=== PATIENT | female | born 1940 | race Caucasian/White ===

== ENCOUNTER → 2020-10-14 12:37 | Outpatient (BNVA) | payer MEDICARE, MEDICAID, SELFPAY | PROVIDERS: Visit Provider Internal Medicine Cardiovascular Disease | DX: Z45.018 Encounter for adjustment and management of other part of cardiac pacemaker (principal); R00.2 Palpitations; I49.3 Ventricular premature depolarization; I44.7 Left bundle-branch block, unspecified; I95.1 Orthostatic hypotension | CPT/HCPCS: 99212 ==

== ENCOUNTER → 2020-11-12 13:38 | Outpatient (REF) | payer MEDICARE, MEDICAID, SELFPAY ==
--- NOTE | 2020-11-12 13:41 | CA_ITS ---
Transthoracic Echocardiogram Patient (Last, First, Middle): Kirsty Pradhan, Gender: Female Date of : 1940 Age: 80 Procedure Date: 11/12/2020 Procedure Type: Transthoracic Echocardiogram Location: OP Height: 154.94 cm Weight: 81.65 kg BSA: 1.81 m2 Heart Rate: bpm BP: 130 / 90 mmHg Sensor Specialist: ENRIQUE Referring MD: Juan F Loya MD [employer] Coach: Juan F Loya MD Symptoms: I49.3 - Ventricular premature depolarization Study Quality: Good ECG Rhythm: Sinus Conclusions: - 1. Low normal LV systolic function with impaired relaxation filling pattern 2. Mildly dilated left atrium 3. Normal cardiac valvular Doppler 4. Mildly elevated right ventricular systolic pressure 5. No pericardial effusion Findings Left Ventricle Normal left ventricular cavity size. There is normal left ventricular wall thickness. The left ventricular systolic function is low normal. The visually estimated ejection fraction is between 50-55%. There is paradoxical septal motion consistent with a left bundle branch block. Spectral Doppler is indicative of an impaired relaxation filling pattern. E/E prime ratio is between 8 and 15 consistent with indeterminate filling pressures. Right Ventricle Normal right ventricular cavity size and systolic function. There is a pacemaker wire seen in the right ventricle. Atria The left atrium is mildly dilated. The right atrium is normal in size. Aortic Valve There is mild calcification of the aortic valve. There is mild thickening of the aortic valve. There is no aortic valve stenosis. There is no aortic valve regurgitation. Mitral Valve Normal mitral valve structure and function. There is mild mitral annular calcification. There is trace mitral valve regurgitation. There is no mitral valve stenosis. Pulmonic Valve The pulmonic valve is likely normal. Tricuspid Valve Normal tricuspid valve structure. There is mild tricuspid valve regurgitation. Normal right atrial pressure. Mild pulmonary hypertension is present. Great Vessels All visible segments of the aorta are normal in size. The pulmonary artery was not well visualized. Venous The inferior vena cava is normal in size and collapses greater than 50% with inspiration. Pericardium/Pleural There is no evidence of pericardial effusion. Prior Study Comparison Changes noted compared to prior study dated: 05/15/2019. RV systolic pressure is mildly elevated Measurements 2D Linear Measurements IVSd: 1.08 0.6-0.9/0.6-1.0 cm LVIDd: 4.05 3.9-5.3/4.2-5.9 cm LVIDd Index: 2.24 2.4-3.2/2.2-3.1 cm/m2 LVIDs: 2.66 2.0-3.6 cm LVPWd: 1.10 0.7-1.1 cm Ao Root: 3.20 2.1-3.5 cm LA Diam: 3.50 2.7-3.8/3.0-4.0 cm LAIDs Index: 1.93 1.5-2.3 cm/m2 LV Mass: 182.39 67-162/88-224 g LV Mass Index: 100.77 43-95/49-115 g/m2 LVOT Diam: 2.00 3.0+(-)1.3 cm 2D Systolic Function EF 4C: 55.70 >55% EF 2C: 53.40 >55% EF BiP: 54.60 >55% Mitral Valve MV Pk E: 0.62 MV PK A: 0.89 MV Decel Time: 306.00 E/A: 0.70 E'Lateral: 7.40 E'Medial: 3.15 E/E' Med: 19.80 E/E' Lat: 8.40 PHT: 90.00 MVA PHT: 2.44 Decel Lag[place]: 2.04 Aortic Valve AoV Pk Alonso: 1.52 AoV Mn Alonso: 0.97 AoV VTI: 0.32 AoV Pk Grad: 9.00 Aov Mn Grad: 4.00 JHON Cont.VTI: 2.09 LVOT LVOT Pk Alonso: 1.03 LVOT Mn Alonso: 0.69 LVOT VTI: 0.22 LVOT Pk Grad: 4.00 LVOT Mn Grad: 2.00 LVOT Diam: 2.00 LVOT Area: 3.14 Diastolic Function MV Pk E: 0.62 MV Pk A: 0.89 E/A: 0.70 E'Medial: 3.15 E/E' Med: 19.80 E' Laterial: 7.40 E/E' Lat: 8.40 Tricuspid Valve TR Pk Alonso: 3.19 TR Pk Grad: 41.00 RA Press: 3.00 RVSP: 44.00 Great Vessels Aorta Ao Root-2D: 3.20 2.0-3.7 cm Ao Asc: 3.20 2.1-3.4 cm Ao Arch: 2.80 Updated in Other Vendor System with Status of Final Juan F Loya MD electronically signed on 11/13/2020 1:03:31 PM with status of Final
== END ==
LOC: HO.CARD 13:38
PROVIDERS: PCP Internal Medicine; Visit Provider Internal Medicine Cardiovascular Disease
DX: I10 Essential (primary) hypertension (principal); I44.7 Left bundle-branch block, unspecified; I49.3 Ventricular premature depolarization
CPT/HCPCS: 93306

== ENCOUNTER 2021-01-26 12:53 | Outpatient (REF) | payer MEDICARE, MEDICAID, SELFPAY ==
--- NOTE | ~2021-01-26 | MM_ITS ---
EXAMINATION: MM SCREENING DIGITAL BREAST TOMOSYNTHESIS, BILATERAL CLINICAL INFORMATION: Screening. Asymptomatic. The lifetime risk of breast cancer based on the Tyrer-Cuzick Model is 1%. COMPARISON: Mammography: 08/17/2019, 06/02/2018, 03/07/2017 TECHNIQUE: Digital breast tomosynthesis is performed in both the craniocaudal and mediolateral oblique views along with computer-aided detection (CAD). Synthesized 2D images are generated from the tomosynthesis. Additional left CC view is provided. FINDINGS: There are scattered areas of fibroglandular density (ACR BI-RADS breast composition Category b). There are no significant masses, abnormal calcifications, or other abnormalities. Parenchymal pattern is similar to prior studies. No developing density. Pacemaker generator overlies and partly obscures posterior upper left axilla on MLO view. MM/MM tomosynthesis screening BI IMPRESSION: No mammographic evidence of malignancy. ASSESSMENT: BI-RADS 1: Negative RECOMMENDATION: Routine annual mammography screening. This patient's information was entered into a reminder system with a target due date for their next mammogram.
== END 2021-01-26 12:54 | disposition home or self-care (01) ==
LOC: HO.MAMMO 12:53
PROVIDERS: Visit Provider Internal Medicine
DX: Z12.31 Encounter for screening mammogram for malignant neoplasm of breast (principal)
CPT/HCPCS: 77063; 77067

== ENCOUNTER → 2021-04-07 12:57 | Outpatient (BNVA) | payer MEDICARE, MEDICAID, SELFPAY | PROVIDERS: PCP Internal Medicine; Referring Provider Internal Medicine; Visit Provider Internal Medicine Cardiovascular Disease | DX: Z45.018 Encounter for adjustment and management of other part of cardiac pacemaker (principal); I95.1 Orthostatic hypotension; I49.3 Ventricular premature depolarization | CPT/HCPCS: 99212 ==

== ENCOUNTER 2021-04-21 06:30 | Outpatient (REF) | payer MEDICARE, MEDICAID, SELFPAY ==
[2021-04-21 07:26] LABS: MANUAL DIFF FLAG NO
[2021-04-21 07:39] LABS: Basophils Percent Auto 0.3 % (0-2); Eosinophils Absolute Auto 0.1 X10*3/uL (0.0-0.4); Eosinophils Percent Auto 1.1 % (0-4); Hematocrit 41.4 % (37-47); Hemoglobin 13.5 g/dl (12.0-16.0); Imm Gran Abs Auto 0.04 X10*3/uL (0.00-0.03); Imm Gran Pct Auto 0.6 % (0.0-0.4); Lymphocytes Absolute Auto 2.1 X10*3/uL (1.2-4.9); Lymphocytes Percent Auto 31.8 % (20-40); Mean Corpuscular HGB Conc 32.6 g/dl (31.0-35.0); Mean Corpuscular Hemoglobin 30.5 pg (27.0-33.0); Mean Corpuscular Volume 93.7 fL (80-98); Mean Platelet Volume 10.4 fL (9.4-12.3); Monocytes Absolute Auto 0.5 X10*3/uL (0.1-1.2); Monocytes Percent Auto 7.2 % (2-11); Neutrophils Absolute Auto 3.8 X10*3/uL (2.0-8.3); Platelet Count 234 X10*3/uL (160-400); Red Blood Count 4.42 X10*6/uL (4.20-5.50); Red Cell Distribution Width 14.3 % (11.0-16.0); White Blood Count 6.5 X10*3/uL (4.8-10.8)
[2021-04-21 07:56] LABS: B Type Natriuretic Peptide 118 pg/mL (<100)
[2021-04-21 07:59] LABS: Alanine Aminotransferase 18 U/L (0-31); Albumin Level 4.1 g/dL (3.5-5.0); Alkaline Phosphatase 160 U/L (39-117); Anion Gap 11 (12-20); Aspartate Amino Transferase 30 U/L (5-31); Bilirubin Total 0.9 mg/dL (0.0-1.0); Blood Urea Nitrogen 19 mg/dL (9-16); Calcium 9.4 mg/dL (8.4-10.2); Carbon Dioxide 29 mmol/L (22-29); Chloride 108 mmol/L (96-108); Cholesterol 145 mg/dL; Estimated Glomerular Filt Rate > 60; Glucose Random 98 mg/dL (60-115); HDL Cholesterol 56 mg/dL; LDL Cholesterol Calculated 76 mg/dl; Potassium 4.6 mmol/L (3.3-5.1); Sodium 143 mmol/L (135-145); Total Protein 7.2 g/dL (6.5-8.0); Triglycerides 69 mg/dL
[2021-04-21 08:13] LABS: Free T4 (Free Thyroxine) 1.07 ng/dL (0.71-1.85); Thyroid Stimulating Hormone 3.38 uIU/mL (0.32-4.0)
[2021-04-21 08:33] LABS: Folate > 20.0 ng/mL (> or = 4.0); Vitamin B12 423 pg/mL (200-900)
[2021-04-21 08:53] LABS: Glucose Urine UA NEG (NEG); Leukocyte Esterase Urine TRACE (NEG); Nitrite Urine NEG (NEG); PH 5.5 (5.0-8.0); UACC Culture Trigger YES; Urine Blood NEG (NEG); Urine Ketones NEG (NEG); Urine Protein NEG (NEG-TRACE)
[2021-04-21 08:59] LABS: Appearance Urine CLEAR; Color Urine YELLOW
[2021-04-21 09:19] LABS: RBC Urine 0 /HPF (0); Squamous Epithelial Cell Urine TRACE /LPF; WBC Urine 0-2 /HPF (0-4)
== END 2021-04-21 06:31 | disposition home or self-care (01) ==
LOC: HO.LAB 06:30
PROVIDERS: Absent Provider Internal Medicine; PCP Internal Medicine; Visit Provider Internal Medicine
DX: I25.10 Atherosclerotic heart disease of native coronary artery without angina pectoris (principal); K21.9 Gastro-esophageal reflux disease without esophagitis; E78.00 Pure hypercholesterolemia, unspecified; R30.0 Dysuria
CPT/HCPCS: 36415; 80053; 80061; 81001; 81003; 82306; 82607; 82746; 83880; 84439; 84443; 85025; 87086

== ENCOUNTER 2021-06-03 12:13 | Outpatient (REF) | payer MEDICARE, MEDICAID, SELFPAY ==
[2021-06-03 13:34] LABS: Gamma Glutamyl Transpeptidase 25 U/L (7-33)
[2021-06-08 08:22] LABS: 5' Nucleotidase 3 U/L (0-10)
== END 2021-06-03 12:14 | disposition home or self-care (01) ==
LOC: HO.LAB 12:13
PROVIDERS: PCP Internal Medicine; Visit Provider Internal Medicine
DX: R74.8 Abnormal levels of other serum enzymes (principal)
CPT/HCPCS: 36415; 82977; 83915

== ENCOUNTER 2021-06-24 13:48 | Outpatient (REF) | payer MEDICARE, MEDICAID, SELFPAY ==
[2021-06-24 14:55] LABS: Influenza A PCR NEGATIVE (Negative); Influenza B PCR NEGATIVE (Negative); Resp Syncy Virus RNA Qual PCR NEGATIVE (Negative); SARS COV2 PCR INHOUSE POSITIVE (Negative)
== END 2021-06-24 13:49 | disposition home or self-care (01) ==
LOC: HO.LNP 13:48
PROVIDERS: Visit Provider Internal Medicine
DX: R43.9 Unspecified disturbances of smell and taste (principal); Z20.822 Contact with and (suspected) exposure to COVID-19
CPT/HCPCS: 0241U

== ENCOUNTER 2021-07-24 10:29 | Day surgery (SDC) | payer MEDICARE, MEDICAID, SELFPAY ==
[2021-07-17 11:05] VITALS: BMI 34.2
--- NOTE | 2021-07-23 10:43 | P.CONAN_ITS ---
Documented by User: Kiley Braswell NP 07/23/21 10:46 HPI - Anesthesia Eval Consult details Narrative: 81yo F for Dual Chamber Pacemaker Generator Change PMFSH Active Problems Active Problems: All Active Problems (Updated 07/02/21 @ 12:59 by Valorie Spivey PA-C) COVID-19 virus infection (Acute ~05/2021) Upper respiratory tract infection (Acute) Coronary artery disease (Acute) Cardiac pacemaker in situ (Acute ~2012) Left bundle branch block (Acute) History of sick sinus syndrome (Acute ~2012) Orthostatic hypotension dysautonomic syndrome (Acute) PVCs (premature ventricular contractions) (Acute) HTN (hypertension) (Acute) Hypercholesterolemia (Acute) GERD (gastroesophageal reflux disease) (Acute) Osteoporosis (Acute) Obesity (BMI 30-39.9) (Acute) Alkaline phosphatase elevation (Acute) Urge incontinence (Acute) Skin lesion (Acute) Past Medical History Medical History Anxiety Cardiac pacemaker in situ (~2012) Coronary artery disease Diverticular disease GERD (gastroesophageal reflux disease) History of cardiomyopathy History of sick sinus syndrome (~2012) HTN (hypertension) Hypercholesterolemia Lactose intolerance Left bundle branch block Obesity (BMI 30-39.9) Orthostatic hypotension dysautonomic syndrome Osteoporosis PVCs (premature ventricular contractions) Renal calculi TIA (transient ischemic attack) Urge incontinence Family History Family History Father No problems noted. Mother No problems noted. Brother Myocardial infarction Surgical History Surgical History History of cataract surgery History of esophagogastroduodenoscopy (EGD) History of permanent cardiac pacemaker placement History of removal of skin mole History of vaginal hysterectomy Hx of appendectomy Hx of basal cell carcinoma excision Hx of colonoscopy Hx of lumpectomy S/P right knee arthroscopy Social History Social History Housing: Apartment Alcohol intake: never Patient Tobacco Use Status: Former Tobacco user Quit Date: >40yrs ago Tobacco use type: Cigarette e-Cigarette/Vaping Use: Never Used Second Hand Smoke Exposure: No Use of substances other than those prescribed or required for medical reasons: No Are you DNR?: No Advance Directives: No Advance Directives Information Provided: Yes service: No Current occupational status: retired Meds Allergies Allergy/AdvReac Type Severity Reaction Status Date / Time oxycodone [From PERCODAN] Allergy Unknown UNKNOWN Verified 07/24/21 11:04 cheese AdvReac Diarrhea Verified 07/24/21 11:05 iv contrast Allergy Unknown hives Uncoded 06/24/21 11:31 From PERCOCET AdvReac Intermediate HEADACHE/RINGING Uncoded 06/24/21 11:31 IN EARS Home Medications Medication Instructions Recorded Confirmed Last Taken Type aspirin 81 mg tablet,delayed 81 mg PO DAILY 10/14/20 06/24/21 Unknown History release (Adult Aspirin Regimen) ascorbic acid (vitamin C) 1,000 mg 1,000 mg PO DAILY 07/24/21 07/24/21 Unknown History tablet (Vitamin C) calcium 500 mg tablet 500 mg PO DAILY 07/24/21 07/24/21 Unknown History multivitamin 1 tab PO DAILY 07/24/21 07/24/21 Unknown History Exam Exam Date and Time: July 23, 2021 1043 Height,Weight and Vital Signs: Height 5 ft 1 in Weight 82.1 kg Pertinent Lab Results Pertinent Lab Results: Laboratory Tests 04/21/21 04/21/21 07:00 07:00 WBC 6.5 Hgb 13.5 Hct 41.4 Plt Count 234 Sodium 143 Potassium 4.6 Chloride 108 Carbon Dioxide 29 BUN 19 H Creatinine 0.86 Narrative Narrative: Pacer Interr 03/2021 Dual-chamber [place] pacemaker in place.? Programmed in DDDR at 60 beats per minute.? Atrial pacing 85% of the time.? Recorded high atrial rates are consistent with artifact.? There were PVCs noted during monitoring.? Atrial and ventricular pacing thresholds are adequate and in our capture mode.? Atrial ventricular sensing is adequate.? Pacing lead impedance is stable.? Battery life is low, less than 3 months to [facility] E[facility] 10/2020 Conclusions: - 1. Low normal LV systolic function with impaired relaxation? ? filling pattern? 2. Mildly dilated left atrium? 3. Normal cardiac valvular Doppler ? 4. Mildly elevated right ventricular systolic pressure ? 5. No pericardial effusion ? ? ? Assessment and Plan Assessment Anesthesia Assessment: Chart Reviewed Documented by User: Rubi Wen MD 07/24/21 11:57 [facility] Past Medical History Medical History Anxiety Cardiac pacemaker in situ (~2012) Coronary artery disease Diverticular disease GERD (gastroesophageal reflux disease) History of cardiomyopathy History of sick sinus syndrome (~2012) HTN (hypertension) Hypercholesterolemia Lactose intolerance Left bundle branch block Obesity (BMI 30-39.9) Orthostatic hypotension dysautonomic syndrome Osteoporosis PVCs (premature ventricular contractions) Renal calculi TIA (transient ischemic attack) Urge incontinence Family History Family History Father No problems noted. Mother No problems noted. Brother Myocardial infarction Family history of problems with anesthesia: No Surgical History Surgical History History of cataract surgery History of esophagogastroduodenoscopy (EGD) History of permanent cardiac pacemaker placement History of removal of skin mole History of vaginal hysterectomy Hx of appendectomy Hx of basal cell carcinoma excision Hx of colonoscopy Hx of lumpectomy S/P right knee arthroscopy History of Problems with Anesthesia: No Social History Social History Housing: Apartment Alcohol intake: never Patient Tobacco Use Status: Former Tobacco user Quit Date: >40yrs ago Tobacco use type: Cigarette e-Cigarette/Vaping Use: Never Used Second Hand Smoke Exposure: No Use of substances other than those prescribed or required for medical reasons: No Are you DNR?: No Advance Directives: No Advance Directives Information Provided: Yes service: No Current occupational status: retired Meds Allergies Allergy/AdvReac Type Severity Reaction Status Date / Time oxycodone [From PERCODAN] Allergy Unknown UNKNOWN Verified 07/24/21 11:04 cheese AdvReac Diarrhea Verified 07/24/21 11:05 iv contrast Allergy Unknown hives Uncoded 06/24/21 11:31 From PERCOCET AdvReac Intermediate HEADACHE/RINGING Uncoded 06/24/21 11:31 IN EARS Home Medications Medication Instructions Recorded Confirmed Last Taken Type aspirin 81 mg tablet,delayed 81 mg PO DAILY 10/14/20 06/24/21 Unknown History release (Adult Aspirin Regimen) ascorbic acid (vitamin C) 1,000 mg 1,000 mg PO DAILY 07/24/21 07/24/21 Unknown History tablet (Vitamin C) calcium 500 mg tablet 500 mg PO DAILY 07/24/21 07/24/21 Unknown History multivitamin 1 tab PO DAILY 07/24/21 07/24/21 Unknown History Exam Airway Mallampati Class: II TM Dist: >3cm Neck ROM: Full Heart: rrr Lungs: cta Assessment and Plan Assessment Anesthesia Assessment: Anesthesia Plan Discussed and Chart Reviewed Final Anesthetic Review Family History of Problems with Anesthesia: No History of Problems with Anesthesia: No NPO: Yes ASA Class: III Final Preanesthetic Review: No Changes in Pt Med Stat, Meds/Allgs Chart Reviewed and Consent Obtained/Reviewed Patient Risk: Intermediate Procedure Risk: Intermediate Anesthetic Plan Anesthetic Plan: MAC: Disposition: Standard PACU
[2021-07-24] VITALS (7 sets, daily range): BP systolic 112–192; BP diastolic 73–87; PULSE 55–61; RESP 16; TEMP 36.3–36.7; O2SAT 96–98; BMI 34.0
[2021-07-24] MEDS: Lactated Ringers 1,000 ML 20 ML IVCONT (11:52)
--- NOTE | 2021-07-24 12:00 | MHC.SHP ---
Pre-Procedural Eval Section A Date of Service: 07/24/21 The patient is an INPATIENT: No Section B Chief Complaint: end of life battery Allergies: Allergies Allergy/AdvReac Type Severity Reaction Status Date / Time oxycodone [From PERCODAN] Allergy Unknown UNKNOWN Verified 07/24/21 11:04 cheese AdvReac Diarrhea Verified 07/24/21 11:05 iv contrast Allergy Unknown hives Uncoded 06/24/21 11:31 From PERCOCET AdvReac Intermediate HEADACHE/RINGING Uncoded 06/24/21 11:31 IN EARS Plan I have reviewed the history and physical and performed a pertinent physical examination on my patient. No changes have occurred unless specified.
--- NOTE | 2021-07-24 12:58 | W.PM.OPN ---
Operative Note Operative Note Date of Service: 07/24/21 Narrative: Preoperative diagnosis: Pacemaker end of life Postoperative diagnosis: Same Operation: Dual-chamber pacemaker generator change Surgeon: Lora Plunkett MD Anesthesia: Local with sedation Specimens: None EBL: Minimal Operative findings: The generator were removed was a [employer] with serial number [id number]. Pacemaker lead parameters were in the atrial lead threshold 1.25 volts at 0.5 milliseconds, impedance 390 Ohms, P-wave 4.8 mV. In the ventricular lead 1.25 volts at 0.5 milliseconds, impedance 380 Ohms, R-wave 6.1 mV. Patient tolerated the procedure well. Operation in detail: The patient was brought the operating room, placed supine on the operative table, anesthesia monitoring devices were placed, and the patient was gently sedated. The left infraclavicular area was then prepped and draped in a standard sterile fashion and a time-out was performed confirming the correct patient, site, and procedure. After injection of local anesthetic, a 3 cm incision was made directly over the old pacemaker generator which was palpable. This was carried down with combination of sharp dissection and minimal electrocautery to open up the capsule at the generator was within. The generator was were then removed from its pocket and the leads were taken out of the receptacles and placed directly into the new generator. These leads were then tested and were working appropriately. The pocket was then copiously irrigated with antibiotic solution and the excess wire and generator were then placed back into the pocket. The wound was then closed with a deep running 3-0 Vicryl suture followed by running 3-0 Vicryl suture and Dermabond glue on the skin. Patient tolerated the procedure well. Patient was then awoken from anesthesia and brought to the recovery room in stable condition.
== END 2021-07-24 14:53 | disposition home or self-care (01) ==
PROVIDERS: PCP Internal Medicine; Visit Provider Surgery
PROC: (CPT 33228; principal; 2021-07-24 12:00)
DX: Z45.010 Encounter for checking and testing of cardiac pacemaker pulse generator [battery] (principal); I49.5 Sick sinus syndrome; I49.3 Ventricular premature depolarization; I95.1 Orthostatic hypotension; I10 Essential (primary) hypertension; Z86.73 Personal history of transient ischemic attack (TIA), and cerebral infarction without residual deficits; Z79.82 Long term (current) use of aspirin; Z79.899 Other long term (current) drug therapy; Z91.041 Radiographic dye allergy status; Z88.8 Allergy status to other drugs, medicaments and biological substances
CPT/HCPCS: 33228; C1785; J0690; J2250; J3010; J3370

== ENCOUNTER → 2021-07-30 12:43 | Outpatient (BNVA) | payer MEDICARE, MEDICAID, SELFPAY | PROVIDERS: PCP Internal Medicine; Referring Provider Internal Medicine; Visit Provider Internal Medicine Cardiovascular Disease | DX: Z45.018 Encounter for adjustment and management of other part of cardiac pacemaker (principal); I95.1 Orthostatic hypotension; I49.9 Cardiac arrhythmia, unspecified | CPT/HCPCS: 99212 ==

== ENCOUNTER → 2021-07-31 10:27 | Outpatient (BNVA) | payer MEDICARE, MEDICAID, SELFPAY | PROVIDERS: PCP Internal Medicine; Visit Provider Surgery | DX: T81.89XD Other complications of procedures, not elsewhere classified, subsequent encounter (principal); Z95.0 Presence of cardiac pacemaker | CPT/HCPCS: 99212 ==

== ENCOUNTER → 2021-08-31 12:57 | Outpatient (BNVA) | payer MEDICARE, MEDICAID, SELFPAY | PROVIDERS: PCP Internal Medicine; Referring Provider Internal Medicine; Visit Provider Internal Medicine Cardiovascular Disease ==

== ENCOUNTER 2021-11-10 11:43 | Outpatient (REF) | payer MEDICARE, MEDICAID, SELFPAY ==
[2021-11-10 11:56] LABS: Appearance Urine CLEAR; Color Urine YELLOW; Glucose Urine UA NEG (NEG); Leukocyte Esterase Urine TRACE (NEG); Nitrite Urine NEG (NEG); PH 5.5 (5.0-8.0); Specific Gravity - Urine 1.025 (1.005-1.025); UACC Culture Trigger YES; Urine Blood NEG (NEG); Urine Ketones NEG (NEG); Urine Protein NEG (NEG-TRACE)
[2021-11-10 12:16] LABS: Bacteria Urine TRACE /LPF; Mucus Urine TRACE /LPF; RBC Urine 0-2 /HPF (0); Squamous Epithelial Cell Urine TRACE /LPF
== END 2021-11-10 11:44 | disposition home or self-care (01) ==
LOC: HO.LNP 11:43
PROVIDERS: Visit Provider Internal Medicine
DX: R10.32 Left lower quadrant pain (principal)
CPT/HCPCS: 81001; 87086

== ENCOUNTER 2021-11-29 10:48 | Emergency (ER) | payer MEDICARE, MEDICAID, SELFPAY ==
--- NOTE | ~2021-11-29 | CT_ITS ---
EXAMINATION: CT HEAD WITHOUT CONTRAST CLINICAL INFORMATION: Dizziness and headache. COMPARISON: Most recent CT head dated 01/31/2020. TECHNIQUE: Contiguous axial imaging was performed from the skull base to vertex without intravenous administration of contrast. This CT examination was performed using dose optimization techniques as appropriate, variously including the following: *Automated exposure control *Adjustment of mA and/or kV according to patient size (this includes techniques or standardized protocols for targeted exams where dose is matched to indication/reason for exam; i.e. extremities or head) *Use of iterative reconstruction technique DLP: 614 mGy-cm FINDINGS: There is no evidence of acute intracranial hemorrhage or territorial infarction. No abnormal mass effect or midline shift is seen. Casey to white matter differentiation is well preserved. No extra-axial fluid collections are identified. The ventricles are normal in size. There is no abnormal attenuation within the brain parenchyma. The osseous structures and soft tissues are normal. The mastoid air cells and visualized portions of the paranasal sinuses are well aerated. CT/CT head/brain wo con IMPRESSION: No acute intracranial pathology.
[2021-11-29 10:54] VITALS: BP 178/65; PULSE 63; RESP 16; TEMP 36.8; O2SAT 96; BMI 35.0
--- NOTE | 2021-11-29 10:59 | PC.NURSE ---
Pt received: Pt AOX4 and offers complaints to TORRES, nose and throat. Pt states everything feels clogged. No swelling noted to back of throat. Heart sounds normal and lungs clear. Pt abd soft and non-tender.
--- NOTE | 2021-11-29 11:17 | ED_ITS ---
HPI - General Adult General Chief complaint: General Medical Stated complaint: dizzy sore throat blocked ears Time Seen by Provider: 11/29/21 11:00 Source: patient Mode of arrival: ambulatory Limitations: no limitations History of Present Illness HPI narrative: 81-year-old female with a history of coronary artery disease, pacemaker, hypertension, high cholesterol, GERD here with reports of 1.5 months of head pressure, ear fullness bilaterally, sinus congestion and pressure, sore throat. Patient tells me she had a urinary tract infection on October 31 and did a 5 day course of Bactrim. She tells me her symptoms above improved while taking the Bactrim but once she stopped the Bactrim the symptoms returned. She is not using any nasal sprays or allergy medication. She denies any cough, shortness of breath, chest pain, neck pain. Patient does report some dizziness with head movement from side to side. No vomiting, diarrhea, abdominal pain. Related Data Home Medications Medication Instructions Recorded Confirmed aspirin 81 mg tablet,delayed 81 mg PO DAILY 10/14/20 10/06/21 release (Adult Aspirin Regimen) ascorbic acid (vitamin C) 1,000 mg 1,000 mg PO DAILY 07/24/21 10/06/21 tablet (Vitamin C) calcium 500 mg tablet 500 mg PO DAILY 07/24/21 10/06/21 multivitamin 1 tab PO DAILY 07/24/21 10/06/21 Previous Rx's Medication Instructions Recorded metoprolol succinate 100 mg 100 mg PO DAILY #90 tab 01/08/21 tablet,extended release 24 hr omeprazole 20 mg capsule,delayed 20 mg PO DAILY #90 cap 02/09/21 release isosorbide mononitrate 30 mg 30 mg PO QAM #90 tab 07/13/21 tablet,extended release 24 hr atorvastatin 20 mg tablet 20 mg PO DAILY #90 tab 08/06/21 nitroglycerin 0.4 mg sublingual 0.4 mg SUBLINGUAL Q5M PRN #25 tab 08/06/21 tablet (Nitrostat) oxybutynin chloride 10 mg 10 mg PO DAILY 90 Days #90 tab 10/06/21 tablet,extended release 24 hr cyclosporine 0.05 % eye drops in a 1 drp OPHTHALMIC (EYE) BID #180 ea 10/21/21 dropperette (Restasis) sulfamethoxazole 800 1 tab PO BID 5 Days #10 tab 11/10/21 mg-trimethoprim 160 mg tablet (Bactrim DS) hydralazine 50 mg tablet 50 mg PO BID #180 tab 11/26/21 amoxicillin 875 mg-potassium 1 tab PO BID #14 tab 11/29/21 clavulanate 125 mg tablet cetirizine 10 mg tablet 10 mg PO DAILY #30 tab 11/29/21 triamcinolone acetonide 55 mcg 2 spray INTRANASAL DAILY #16.9 ml 11/29/21 nasal spray aerosol (Nasacort Allergy) Allergies Allergy/AdvReac Type Severity Reaction Status Date / Time oxycodone [From PERCODAN] Allergy Unknown UNKNOWN Verified 10/06/21 12:23 cheese AdvReac Diarrhea Verified 10/06/21 12:23 iv contrast Allergy Unknown hives Uncoded 06/24/21 11:31 From PERCOCET AdvReac Intermediate HEADACHE/RINGING Uncoded 06/24/21 11:31 IN EARS Review of Systems Review of Systems: Yes all other systems are reviewed and are negative Constitutional: Constitutional: Reports no additional constitutional co mplaints, Denies body ache(s), Denies chills, Denies fever(s), Reports headache(s) and Denies weakness Eyes: Eyes: Reports no additional eye complaints and Denies change in vision ENT: Reports system reviewed and no additional complaints, except as documented, Reports dizziness, Reports headache(s), Reports nasal congestion, Denies nasal discharge, Denies neck pain, Reports sinus pain, Reports sinus pressure and Reports sore throat Cardiovascular: Cardiovascular: Reports no additional cardiovascular complaints, Denies chest pain, Denies leg edema and Denies dyspnea Respiratory: Respiratory: Reports no additional respiratory complaints, Denies cough and Denies dyspnea Gastrointestinal: Gastrointestinal: Reports no additional gastrointestinal com plaints, Denies abdominal pain, Denies diarrhea, Denies nausea and Denies vomiting Genitourinary: Genitourinary: Reports no additional female genitourinary complaints and Denies urinary incontinence Musculoskeletal: Musculoskeletal: Reports no additional musculoskeletal complaints, Denies back pain, Denies arthralgias, Denies joint swelling, Denies neck pain, Denies numbness and Denies tingling Integumentary/Breasts: Skin/Breast: Reports system reviewed and no additional complaints, except as docu and Denies rash Neurologic: Reports system reviewed and no additional complaints, except as documented, Reports dizziness, Reports headache(s), Denies numbness, Denies tingling and Denies weakness FOR[facility]LY [facility] Past Medical History Attestation statement: The following information was validated with the patient. Source: old records reviewed and nursing notes reviewed Medical History Anxiety Cardiac pacemaker in situ (~2012) Coronary artery disease Diverticular disease GERD (gastroesophageal reflux disease) History of cardiomyopathy History of COVID-19 (~05/2021) History of sick sinus syndrome (~2012) HTN (hypertension) Hypercholesterolemia Lactose intolerance Left bundle branch block Obesity (BMI 30-39.9) Orthostatic hypotension dysautonomic syndrome Osteoporosis PVCs (premature ventricular contractions) Renal calculi TIA (transient ischemic attack) Urge incontinence Surgical History History of cataract surgery History of esophagogastroduodenoscopy (EGD) History of permanent cardiac pacemaker placement History of removal of skin mole History of vaginal hysterectomy Hx of appendectomy Hx of basal cell carcinoma excision Hx of colonoscopy Hx of lumpectomy S/P right knee arthroscopy Family History Family History Father No problems noted. Mother No problems noted. Brother Myocardial infarction Social History Social History Housing: Apartment Alcohol intake: never Patient Tobacco Use Status: Former Tobacco user Quit Date: >40yrs ago Tobacco use type: Cigarette e-Cigarette/Vaping Use: Never Used Second Hand Smoke Exposure: No Advance Directives: No Advance Directives Information Provided: No service: No Current occupational status: retired Physical Exam ED Vital Signs: Vital Signs - 24 hr 11/29/21 10:54 Temperature 98.3 F Pulse Rate 63 Respiratory Rate 16 Blood Pressure 178/65 H Pulse Oximetry 96 BMI result Body Mass Index 35.0 Const General: cooperative, healthy appearing, comfortable and no acute distress Orientation/consciousness: patient oriented x3 Limitations: no limitations HENMT Head: Yes normal to inspection Ears: hearing grossly normal bilaterally and TM abnormal (bilateral) bulging and wth effusion; Negative for not erythematous General nose exam: Normal external nose present and Abnormal mucous membranes and turbinates present erythematous Face and sinus: Yes normal facial exam and Yes sinus tenderness (frontal/maxillary ttp) Mouth: Normal oral and palatal mucosa present Teeth and gingiva: dentition normal Throat: Yes posterior oropharynx normal, Yes tonsils normal and Yes uvula midline Eyes General: appearance normal, both eyes and all related structures Pupils: Equal, round and reactive pupils present Neck Neck: Yes normal visual inspection, Yes full ROM, Yes no lymphadenopathy and Yes no meningeal signs Chest Chest palpation & inspection: normal inspection of the chest Resp Effort & Inspection: normal respiratory effort Auscultation: clear to auscultation bilaterally Cardio Rate: regular rate Rhythm: regular rhythm Peripheral pulses: Peripheral pulses 2+ throughout GI Inspection: Yes normal to inspection Palpation (GI): Soft to palpation and nontender General: Yes no CVA tenderness Back/Spine/Pelvis Back: no CVA tenderness Thoracic/Lumbar Spine: thoracic and lumbar spine normal to inspection Skin General skin exam: no rashes or lesions noted Neuro General: patient oriented x3, moves all extremities and no meningeal signs Cranial nerves: Yes CN's II-XII intact bilaterally, Yes Equal, round and reactive pupils present, Yes Bilaterally intact EOM present, Yes Nystagmus not present, Yes Normal facial strength present and Yes Midline tongue present Cognition (Neuro): normal cognition Gait exam (Neuro): Normal gait present Motor exam (neuro): 5/5 motor strength present throughout Sensory Exam: Normal double simultaneous stimulation for sensation Coordination: [id number] test normal, [id number] test normal and tandem gait normal Extrem General: Yes normal to inspection, Yes no pedal edema and Yes no calf tenderness Course Course Course Narrative: 81 yo female here with complaints of 1.5 months of head pressure, ear fullness bilaterally, sinus pressure and pain, scratchy throat, dizziness with head movement. Normal neuro exam. No focal neurological exam. Normal cerebellar function. Vitals are stable Patient has bilateral TM is fusion with bulging, sinus tenderness to palpate. Likely sinusitis versus allergic rhinitis Will check CT head due to age 1230-CT head shows no acute intracranial hemorrhage. Exam is consistent with sinusitis. Will treat with course of antibiotics, daily allergy medication and nasal spray. Reviewed worrisome signs and symptoms of when to return to the emergency department. Comfortable discharge home. Medical Decision Making MDM Narrative Medical decision making narrative: Sinusitis, allergic rhinitis, Medical Records Medical records reviewed: Yes I reviewed the patient's medical records. Lab Data Lab results reviewed: Yes I reviewed the patient's lab results. Imaging Data CT scan - head: Attestation: I personally reviewed and interpreted this imaging study as follows: Radiologist's impression: FINDINGS: There is no evidence of acute intracranial hemorrhage or territorial infarction. No abnormal mass effect or midline shift is seen. Casey to white matter differentiation is well preserved. No extra-axial fluid collections are identified. The ventricles are normal in size. There is no abnormal attenuation within the brain parenchyma. The osseous structures and soft tissues are normal. The mastoid air cells and visualized portions of the paranasal sinuses are well aerated. ? CT/CT head/brain wo con IMPRESSION: No acute intracranial pathology. Discharge Plan Discharge Clinical Impression: Sinusitis Patient Disposition: Home, Self-Care Instructions: Sinusitis (ED) Additional Instructions: Follow-up with your PCP in 7 days for re-evaluation Return for severe headache, loss of balance, vomiting, vision changes Consider humidifier for the bedroom, warm moist air is best Prescriptions: New amoxicillin-pot clavulanate 875-125 mg tablet 1 tab PO BID Qty: 14 0RF triamcinolone acetonide [Nasacort Allergy] 55 mcg aerosol,spray 2 spray intranasal DAILY Qty: 16.9 0RF Rx Instructions: administer into each nostril cetirizine 10 mg tablet 10 mg PO DAILY Qty: 30 0RF No Action metoprolol succinate 100 mg tablet extended release 24 hr 100 mg PO DAILY Qty: 90 3RF omeprazole 20 mg capsule,delayed release(DR/EC) 20 mg PO DAILY Qty: 90 3RF isosorbide mononitrate 30 mg tablet extended release 24 hr 30 mg PO QAM Qty: 90 2RF nitroglycerin [Nitrostat] 0.4 mg tablet, sublingual 0.4 mg sublingual Q5M PRN (Reason: chest pain) Qty: 25 0RF Rx Instructions: do not exceed 3 doses per episode atorvastatin 20 mg tablet 20 mg PO DAILY Qty: 90 2RF Restasis 0.05 % dropperette 1 drp ophthalmic (eye) BID Qty: 180 0RF sulfamethoxazole-trimethoprim [Bactrim DS] 800-160 mg tablet 1 tab PO BID 5 Days Qty: 10 0RF hydralazine 50 mg tablet 50 mg PO BID Qty: 180 0RF multivitamin Tablet 1 tab PO DAILY 0RF ascorbic acid (vitamin C) [Vitamin C] 1,000 mg Tablet 1,000 mg PO DAILY 0RF calcium 500 mg Tablet 500 mg PO DAILY 0RF oxybutynin chloride 10 mg tablet extended release 24hr 10 mg PO DAILY 90 Days Qty: 90 2RF aspirin [Adult Aspirin Regimen] 81 mg tablet,delayed release (DR/EC) 81 mg PO DAILY 0RF Referrals: Po,Claudette Childers MD [Primary Care Provider] - 1 week (for re-evaluation ) Interventions: ED Discharge Assessment Last Done: 11/29/21 12:41 Discharge Date/Time: 11/29/21 12:41
== END 2021-11-29 12:41 | disposition home or self-care (01) ==
PROVIDERS: Emergency Provider Emergency Medicine; PCP Internal Medicine
DX: J32.9 Chronic sinusitis, unspecified (principal); R42 Dizziness and giddiness; I10 Essential (primary) hypertension; Z79.899 Other long term (current) drug therapy; Z87.891 Personal history of nicotine dependence
CPT/HCPCS: 70450; 99283

== ENCOUNTER 2022-02-01 11:51 | Outpatient (REF) | payer MEDICARE, MEDICAID, SELFPAY ==
--- NOTE | ~2022-02-01 | MM_ITS ---
EXAMINATION: MM SCREENING DIGITAL BREAST TOMOSYNTHESIS, BILATERAL CLINICAL INFORMATION: Screening. Asymptomatic. The lifetime risk of breast cancer based on the Tyrer-Cuzick Model is 1%. COMPARISON: Mammography: 01/26/2021, 08/17/2019, 06/02/2018 TECHNIQUE: Digital breast tomosynthesis is performed in both the craniocaudal and mediolateral oblique views along with computer-aided detection (CAD). Synthesized 2D images are generated from the tomosynthesis. Additional right CC and left CC x2 views are provided. FINDINGS: There are scattered areas of fibroglandular density (ACR BI-RADS breast composition Category b). There are no significant masses, abnormal calcifications, or other abnormalities. Parenchymal pattern is similar to prior studies and there is no developing density or interval architectural abnormality. There is a pacemaker generator overlying and partly obscuring posterior upper left axilla on MLO view. MM/MM tomosynthesis screening BI IMPRESSION: No mammographic evidence of malignancy. ASSESSMENT: BI-RADS 2: Benign RECOMMENDATION: Routine annual mammography screening. This patient's information was entered into a reminder system with a target due date for their next mammogram.
== END 2022-02-01 11:52 | disposition home or self-care (01) ==
LOC: HO.MAMMO 11:51
PROVIDERS: Visit Provider Internal Medicine
DX: Z12.31 Encounter for screening mammogram for malignant neoplasm of breast (principal)
CPT/HCPCS: 77063; 77067

== ENCOUNTER → 2022-02-11 12:59 | Outpatient (BNVA) | payer MEDICARE, MEDICAID, SELFPAY | PROVIDERS: PCP Internal Medicine; Referring Provider Internal Medicine; Visit Provider Internal Medicine Cardiovascular Disease | DX: Z45.018 Encounter for adjustment and management of other part of cardiac pacemaker (principal); I44.7 Left bundle-branch block, unspecified; I95.1 Orthostatic hypotension; I49.3 Ventricular premature depolarization | CPT/HCPCS: 93005; 93280; 99212 ==

== ENCOUNTER 2022-02-17 11:22 | Outpatient (REF) | payer MEDICARE, MEDICAID, SELFPAY ==
--- NOTE | ~2022-02-17 | CT_ITS ---
EXAMINATION: CT ABDOMEN AND PELVIS WITHOUT CONTRAST CLINICAL INFORMATION: Left lower quadrant pain. COMPARISON: None TECHNIQUE: Multidetector volumetric imaging was performed from the superior aspect of the liver through the pubic symphysis. Sagittal and coronal reformatted images were obtained on the technologist's workstation. This CT examination was performed using dose optimization techniques as appropriate, variously including the following: *Automated exposure control *Adjustment of mA and/or kV according to patient size (this includes techniques or standardized protocols for targeted exams where dose is matched to indication/reason for exam; i.e. extremities or head) *Use of iterative reconstruction technique DLP: 611 mGy-cm FINDINGS: LUNG BASES: The lung bases are clear. There is platelike atelectasis in the left lower lobe. LIVER, GALLBLADDER, AND BILIARY TREE: The liver is normal in size, shape, and attenuation. No focal hepatic lesion or biliary ductal dilatation is present. The gallbladder is unremarkable with no evidence of radiopaque gallstones, gallbladder wall thickening, or obvious pericholecystic inflammatory changes. PANCREAS: Unremarkable. SPLEEN: Unremarkable. ADRENAL GLANDS: Unremarkable. KIDNEYS AND URETERS: The kidneys are normal in size, shape, and attenuation. There is a 2 mm calcification/calculi midpole left kidney without caliectasis. There is a moderate sized cyst midpole right kidney measuring 7 x 4.8 cm. There is bilateral perinephric stranding. BLADDER: Unremarkable. GASTROINTESTINAL TRACT: There is oral contrast opacifying the entire colon and the small bowel loops without distention. There is nonspecific mild mural thickening involving the descending colon likely secondary to incomplete distention. The appendix is normal caliber. The stomach is nondistended. ABDOMINAL WALL: No significant hernia is appreciated. LYMPH NODES: Normal. VASCULAR: There is atherosclerotic calcification abdominal aorta without aneurysmal dilatation. PELVIC VISCERA: Unremarkable. OSSEOUS STRUCTURES: There is levoscoliosis of the lumbar spine. No lytic or sclerotic process seen. Moderate left facet joint arthropathy seen at L4-L5. Mild degenerative vacuum disc phenomena is seen from T11-T12 through L2-L3 disc level. Corduroy-shaped abnormality seen involving the T11 vertebra likely hemangioma. CT/CT abdomen pelvis wo con IMPRESSION: No acute intra-abdominal process seen. Nonspecific mild mural thickening descending colon likely due to incomplete distention. Moderate sized cyst right kidney and nonobstructive radiopaque calculi upper/mid pole left kidney. Fleischner guidelines were followed.
[2022-02-17] MEDS: Barium Sulfate Oral (Vanilla) 450 ML ORAL.SUSP 900 ML PO (13:57)
== END 2022-02-17 11:23 | disposition home or self-care (01) ==
LOC: HO.CT 11:22
PROVIDERS: Visit Provider Internal Medicine
DX: R10.32 Left lower quadrant pain (principal)
CPT/HCPCS: 74176

== ENCOUNTER 2022-04-01 13:10 | Emergency (ER) | payer MEDICARE, MEDICAID, SELFPAY ==
--- NOTE | ~2022-04-01 | CT_ITS ---
EXAMINATION: CT ABDOMEN AND PELVIS WITHOUT CONTRAST CLINICAL INFORMATION: Left lower quadrant tenderness COMPARISON: 02/17/2022 TECHNIQUE: Multidetector volumetric imaging was performed from the superior aspect of the liver through the pubic symphysis. Sagittal and coronal reformatted images were obtained on the technologist's workstation. This CT examination was performed using dose optimization techniques as appropriate, variously including the following: *Automated exposure control *Adjustment of mA and/or kV according to patient size (this includes techniques or standardized protocols for targeted exams where dose is matched to indication/reason for exam; i.e. extremities or head) *Use of iterative reconstruction technique DLP: 819 mGy-cm FINDINGS: LUNG BASES: The visualized lung bases are unremarkable. LIVER, GALLBLADDER, AND BILIARY TREE: The liver is normal in size, shape, and attenuation. No focal hepatic lesion or biliary ductal dilatation is present. The gallbladder is unremarkable with no evidence of radiopaque gallstones, gallbladder wall thickening, or obvious pericholecystic inflammatory changes. PANCREAS: Unremarkable. SPLEEN: Unremarkable. ADRENAL GLANDS: Unremarkable. KIDNEYS AND URETERS: There is a right renal cyst measuring approximately 5.8 cm, similar to prior; no follow-up recommended. No hydronephrosis or obstructing calculus bilaterally. Redemonstrated 2 mm calculus in the mid left kidney. Nonspecific bilateral perinephric stranding again noted. BLADDER: Unremarkable. GASTROINTESTINAL TRACT: There is mild colonic diverticulosis without diverticulitis. No evidence of bowel obstruction. There is subtle, relatively focal fat stranding anterior to the distal descending colon which appears new compared to prior; given the clinical history, this is suggestive of epiploic appendagitis. The appendix is unremarkable. No free fluid or free air is seen. ABDOMINAL WALL: No significant hernia is appreciated. LYMPH NODES: Normal. VASCULAR: There is atherosclerotic calcification along the aorta. PELVIC VISCERA: Status post hysterectomy. OSSEOUS STRUCTURES: Degenerative changes are noted in the spine. Heterogeneously mixed sclerotic/lytic appearance of T11 is unchanged. CT/CT abdomen pelvis wo con IMPRESSION: Mild, relatively focal fat stranding adjacent to the distal descending colon, most suggestive of epiploic appendagitis.
[2022-04-01 13:35] VITALS: BP 183/85; PULSE 60; RESP 18; TEMP 36.6; O2SAT 96; BMI 34.0
[2022-04-01 13:55] LABS: MANUAL DIFF FLAG NO
[2022-04-01 13:58] LABS: Basophils Percent Auto 0.2 % (0-2); Eosinophils Absolute Auto 0.1 X10*3/uL (0.0-0.4); Eosinophils Percent Auto 0.6 % (0-4); Hematocrit 39.6 % (37.0-47.0); Hemoglobin 13.1 g/dl (12.0-16.0); Imm Gran Abs Auto 0.04 X10*3/uL (0.00-0.03); Imm Gran Pct Auto 0.3 % (0.0-0.4); Lymphocytes Absolute Auto 2.7 X10*3/uL (1.2-4.9); Lymphocytes Percent Auto 21.8 % (20-40); Mean Corpuscular HGB Conc 33.1 g/dl (31.0-35.0); Mean Corpuscular Volume 93.6 fL (80.0-98.0); Mean Platelet Volume 9.7 fL (9.4-12.3); Monocytes Absolute Auto 1.1 X10*3/uL (0.1-1.2); Monocytes Percent Auto 8.5 % (2-11); Neutrophils Absolute Auto 8.4 x10*3/uL (2.0-8.3); Neutrophils Percent Auto 68.6 % (45-73); Platelet Count 254 X10*3/uL (160-400); Red Blood Count 4.23 X10*6/uL (4.20-5.50); Red Cell Distribution Width 13.8 % (11.0-16.0); White Blood Count 12.3 X10*3/uL (4.8-10.8)
[2022-04-01 14:12] LABS: Anion Gap 13 (12-20); Appearance Urine HAZY; Blood Urea Nitrogen 23 mg/dL (9-16); Calcium 8.9 mg/dL (8.4-10.2); Carbon Dioxide 27 mmol/L (22-29); Chloride 104 mmol/L (96-108); Color Urine YELLOW; Creatinine Clr Calc Pharmacy 45.4; Estimated Glomerular Filt Rate 57; Glucose Random 87 mg/dL (60-115); Glucose Urine UA NEG (NEG); Leukocyte Esterase Urine 1+ (NEG); Nitrite Urine NEG (NEG); PH 5.5 (5.0-8.0); Potassium 4.7 mmol/L (3.3-5.1); Sodium 139 mmol/L (135-145); Specific Gravity - Urine 1.015 (1.005-1.025); UACC Culture Trigger YES; Urine Blood NEG (NEG); Urine Ketones 5 MG/DL (NEG); Urine Protein NEG (NEG-TRACE)
[2022-04-01 14:31] LABS: Bacteria Urine 1+ /LPF; RBC Urine 0-2 /HPF (0); Squamous Epithelial Cell Urine 1+ /LPF
--- NOTE | 2022-04-01 15:19 | ED.ABDPAIN ---
HPI - Abdominal Pain General Chief Complaint: Abdominal Pain Stated Complaint: L side abd pain Time Seen by Provider: 04/01/22 15:13 Source: patient Mode of arrival: ambulatory Limitations: no limitations History of Present Illness HPI narrative: 81 years old female came in for evaluation of abdominal pain. Left lower quadrant abdominal pain started about 3 days ago, pain started as mild 2/10 and progressively getting worse now it is 7/10 localized to the left lower quadrant/suprapubic area, pain described as dull aching and constant, associated with nausea known vomiting or abnormal bowel movements, patient had normal bowel movement yesterday no diarrhea or blood in the stool. Pain is not aggravated or relieved by anything. Never had this pain in the past. Patient reported a normal appetite and p.o. intake with no history of weight loss. Surgical history is significant for partial hysterectomy with appendectomy. Patient was diagnosed recently with a UTI finished the whole course of antibiotic prescribed by her PCP. Related Data Home Medications Medication Instructions Recorded Confirmed aspirin 81 mg tablet,delayed 81 mg PO DAILY 10/14/20 02/11/22 release (Adult Aspirin Regimen) ascorbic acid (vitamin C) 1,000 mg 1,000 mg PO DAILY 07/24/21 02/11/22 tablet (Vitamin C) calcium 500 mg tablet 500 mg PO DAILY 07/24/21 02/11/22 multivitamin 1 tab PO DAILY 07/24/21 02/11/22 Previous Rx's Medication Instructions Recorded atorvastatin 20 mg tablet 20 mg PO DAILY #90 tabs 08/06/21 nitroglycerin 0.4 mg sublingual 0.4 mg sublingual Q5M PRN chest 08/06/21 tablet (Nitrostat) pain #25 tabs oxybutynin chloride 10 mg 10 mg PO DAILY 90 days #90 tabs 10/06/21 tablet,extended release 24 hr triamcinolone acetonide 55 mcg 2 spray intranasal DAILY #16.9 mL 11/29/21 nasal spray aerosol (Nasacort Allergy) simethicone 80 mg chewable tablet 80 mg PO TID-QID PRN abdominal 12/03/21 (Gas Relief (simethicone)) distention #20 tabs metoprolol succinate 100 mg 100 mg PO DAILY #90 tabs 01/04/22 tablet,extended release 24 hr omeprazole 20 mg capsule,delayed 20 mg PO DAILY #90 caps 01/04/22 release cyclosporine 0.05 % eye drops in a 1 drp ophthalmic (eye) BID #180 ea 01/18/22 dropperette (Restasis) isosorbide mononitrate 30 mg 30 mg PO QAM #90 tabs 01/18/22 tablet,extended release 24 hr clotrimazole 1 % topical cream 1 appl topical BID 4 weeks #45 02/03/22 grams Mobility scooter #1 ea 03/02/22 hydralazine 100 mg tablet 100 mg PO BID #180 tabs 03/31/22 nitrofurantoin 100 mg PO BID #14 caps 04/01/22 monohydrate/macrocrystals 100 mg capsule (Macrobid) Allergies Allergy/AdvReac Type Severity Reaction Status Date / Time oxycodone [From PERCODAN] Allergy Unknown UNKNOWN Verified 02/03/22 13:07 cheese AdvReac Diarrhea Verified 02/03/22 13:07 iv contrast Allergy Unknown hives Uncoded 02/03/22 13:07 From PERCOCET AdvReac Intermediate HEADACHE/RINGING Uncoded 02/03/22 13:07 IN EARS Review of Systems Review of Systems All other systems are reviewed and are negative Constitutional: Reports as per HPI and Reports no additional constitutional complaints Eyes: Reports as per HPI and Reports no additional eye complaints Reports system reviewed and no additional complaints, except as documented Cardiovascular: Reports as per HPI and Reports no additional cardiovascular complaints Respiratory: Reports as per HPI and Reports no additional respiratory complaints Gastrointestinal: Reports as per HPI and Reports no additional gastrointestinal complaints Genitourinary: Reports no additional female genitourinary complaints Musculoskeletal: Reports no additional musculoskeletal complaints Skin/Breast: Reports system reviewed and no additional complaints, except as docu Psychiatric: Reports no additional psychiatric complaints Endocrine: Reports no additional endocrine complaints Hematologic/Lymphatic: Reports no additional hematologic/lymphatic complaints Allergic/Immunologic: Reports no additional allergic/immunologic complaints Reports system reviewed and no additional complaints, except as documented and Reports Abnormal speech present [facility] Past Medical History Medical History Anxiety Cardiac pacemaker in situ (~2012) Coronary artery disease Diverticular disease GERD (gastroesophageal reflux disease) History of cardiomyopathy History of COVID-19 (~05/2021) History of sick sinus syndrome (~2012) HTN (hypertension) Hypercholesterolemia Lactose intolerance Left bundle branch block Obesity (BMI 30-39.9) Orthostatic hypotension dysautonomic syndrome Osteoporosis PVCs (premature ventricular contractions) Renal calculi TIA (transient ischemic attack) Urge incontinence Surgical History History of cataract surgery History of esophagogastroduodenoscopy (EGD) History of permanent cardiac pacemaker placement History of removal of skin mole History of vaginal hysterectomy Hx of appendectomy Hx of basal cell carcinoma excision Hx of colonoscopy Hx of lumpectomy S/P right knee arthroscopy Family History Family History Father No problems noted. Mother No problems noted. Brother Myocardial infarction Social History Social History Housing: Apartment Alcohol intake: never Patient Tobacco Use Status: Former Tobacco user Quit Date: >40yrs ago Tobacco use type: Cigarette e-Cigarette/Vaping Use: Never Used Second Hand Smoke Exposure: No Use of substances other than those prescribed or required for medical reasons: No Advance Directives: No Advance Directives Information Provided: No service: No Current occupational status: retired Cognitive needs: No Hearing needs: No Vision needs: Yes Physical Exam ED Vital Signs: Vital Signs - 24 hr 04/01/22 13:35 04/01/22 15:38 Temperature 98 F 98.3 F Pulse Rate 60 60 Respiratory Rate 18 18 Blood Pressure 183/85 H 153/53 H Pulse Oximetry 96 96 Oxygen Delivery Method Room Air Room Air BMI result Body Mass Index 34.0 Vital signs have been reviewed as appeared to be correct. Blood pressure elevated. Heart rate normal. Respiration rate normal. Temperature normal. Oxygen saturation normal. Appearance: Alert. Oriented X3. No acute distress. Head: Normal external exam. Normocephalic. Atraumatic. No Stubbs signs noted. No raccoon eyes noted Eyes: PERRLA. EOMI. Conjunctiva and sclera normal. Eyelids normal. ENT: TM's Normal. Pharynx normal. Uvula midline. Moist mucous membranes. No trismus noted. No drooling noted. No muffled voice noted. Neck: Normal inspection. Neck supple. FROM. No adenopathy. Thyroid Normal. No meningeal signs. No neck mass noted. CVS: Normal heart rate and rhythm. Heart sound normal. No murmurs noted. Pulses normal throughout. Respiratory: No respiratory distress. Painless inspiration. Breath sounds normal. No wheezes/rales/rhonchi noted. Chest nontender. No accessory muscle usage noted or decreased air movement noted. Abdomen: Soft, left lower quadrant tenderness, no rebound tenderness, no guarding. Bowel sounds normal in all 4 quadrants. No distention noted. No organomegaly noted. No visible injury noted. Back: No CVA tenderness. Full range of motion noted. Skin: Skin warm and dry. Normal skin color. Normal skin turgor. No rashes/lesions/lacerations noted. Extremities: No lower extremity edema. Extremities exhibit normal range of motion. Extremities nontender. Neuro: Oriented X 3. Cranial nerve exam: II-XII are grossly intact No motor deficit. No sensory deficit. Reflexes normal. Course Course Course Narrative: Assessment and plan. 81-year-old female came in with pain abdominal exam is just significant for focal left lower quadrant tenderness with no rebound or guarding, mild leukocytosis and CT is consistent with epiploic appendagitis. Patient recently treated for UTI UA is revealing infection will start the patient on a low bed and as recommended to the patient to use NSAIDs for the abdominal pain. MDM - Abdominal Pain Medical Records Attestation: I reviewed the patient's medical records. Lab Data Attestation: I reviewed the patient's lab results. Result diagrams: 04/01/22 13:47 04/01/22 13:47 Labs: Lab Results 04/01/22 04/01/22 04/01/22 Range/Units 13:47 13:47 13:47 WBC 12.3 H (4.8-10.8) X10*3/uL RBC 4.23 (4.20-5.50) X10*6/uL Hgb 13.1 (12.0-16.0) g/dl Hct 39.6 (37.0-47.0) % MCV 93.6 (80.0-98.0) fL MCH 31.0 (27.0-33.0) pg MCHC 33.1 (31.0-35.0) g/dl RDW 13.8 (11.0-16.0) % Plt Count 254 (160-400) X10*3/uL MPV 9.7 (9.4-12.3) fL Immature Gran % (Auto) 0.3 (0.0-0.4) % Neut % (Auto) 68.6 (45-73) % Lymph % (Auto) 21.8 (20-40) % [place] % (Auto) 8.5 (2-11) % Eos % (Auto) 0.6 (0-4) % Baso % (Auto) 0.2 (0-2) % Lymph # (Auto) 2.7 (1.2-4.9) X10*3/uL [place] # (Auto) 1.1 (0.1-1.2) X10*3/uL Eos # (Auto) 0.1 (0.0-0.4) X10*3/uL Baso # (Auto) 0.0 (0.0-0.2) X10*3/uL Abs Immat Gran (auto) 0.04 H (0.00-0.03) X10*3/uL Absolute Neuts (auto) 8.4 H (2.0-8.3) x10*3/uL Absolute Nucleated RBC 0.000 (0.0-0.012) X10*3/uL Nucleated RBC % (auto) 0.0 (0.0-0.2) /100WBC Sodium 139 (135-145) mmol/L Potassium 4.7 (3.3-5.1) mmol/L Chloride 104 (96-108) mmol/L Carbon Dioxide 27 (22-29) mmol/L Anion Gap 13 (12-20) BUN 23 H (9-16) mg/dL Creatinine 0.94 (0.5-1.4) mg/dL Estim Creat Clear Calc 45.4 Estimated GFR 57 Random Glucose 87 (60-115) mg/dL Calcium 8.9 (8.4-10.2) mg/dL Total Bilirubin 1.2 H (0.0-1.0) mg/dL Direct Bilirubin 0.5 (0.0-0.5) mg/dL AST 29 (5-31) U/L ALT 19 (0-31) U/L Alkaline Phosphatase 168 H (39-117) U/L Total Protein 7.3 (6.5-8.0) g/dL Albumin 4.2 (3.5-5.0) g/dL Lipase 31 (8-78) U/L Urine Color YELLOW Urine Appearance HAZY Urine pH 5.5 (5.0-8.0) Ur Specific [place] 1.015 (1.005-1.025) Urine Protein NEG (NEG-TRACE) MG/DL Urine Glucose (UA) NEG (NEG) MG/DL Urine Ketones 5 (NEG) MG/DL Urine Blood NEG (NEG) Urine Nitrite NEG (NEG) Ur Leukocyte Esterase 1+ H (NEG) Urine RBC 0-2 (0) /HPF Urine WBC 10-14 H (0-4) /HPF Ur Squamous Epith Cells 1+ /LPF Urine Bacteria 1+ /LPF Imaging Data CT abdomen pelvis: Attestation: I personally reviewed and interpreted this imaging study as follows: Radiologist's impression: Mild, relatively focal fat stranding adjacent to the distal descending colon, most suggestive of epiploic appendagitis. Discharge Plan Discharge Clinical Impression: Acute UTI, Epiploic appendagitis Patient Disposition: Home, Self-Care Instructions: Urinary Tract Infection in Women (ED) Additional Instructions: Return if worsening of the symptoms. Prescriptions: New nitrofurantoin monohyd/m-cryst [Macrobid] 100 mg capsule 100 mg PO BID Qty: 14 0RF Rx Instructions: must administer with a meal/food No Action nitroglycerin [Nitrostat] 0.4 mg tablet, sublingual 0.4 mg sublingual Q5M PRN (Reason: chest pain) Qty: 25 0RF Rx Instructions: do not exceed 3 doses per episode atorvastatin 20 mg tablet 20 mg PO DAILY Qty: 90 2RF omeprazole 20 mg capsule,delayed release(DR/EC) 20 mg PO DAILY Qty: 90 3RF metoprolol succinate 100 mg tablet extended release 24 hr 100 mg PO DAILY Qty: 90 3RF isosorbide mononitrate 30 mg tablet extended release 24 hr 30 mg PO QAM Qty: 90 2RF Restasis 0.05 % dropperette 1 drp ophthalmic (eye) BID Qty: 180 0RF (DME) Mobility scooter See Rx Instructions .Route .MEDSUPPLY Qty: 1 0RF Rx Instructions: As directed hydralazine 100 mg tablet 100 mg PO BID Qty: 180 3RF multivitamin Tablet 1 tab PO DAILY ascorbic acid (vitamin C) [Vitamin C] 1,000 mg Tablet 1,000 mg PO DAILY calcium 500 mg Tablet 500 mg PO DAILY triamcinolone acetonide [Nasacort Allergy] 55 mcg aerosol,spray 2 spray intranasal DAILY Qty: 16.9 0RF Rx Instructions: administer into each nostril oxybutynin chloride 10 mg tablet extended release 24hr 10 mg PO DAILY 90 Days Qty: 90 2RF clotrimazole 1 % cream 1 appl topical BID 28 Days Qty: 45 0RF simethicone [Gas Relief (simethicone)] 80 mg tablet,chewable 80 mg PO TID-QID PRN (Reason: abdominal distention) Qty: 20 0RF aspirin [Adult Aspirin Regimen] 81 mg tablet,delayed release (DR/EC) 81 mg PO DAILY Referrals: Po,Claudette Childers MD [Primary Care Provider] -
[2022-04-01 15:31] LABS: Alanine Aminotransferase 19 U/L (0-31); Albumin Level 4.2 g/dL (3.5-5.0); Alkaline Phosphatase 168 U/L (39-117); Aspartate Amino Transferase 29 U/L (5-31); Bilirubin Direct 0.5 mg/dL (0.0-0.5); Bilirubin Total 1.2 mg/dL (0.0-1.0); Lipase 31 U/L (8-78); Total Protein 7.3 g/dL (6.5-8.0)
[2022-04-01 15:38] VITALS: BP 153/53; PULSE 60; RESP 18; TEMP 36.8; O2SAT 96
[2022-04-01] MEDS: Nitrofurantoin Monohyd/M-Cryst 100 MG CAPSULE PO (17:39)
[2022-04-01] MEDS: Ibuprofen 400 MG TABLET PO (17:39)
== END 2022-04-01 17:40 | disposition home or self-care (01) ==
PROVIDERS: Emergency Provider Emergency Medicine; PCP Internal Medicine
DX: N39.0 Urinary tract infection, site not specified (principal); K63.89 Other specified diseases of intestine; R10.32 Left lower quadrant pain; Z79.82 Long term (current) use of aspirin; Z79.899 Other long term (current) drug therapy; Z87.891 Personal history of nicotine dependence
CPT/HCPCS: 36415; 74176; 80048; 80076; 81001; 81003; 83690; 85025; 87086; 99284

== ENCOUNTER 2022-04-15 07:36 | Outpatient (REF) | payer MEDICARE, MEDICAID, SELFPAY ==
[2022-04-15 07:51] LABS: MANUAL DIFF FLAG NO
[2022-04-15 07:58] LABS: Basophils Percent Auto 0.3 % (0-2); Eosinophils Absolute Auto 0.3 X10*3/uL (0.0-0.4); Hematocrit 38.7 % (37.0-47.0); Hemoglobin 12.6 g/dl (12.0-16.0); Imm Gran Abs Auto 0.04 X10*3/uL (0.00-0.03); Imm Gran Pct Auto 0.6 % (0.0-0.4); Lymphocytes Percent Auto 28.1 % (20-40); Mean Corpuscular HGB Conc 32.6 g/dl (31.0-35.0); Mean Corpuscular Hemoglobin 30.8 pg (27.0-33.0); Mean Corpuscular Volume 94.6 fL (80.0-98.0); Mean Platelet Volume 9.7 fL (9.4-12.3); Monocytes Absolute Auto 0.5 X10*3/uL (0.1-1.2); Monocytes Percent Auto 6.8 % (2-11); Neutrophils Absolute Auto 4.2 x10*3/uL (2.0-8.3); Neutrophils Percent Auto 60.2 % (45-73); Platelet Count 260 X10*3/uL (160-400); Red Blood Count 4.09 X10*6/uL (4.20-5.50); Red Cell Distribution Width 13.4 % (11.0-16.0)
[2022-04-15 08:16] LABS: Alanine Aminotransferase 13 U/L (0-31); Albumin Level 3.8 g/dL (3.5-5.0); Alkaline Phosphatase 156 U/L (39-117); Anion Gap 10 (12-20); Aspartate Amino Transferase 26 U/L (5-31); B Type Natriuretic Peptide 335 pg/mL (<100); Bilirubin Total 0.6 mg/dL (0.0-1.0); Blood Urea Nitrogen 16 mg/dL (9-16); Calcium 8.9 mg/dL (8.4-10.2); Carbon Dioxide 29 mmol/L (22-29); Chloride 109 mmol/L (96-108); Cholesterol 131 mg/dL; Estimated Glomerular Filt Rate > 60; Glucose Random 105 mg/dL (60-115); HDL Cholesterol 53 mg/dL; LDL Cholesterol Calculated 67 mg/dl; Potassium 4.9 mmol/L (3.3-5.1); Sodium 143 mmol/L (135-145); Triglycerides 59 mg/dL
[2022-04-15 08:37] LABS: Free T4 (Free Thyroxine) 1.56 ng/dL (0.71-1.85); Thyroid Stimulating Hormone 2.01 uIU/mL (0.32-4.0); Vitamin D 25-OH Total 51.4 ng/mL (>30)
[2022-04-15 08:51] LABS: Vitamin B12 487 pg/mL (200-900)
[2022-04-15 10:55] LABS: Appearance Urine CLEAR; Color Urine YELLOW; Glucose Urine UA NEG (NEG); Leukocyte Esterase Urine TRACE (NEG); Nitrite Urine NEG (NEG); Specific Gravity - Urine 1.015 (1.005-1.025); Urine Blood NEG (NEG); Urine Ketones NEG (NEG); Urine Protein NEG (NEG-TRACE)
[2022-04-15 11:25] LABS: Hyaline Casts Urine 0-2 /LPF; Mucus Urine TRACE /LPF; RBC Urine 0 /HPF (0); Squamous Epithelial Cell Urine 1+ /LPF
== END 2022-04-15 07:37 | disposition home or self-care (01) ==
LOC: HO.LAB 07:36
PROVIDERS: PCP Internal Medicine; Visit Provider Internal Medicine
DX: E78.00 Pure hypercholesterolemia, unspecified (principal)
CPT/HCPCS: 36415; 80053; 80061; 81001; 82306; 82607; 82746; 83880; 84439; 84443; 85025

== ENCOUNTER → 2022-05-17 12:49 | Outpatient (BNVA) | payer MEDICARE, MEDICAID, SELFPAY | PROVIDERS: PCP Internal Medicine; Visit Provider Internal Medicine | DX: R10.32 Left lower quadrant pain (principal); R19.4 Change in bowel habit | CPT/HCPCS: 99202 ==

== ENCOUNTER 2022-07-08 12:30 | Day surgery (SDC) | payer MEDICARE, MEDICAID, SELFPAY ==
[2022-07-02 13:11] VITALS: BMI 34.4
--- NOTE | 2022-07-07 08:49 | HO.ANESPROP2 ---
Documented by User: Kiley Braswell NP 07/07/22 08:56 HPI - Anesthesia Eval Consult details Narrative: 82yo F for Colonoscopy Optimized per cardiology Pacer in situ PMFSH Active Problems Active Problems: All Active Problems (Updated 04/06/22 @ 11:15 by Claudette Logan MD) Epiploic appendagitis (Acute) UTI (urinary tract infection) (Acute) Back pain (Acute) Left renal stone (Acute) Tinea corporis (Acute) Sinusitis (Acute) Abdominal bloating (Acute) Left lower quadrant abdominal pain (Acute) Skin lesion (Acute) Alkaline phosphatase elevation (Acute) Upper respiratory tract infection (Acute) COVID-19 virus infection (Acute ~05/2021) Coronary artery disease (Acute) Cardiac pacemaker in situ (Acute ~2012) Left bundle branch block (Acute) History of sick sinus syndrome (Acute ~2012) Orthostatic hypotension dysautonomic syndrome (Acute) PVCs (premature ventricular contractions) (Acute) HTN (hypertension) (Acute) Hypercholesterolemia (Acute) GERD (gastroesophageal reflux disease) (Acute) Osteoporosis (Acute) Obesity (BMI 30-39.9) (Acute) Urge incontinence (Acute) Past Medical History Medical History Anxiety Cardiac pacemaker in situ (~2012) Coronary artery disease Diverticular disease GERD (gastroesophageal reflux disease) History of cardiomyopathy History of COVID-19 (~05/2021) History of sick sinus syndrome (~2012) HTN (hypertension) Hypercholesterolemia Lactose intolerance Left bundle branch block Obesity (BMI 30-39.9) Orthostatic hypotension dysautonomic syndrome Osteoporosis PVCs (premature ventricular contractions) Renal calculi TIA (transient ischemic attack) Urge incontinence Family History Family History Father No problems noted. Mother No problems noted. Brother Myocardial infarction Family history of problems with anesthesia: No Surgical History Surgical History History of cataract surgery History of esophagogastroduodenoscopy (EGD) History of permanent cardiac pacemaker placement History of removal of skin mole History of vaginal hysterectomy Hx of appendectomy Hx of basal cell carcinoma excision Hx of colonoscopy Hx of lumpectomy S/P right knee arthroscopy History of Problems with Anesthesia: No Social History Social History Housing: Apartment Alcohol intake: never Patient Tobacco Use Status: Former Tobacco user Quit Date: >40yrs ago Tobacco use type: Cigarette e-Cigarette/Vaping Use: Never Used Second Hand Smoke Exposure: No Are you DNR?: No Advance Directives: No Advance Directives Information Provided: Yes Nutrition Risks: No Nutritional Risk Patient : No service: No Current occupational status: retired Cognitive needs: No Hearing needs: No Vision needs: Yes Meds Allergies Allergy/AdvReac Type Severity Reaction Status Date / Time Iodinated Contrast Media Allergy Intermediate Hives Verified 07/02/22 13:04 [IV Contrast Dye] oxycodone [From PERCODAN] Allergy Intermediate headache/ringing Verified 07/02/22 13:04 in ears cheese AdvReac Intermediate Diarrhea Verified 07/02/22 13:04 Home Medications Medication Instructions Recorded Confirmed Last Taken Type aspirin 81 mg tablet,delayed 81 mg PO DAILY 10/14/20 07/02/22 Unknown History release (Adult Aspirin Regimen) ascorbic acid (vitamin C) 1,000 mg 1,000 mg PO DAILY 07/24/21 07/02/22 Unknown History tablet (Vitamin C) calcium 500 mg tablet 500 mg PO DAILY 07/24/21 07/02/22 Unknown History multivitamin 1 tab PO DAILY 07/24/21 07/02/22 Unknown History oxybutynin chloride 5 mg 10 mg PO DAILY 05/17/22 07/02/22 Unknown History tablet,extended release 24 hr Exam Exam Date and Time: July 07, 2022 0849 Height,Weight and Vital Signs: Height 5 ft 1 in Weight 82.554 kg Pertinent Lab Results Pertinent Lab Results: Laboratory Tests 04/15/22 04/15/22 07:50 07:50 WBC 7.0 Hgb 12.6 Hct 38.7 Plt Count 260 Sodium 143 Potassium 4.9 Chloride 109 H Carbon Dioxide 29 BUN 16 Creatinine 0.82 Narrative Narrative: Cardiac Device Check 01/2022 Details: Dual-chamber [place] pacemaker in place.? Programmed in DDDR at 60 beats per minute.? Atrial pacing 86% of time.? Minimal ventricular pacing noted.? No significant burden of atrial fibrillation noted.? Atrial sensing is adequate.? Ventricular sensing is lower and reprogrammed to provide adequate safety.? Atrial ventricular pacing thresholds are adequate and in auto capture mode.? Pacing lead impedance is stable.? Battery life is excellent [id number] Cardiac Device Check, pacemaker dual lead Procedure code (CPT) selection complete EKG 01/2022 Atrially paced, ventricularly sensed rhythm with left bundle-branch block with PAC with aberrancy ECHO 2020 Conclusions: - 1. Low normal LV systolic function with impaired relaxation? ? filling pattern? 2. Mildly dilated left atrium? 3. Normal cardiac valvular Doppler ? 4. Mildly elevated right ventricular systolic pressure ? 5. No pericardial effusion ? ? Assessment and Plan Assessment Anesthesia Assessment: Chart Reviewed Final Anesthetic Review Family History of Problems with Anesthesia: No History of Problems with Anesthesia: No Documented by User: Nabila Gillespie MD 07/08/22 12:56 [facility] Past Medical History Medical History Anxiety Cardiac pacemaker in situ (~2012) Coronary artery disease Diverticular disease GERD (gastroesophageal reflux disease) History of cardiomyopathy History of COVID-19 (~05/2021) History of sick sinus syndrome (~2012) HTN (hypertension) Hypercholesterolemia Lactose intolerance Left bundle branch block Obesity (BMI 30-39.9) Orthostatic hypotension dysautonomic syndrome Osteoporosis PVCs (premature ventricular contractions) Renal calculi TIA (transient ischemic attack) Urge incontinence Functional capacity: independent ambulation Patient : No Family History Family History Father No problems noted. Mother No problems noted. Brother Myocardial infarction Surgical History Surgical History History of cataract surgery History of esophagogastroduodenoscopy (EGD) History of permanent cardiac pacemaker placement History of removal of skin mole History of vaginal hysterectomy Hx of appendectomy Hx of basal cell carcinoma excision Hx of colonoscopy Hx of lumpectomy S/P right knee arthroscopy Social History Social History Housing: Apartment Alcohol intake: never Patient Tobacco Use Status: Former Tobacco user Quit Date: >40yrs ago Tobacco use type: Cigarette e-Cigarette/Vaping Use: Never Used Second Hand Smoke Exposure: No Are you DNR?: No Advance Directives: No Advance Directives Information Provided: Yes Nutrition Risks: No Nutritional Risk Patient : No service: No Current occupational status: retired Cognitive needs: No Hearing needs: No Vision needs: Yes Meds Allergies Allergy/AdvReac Type Severity Reaction Status Date / Time Iodinated Contrast Media Allergy Intermediate Hives Verified 07/02/22 13:04 [IV Contrast Dye] oxycodone [From PERCODAN] Allergy Intermediate headache/ringing Verified 07/02/22 13:04 in ears cheese AdvReac Intermediate Diarrhea Verified 07/02/22 13:04 Home Medications Medication Instructions Recorded Confirmed Last Taken Type aspirin 81 mg tablet,delayed 81 mg PO DAILY 10/14/20 07/02/22 Unknown History release (Adult Aspirin Regimen) ascorbic acid (vitamin C) 1,000 mg 1,000 mg PO DAILY 07/24/21 07/02/22 Unknown History tablet (Vitamin C) calcium 500 mg tablet 500 mg PO DAILY 07/24/21 07/02/22 Unknown History multivitamin 1 tab PO DAILY 07/24/21 07/02/22 Unknown History oxybutynin chloride 5 mg 10 mg PO DAILY 05/17/22 07/02/22 Unknown History tablet,extended release 24 hr Exam Airway Mallampati Class: II TM Dist: >3cm Neck ROM: Full Heart: vRRR Lungs: CTA Assessment and Plan Final Anesthetic Review NPO: Yes ASA Class: III Final Preanesthetic Review: No Changes in Pt Med Stat, Meds/Allgs Chart Reviewed, Consent Obtained/Reviewed and Anes Risks/Benef Reviewed Patient Risk: Intermediate Procedure Risk: Low Anesthetic Plan Anesthetic Plan: MAC: Disposition: Standard PACU
[2022-07-08 12:38] VITALS: BP 159/65; PULSE 63; RESP 18; TEMP 36.6; O2SAT 97
[2022-07-08] MEDS: Lactated Ringers 1,000 ML 50 ML IVCONT (12:56)
--- NOTE | 2022-07-08 13:37 | MHC.SHP ---
Pre-Procedural Eval Section A Date of Service: 07/08/22 Section B Chief Complaint: Abnormal findings on CT , change in bowel habits Details of Present Illness: 82-year-old obese female with a history of left renal calculi, hypertension, hypercholesterolemia, GERD, sick sinus syndrome s/p pacemaker (Dr Loya) coronary artery disease who is here today for diagnostic colonoscopy for abdominal pain change in bowel habits and abnormal CT. Present Medications: see Short Stay Collaborative assessment Medical History: Significant History ( Anxiety Cardiac pacemaker in situ (~2012) Coronary artery disease Diverticular disease GERD (gastroesophageal reflux disease) History of cardiomyopathy History of COVID-19 (~05/2021) History of sick sinus syndrome (~2012) HTN (hypertension) Hypercholesterolemia Lactose intolerance LBB block) Allergies: Allergies Allergy/AdvReac Type Severity Reaction Status Date / Time Iodinated Contrast Media Allergy Intermediate Hives Verified 07/02/22 13:04 [IV Contrast Dye] oxycodone [From PERCODAN] Allergy Intermediate headache/ringing Verified 07/02/22 13:04 in ears cheese AdvReac Intermediate Diarrhea Verified 07/02/22 13:04 Review of Systems Review of Systems Comment: 10 point ROS negative except as noted above Exam Exam Comment: Gen appear: No acute distress, well nourished HEENT: no icterus Chest: No overt resp distress CVS: S1/S2, regular Abd: soft, nontender, nondistended Psych: Stable affect, answering questions appropriately Neuro: A/Ox3 noted to move all extremities spontaneously Ext: no peripheral edema Plan Diagnosis/Plan: Unchanged I have reviewed the history and physical and performed a pertinent physical examination on my patient. No changes have occurred unless specified.
--- NOTE | 2022-07-08 14:05 | P.OP_ITS ---
Operative Note Operative Note Date of Service: 07/08/22 Narrative: Procedure: Colonoscopy Indication: Changes in bowel habits, abnormal CT scan Endoscopist: Gabriella Calderon MD Anesthesia Provider: Dr Nabila Lopez Anesthesia type: MAC Instrument: Olympus [id number] Consent: Indication, risks vs benefits, and alternatives were discussed with the patient who gave written informed consent to proceed. Monitoring: EKG, pulse, pulse oximetry and blood pressure were monitored throughout the procedure. Please see anesthesia flowsheet. Procedure: The patient was brought to the procedure room and placed in the left lateral decubitus position. IV medications were administered by the anesthesia provider in attendance. A digital rectal exam was performed which was abnormal due to finding of hemorrhoids. The colonoscope was then inserted through the anus and advanced through the colon to the cecum at 95 cm. Mucosa was carefully examined under high definition white light as the instrument was slowly withdrawn in a retrograde panoramic fashion. Retroflexion was performed in rectum. The procedure was somewhat difficult due to fixed sigmoid colon. Water immersion was utilized to prevent looping in sigmoid colon. There were no immediate obvious complications. The quality of the prep was BBPS: 3+3+3 = excellent Withdrawal time 12 minutes. Limitations: No limitations. Findings: Mucosa: Normal to cecum and terminal ileum. Random biopsies were taken to r/o microscopic colitis. Protruding lesions: * 1 sessile polyp of size 2 mm in sigmoid colon. Cold forceps polypectomy was performed. The polyp was completely removed and retrieved. * Large internal and external hemorrhoids with stigmata of recent bleeding. Excavated lesions: * Moderate diverticulosis of sigmoid colon. Impression: 1. Normal colon mucosa 2. Total of 1 polyp removed from sigmoid colon. 3. Divericulosis 3. External and internal hemorrhoids with stigmata of recent bleeding Recommendations: - Follow path results. - Given age, no further asymptomatic screening colonoscopy recommended. - If histology + for microscopic colitis, can consider antidiarrheal +/- budesonide - Increase fiber intake - Sitz bath
[2022-07-08 14:11] VITALS: BP 131/61; PULSE 60; RESP 16; TEMP 36.2; O2SAT 94
[2022-07-08 14:30] VITALS: BP 136/69; PULSE 60; RESP 16; TEMP 36.2; O2SAT 95
--- NOTE | 2022-07-08 14:51 | HO.POSTANES ---
Post Anesthesia Evaluation Post Anesthesia Evaluation Vital Signs: Vital Signs Temp Pulse Resp BP Pulse Ox O2 Del Method 07/08/22 14:30 97.2 F 60 16 136/69 95 Room Air 07/08/22 14:11 97.2 F 60 16 131/61 94 Room Air 07/08/22 12:38 98 F 63 18 159/65 H 97 Room Air Anesthesia: Monitored Mental Status: Awake Pain Control: Satisfactory Nausea/Vomiting: None Hydration: Adequate Anesthesia-Related Issues: No Anes. Related Issues
== END 2022-07-08 14:55 | disposition home or self-care (01) ==
PROVIDERS: PCP Internal Medicine; Visit Provider Internal Medicine
PROC: 0DJD8ZZ Inspection of Lower Intestinal Tract, Via Natural or Artificial Opening Endoscopic (ICD-10-PCS; CPT 45378; principal; 2022-07-08 13:30)
DX: R19.4 Change in bowel habit (principal); R93.5 Abnormal findings on diagnostic imaging of other abdominal regions, including retroperitoneum; K63.5 Polyp of colon; K57.30 Diverticulosis of large intestine without perforation or abscess without bleeding; K64.8 Other hemorrhoids; K64.4 Residual hemorrhoidal skin tags; K21.9 Gastro-esophageal reflux disease without esophagitis; I10 Essential (primary) hypertension; I25.10 Atherosclerotic heart disease of native coronary artery without angina pectoris; I49.5 Sick sinus syndrome; Z95.0 Presence of cardiac pacemaker; E78.00 Pure hypercholesterolemia, unspecified; F41.1 Generalized anxiety disorder; Z79.82 Long term (current) use of aspirin; Z79.899 Other long term (current) drug therapy; Z88.8 Allergy status to other drugs, medicaments and biological substances; Z91.041 Radiographic dye allergy status; Z87.442 Personal history of urinary calculi; Z86.16 Personal history of COVID-19; Z87.891 Personal history of nicotine dependence
CPT/HCPCS: 45380; 88305

== ENCOUNTER → 2022-07-20 12:36 | Outpatient (BNVA) | payer MEDICARE, MEDICAID, SELFPAY | PROVIDERS: PCP Internal Medicine; Visit Provider Internal Medicine | DX: R10.32 Left lower quadrant pain (principal); K57.90 Diverticulosis of intestine, part unspecified, without perforation or abscess without bleeding | CPT/HCPCS: 99212 ==

== ENCOUNTER 2022-08-04 14:00 | Outpatient (REF) | payer MEDICARE, MEDICAID, SELFPAY ==
--- NOTE | ~2022-08-04 | XR_ITS ---
EXAMINATION: XR WRIST, LEFT CLINICAL INFORMATION: Pain. COMPARISON: None TECHNIQUE: Four views of the left wrist. FINDINGS: No acute fracture or malalignment. Decreased bone mineralization. Moderate joint space narrowing and subcortical sclerosis of the first CMC joint and triscaphe space. Diffuse soft tissue swelling. XR/XR wrist LT min 3V IMPRESSION: No acute fracture or malalignment. 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 Decreased bone mineralization.
== END 2022-08-04 14:01 | disposition home or self-care (01) ==
LOC: HO.XRAY 14:00
PROVIDERS: PCP Internal Medicine; Visit Provider Internal Medicine
DX: M25.532 Pain in left wrist (principal)
CPT/HCPCS: 73110

== ENCOUNTER → 2022-08-16 12:29 | Outpatient (BNVA) | payer MEDICARE, MEDICAID, SELFPAY | PROVIDERS: PCP Internal Medicine; Referring Provider Internal Medicine; Visit Provider Internal Medicine Cardiovascular Disease | DX: Z45.018 Encounter for adjustment and management of other part of cardiac pacemaker (principal); I49.3 Ventricular premature depolarization; I95.1 Orthostatic hypotension; R06.02 Shortness of breath | CPT/HCPCS: 93280; 99212 ==

== ENCOUNTER → 2022-08-30 13:53 | Outpatient (REF) | payer MEDICARE, MEDICAID, SELFPAY ==
--- NOTE | 2022-08-30 13:59 | CA_ITS ---
Transthoracic Echocardiogram Patient (Last, First, Middle): Kirsty Pradhan I Gender: Female Date of : 1940 Age: 82 Procedure Date: 08/30/2022 Procedure Type: Transthoracic Echocardiogram Location: OP Height: 154.94 cm Weight: 81.65 kg BSA: 1.81 m2 Heart Rate: 65 bpm BP: 122 / 60 mmHg Delivery Driver: Referring MD: Juan F Loya MD Tattoo Artist: Juan F Loya MD Symptoms: R06.02 - Shortness of breath Study Quality: Fair ECG Rhythm: Sinus Conclusions: - 1. Low normal LV systolic function with mild LVH with impaired relaxation filling pattern 2. Moderately dilated left atrium 3. Trivial aortic regurgitation 4. Normal RV systolic pressure 5. No gross pericardial effusion Findings Left Ventricle Normal left ventricular cavity size. There is mildly increased left ventricular wall thickness. The left ventricular systolic function is low normal. The visually estimated ejection fraction is between 50-55%. Spectral Doppler is indicative of an impaired relaxation filling pattern. E/E prime ratio is between 8 and 15 consistent with indeterminate filling pressures. Right Ventricle Normal right ventricular cavity size. There is a pacemaker wire seen in the right ventricle. Atria The left atrium is moderately dilated. Interatrial shunt cannot be excluded. The right atrium is mildly dilated. A pacemaker wire is identified in the right atrium. Aortic Valve The aortic valve structure and function is likely normal. There is no aortic valve stenosis. There is trace (trivial) aortic valve regurgitation. Mitral Valve Normal mitral valve structure and function. There is trace mitral valve regurgitation. There is no mitral valve stenosis. Pulmonic Valve The pulmonic valve was not well visualized. Tricuspid Valve Likely normal tricuspid valve structure and function. There is trace tricuspid valve regurgitation. The right ventricular systolic pressure is normal. The right ventricular systolic pressure is 24 mmHg. Normal right atrial pressure. There is no evidence of pulmonary hypertension. Great Vessels All visible segments of the aorta are normal in size. The pulmonary artery was not well visualized. Venous The inferior vena cava is normal in size and collapses greater than 50% with inspiration. Pericardium/Pleural There is no evidence of pericardial effusion. Prior Study Comparison No significant change compared to prior study dated: 11/12/2020. Measurements 2D Linear Measurements IVSd: 1.21 0.6-0.9/0.6-1.0 cm LVIDd: 4.41 3.9-5.3/4.2-5.9 cm LVIDd Index: 2.44 2.4-3.2/2.2-3.1 cm/m2 LVIDs: 3.11 2.0-3.6 cm LVPWd: 1.25 0.7-1.1 cm LA Diam: 4.10 2.7-3.8/3.0-4.0 cm LAIDs Index: 2.27 1.5-2.3 cm/m2 LV Mass: 248.02 67-162/88-224 g LV Mass Index: 137.03 43-95/49-115 g/m2 LVOT Diam: 2.00 3.0+(-)1.3 cm 2D Systolic Function EF 4C: 47.20 >55% EF 2C: 51.40 >55% EF BiP: 50.00 >55% Mitral Valve MV Pk E: 0.75 MV PK A: 0.71 MV Decel Time: 179.00 E/A: 1.10 E'Lateral: 8.27 E'Medial: 4.57 E/E' Med: 16.40 E/E' Lat: 9.10 PHT: 52.00 MVA PHT: 4.23 Decel [place]: 4.20 Aortic Valve AoV Pk Alonso: 1.54 AoV Mn Alonso: 0.91 AoV VTI: 0.40 AoV Pk Grad: 9.00 Aov Mn Grad: 4.00 JHON Cont.VTI: 1.93 LVOT LVOT Pk Alonso: 0.94 LVOT Mn Alonso: 0.61 LVOT VTI: 0.24 LVOT Pk Grad: 4.00 LVOT Mn Grad: 2.00 LVOT Diam: 2.00 LVOT Area: 3.14 Diastolic Function MV Pk E: 0.75 MV Pk A: 0.71 E/A: 1.10 E'Medial: 4.57 E/E' Med: 16.40 E' Laterial: 8.27 E/E' Lat: 9.10 Right Ventricle TAPSE (mm): 19.50 TVS' Alonso: 9.46 Tricuspid Valve TR Pk Alonso: 2.30 TR Pk Grad: 21.00 RA Press: 3.00 RVSP: 24.00 Great Vessels Aorta Sinus of Valsalva: 3.30 2.0-3.5 cm Ao Asc: 3.40 2.1-3.4 cm Pulmonary Valve PV Pk Alonso: 1.12 Peak PV Grad: 5.00 Updated in Other Vendor System with Status of Final Juan F Loya MD electronically signed on 09/02/2022 5:22:11 PM with status of Final
== END ==
LOC: HO.CARD 13:53
PROVIDERS: PCP Internal Medicine; Visit Provider Internal Medicine Cardiovascular Disease
DX: R06.02 Shortness of breath (principal)
CPT/HCPCS: 93306

== ENCOUNTER → 2022-08-30 13:55 | Outpatient (REF) | payer MEDICARE, MEDICAID, SELFPAY | LOC: HO.CARD 13:55 | PROVIDERS: Visit Provider Internal Medicine Cardiovascular Disease | DX: Z13.89 Encounter for screening for other disorder (principal) ==

== ENCOUNTER → 2022-09-02 10:13 | Outpatient (REF) | payer MEDICARE, MEDICAID, SELFPAY | LOC: HO.CARD 10:13 | PROVIDERS: PCP Internal Medicine; Visit Provider Internal Medicine Cardiovascular Disease | DX: R06.02 Shortness of breath (principal) | CPT/HCPCS: 78452; 93017; A9500; J0280; J2785 ==

== ENCOUNTER → 2022-09-02 10:48 | Outpatient (REF) | payer MEDICARE, MEDICAID, SELFPAY ==
--- NOTE | 2022-09-02 | CA_ITS ---
Acquisition Time: 2022-09-02 10:39:13 Total Exercise Time: 00:02:00 Test Indications: Dyspnea Medications: ASA ATORVASTATIN ISOSORBIDE METOPROLOL OMEPRAZOLE Protocol: LEXISCAN Max HR: 110 BPM 79% of Pred: 138 BPM Max BP: 170/080 mmHG Max Work Load: 1.0 METS Pharmacological stress test with Lexiscan injection, while sitting and kicking her legs, without anginal symptoms, with freq PVCs, rruns of ventricular bigeminy, V paced beats at times with what looks like runs of PMT, with normotensive response to injection, with nondiagnostic EKG for ischemia. In recovery she was treated with Aminophylline 75mg IVP to reverse Lexiscan. Nuclear images pending. Test reviewed with Dr Loya Referred By: Juan F Loya Overread By: EDGAR BROWN
--- NOTE | ~2022-09-02 | NM_ITS ---
Myocardial perfusion study Indication: Shortness of breath to evaluate for myocardial ischemia Technique: The patient was brought in for a Lexiscan perfusion study on 09/03/2022. Patient performed low-level exercise and was injected 0.4 mg of Lexiscan intravenously. Within a minute of injection, 22 mCi of sestamibi was given intravenously. Images were obtained using the SPECT gamma camera interlaced with the gating device. Images were obtained in supine position. Resting perfusion study was performed on 09/06/2022. Patient was administered 25 mCi of sestamibi intravenously at rest. Images were then obtained in supine position. Images obtained with and without CT attenuation. Total DLP 99 mGy-cm Images were processed with the software and compared side to side in short axis, horizontal long axis and vertical long axis views. Findings: Both stress and rest perfusion study was suboptimal due to intense subdiaphragmatic uptake interfering with inferior wall uptake, most prominent on rest study The stress perfusion study showed non attenuated images show minimally reduced uptake in the lateral wall of the LV myocardium. Remainder of the LV myocardium on perfused. Attenuation corrected images show normal uptake of radiotracer in all segments myocardium.. The gated study shows low normal LV systolic function with calculated LVEF of 50%. LV cavity is normal in size. The gated study shows normal systolic wall thickening and contraction of segments. Resting study shows diffusely reduced uptake in all segments myocardium due to subdiaphragmatic uptake interfering with inferior wall uptake. Gating at rest reveals normal systolic wall motion with ejection fraction at 42%. The findings are consistent with likely normal myocardial perfusion. NM/NM jose perf SPECT rest & str Impression: 1. Myocardial perfusion imaging study shows likely normal myocardial perfusion 2. Gated LVEF is 50% 3. Transient ischemic dilatation not present EKG is nondiagnostic for ischemia
== END ==
LOC: HO.CARD 10:48
PROVIDERS: Visit Provider Internal Medicine Cardiovascular Disease
DX: Z13.89 Encounter for screening for other disorder (principal)
CPT/HCPCS: 93017

== ENCOUNTER 2022-09-21 11:19 | Outpatient (REF) | payer MEDICARE, MEDICAID, SELFPAY ==
[2022-09-21 12:10] LABS: B Type Natriuretic Peptide 157 pg/mL (<100)
== END 2022-09-21 11:20 | disposition home or self-care (01) ==
LOC: HO.LAB 11:19
PROVIDERS: PCP Internal Medicine; Visit Provider Internal Medicine Cardiovascular Disease
DX: R06.02 Shortness of breath (principal)
CPT/HCPCS: 36415; 83880

== ENCOUNTER → 2023-02-15 13:10 | Outpatient (BNVA) | payer MEDICARE, MEDICAID, SELFPAY | PROVIDERS: PCP Internal Medicine; Referring Provider Internal Medicine; Visit Provider Internal Medicine Cardiovascular Disease | DX: I25.10 Atherosclerotic heart disease of native coronary artery without angina pectoris (principal); I44.7 Left bundle-branch block, unspecified; I95.1 Orthostatic hypotension; Z45.018 Encounter for adjustment and management of other part of cardiac pacemaker | CPT/HCPCS: 93280; 99212 ==

== ENCOUNTER 2023-03-07 13:30 | Outpatient (REF) | payer MEDICARE, MEDICAID, SELFPAY ==
--- NOTE | ~2023-03-07 | MM_ITS ---
EXAMINATION: MM SCREENING DIGITAL BREAST TOMOSYNTHESIS, BILATERAL CLINICAL INFORMATION: Screening. Asymptomatic. The lifetime risk of breast cancer based on the Tyrer-Cuzick Model is under 3%. COMPARISON: Mammography: 02/01/2022, 01/26/2021, 08/17/2019 TECHNIQUE: Digital breast tomosynthesis is performed in both the craniocaudal and mediolateral oblique views along with computer-aided detection (CAD). Synthesized 2D images are generated from the tomosynthesis. Additional left MLO view is provided. FINDINGS: There are scattered areas of fibroglandular density (ACR BI-RADS breast composition Category b). There are no significant masses, abnormal calcifications, or other abnormalities. Parenchymal pattern is similar to prior studies. Scattered bilateral minor asymmetries are stable. There is no developing density or architectural abnormality. There is a pacemaker generator overlying the posterior upper left axilla on MLO view. The axilla and skin contours are unremarkable. No significant changes. MM/MM tomosynthesis screening BI IMPRESSION: No mammographic evidence of malignancy. ASSESSMENT: BI-RADS 2: Benign RECOMMENDATION: Routine annual mammography screening. This patient's information was entered into a reminder system with a target due date for their next mammogram.
== END 2023-03-07 13:31 | disposition home or self-care (01) ==
LOC: HO.MAMMO 13:30
PROVIDERS: PCP Internal Medicine; Visit Provider Internal Medicine
DX: Z12.31 Encounter for screening mammogram for malignant neoplasm of breast (principal)
CPT/HCPCS: 77063; 77067

== ENCOUNTER → 2023-06-12 23:59 | Outpatient (BNV) | payer MEDICARE, MEDICAID, SELFPAY ==
--- NOTE | 2023-06-20 10:50 | MHC.OFFVIS ---
Intake Intake Visit Reasons: Remote device check- [facility] Allergies Iodinated Contrast Media [IV Contrast Dye] Allergy (Intermediate, Verified 11/18/22 14:18) Hives oxycodone [From PERCODAN] Allergy (Intermediate, Verified 11/18/22 14:18) headache/ringing in ears cheese Adverse Reaction (Intermediate, Verified 11/18/22 14:18) Diarrhea PFSH Medical History Anxiety Cardiac pacemaker in situ (~2012) Coronary artery disease Diverticular disease Epiploic appendagitis GERD (gastroesophageal reflux disease) History of cardiomyopathy History of COVID-19 (~05/2021) History of sick sinus syndrome (~2012) HTN (hypertension) Hypercholesterolemia Lactose intolerance Left bundle branch block Obesity (BMI 30-39.9) Orthostatic hypotension dysautonomic syndrome Osteoporosis PVCs (premature ventricular contractions) Renal calculi TIA (transient ischemic attack) Urge incontinence Surgical History History of cataract surgery History of esophagogastroduodenoscopy (EGD) History of permanent cardiac pacemaker placement History of removal of skin mole History of vaginal hysterectomy Hx of appendectomy Hx of basal cell carcinoma excision Hx of colonoscopy Hx of lumpectomy S/P right knee arthroscopy Family History Father No problems noted. Mother No problems noted. Brother Myocardial infarction Social History Housing: Apartment Alcohol intake: never Patient Tobacco Use Status: Former Tobacco user Quit Date: >40yrs ago Tobacco use type: Cigarette e-Cigarette/Vaping Use: Never Used Second Hand Smoke Exposure: No service: No Current occupational status: retired Cognitive needs: No Hearing needs: No Vision needs: Yes Office Procedures Cardiac Device Check Cardiac Device Check Details: Remote pacemaker report generated 06/12/2023. Pacemaker function is adequate [id number] Cardiac Device Interrogation, pacemaker Procedure code (CPT) selection complete Coding Level of Care Code Procedure Only CPT Codes Cardiac Device Check - Cardiac Device 12: 58630-[id number] Cardiac Device Interrogation, pacemaker ([id number])
== END ==
PROVIDERS: PCP Internal Medicine; Visit Provider Internal Medicine Cardiovascular Disease
DX: I44.7 Left bundle-branch block, unspecified (principal); Z95.0 Presence of cardiac pacemaker
CPT/HCPCS: 93294

== ENCOUNTER 2023-08-23 13:38 | Outpatient (AMB) | payer MEDICARE, MEDICAID, SELFPAY ==
--- NOTE | 2023-08-23 13:39 | MHC.OFFVIS ---
Intake Vital Signs 08/23/23 13:41 Height 5 ft 1 in Weight 160 lb 14.999 oz BMI 30.4 BP 120/80 Blood Pressure Location Lt brachial Position Sitting Pulse 60 Intake Visit Reasons: 6 month f/u w/pacer check Intake Note: 6 month follow-up with ekg and [facility] check feelng good Healthcare Business Analyst Required: No Allergies Iodinated Contrast Media [IV Contrast Dye] Allergy (Intermediate, Verified 11/18/22 14:18) Hives oxycodone [From PERCODAN] Allergy (Intermediate, Verified 11/18/22 14:18) headache/ringing in ears cheese Adverse Reaction (Intermediate, Verified 11/18/22 14:18) Diarrhea Medication List - Last Reconciled 08/23/23 by Juan F Loya MD ascorbic acid (vitamin C) (Vitamin C) 1,000 mg PO DAILY aspirin (Adult Aspirin Regimen) 81 mg PO DAILY atorvastatin 20 mg PO DAILY bumetanide 0.5 mg PO DAILY calcium 500 mg PO DAILY clotrimazole 1% 1 appl topical BID 4 weeks cyclosporine 0.05% (Restasis) 1 drp ophthalmic (eye) BID hydralazine 50 mg PO BID isosorbide mononitrate ER 30 mg PO QAM metoprolol succinate ER 100 mg PO DAILY [Mobility scooter As directed] multivitamin 1 tab PO DAILY nitroglycerin (Nitrostat) 0.4 mg sublingual Q5M PRN omeprazole 20 mg PO DAILY oxybutynin chloride ER 10 mg PO DAILY HPI HPI Comments History of Present Illness Details Kirsty comes for follow-up. No worsening symptoms. Denies any worsening shortness of breath. No exertional chest pain. About a month and half ago under lot of stress she did have retrosternal chest pressure for which she had to take 2 sublingual nitroglycerin. No recurrent symptoms since then. No palpitations, prolonged irregular heartbeat, lightheadedness, syncope. No heart failure symptoms. Takes all her medications regularly. [facility] Medical History Epiploic appendagitis History of COVID-19 (~05/2021) History of sick sinus syndrome (~2012) Osteoporosis PVCs (premature ventricular contractions) Diverticular disease Renal calculi Lactose intolerance Anxiety Urge incontinence GERD (gastroesophageal reflux disease) Hypercholesterolemia Obesity (BMI 30-39.9) TIA (transient ischemic attack) Coronary artery disease Orthostatic hypotension dysautonomic syndrome HTN (hypertension) Left bundle branch block History of cardiomyopathy Cardiac pacemaker in situ (~2012) Surgical History Hx of basal cell carcinoma excision Hx of colonoscopy History of vaginal hysterectomy History of removal of skin mole Hx of appendectomy S/P right knee arthroscopy History of cataract surgery History of esophagogastroduodenoscopy (EGD) History of permanent cardiac pacemaker placement Hx of lumpectomy Family History Father No problems noted. Mother No problems noted. Brother Myocardial infarction Social History Housing: Apartment Alcohol intake: never Patient Tobacco Use Status: Former Tobacco user Quit Date: >40yrs ago Tobacco use type: Cigarette e-Cigarette/Vaping Use: Never Used Second Hand Smoke Exposure: No service: No Current occupational status: retired Cognitive needs: No Hearing needs: No Vision needs: Yes Review of Systems Const Denies chills, Denies fatigue, Denies fever(s), Denies frequent falls, Denies weakness, Denies weight gain and Denies weight loss ENT Denies dizziness Card Denies chest pain, Denies leg edema, Denies lightheadedness, Denies palpitations, Denies dyspnea, Denies dyspnea on exertion, Denies orthopnea and Denies other (loss of consciousness) Resp Denies cough, Denies dyspnea and Denies dyspnea on exertion GI Denies hematochezia and Denies change in stool character Musc Denies abnormal gait, Denies muscle weakness, Denies numbness, Denies radiating pain into limb and Denies tingling Neuro Denies abnormal gait, Denies dizziness, Denies frequent falls, Denies numbness, Denies tingling and Denies weakness Endo Denies fatigue and Denies palpitations Physical Exam Vital Signs: Last Vital Signs Pulse 60 08/23/23 13:41 BP 120/80 08/23/23 13:41 BMI result Body Mass Index 30.4 Const General: cooperative, comfortable, no acute distress, alert, awake and well groomed Nutritional Appearance: obese Orientation/consciousness: patient oriented x3 Limitations: no limitations Neck Neck: Yes trachea midline, Yes supple and Yes no JVD Chest Chest palpation & inspection: other (Pacemaker pocket appears benign) Resp Effort & Inspection: normal respiratory effort Auscultation: clear to auscultation bilaterally Cardio Jugular venous distension: no JVD Palpation: normal PMI Rate: regular rate Rhythm: regular rhythm Heart sounds: S1 normal heart sound present and S2 normal heart sound present GI Auscultation: normal bowel sounds Skin General skin exam: no rashes or lesions noted Neuro General: patient oriented x3 and no focal motor deficits Extrem General: Yes no clubbing, cyanosis or edema Office Procedures Cardiac Device Check Cardiac Device Check Details: Dual-chamber [facility] pacemaker in place. Programmed in DDDR at 60 beats per minute. Atrial pacing 90% of time. Few high atrial rate episode consistent with SVT noted. Atrial ventricular pacing thresholds are adequate. Atrial ventricular sensing is adequate. Pacing lead impedance is stable. Battery life is at about 9 years [id number] Cardiac Device Check, pacemaker dual lead Procedure code (CPT) selection complete EKG Details: EKG shows atrially paced, ventricularly sensed rhythm with left bundle-branch block [id number], Complete Assessment & Plan Assessment & Plan (1) Cardiac pacemaker in situ: Onset Date: ~2012 Comment: ([facility] DCPP - placed 2012 for SSS - generator change 2020) Code(s): Z95.0 - Presence of cardiac pacemaker Plan: Cardiac pacemaker in-situ for sick sinus syndrome. Pacemaker is working well. Reprogrammed for adequate function. Will follow remotely in 3 months and follow up in the clinic in 6 months time. (2) Left bundle branch block: Comment: (Noted on EKGs back to 2006 - 04/2016 Echo: EF=45-50%, 03/2019 Nuclear stress test: Negative, 04/2019 Echo: EF=50-55%, 06/2019: event monitor symptomatic pacemaker mediated tachycardia, 10/2020 Echo: EF=50-55%) Code(s): I44.7 - Left bundle-branch block, unspecified Plan: Left bundle-branch block which has remained stable. No signs or symptoms of heart failure. Last echocardiogram which showed LVEF which was on low end of normal. Continue neurohormonal modulation. Follow-up echocardiogram in 1 year's time. (3) Orthostatic hypotension dysautonomic syndrome: Code(s): I95.1 - Orthostatic hypotension Plan: Patient with dystonic syndrome with significant high blood pressure with labile blood pressure changes and with prior history of orthostatic hypertension. Doing well at this point time with no recurrent symptoms. Blood pressure is well optimized. Continue current therapy. Importance of adequate oral hydration was discussed. Orthostatic precautions were discussed. (4) Coronary artery disease: Code(s): I25.10 - Atherosclerotic heart disease of [place] coronary artery without angina pectoris Qualifiers: Coronary Disease-Associated Artery/Lesion type: [place] artery [place] vs. transplanted heart: [place] heart Associated angina: without angina Qualified Code(s): I25.10 - Atherosclerotic heart disease of [place] coronary artery without angina pectoris Plan: CAD, nonobstructive. Continue low-dose aspirin therapy. Continue statin therapy with target goal LDL less than 70 mg/dL. She does have intermittent symptoms of stress-induced chest discomfort which is suggestive coronary vaso spasm responding to sublingual nitroglycerin. Continue the same. Will follow up in the clinic in 6 months time, sooner p.r.n.. Thank you for allowing me to partake in her care Coding Level of Care Code Est Pt Level 4 (18550) Diagnoses Cardiac pacemaker in situ Z95.0 Left bundle branch block I44.7 Orthostatic hypotension dysautonomic syndrome I95.1 Coronary artery disease involving [place] coronary artery of [place] heart without angina pectoris I25.10 Coronary Disease-Associated Artery/Lesion type: [place] artery [place] vs. transplanted heart: [place] heart Associated angina: without angina CPT Codes Cardiac Device Check - Cardiac Device 2: [id number] Cardiac Device Check, pacemaker dual lead ([id number]) EKG - CPT: 84398-[id number], Complete ([id number])
[2023-08-23 13:41] VITALS: BP 120/80; PULSE 60; BMI 30.4
== END 2023-08-23 14:01 | disposition home or self-care (01) ==
PROVIDERS: Visit Provider Internal Medicine Cardiovascular Disease
DX: I44.7 Left bundle-branch block, unspecified (principal); I95.1 Orthostatic hypotension; I25.10 Atherosclerotic heart disease of native coronary artery without angina pectoris; Z95.0 Presence of cardiac pacemaker
CPT/HCPCS: 93280; 99214

== ENCOUNTER → 2023-08-23 13:38 | Outpatient (BNVA) | payer MEDICARE, MEDICAID, SELFPAY | PROVIDERS: Visit Provider Internal Medicine Cardiovascular Disease | DX: I44.7 Left bundle-branch block, unspecified (principal); I95.1 Orthostatic hypotension; I25.10 Atherosclerotic heart disease of native coronary artery without angina pectoris; I10 Essential (primary) hypertension; Z45.010 Encounter for checking and testing of cardiac pacemaker pulse generator [battery] | CPT/HCPCS: 93005; 93280; 99212 ==

== ENCOUNTER → 2023-09-12 23:59 | Outpatient (BNV) | payer MEDICARE, MEDICAID, SELFPAY ==
--- NOTE | 2023-09-13 16:05 | MHC.OFFVIS ---
Intake Intake Visit Reasons: Remote Device Check- [facility] Allergies Iodinated Contrast Media [IV Contrast Dye] Allergy (Intermediate, Verified 11/18/22 14:18) Hives oxycodone [From PERCODAN] Allergy (Intermediate, Verified 11/18/22 14:18) headache/ringing in ears cheese Adverse Reaction (Intermediate, Verified 11/18/22 14:18) Diarrhea PFSH Medical History Epiploic appendagitis History of COVID-19 (~05/2021) History of sick sinus syndrome (~2012) Osteoporosis PVCs (premature ventricular contractions) Diverticular disease Renal calculi Lactose intolerance Anxiety Urge incontinence GERD (gastroesophageal reflux disease) Hypercholesterolemia Obesity (BMI 30-39.9) TIA (transient ischemic attack) Coronary artery disease Orthostatic hypotension dysautonomic syndrome HTN (hypertension) Left bundle branch block History of cardiomyopathy Cardiac pacemaker in situ (~2012) Surgical History Hx of basal cell carcinoma excision Hx of colonoscopy History of vaginal hysterectomy History of removal of skin mole Hx of appendectomy S/P right knee arthroscopy History of cataract surgery History of esophagogastroduodenoscopy (EGD) History of permanent cardiac pacemaker placement Hx of lumpectomy Family History Father No problems noted. Mother No problems noted. Brother Myocardial infarction Social History Housing: Apartment Alcohol intake: never Patient Tobacco Use Status: Former Tobacco user Quit Date: >40yrs ago Tobacco use type: Cigarette e-Cigarette/Vaping Use: Never Used Second Hand Smoke Exposure: No service: No Current occupational status: retired Cognitive needs: No Hearing needs: No Vision needs: Yes Office Procedures Cardiac Device Check Cardiac Device Check Details: Remote pacemaker report generated 09/12/2023. Pacemaker function is adequate [id number] Cardiac Device Interrogation, pacemaker Procedure code (CPT) selection complete Assessment & Plan Assessment & Plan (1) Cardiac pacemaker in situ: Onset Date: ~2012 Comment: ([facility] DCPP - placed 2012 for SSS - generator change 2020) Code(s): Z95.0 - Presence of cardiac pacemaker Plan: See above Coding Level of Care Code Procedure Only Diagnoses Cardiac pacemaker in situ Z95.0 CPT Codes Cardiac Device Check - Cardiac Device 12: [id number] Cardiac Device Interrogation, pacemaker ([id number])
== END ==
PROVIDERS: PCP Internal Medicine; Visit Provider Internal Medicine Cardiovascular Disease
DX: I42.9 Cardiomyopathy, unspecified (principal); Z95.0 Presence of cardiac pacemaker
CPT/HCPCS: 93294

== ENCOUNTER 2023-10-31 13:01 | Outpatient (REF) | payer MEDICARE, MEDICAID, SELFPAY ==
[2023-10-31 13:23] LABS: MANUAL DIFF FLAG NO
[2023-10-31 13:36] LABS: Basophils Percent Auto 0.3 % (0-2); Eosinophils Absolute Auto 0.1 X10*3/uL (0.0-0.4); Eosinophils Percent Auto 1.7 % (0-4); Hematocrit 37.5 % (37.0-47.0); Hemoglobin 12.4 g/dl (12.0-16.0); Imm Gran Abs Auto 0.03 X10*3/uL (0.00-0.03); Imm Gran Pct Auto 0.4 % (0.0-0.4); Lymphocytes Absolute Auto 2.1 X10*3/uL (1.2-4.9); Lymphocytes Percent Auto 27.6 % (20-40); Mean Corpuscular HGB Conc 33.1 g/dl (31.0-35.0); Mean Corpuscular Hemoglobin 31.5 pg (27.0-33.0); Mean Corpuscular Volume 95.2 fL (80.0-98.0); Mean Platelet Volume 10.3 fL (9.4-12.3); Monocytes Absolute Auto 0.6 X10*3/uL (0.1-1.2); Monocytes Percent Auto 7.4 % (2-11); Neutrophils Absolute Auto 4.7 x10*3/uL (2.0-8.3); Neutrophils Percent Auto 62.6 % (45-73); Platelet Count 214 X10*3/uL (160-400); Red Blood Count 3.94 X10*6/uL (4.20-5.50); White Blood Count 7.5 X10*3/uL (4.8-10.8)
[2023-10-31 14:22] LABS: Alanine Aminotransferase 15 U/L (0-31); Albumin Level 3.9 g/dL (3.5-5.0); Alkaline Phosphatase 183 U/L (39-117); Anion Gap 10 (12-20); Aspartate Amino Transferase 32 U/L (5-31); Bilirubin Total 0.7 mg/dL (0.0-1.0); Blood Urea Nitrogen 16 mg/dL (9-16); Carbon Dioxide 28 mmol/L (22-29); Chloride 108 mmol/L (96-108); Cholesterol 125 mg/dL (<200); Estimated Glomerular Filt Rate 58; Glucose Random 90 mg/dL (60-115); HDL Cholesterol 55 mg/dL (>40); LDL Cholesterol Calculated 43 mg/dL (<100); Sodium 142 mmol/L (135-145); Total Protein 7.1 g/dL (6.5-8.0); Triglycerides 136 mg/dL (<150)
[2023-10-31 14:41] LABS: Free T4 (Free Thyroxine) 0.98 ng/dL (0.71-1.85); Vitamin D 25-OH Total 41.3 ng/mL (>30)
[2023-10-31 14:49] LABS: Folate 15.3 ng/mL (> or = 4.0); Vitamin B12 594 pg/mL (200-900)
== END 2023-10-31 13:02 | disposition home or self-care (01) ==
LOC: HO.LAB 13:01
PROVIDERS: PCP Internal Medicine; Visit Provider Internal Medicine
DX: I25.10 Atherosclerotic heart disease of native coronary artery without angina pectoris (principal); E78.00 Pure hypercholesterolemia, unspecified
CPT/HCPCS: 36415; 80053; 80061; 82306; 82607; 82746; 84439; 84443; 85025

== ENCOUNTER 2023-12-09 09:11 | Outpatient (AMB) | payer MEDICARE, MEDICAID, SELFPAY ==
[2023-12-09 09:32] VITALS: BP 132/70; PULSE 57; O2SAT 97; BMI 34.8
--- NOTE | 2023-12-09 09:32 | A.OFFPC_ITS ---
Vital Signs 12/09/23 09:32 Height 5 ft 1 in Weight 184 lb BMI 34.8 BP 132/70 Blood Pressure Location Lt brachial Position Sitting Pulse 57 Pulse Source Pulse Oximeter Pulse Oximetry (%) 97 Oxygen Delivery Method Room Air Intake Visit Reasons: medication follow up Allergies Iodinated Contrast Media [IV Contrast Dye] Allergy (Intermediate, Verified 11/18/22 14:18) Hives oxycodone [From PERCODAN] Allergy (Intermediate, Verified 11/18/22 14:18) headache/ringing in ears cheese Adverse Reaction (Intermediate, Verified 11/18/22 14:18) Diarrhea Tobacco use date assessed: 12/09/23 Fall risk assessment: No Falls in past year Last assessed Fall Risk: 12/09/23 Dental Screening Dental Screen Date: 12/09/23 Did you have a dental visit in the last 12 months?: Yes Did you have a dental problem in the last 6 months where you did not have access to dental care?: No Was dental information given to patient?: Patient has dentist HPI medication follow up HPI Details 83-year-old obese female with a history of sick sinus syndrome coronary artery disease hypertension hypercholesterolemia GERD coming in for follow-up. Last seen in October 2022. Patient's mammogram is up-to-date bone density is late and colonoscopy is up-to-date. Patient follows up with Cardiology seen in July had some chest pains patient continues to be followed up for the pacemaker for the sick sinus syndrome on low-dose aspirin continue with cholesterol medication concern about stress induced chest discomfort suggestive of coronary vasospasms. twinges on the chest took nitro was just watching tv, , and then took another nitro and the pain went away, states has been doing a lot more. Otherwise no nausea no vomiting no chest pains no bowel bladder symptoms. [facility] Medical History Epiploic appendagitis History of COVID-19 (~05/2021) History of sick sinus syndrome (~2012) Osteoporosis PVCs (premature ventricular contractions) Diverticular disease Renal calculi Lactose intolerance Anxiety Urge incontinence GERD (gastroesophageal reflux disease) Hypercholesterolemia Obesity (BMI 30-39.9) TIA (transient ischemic attack) Coronary artery disease Orthostatic hypotension dysautonomic syndrome HTN (hypertension) Left bundle branch block History of cardiomyopathy Cardiac pacemaker in situ (~2012) Surgical History Hx of basal cell carcinoma excision Hx of colonoscopy History of vaginal hysterectomy History of removal of skin mole Hx of appendectomy S/P right knee arthroscopy History of cataract surgery History of esophagogastroduodenoscopy (EGD) History of permanent cardiac pacemaker placement Hx of lumpectomy Family History (Updated 12/09/23 @ 09:33 by Martha Bateman CMA) Father No problems noted. Mother No problems noted. Brother Myocardial infarction Social History Housing: Apartment Alcohol intake: never Patient Tobacco Use Status: Former Tobacco user Quit Date: >40yrs ago Tobacco use type: Cigarette e-Cigarette/Vaping Use: Never Used Second Hand Smoke Exposure: No service: No Current occupational status: retired Cognitive needs: No Hearing needs: No Vision needs: Yes Questionnaire PHQ-9 Over the last 2 weeks, how often have you been bothered by any of the following problems? 1. Little interest or pleasure in doing things: not at all 2. Feeling down, depressed, or hopeless: not at all 3. Trouble falling or staying asleep, or sleeping too much: not at all 4. Feeling tired or having little energy: not at all 5. Poor appetite or overeating: not at all 6. Feeling bad about yourself - or that you are a failure or have let yourself or your family down: not at all 7. Trouble concentrating on things, such as reading the newspaper or watching television: not at all 8. Moving or speaking so slowly that other people could have noticed. Or the opposite - being so fidgety or restless that you have been moving around a lot more than usual: not at all 9. Thoughts that you would be better off or of hurting yourself in some way: not at all Total score: 0 Depression Screening Interpretation: Negative Depression Screening Done: Yes Source: Developed by Drs. Otoniel Lei, Loli La, Robert Baum and colleagues, with an educational ananda from [employer]. Thrive Questionnaire Date Thrive assessed: 12/09/23 I am a: Patient What is your living situation today?: I have a steady place to live Within the past 12 months, did the food you bought not last and you didn't have the money to get more?: Never true Within the past 12 months, did you worry whether your food would run out before you got money to buy more?: Never true Do you have trouble paying for medicines?: No Do you have trouble getting transportation to medical appointments?: No Do you have trouble paying your heating and electricity bill?: No Do you have trouble taking care of your child, family member or friend?: No Do you have trouble with day-to-day activities such as bathing, preparing meals, shopping, managing finances, etc.?: No Are you currently unemployed and looking for a job?: No Are you interested in more education?: No Currently or been in a relationship where the following occur: no concerns reported THRIVE Score: 0 AUDIT C Alcohol Use Questionnaire (AUDIT-C) 1. How often do you have a drink containing alcohol?: Never Total Score: 0 Score Reviewed/Action Taken: No KEYA-7 AMB Questionnaire KEYA-7 Date KEYA - 7 assessed: 12/09/23 Feeling nervous, anxious, or on edge: 0 = Not at all Not being able to stop or control worryin = Not at all Worrying too much about different things: 0 = Not at all Trouble relaxin = Not at all Being so restless that it is hard to sit still: 0 = Not at all Becoming easily annoyed or irritable: 0 = Not at all Feeling afraid as if something awful might happen: 0 = Not at all Total KEYA-7 score (0-4 normal; 5-9 mild; 10-14 moderate; 15-21 severe): 0 Source: Developed by Drs. Otoniel Lei, Loli La, Robert Baum and colleagues, with an educational ananda from [employer]. Physical exam (Primary Care) Vital Signs: Last Vital Signs Pulse 57 12/09/23 09:32 BP 132/70 12/09/23 09:32 Pulse Ox 97 12/09/23 09:32 Oxygen Delivery Method Room Air 12/09/23 09:32 BMI result Body Mass Index 34.8 Tobacco/Smoking Status: Tobacco use Status Tobacco use date assessed 12/09/23 12/09/23 09:40 Patient Tobacco Use Status Former Tobacco user 12/09/23 09:40 Tobacco use type Cigarette 12/09/23 09:40 e-Cigarette/Vaping Use Never Used 12/09/23 09:40 PHQ-9: PHQ-9 Score PHQ-9: Total score 0 12/09/23 09:40 Depression Screening Interpretation: Negative Thrive Assessment: Date of Thrive Assessment Date Thrive assessed 12/09/23 12/09/23 09:40 Currently or been in a relationship where the following occur: no concerns reported Const General: alert; No acute distress Eyes Conjunctivae: conjunctivae normal Resp Auscultation: clear to auscultation bilaterally Cardio Rate: regular rate Rhythm: regular rhythm GI Inspection: Yes normal to inspection Extrem General: Yes normal to inspection and No edema Assessment and Plan Assessment & Plan (1) Coronary artery disease: Code(s): I25.10 - Atherosclerotic heart disease of [place] coronary artery without angina pectoris Qualifiers: Coronary Disease-Associated Artery/Lesion type: [place] artery [place] vs. transplanted heart: [place] heart Associated angina: without angina Qualified Code(s): I25.10 - Atherosclerotic heart disease of [place] coronary artery without angina pectoris Plan: Control the cholesterol, weight, blood pressure, diabetes presently on aspirin 81 mg once a day patient does have a follow-up with cardiology next month. (2) Cardiac pacemaker in situ: Onset Date: ~2012 Comment: ([employer] DCPP - placed 2013 for SSS - generator change 2020) Code(s): Z95.0 - Presence of cardiac pacemaker Plan: Patient follows up with Cardiology regularly with pacemaker check (3) HTN (hypertension): Code(s): I10 - Essential (primary) hypertension Qualifiers: Hypertension type: essential hypertension Qualified Code(s): I10 - Essential (primary) hypertension Plan: Continue with blood pressure medication. Decrease salt intake and exercise presently on hydralazine 50 mg twice a day metoprolol 100 mg once a day (4) Hypercholesterolemia: Code(s): E78.00 - Pure hypercholesterolemia, unspecified Plan: Avoid fried foods, chicken skin, eggs, butter margarine, pastries and meat. Be it pork or beef they have a lot of cholesterol LDL goal of less than 70 on atorvastatin (5) GERD (gastroesophageal reflux disease): Code(s): K21.9 - Gastro-esophageal reflux disease without esophagitis Qualifiers: Esophagitis presence: without esophagitis Qualified Code(s): K21.9 - Gastro-esophageal reflux disease without esophagitis Plan: Avoid the foods that causes that usually spicy foods, tomato products, juices, coffee, soda and foods that your sensitive to. After eating do not lie down, allow 3-4 hours before in lie down. And keep the head of bed above 30 degrees to avoid the acid from going up. (6) Osteoporosis: Comment: (Bone Dexa T-Score -2.8 Lumbar - 06/12/2020) Code(s): M81.0 - Age-related osteoporosis without current pathological fracture Plan: Discussed the need for bone density. (7) Obesity (BMI 30-39.9): Code(s): E66.9 - Obesity, unspecified Plan: Diet and exercise Orders: Orders XR DEXA axial skeleton Today M81.0 - Age-related osteoporosis without current pathological fracture Coding Level of Care Code Est Pt Level 4 (15484) Diagnoses Coronary artery disease involving [place] coronary artery of [place] heart without angina pectoris I25.10 Coronary Disease-Associated Artery/Lesion type: [place] artery [place] vs. transplanted heart: [place] heart Associated angina: without angina Cardiac pacemaker in situ Z95.0 Essential hypertension I10 Hypertension type: essential hypertension Hypercholesterolemia E78.00 Gastroesophageal reflux disease without esophagitis K21.9 Esophagitis presence: without esophagitis Osteoporosis M81.0 Obesity (BMI 30-39.9) E66.9
== END 2023-12-09 10:15 | disposition home or self-care (01) ==
PROVIDERS: PCP Internal Medicine; Visit Provider Internal Medicine
DX: I10 Essential (primary) hypertension (principal); E66.9 Obesity, unspecified; I25.10 Atherosclerotic heart disease of native coronary artery without angina pectoris; Z68.34 Body mass index [BMI] 34.0-34.9, adult; Z95.0 Presence of cardiac pacemaker; E78.00 Pure hypercholesterolemia, unspecified; K21.9 Gastro-esophageal reflux disease without esophagitis; M81.0 Age-related osteoporosis without current pathological fracture
CPT/HCPCS: 99214

== ENCOUNTER → 2023-12-13 23:59 | Outpatient (BNV) | payer MEDICARE, MEDICAID, SELFPAY ==
--- NOTE | 2023-12-14 14:45 | MHC.OFFVIS ---
Intake Intake Visit Reasons: Remote Device Check- [facility] Allergies Iodinated Contrast Media [IV Contrast Dye] Allergy (Intermediate, Verified 11/18/22 14:18) Hives oxycodone [From PERCODAN] Allergy (Intermediate, Verified 11/18/22 14:18) headache/ringing in ears cheese Adverse Reaction (Intermediate, Verified 11/18/22 14:18) Diarrhea PFSH Medical History Epiploic appendagitis History of COVID-19 (~05/2021) History of sick sinus syndrome (~2012) Osteoporosis PVCs (premature ventricular contractions) Diverticular disease Renal calculi Lactose intolerance Anxiety Urge incontinence GERD (gastroesophageal reflux disease) Hypercholesterolemia Obesity (BMI 30-39.9) TIA (transient ischemic attack) Coronary artery disease Orthostatic hypotension dysautonomic syndrome HTN (hypertension) Left bundle branch block History of cardiomyopathy Cardiac pacemaker in situ (~2012) Surgical History Hx of basal cell carcinoma excision Hx of colonoscopy History of vaginal hysterectomy History of removal of skin mole Hx of appendectomy S/P right knee arthroscopy History of cataract surgery History of esophagogastroduodenoscopy (EGD) History of permanent cardiac pacemaker placement Hx of lumpectomy Family History (Updated 12/09/23 @ 09:33 by Martha Bateman CMA) Father No problems noted. Mother No problems noted. Brother Myocardial infarction Social History Housing: Apartment Alcohol intake: never Patient Tobacco Use Status: Former Tobacco user Quit Date: >40yrs ago Tobacco use type: Cigarette e-Cigarette/Vaping Use: Never Used Second Hand Smoke Exposure: No service: No Current occupational status: retired Cognitive needs: No Hearing needs: No Vision needs: Yes Office Procedures Cardiac Device Check Cardiac Device Check Details: Remote pacemaker report generated 12/13/2023. Pacemaker function is adequate [id number] Cardiac Device Interrogation, pacemaker Procedure code (CPT) selection complete Assessment & Plan Assessment & Plan (1) Cardiac pacemaker in situ: Onset Date: ~2012 Comment: ([employer] DCPP - placed 2012 for SSS - generator change 2020) Code(s): Z95.0 - Presence of cardiac pacemaker Plan: See above Coding Level of Care Code Procedure Only Diagnoses Cardiac pacemaker in situ Z95.0 CPT Codes Cardiac Device Check - Cardiac Device 12: [id number] Cardiac Device Interrogation, pacemaker ([id number])
== END ==
PROVIDERS: PCP Internal Medicine; Visit Provider Internal Medicine Cardiovascular Disease
DX: Z45.018 Encounter for adjustment and management of other part of cardiac pacemaker (principal)
CPT/HCPCS: 93294

== ENCOUNTER 2024-01-11 12:35 | Outpatient (REF) | payer MEDICARE, MEDICAID, SELFPAY ==
--- NOTE | ~2024-01-11 | MM_ITS ---
EXAMINATION: BONE DENSITOMETRY CLINICAL INDICATION: Long-term, current, use of bisphosphonates. COMPARISON: Previous BD dated 06/12/2020 and baseline BD dated 07/01/2008. TECHNIQUE: Using a Crew DXA System (software version: 13.1) manufactured by [employer], dual-energy x-ray absorptiometry was performed of the lumbar spine and left hip. The images are of good technical quality. Summary results are attached. FINDINGS: LEFT FEMUR, NECK: Current: BMD 0.722 g/cm2, Z-score -0.3, T-score -2.3, osteopenia. Prior: BMD 0.712 g/cm2. Baseline: BMD 0.810 g/cm2. LEFT FEMUR, TOTAL: Current: BMD 0.679 g/cm2, Z-score -0.8, T-score -2.6, osteoporosis, 6.3% decrease from previous, 22.9% decrease from baseline (<5% change is not significant). Prior: BMD 0.725 g/cm2. Baseline: BMD 0.881 g/cm2. AP SPINE L2-L3 (excluding L1 and L4): The data of L1-L4 has been changed to exclude the L1 and L4 vertebral bodies, because degenerative change at these levels may cause overestimation of lumbar spine density. Current: BMD 0.783 g/cm2, Z-score -2.1, T-score -3.5, osteoporosis, 5.4% decrease from previous, 12.8% decrease from baseline (<5% change is not significant). Prior: BMD 0.828 g/cm2. Baseline: BMD 0.898 g/cm2. IDENTIFIED RISK FACTORS: Early menopause, secondary osteoporosis, hysterectomy. HISTORY OF FRACTURE: None listed. MEDICATIONS: Calcium supplements or multivitamin, vitamin D. MM/XR DEXA axial skeleton IMPRESSION: 1. DIAGNOSIS: Osteoporosis based on the lowest T-score value of -3.5 in the lumbar spine applying World Health Organization criteria. 2. 10-YEAR FRACTURE RISK PREDICTION, FRAX: According to the guidelines, FRAX calculation should only be performed on patients in the osteopenia bone density category. Therefore, FRAX was not performed on this patient. 3. Treatment Recommendations: NOF guidelines recommend consideration for treatment in postmenopausal women and men age 50 and older presenting with the following: -A hip or vertebral (clinical or morphometric) fracture. -T-score less than or equal to -2.5 at the femoral neck or spine after appropriate evaluation to exclude secondary causes. -Low bone mass at the hip or spine and a 10-year fracture probability by FRAX of greater than or equal to 3% for hip fracture or greater than or equal to 20% for major osteoporotic fracture based on the [place] adapted WHO algorithm. 4. Other Recommendations: All treatment decisions require clinical judgment and consideration of individual patient factors, including patient preferences, comorbidities, previous drug use, risk factors not captured in the FRAX model (e.g. frailty, falls, vitamin D deficiency, increased bone turnover, interval significant decline in bone density) and possible under or overestimation of fracture risk by FRAX. Additional medical evaluation for secondary cause of low bone mineral density may be appropriate. FUTURE SCAN RECOMMENDATION: People with diagnosed cases of osteoporosis or at high risk for fracture should have regular bone mineral density tests. For patients eligible for Medicare, routine testing is allowed once every 2 years. The testing frequency can be increased to one year for patients who have rapidly progressing disease, those who are receiving or discontinuing medical therapy to restore bone mass, or have additional risk factors.
== END 2024-01-11 12:36 | disposition home or self-care (01) ==
LOC: HO.MAMMO 12:35
PROVIDERS: PCP Internal Medicine; Visit Provider Internal Medicine
DX: Z13.820 Encounter for screening for osteoporosis (principal); Z78.0 Asymptomatic menopausal state; M81.0 Age-related osteoporosis without current pathological fracture
CPT/HCPCS: 77080

== ENCOUNTER 2024-02-14 13:52 | Outpatient (AMB) | payer MEDICARE, MEDICAID, SELFPAY ==
--- NOTE | 2024-02-14 13:54 | A.OFFVIS_ITS ---
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 Allergies Iodinated Contrast Media [IV Contrast Dye] Allergy (Intermediate, Verified 11/18/22 14:18) Hives oxycodone [From PERCODAN] Allergy (Intermediate, Verified 11/18/22 14:18) headache/ringing in ears cheese Adverse Reaction (Intermediate, Verified 11/18/22 14:18) Diarrhea Medication List - Last Reconciled 02/14/24 by Juan F Loya MD ascorbic acid (vitamin C) (Vitamin C) 1,000 mg PO DAILY aspirin (Adult Aspirin Regimen) 81 mg PO DAILY atorvastatin 20 mg PO DAILY bumetanide 0.5 mg PO DAILY calcium 500 mg PO DAILY clotrimazole 1% 1 appl topical BID 4 weeks cyclosporine 0.05% (Restasis) 1 drp ophthalmic (eye) BID hydralazine 50 mg PO BID isosorbide mononitrate ER 30 mg PO QAM metoprolol succinate ER 100 mg PO DAILY [Mobility scooter As directed] multivitamin 1 tab PO DAILY nitroglycerin (Nitrostat) 0.4 mg sublingual Q5M PRN omeprazole 20 mg PO DAILY oxybutynin chloride ER 10 mg PO DAILY HPI Comments Details: Kirsty comes for follow-up. Overall she has been doing well. She says she continues to have exertional shortness of breath which is not change. Unfortunately she has intermittent episode of chest tightness which happens mostly at rest associated shortness of breath. She then takes sublingual nitroglycerin with relief. She denies any orthopnea, PND, leg edema. She is tolerated bumetanide well. Denies any prolonged palpitation irregular heartbeat. No syncopal episodes. Takes all her medications regularly. [facility] Medical History Epiploic appendagitis History of COVID-19 (~05/2021) History of sick sinus syndrome (~2012) Osteoporosis PVCs (premature ventricular contractions) Diverticular disease Renal calculi Lactose intolerance Anxiety Urge incontinence GERD (gastroesophageal reflux disease) Hypercholesterolemia Obesity (BMI 30-39.9) TIA (transient ischemic attack) Coronary artery disease Orthostatic hypotension dysautonomic syndrome HTN (hypertension) Left bundle branch block History of cardiomyopathy Cardiac pacemaker in situ (~2012) Surgical History Hx of basal cell carcinoma excision Hx of colonoscopy History of vaginal hysterectomy History of removal of skin mole Hx of appendectomy S/P right knee arthroscopy History of cataract surgery History of esophagogastroduodenoscopy (EGD) History of permanent cardiac pacemaker placement Hx of lumpectomy Family History Father No problems noted. Mother No problems noted. Brother Myocardial infarction Social History Housing: Apartment Alcohol intake: never Patient Tobacco Use Status: Former Tobacco user Quit Date: >40yrs ago Tobacco use type: Cigarette e-Cigarette/Vaping Use: Never Used Second Hand Smoke Exposure: No service: No Current occupational status: retired Cognitive needs: No Hearing needs: No Vision needs: Yes Review of Systems Const Denies chills, Denies fatigue, Denies fever(s), Denies frequent falls, Denies weakness, Denies weight gain and Denies weight loss ENT Denies dizziness Card Denies chest pain, Denies leg edema, Denies lightheadedness, Denies palpitations, Denies dyspnea, Denies dyspnea on exertion, Denies orthopnea and Denies other (loss of consciousness) Resp Denies cough, Denies dyspnea and Denies dyspnea on exertion GI Denies hematochezia and Denies change in stool character Musc Denies abnormal gait, Denies muscle weakness, Denies numbness, Denies radiating pain into limb and Denies tingling Neuro Denies abnormal gait, Denies dizziness, Denies frequent falls, Denies numbness, Denies tingling and Denies weakness Endo Denies fatigue and Denies palpitations Physical Exam Vital Signs: Last Vital Signs Pulse 64 02/14/24 13:55 BP 124/80 02/14/24 13:55 BMI result Body Mass Index 34.6 Const General: cooperative, comfortable, no acute distress, alert, awake and well groomed Nutritional Appearance: obese Orientation/consciousness: patient oriented x3 Limitations: no limitations Neck Neck: Yes trachea midline, Yes supple and Yes no JVD Chest Chest palpation & inspection: other (Pacemaker pocket appears benign) Resp Effort & Inspection: normal respiratory effort Auscultation: clear to auscultation bilaterally Cardio Jugular venous distension: no JVD Palpation: normal PMI Rate: regular rate Rhythm: regular rhythm Heart sounds: S1 normal heart sound present and S2 normal heart sound present GI Auscultation: normal bowel sounds Skin General skin exam: no rashes or lesions noted Neuro General: patient oriented x3 and no focal motor deficits Extrem General: Yes no clubbing, cyanosis or edema Office Procedures Cardiac Device Check Cardiac Device Check Details: Dual-chamber [facility] pacemaker in place. Programmed in DDDR at 60 beats per minute. Atrial pacing 88% of the time. Multiple episodes of PMT noted. Post ventricular atrial blanking period was increased. Atrial ventricular sensing was adequate. Atrial ventricular capture thresholds are adequate. Lead impedances are within normal limits. Battery life is at about 7 years. [id number] Cardiac Device Check, pacemaker dual lead Procedure code (CPT) selection complete Assessment & Plan Assessment & Plan (1) Coronary artery disease: Code(s): I25.10 - Atherosclerotic heart disease of three affiliated coronary artery without angina pectoris Category: Medical Qualifiers: Coronary Disease-Associated Artery/Lesion type: three affiliated artery [place] vs. transplanted heart: three affiliated heart Associated angina: without angina Qualified Code(s): I25.10 - Atherosclerotic heart disease of three affiliated coronary artery without angina pectoris Plan: CAD, nonobstructive by prior testing. Has intermittent episodes of chest tightness which happen at rest relieved by sublingual nitroglycerin. Could represent coronary vaso spasm. Can continue takes sublingual nitroglycerin. If her symptom pattern changes and happens with exertion may require further workup. (2) Cardiac pacemaker in situ: Onset Date: ~2012 Comment: ([employer] DCPP - placed 2012 for SSS - generator change 2020) Code(s): Z95.0 - Presence of cardiac pacemaker Category: Medical Plan: Cardiac pacemaker in-situ for sick sinus syndrome. Pacemaker is working well. Will follow remotely as well as follow up in the clinic in 6 months time. (3) Orthostatic hypotension dysautonomic syndrome: Code(s): I95.1 - Orthostatic hypotension Category: Medical Plan: Prior history of this autonomic syndrome with well controlled blood pressure at this point in time. No change in therapy. Continue current blood pressure regimen. Advised to monitor blood pressure intermittently at home. Target goal blood pressure less than 130/84. (4) (HFpEF) heart failure with preserved ejection fraction: Code(s): I50.30 - Unspecified diastolic (congestive) heart failure Category: Medical Plan: Patient prior history of shortness of breath with leg edema and elevated BNP consistent with heart failure syndrome. Clinically doing very well with low- dose bumetanide therapy. Continue the same. Advised daily weight monitoring avoidance of salt loading. Importance of diuretic therapy was discussed. Continue monitor renal function every 6 months. Will follow up in the clinic in 6 months time after an echocardiogram. Thank you for allowing me to partake in the care Orders: Orders CA echo transthoracic complete 6 Months I50.30 - Unspecified diastolic (congestive) heart failure Medications: Refilled nitroglycerin (Nitrostat) do not exceed 3 doses per episode 0.4 mg sublingual Q5M PRN 25 tabs 1RF chest pain bumetanide 0.5 mg PO DAILY 90 tabs 1RF Coding Level of Care Code Est Pt Level 4 (68487) Diagnoses Coronary artery disease involving three affiliated coronary artery of three affiliated heart without angina pectoris I25.10 Coronary Disease-Associated Artery/Lesion type: three affiliated artery [place] vs. transplanted heart: three affiliated heart Associated angina: without angina Cardiac pacemaker in situ Z95.0 Orthostatic hypotension dysautonomic syndrome I95.1 (HFpEF) heart failure with preserved ejection fraction I50.30 CPT Codes Cardiac Device Check - Cardiac Device 2: [id number] Cardiac Device Check, pacemaker dual lead ([id number])
[2024-02-14 13:55] VITALS: BP 124/80; PULSE 64; BMI 34.6
== END 2024-02-14 14:09 | disposition home or self-care (01) ==
PROVIDERS: PCP Internal Medicine; Visit Provider Internal Medicine Cardiovascular Disease
DX: I25.10 Atherosclerotic heart disease of native coronary artery without angina pectoris (principal); Z95.0 Presence of cardiac pacemaker; I95.1 Orthostatic hypotension; I50.30 Unspecified diastolic (congestive) heart failure
CPT/HCPCS: 93280; 99214

== ENCOUNTER → 2024-02-14 13:52 | Outpatient (BNVA) | payer MEDICARE, MEDICAID, SELFPAY | PROVIDERS: PCP Internal Medicine; Visit Provider Internal Medicine Cardiovascular Disease | DX: Z45.018 Encounter for adjustment and management of other part of cardiac pacemaker (principal); I25.10 Atherosclerotic heart disease of native coronary artery without angina pectoris; I95.1 Orthostatic hypotension; I50.30 Unspecified diastolic (congestive) heart failure | CPT/HCPCS: 93280; 99212 ==

== ENCOUNTER → 2024-03-14 23:59 | Outpatient (BNV) | payer MEDICARE, MEDICAID, SELFPAY ==
--- NOTE | 2024-03-19 13:16 | MHC.OFFVIS ---
Intake Visit Reasons: Remote Device Check- [facility] Allergies Iodinated Contrast Media [IV Contrast Dye] Allergy (Intermediate, Verified 11/18/22 14:18) Hives oxycodone [From PERCODAN] Allergy (Intermediate, Verified 11/18/22 14:18) headache/ringing in ears cheese Adverse Reaction (Intermediate, Verified 11/18/22 14:18) Diarrhea PFSH Medical History Epiploic appendagitis History of COVID-19 (~05/2021) History of sick sinus syndrome (~2012) Osteoporosis PVCs (premature ventricular contractions) Diverticular disease Renal calculi Lactose intolerance Anxiety Urge incontinence GERD (gastroesophageal reflux disease) Hypercholesterolemia Obesity (BMI 30-39.9) TIA (transient ischemic attack) Coronary artery disease Orthostatic hypotension dysautonomic syndrome HTN (hypertension) Left bundle branch block History of cardiomyopathy Cardiac pacemaker in situ (~2012) Surgical History Hx of basal cell carcinoma excision Hx of colonoscopy History of vaginal hysterectomy History of removal of skin mole Hx of appendectomy S/P right knee arthroscopy History of cataract surgery History of esophagogastroduodenoscopy (EGD) History of permanent cardiac pacemaker placement Hx of lumpectomy Family History Father No problems noted. Mother No problems noted. Brother Myocardial infarction Social History Housing: Apartment Alcohol intake: never Patient Tobacco Use Status: Former Tobacco user Tobacco use type: Cigarette e-Cigarette/Vaping Use: Never Used Second Hand Smoke Exposure: No service: No Current occupational status: retired Cognitive needs: No Hearing needs: No Vision needs: Yes Office Procedures Cardiac Device Check Cardiac Device Check Details: Remote pacemaker report generated 03/14/2024. Pacemaker function is adequate [id number] Cardiac Device Interrogation, pacemaker Procedure code (CPT) selection complete Assessment & Plan Assessment & Plan (1) Cardiac pacemaker in situ: Onset Date: ~2012 Comment: ([employer] DCPP - placed 2012 for SSS - generator change 2020) Code(s): Z95.0 - Presence of cardiac pacemaker Category: Medical Plan: See above Coding Level of Care Code Procedure Only Diagnoses Cardiac pacemaker in situ Z95.0 CPT Codes Cardiac Device Check - Cardiac Device 12: [id number] Cardiac Device Interrogation, pacemaker ([id number])
== END ==
PROVIDERS: PCP Internal Medicine; Visit Provider Internal Medicine Cardiovascular Disease
DX: I49.5 Sick sinus syndrome (principal); Z95.0 Presence of cardiac pacemaker
CPT/HCPCS: 93294

== ENCOUNTER 2024-04-19 13:41 | Outpatient (REF) | payer MEDICARE, MEDICAID, SELFPAY ==
--- NOTE | ~2024-04-19 | MM_ITS ---
EXAMINATION: MM SCREENING DIGITAL BREAST TOMOSYNTHESIS, BILATERAL CLINICAL INFORMATION: Screening. Asymptomatic. COMPARISON: Mammography: This study is compared with prior exams dating back to 2019. TECHNIQUE: Digital breast tomosynthesis is performed in both the craniocaudal and mediolateral oblique views along with computer-aided detection (CAD). Synthesized 2D images are generated from the tomosynthesis. FINDINGS: There are scattered areas of fibroglandular density (ACR BI-RADS breast composition Category b). There is a pacemaker in the superior aspect of the left breast. There are no significant masses, abnormal calcifications, or other abnormalities. MM/MM tomosynthesis screening BI IMPRESSION: No mammographic evidence of malignancy. ASSESSMENT: BI-RADS BI-RADS 1 - Negative RECOMMENDATION: Routine annual mammography screening. 1 year F/U This examination should not preclude the clinical evaluation of a suspicious palpable abnormality. This patient's information was entered into a reminder system with a target due date for their next mammogram.
== END 2024-04-19 13:42 | disposition home or self-care (01) ==
LOC: HO.MAMMO 13:41
PROVIDERS: PCP Internal Medicine; Visit Provider Internal Medicine
DX: Z12.31 Encounter for screening mammogram for malignant neoplasm of breast (principal)
CPT/HCPCS: 77063; 77067

== ENCOUNTER → 2024-04-19 14:00 | Outpatient (BNV) | payer MEDICARE, MEDICAID, SELFPAY | PROVIDERS: PCP Internal Medicine; Visit Provider Radiology Diagnostic Radiology | DX: Z12.31 Encounter for screening mammogram for malignant neoplasm of breast (principal) | CPT/HCPCS: 77063; 77067 ==

== ENCOUNTER 2024-05-14 10:07 | Outpatient (REF) | payer MEDICARE, MEDICAID, SELFPAY ==
[2024-05-14 10:57] LABS: Appearance Urine Clear; Color Urine Yellow; Glucose Urine UA Negative (Negative); Leukocyte Esterase Urine Small (1+) (Negative); Nitrite Urine Negative (Negative); PH 5.5 (5.0-9.0); UMIC TRIGGER UACC YES; Urine Blood Negative (Negative); Urine Ketones Negative (Negative); Urine Protein Negative (Neg-Trace)
[2024-05-14 11:04] LABS: Bacteria Urine None Seen (None Seen); Hyaline Casts Urine 0-2 /LPF (0-2); RBC Urine 0-2 /HPF (0-2); Squamous Epithelial Cell Urine 0-2 /HPF (0-2); UACC Culture Trigger YES
== END 2024-05-14 10:08 | disposition home or self-care (01) ==
LOC: HO.LAB 10:07
PROVIDERS: PCP Internal Medicine; Visit Provider Internal Medicine
DX: R39.9 Unspecified symptoms and signs involving the genitourinary system (principal)
CPT/HCPCS: 81001; 87086

== ENCOUNTER 2024-05-29 09:57 | Emergency (ER) | payer MEDICARE, MEDICAID, SELFPAY ==
--- NOTE | ~2024-05-29 | XR_ITS ---
EXAMINATION: XR CHEST CLINICAL INFORMATION: Dyspnea COMPARISON: None available. TECHNIQUE: Frontal view of the chest was obtained. FINDINGS: Heart size borderline with normal caliber pulmonary vessels. No congestive change. Lungs grossly clear. Left-sided pacer noted with distal tip directed towards reaching the right ventricular apex. XR/XR chest 1V IMPRESSION: No active disease. Electronically signed by: Sathya Heart MD 05/29/2024 10:47 AM EDT
--- NOTE | 2024-05-29 10:00 | ECG_ITS ---
Test Reason : Chest tightness Blood Pressure : / mmHG Vent. Rate : 060 BPM Atrial Rate : 060 BPM P-R Int : 244 ms QRS Dur : 140 ms QT Int : 456 ms P-R-T Axes : 231 -17 105 degrees QTc Int : 456 ms Atrial-paced rhythm with prolonged AV conduction Left bundle branch block Abnormal ECG When compared with ECG of 31-JAN-2020 16:15, Electronic atrial pacemaker has replaced Sinus rhythm T wave inversion no longer evident in Lateral leads Referred By: Meagan Yang Electronically Signed By:WEN PLASENCIA
[2024-05-29 10:09] VITALS: BP 184/74; PULSE 60; RESP 14; TEMP 36.9; O2SAT 96; BMI 35.6
--- NOTE | 2024-05-29 10:19 | ED_ITS ---
HPI - Chest Pain General Chief Complaint: Chest Pain Stated Complaint: SOB 95%, HIGH BP 220/100,ASA & NITRO GIVEN PER EMS Source: patient, EMS and old records reviewed Mode of arrival: EMS Limitations: no limitations History of Present Illness ED Provider: MANDY HPI narrative: 84 yo female with PMH of CHFpreserved EF, UTI, SSS s/p PPM, CAD, HTN, HLD, GERD, osteoporosis who notes this weekend she started to have headaches feel sick and not well just overall malaise and has a productive cough. She is around [employer]. She went to a [employer] yesterday started to feel ill again noted dyspnea and then her chest felt tight it went away and she seemed okay. Today no sig exertion activity again felt dyspneic and EMS arrived tried to calm her down and the patient was given nitro spray BP went from 220 to 114. Patient states she thinks the nitro didn't do much but that they calmed her down. No fevers, no travel no procedures. She has no pain now. MD complaint: chest heaviness Pertinent past history: coronary artery disease Onset (ago): day(s) (3) Timing of current episode: episodic Prior episodes: Yes Onset: during rest Pain location: left chest Pain radiation: none Severity: mild Quality: tightness Relieving factors: nothing Exacerbating factors: nothing Context: recent illness Associated symptoms: dyspnea Treatment prior to arrival: nitroglycerin Related Data Home Medications ?Medication ?Instructions ?Recorded ?Confirmed aspirin 81 mg tablet,delayed 81 mg PO DAILY 10/14/20 02/14/24 release (Adult Aspirin Regimen) ascorbic acid (vitamin C) 1,000 mg 1,000 mg PO DAILY 07/24/21 02/14/24 tablet (Vitamin C) calcium 500 mg tablet 500 mg PO DAILY 07/24/21 02/14/24 multivitamin 1 tab PO DAILY 07/24/21 02/14/24 Previous Rx's ?Medication ?Instructions ?Recorded clotrimazole 1 % topical cream 1 appl topical BID 4 weeks #45 02/03/22 grams Mobility scooter #1 ea 03/02/22 cyclosporine 0.05 % eye drops in a 1 drp ophthalmic (eye) BID #180 ea 07/20/23 dropperette (Restasis) atorvastatin 20 mg tablet 20 mg PO DAILY #90 tabs 10/24/23 isosorbide mononitrate 30 mg 30 mg PO QAM #90 tabs 11/04/23 tablet,extended release 24 hr metoprolol succinate 100 mg 100 mg PO DAILY #90 tabs 01/18/24 tablet,extended release 24 hr omeprazole 20 mg capsule,delayed 20 mg PO DAILY #90 caps 02/09/24 release bumetanide 0.5 mg tablet 0.5 mg PO DAILY #90 tabs 02/14/24 nitroglycerin 0.4 mg sublingual 0.4 mg sublingual Q5M PRN chest 02/14/24 tablet (Nitrostat) pain #25 tabs oxybutynin chloride 10 mg 10 mg PO DAILY #90 tabs 03/28/24 tablet,extended release 24 hr hydralazine 100 mg tablet 50 mg (1/2 x 100 mg) PO BID #180 03/30/24 tabs nitrofurantoin 100 mg PO Q12H 7 days #14 caps 05/14/24 monohydrate/macrocrystals 100 mg capsule (Macrobid) hydralazine 50 mg tablet 50 mg PO TID #90 tabs 05/29/24 Allergies Allergy/AdvReac Type Severity Reaction Status Date / Time Iodinated Contrast Media Allergy Intermediate Hives Verified 05/29/24 10:12 [IV Contrast Dye] oxycodone [From PERCODAN] Allergy Intermediate headache/ringing Verified 05/29/24 10:12 in ears cheese AdvReac Intermediate Diarrhea Verified 05/29/24 10:12 Review of Systems 2 Review of Systems: Constitutional : No Fever, No Chills ENT/Mouth : No sore throat, No Rhinorrhea, No Swallowing Difficulty Eyes: No Eye Pain, No Swelling, No Redness Cardiovascular : pos Chest Pain, positive SOB, No Orthopnea, no Edema Respiratory : No Cough, No Sputum, No Wheezing, positive dyspnea Gastrointestinal : No Nausea, No Vomiting, No Diarrhea, No abdominal Pain, No Hematochezia, No Melena Genitourinary : No Dysuria, No Urinary Frequency, No Hematuria Musculoskeletal : No joint pain, No Myalgias Skin : No Skin Lesions, No rash Neuro : No Weakness, No Numbness, No Dizziness, No Headache Psych : No Anxiety/Panic, No Depression All other systems reviewed and are negative PMFSH Past Medical History Attestation statement: The following information was validated with the patient. Source: old records reviewed Medical History Epiploic appendagitis History of COVID-19 (~05/2021) History of sick sinus syndrome (~2012) Osteoporosis PVCs (premature ventricular contractions) Diverticular disease Renal calculi Lactose intolerance Anxiety Urge incontinence GERD (gastroesophageal reflux disease) Hypercholesterolemia Obesity (BMI 30-39.9) TIA (transient ischemic attack) Coronary artery disease Orthostatic hypotension dysautonomic syndrome HTN (hypertension) Left bundle branch block History of cardiomyopathy Cardiac pacemaker in situ (~2012) Surgical History Hx of basal cell carcinoma excision Hx of colonoscopy History of vaginal hysterectomy History of removal of skin mole Hx of appendectomy S/P right knee arthroscopy History of cataract surgery History of esophagogastroduodenoscopy (EGD) History of permanent cardiac pacemaker placement Hx of lumpectomy Family History Family History Father No problems noted. Mother No problems noted. Brother Myocardial infarction Social History Social History Housing: Apartment Alcohol intake: current Alcohol intake frequency: holidays/special occasions only Alcohol type: wine Patient Tobacco Use Status: Former Tobacco user Tobacco use type: Cigarette e-Cigarette/Vaping Use: Never Used Second Hand Smoke Exposure: No Advance Directives: No Advance Directives Information Provided: Yes service: No Current occupational status: retired Cognitive needs: No Hearing needs: No Vision needs: Yes Physical Exam 2 Vital Signs: Vital Signs: Last Vital Signs Temp 97.7 F 05/29/24 13:25 Pulse 60 05/29/24 13:25 Resp 14 05/29/24 13:25 BP 163/61 H 05/29/24 14:45 Pulse Ox 97 05/29/24 13:25 O2 Del Method Room Air 05/29/24 13:25 BMI result Body Mass Index 35.6 Appearance: Alert. Oriented X3. No acute distress. anxious Eyes: Pupils equal, round and reactive to light. ENT: Pharynx normal. Neck: Normal inspection. Neck supple. CVS: Normal heart rate and rhythm. Pulses normal. Respiratory: No respiratory distress. Breath sounds normal. Abdomen: Soft and non-tender. Skin: Skin warm and dry. Normal skin color. Normal skin turgor. Extremities: No lower extremity edema. No calf ttp Neuro: Oriented X 3. No motor deficit. No sensory deficit. Medications Administered Discontinued Medications Generic Name Dose Route Start Last Admin Trade Name Bernyq PRN Reason Stop Dose Admin Hydralazine HCl 50 mg 05/29/24 13:31 05/29/24 14:13 Hydralazine Hcl 50 Mg Tablet PO 05/29/24 13:32 50 mg ONCE ONE Administration Protocol Medical Decision Making Medical Decision Making [facility] Narrative: 84 yo female with PMH of CHFpreserved EF, UTI, SSS s/p PPM, CAD, HTN, HLD, GERD, osteoporosis here with c/o URI like symptoms and chest tightness since Tuesday. Not related to exertion at this time will obtain CXR, trop x 2, ddimer, COVID swab. Her BP is up will monitor closely she has no symptoms now does not report good effect with nitro. She has no signs of end organ ischemia and no headaches. Possible CHF, URI, viral syndrome, HTN, VTE, atypical chest pain Differential Diagnosis Differential Diagnoses: The differential diagnosis associated with the presentation includes CHF, URI, viral syndrome, VTE, ACS, HTN Admission/Observation Consideration of admission/observation: Escalation of care including admission/observation considered negative work up will dose with hydralazine PO and start her on hydralazine 50mg TID instead of BID Lab Data [facility] Lab Attestation statement: I reviewed the patient's lab results. age adjusted ddimer negative 420 05/29/24 10:27 05/29/24 10:27 Labs: Lab Results 05/29/24 05/29/24 Range/Units 10:27 12:43 WBC 7.0 (4.8-10.8) X10*3/uL RBC 3.88 L (4.20-5.50) X10*6/uL Hgb 12.5 (12.0-16.0) g/dl Hct 36.7 L (37.0-47.0) % MCV 94.6 (80.0-98.0) fL MCH 32.2 (27.0-33.0) pg MCHC 34.1 (31.0-35.0) g/dl RDW 13.1 (11.0-16.0) % Plt Count 206 (160-400) X10*3/uL MPV 9.5 (9.4-12.3) fL Immature Gran % (Auto) 0.4 (0.0-0.4) % Neut % (Auto) 70.4 (45-73) % Lymph % (Auto) 20.6 (20-40) % Peach % (Auto) 6.0 (2-11) % Eos % (Auto) 2.3 (0-4) % Baso % (Auto) 0.3 (0-2) % Lymph # (Auto) 1.4 (1.2-4.9) X10*3/uL Peach # (Auto) 0.4 (0.1-1.2) X10*3/uL Eos # (Auto) 0.2 (0.0-0.4) X10*3/uL Baso # (Auto) 0.0 (0.0-0.2) X10*3/uL Abs Immat Gran (auto) 0.03 (0.00-0.03) X10*3/uL Absolute Neuts (auto) 4.9 (2.0-8.3) x10*3/uL Absolute Nucleated RBC 0.000 (0.0-0.012) X10*3/uL Nucleated RBC % (auto) 0.0 (0.0-0.2) /100WBC PT 12.1 (11.1-13.3) SEC INR 1.0 (0.9-1.1) D-Dimer High Sensitivty 275 NG/ML Sodium 141 (135-145) mmol/L Potassium 3.7 (3.3-5.1) mmol/L Chloride 108 (96-108) mmol/L Carbon Dioxide 25 (22-29) mmol/L Anion Gap 12 (12-20) BUN 20 H (9-16) mg/dL Creatinine 0.84 (0.5-1.4) mg/dL Estim Creat Clear Calc 49.4 Estimated GFR > 60 Random Glucose 105 (60-115) mg/dL Calcium 8.7 (8.4-10.2) mg/dL Magnesium 1.6 (1.6-2.6) mg/dL Total Bilirubin 0.5 (0.0-1.0) mg/dL Direct Bilirubin 0.2 (0.0-0.5) mg/dL AST 26 (5-31) U/L ALT 15 (0-31) U/L Alkaline Phosphatase 155 H (39-117) U/L Troponin I High Sens 10.2 10.7 (<3.5-17.0) ng/L B-Natriuretic Peptide 185 H (<100) pg/mL Total Protein 6.7 (6.5-8.0) g/dL Albumin 3.8 (3.5-5.0) g/dL Lipase 26 (8-78) U/L Influenza Type A (PCR) NEGATIVE (Negative) Influenza Type B (PCR) NEGATIVE (Negative) RSV RNA Qual (PCR) NEGATIVE (Negative) SARS-CoV-2 RNA (RT-PCR) NEGATIVE (Negative) Independent Interpretation I performed an independent interpretation of an: EKG and Plain X-Ray (normal ) Interpretation: Rate: 60 Rhythm: a paced [place]: left Normal P waves. 1st degree AVB LBBB ST T wave : inverted t waves I and aVL, no TOMY qTC: 456 prior studies: no sig change from priors The study has been interpreted contemporaneously by me. . Radiology Impression Discussion of test interpretation with radiology: I have reviewed the radiologist's reading. Independent Historian Clinical information obtained from an independent historian. History obtained from or confirmed by: EMS External Record Review External record reviewed: Inpatient record Discharge Plan Discharge Clinical Impression: Atypical chest pain, Hypertension, uncontrolled Patient Disposition: Home, Self-Care Instructions: Chest Pain (ED), Chronic Hypertension (ED) Additional Instructions: chest xray normal negative for flu and COVID heart tests normal x 2 negative for blood clot labs reassuring call and follow up with your doctor at this time will increase your blood pressure to 50mg of hydralazine three times a day instead of twice a day return for any worsening symptoms or concerns. Prescriptions: New hydralazine 50 mg tablet 50 mg PO TID Qty: 90 0RF No Action (DME) Mobility scooter See Rx Instructions .Route .MEDSUPPLY Qty: 1 0RF Rx Instructions: As directed Restasis 0.05 % dropperette 1 drp ophthalmic (eye) BID Qty: 180 0RF atorvastatin 20 mg tablet 20 mg PO DAILY Qty: 90 2RF isosorbide mononitrate 30 mg tablet extended release 24 hr 30 mg PO QAM Qty: 90 2RF metoprolol succinate 100 mg tablet extended release 24 hr 100 mg PO DAILY Qty: 90 3RF omeprazole 20 mg capsule,delayed release(DR/EC) 20 mg PO DAILY Qty: 90 3RF oxybutynin chloride 10 mg tablet extended release 24hr 10 mg PO DAILY Qty: 90 0RF hydralazine 100 mg tablet 50 mg PO BID Qty: 180 3RF nitrofurantoin monohyd/m-cryst [Macrobid] 100 mg capsule 100 mg PO Q12H 7 Days Qty: 14 0RF Rx Instructions: must administer with a meal/food multivitamin Tablet 1 tab PO DAILY ascorbic acid (vitamin C) [Vitamin C] 1,000 mg Tablet 1,000 mg PO DAILY calcium 500 mg Tablet 500 mg PO DAILY clotrimazole 1 % cream 1 appl topical BID 28 Days Qty: 45 0RF aspirin [Adult Aspirin Regimen] 81 mg tablet,delayed release (DR/EC) 81 mg PO DAILY nitroglycerin [Nitrostat] 0.4 mg tablet, sublingual 0.4 mg sublingual Q5M PRN (Reason: chest pain) Qty: 25 1RF Rx Instructions: do not exceed 3 doses per episode bumetanide 0.5 mg tablet 0.5 mg PO DAILY Qty: 90 1RF Print Language: Wolof
[2024-05-29 10:35] LABS: MANUAL DIFF FLAG NO
[2024-05-29 10:36] LABS: Basophils Percent Auto 0.3 % (0-2); Eosinophils Absolute Auto 0.2 X10*3/uL (0.0-0.4); Eosinophils Percent Auto 2.3 % (0-4); Hematocrit 36.7 % (37.0-47.0); Hemoglobin 12.5 g/dl (12.0-16.0); Imm Gran Abs Auto 0.03 X10*3/uL (0.00-0.03); Imm Gran Pct Auto 0.4 % (0.0-0.4); Lymphocytes Absolute Auto 1.4 X10*3/uL (1.2-4.9); Lymphocytes Percent Auto 20.6 % (20-40); Mean Corpuscular HGB Conc 34.1 g/dl (31.0-35.0); Mean Corpuscular Hemoglobin 32.2 pg (27.0-33.0); Mean Corpuscular Volume 94.6 fL (80.0-98.0); Mean Platelet Volume 9.5 fL (9.4-12.3); Monocytes Absolute Auto 0.4 X10*3/uL (0.1-1.2); Neutrophils Absolute Auto 4.9 x10*3/uL (2.0-8.3); Neutrophils Percent Auto 70.4 % (45-73); Platelet Count 206 X10*3/uL (160-400); Red Blood Count 3.88 X10*6/uL (4.20-5.50); Red Cell Distribution Width 13.1 % (11.0-16.0)
[2024-05-29 10:41] LABS: Prothrombin Time 12.1 SEC (11.1-13.3)
[2024-05-29 10:43] LABS: D Dimer High Sensitivity 275 NG/ML
[2024-05-29 10:56] LABS: Alanine Aminotransferase 15 U/L (0-31); Albumin Level 3.8 g/dL (3.5-5.0); Alkaline Phosphatase 155 U/L (39-117); Anion Gap 12 (12-20); Aspartate Amino Transferase 26 U/L (5-31); Bilirubin Direct 0.2 mg/dL (0.0-0.5); Bilirubin Total 0.5 mg/dL (0.0-1.0); Blood Urea Nitrogen 20 mg/dL (9-16); Calcium 8.7 mg/dL (8.4-10.2); Carbon Dioxide 25 mmol/L (22-29); Chloride 108 mmol/L (96-108); Creatinine Clr Calc Pharmacy 49.4; Estimated Glomerular Filt Rate > 60; Glucose Random 105 mg/dL (60-115); Lipase 26 U/L (8-78); Magnesium 1.6 mg/dL (1.6-2.6); Potassium 3.7 mmol/L (3.3-5.1); Sodium 141 mmol/L (135-145); Total Protein 6.7 g/dL (6.5-8.0)
[2024-05-29 11:00] LABS: B Type Natriuretic Peptide 185 pg/mL (<100)
[2024-05-29 11:03] LABS: Troponin-I High Sensitivity 10.2 ng/L (<3.5-17.0)
[2024-05-29 11:18] LABS: Influenza A PCR NEGATIVE (Negative); Influenza B PCR NEGATIVE (Negative); Resp Syncy Virus RNA Qual PCR NEGATIVE (Negative); SARS COV2 PCR INHOUSE NEGATIVE (Negative)
[2024-05-29 13:09] LABS: Troponin-I High Sensitivity 10.7 ng/L (<3.5-17.0)
[2024-05-29 13:25] VITALS: BP 186/119; PULSE 60; RESP 14; TEMP 36.5; O2SAT 97
[2024-05-29 14:13] VITALS: BP 187/75
[2024-05-29] MEDS: hydrALAZINE HCl 50 MG TABLET PO (14:13)
[2024-05-29 14:45] VITALS: BP 163/61
[2024-05-29 15:17] VITALS: BP 175/60; PULSE 60; RESP 20; TEMP 36.6; O2SAT 97
[2024-05-29 15:39] VITALS: BP 175/60; PULSE 60; RESP 20; TEMP 36.6; O2SAT 97
[2024-05-29 15:51] LABS: Appearance Urine Clear; Color Urine Yellow; Glucose Urine UA Negative (Negative); Leukocyte Esterase Urine Large (3+) (Negative); Nitrite Urine Negative (Negative); PH 5.5 (5.0-9.0); Specific Gravity - Urine 1.015 (1.005-1.025); UMIC TRIGGER UACC YES; Urine Blood Negative (Negative); Urine Ketones Trace mg/dL (Negative); Urine Protein Negative (Neg-Trace)
[2024-05-29 15:57] LABS: Bacteria Urine None Seen (None Seen); Hyaline Casts Urine 0-2 /LPF (0-2); RBC Urine 0-2 /HPF (0-2); Squamous Epithelial Cell Urine 0-2 /HPF (0-2); UACC Culture Trigger YES; WBC Urine >50 /HPF (0-5)
== END 2024-05-29 15:39 | disposition home or self-care (01) ==
PROVIDERS: Emergency Provider Emergency Medicine; PCP Internal Medicine
DX: R07.89 Other chest pain (principal); R06.02 Shortness of breath; I25.10 Atherosclerotic heart disease of native coronary artery without angina pectoris; I10 Essential (primary) hypertension; Z03.818 Encounter for observation for suspected exposure to other biological agents ruled out; Z79.899 Other long term (current) drug therapy; Z87.891 Personal history of nicotine dependence
CPT/HCPCS: 0241U; 36415; 71045; 80048; 80076; 81001; 83690; 83735; 83880; 84484; 85025; 85379; 85610; 87086; 93005; 99283; 99285

== ENCOUNTER 2024-06-01 13:48 | Outpatient (AMB) | payer MEDICARE, MEDICAID, SELFPAY ==
[2024-06-01 13:58] VITALS: BP 140/74; PULSE 61; O2SAT 97; BMI 34.4
--- NOTE | 2024-06-01 13:58 | MHC.PC.OV ---
Vital Signs 06/01/24 13:58 Height 5 ft 1 in Weight 182 lb BMI 34.4 BP 140/74 H Blood Pressure Location Lt brachial Position Sitting Pulse 61 Pulse Source Pulse Oximeter Pulse Oximetry (%) 97 Oxygen Delivery Method Room Air Intake Visit Reasons: [facility] [place] 05/29 SOB 95%, HIGH BP 220/100,ASA Intake Note: Patient is here for hospital discharge follow up. Patient was discharged from [facility] [place] on 05/29/2024 Lab Scientist Required: No Allergies Iodinated Contrast Media [IV Contrast Dye] Allergy (Intermediate, Verified 06/01/24 14:04) Hives oxycodone [From PERCODAN] Allergy (Intermediate, Verified 06/01/24 14:04) headache/ringing in ears cheese Adverse Reaction (Intermediate, Verified 06/01/24 14:04) Diarrhea Medication List - Last Reconciled 06/01/24 by Geetha Aranda PA-C ascorbic acid (vitamin C) (Vitamin C) 1,000 mg PO DAILY aspirin (Adult Aspirin Regimen) 81 mg PO DAILY atorvastatin 20 mg PO DAILY bumetanide 0.5 mg PO DAILY calcium 500 mg PO DAILY cefuroxime axetil 250 mg PO BID 7 days clotrimazole 1% 1 appl topical BID 4 weeks cyclosporine 0.05% (Restasis) 1 drp ophthalmic (eye) BID hydralazine 50 mg PO TID hydralazine 50 mg (1/2 x 100 mg) PO BID isosorbide mononitrate ER 30 mg PO QAM metoprolol succinate ER 100 mg PO DAILY [Mobility scooter As directed] multivitamin 1 tab PO DAILY nitrofurantoin monohyd/m-cryst 100 mg (Macrobid) 100 mg PO Q12H 7 days nitroglycerin (Nitrostat) 0.4 mg sublingual Q5M PRN omeprazole 20 mg PO DAILY oxybutynin chloride ER 10 mg PO DAILY Tobacco use date assessed: 12/09/23 Fall risk assessment: No Falls in past year Last assessed Fall Risk: 06/01/24 Dental Screening Dental Screen Date: 12/09/23 HPI [facility] [place] 05/29 SOB 95%, HIGH BP 220/100,ASA HPI Details 84-year-old obese female with a history of sick sinus syndrome coronary artery disease hypertension hypercholesterolemia GERD coming in for hospital follow-up.?In review of the notes, patient was seen in [facility] [place] ED 05/29/2024 her general malaise and chest tightness.?Chest x-ray, viral testing, troponin, BNP, and D-dimer all normal. Hydralazine 50 mg was increased to 3 times a day and advised to follow up with primary care. She tells us she is feeling much better since her visit to the ER. She was found to have a UTI while in the ER and was given cefuroxime and feels her symptoms have resolved. She is doing well in the new dose of hydralazine and does not mentioned any side effects. She takes her blood pressure at home and most values are low 140s over 70s. She is no longer having any headaches or chest pain. [facility] Medical History Epiploic appendagitis History of COVID-19 (~05/2021) History of sick sinus syndrome (~2012) Osteoporosis PVCs (premature ventricular contractions) Diverticular disease Renal calculi Lactose intolerance Anxiety Urge incontinence GERD (gastroesophageal reflux disease) Hypercholesterolemia Obesity (BMI 30-39.9) TIA (transient ischemic attack) Coronary artery disease Orthostatic hypotension dysautonomic syndrome HTN (hypertension) Left bundle branch block History of cardiomyopathy Cardiac pacemaker in situ (~2012) Surgical History Hx of basal cell carcinoma excision Hx of colonoscopy History of vaginal hysterectomy History of removal of skin mole Hx of appendectomy S/P right knee arthroscopy History of cataract surgery History of esophagogastroduodenoscopy (EGD) History of permanent cardiac pacemaker placement Hx of lumpectomy Family History Father No problems noted. Mother No problems noted. Brother Myocardial infarction Social History Housing: Apartment Alcohol intake: current Alcohol intake frequency: holidays/special occasions only Alcohol type: wine Patient Tobacco Use Status: Former Tobacco user Tobacco use type: Cigarette e-Cigarette/Vaping Use: Never Used Second Hand Smoke Exposure: No service: No Current occupational status: retired Cognitive needs: No Hearing needs: No Vision needs: Yes Questionnaire Thrive Questionnaire Date Thrive assessed: 12/09/23 AUDIT C Alcohol Use Questionnaire (AUDIT-C) 1. How often do you have a drink containing alcohol?: Never 3. How often do you have six or more drinks on one occasion?: Never Total Score: 0 Score Reviewed/Action Taken: No KEYA-7 AMB Questionnaire KEYA-7 Date KEYA - 7 assessed: 12/09/23 Source: Developed by Drs. Otoniel Lei, Loli La, Robert Baum and colleagues, with an educational ananda from [employer]. Review of Systems Const Denies body aches, Denies chills, Denies fever(s) and Denies headache(s) Eyes Reports no additional complaints ENT Denies dizziness and Denies headache(s) Card Denies chest pain, Denies edema, Denies lightheadedness and Denies dyspnea Resp Denies dyspnea GI Denies abdominal pain and Denies nausea Reports no additional complaints Musc Reports no additional complaints and Denies abnormal gait Skin/Breast Reports system reviewed and no additional complaints, except as documented Neuro Denies abnormal gait, Denies dizziness and Denies headache(s) Psych Reports no additional complaints Physical exam (Primary Care) Vital Signs: Last Vital Signs Pulse 61 06/01/24 13:58 BP 140/74 H 06/01/24 13:58 Pulse Ox 97 06/01/24 13:58 Oxygen Delivery Method Room Air 06/01/24 13:58 BMI result Body Mass Index 34.4 Tobacco/Smoking Status: Tobacco use Status Tobacco use date assessed 12/09/23 06/01/24 14:00 Patient Tobacco Use Status Former Tobacco user 06/01/24 14:00 Tobacco use type Cigarette 06/01/24 14:00 e-Cigarette/Vaping Use Never Used 06/01/24 14:00 Thrive Assessment: Date of Thrive Assessment Date Thrive assessed 12/09/23 06/01/24 14:00 Const General: cooperative, healthy appearing, comfortable and no acute distress Orientation/consciousness: patient oriented x3 HENMT Head: Yes normocephalic Ears: hearing grossly normal bilaterally General nose exam: Normal external nose present Eyes General: appearance normal, both eyes and all related structures Conjunctivae: conjunctivae normal Neck Neck: Yes full ROM and Yes no lymphadenopathy Resp Effort & Inspection: normal respiratory effort Auscultation: clear to auscultation bilaterally, no crackles, no rales, no rhonchi and no wheezes Cardio Rate: regular rate Rhythm: regular rhythm Skin General skin exam: no rashes or lesions noted Neuro General: patient oriented x3 Gait exam (Neuro): Normal gait present Extrem General: Yes normal to inspection, Yes full ROM and No edema Psych Affect: normal affect Attitude: cooperative Insight: Good insight present (Psych) Judgement: Good judgement present (Psych) Assessment and Plan Assessment & Plan (1) HTN (hypertension): Code(s): I10 - Essential (primary) hypertension Qualifiers: Hypertension type: essential hypertension Qualified Code(s): I10 - Essential (primary) hypertension Plan: Patient states she is doing well on current blood pressure medication does not have any concerns for side effects at this time. Advised patient to continue on this new dose adjustment and take her blood pressure daily for the next week. Patient is going on vacation next Tuesday and we will try to book an appointment with nurse navigator for follow up on blood pressure prior to her leaving. Reviewed red flag symptoms and when to present for re-evaluation. Advised patient to reach out to her rn case manager hospice to inform them of the hydralazine dose change. Plan This note was constructed using voice recognition software. While every effort has been made to ensure accuracy and supervisor mending, still areas may have been included sometimes these areas may affect the content or meeting of the given symptoms. Total time spent caring for the patient today was 30 minutes. This includes time spent before the visit reviewing the chart, time spent during the visit, and time spent after the visit and documentation. Coding Level of Care Code Est Pt Level 3 (65050) Diagnoses Essential hypertension I10 Hypertension type: essential hypertension
== END 2024-06-01 14:44 | disposition home or self-care (01) ==
PROVIDERS: PCP Internal Medicine
DX: I10 Essential (primary) hypertension (principal)
CPT/HCPCS: 99213

== ENCOUNTER → 2024-06-14 23:59 | Outpatient (BNV) | payer MEDICARE, MEDICAID, SELFPAY ==
--- NOTE | 2024-06-21 15:58 | MHC.OFFVIS ---
Intake Visit Reasons: Remote device check- [facility] Allergies Iodinated Contrast Media [IV Contrast Dye] Allergy (Intermediate, Verified 06/01/24 14:04) Hives oxycodone [From PERCODAN] Allergy (Intermediate, Verified 06/01/24 14:04) headache/ringing in ears cheese Adverse Reaction (Intermediate, Verified 06/01/24 14:04) Diarrhea PFSH Medical History Epiploic appendagitis History of COVID-19 (~05/2021) History of sick sinus syndrome (~2012) Osteoporosis PVCs (premature ventricular contractions) Diverticular disease Renal calculi Lactose intolerance Anxiety Urge incontinence GERD (gastroesophageal reflux disease) Hypercholesterolemia Obesity (BMI 30-39.9) TIA (transient ischemic attack) Coronary artery disease Orthostatic hypotension dysautonomic syndrome HTN (hypertension) Left bundle branch block History of cardiomyopathy Cardiac pacemaker in situ (~2012) Surgical History Hx of basal cell carcinoma excision Hx of colonoscopy History of vaginal hysterectomy History of removal of skin mole Hx of appendectomy S/P right knee arthroscopy History of cataract surgery History of esophagogastroduodenoscopy (EGD) History of permanent cardiac pacemaker placement Hx of lumpectomy Family History Father No problems noted. Mother No problems noted. Brother Myocardial infarction Social History Housing: Apartment Alcohol intake: current Alcohol intake frequency: holidays/special occasions only Alcohol type: wine Patient Tobacco Use Status: Former Tobacco user Tobacco use type: Cigarette e-Cigarette/Vaping Use: Never Used Second Hand Smoke Exposure: No service: No Current occupational status: retired Cognitive needs: No Hearing needs: No Vision needs: Yes Office Procedures Cardiac Device Check Cardiac Device Check Details: Remote pacemaker report generated 06/14/2024. Pacemaker function is adequate [id number] Cardiac Device Interrogation, pacemaker Procedure code (CPT) selection complete Assessment & Plan Assessment & Plan (1) Cardiac pacemaker in situ: Onset Date: ~2012 Comment: ([facility] DCPP - placed 2012 for SSS - generator change 2020) Code(s): Z95.0 - Presence of cardiac pacemaker Category: Medical Plan: see above Coding Level of Care Code Procedure Only Diagnoses Cardiac pacemaker in situ Z95.0 CPT Codes Cardiac Device Check - Cardiac Device 12: [id number] Cardiac Device Interrogation, pacemaker ([id number])
== END ==
PROVIDERS: PCP Internal Medicine; Visit Provider Internal Medicine Cardiovascular Disease
DX: Z45.018 Encounter for adjustment and management of other part of cardiac pacemaker (principal)
CPT/HCPCS: 93294

== ENCOUNTER 2024-07-25 10:45 | Outpatient (AMB) | payer MEDICARE, MEDICAID, SELFPAY ==
--- NOTE | 2024-07-25 10:57 | MHC.OFFVIS ---
Vital Signs 07/25/24 10:58 Height 5 ft 1 in Weight 183 lb BMI 34.6 BP 136/84 Blood Pressure Location Lt brachial Position Sitting Pulse 62 Pulse Source Pulse Oximeter Pulse Oximetry (%) 96 Oxygen Delivery Method Room Air Intake Visit Reasons: Hypertension Intake Note: Patient here for a follow up HTN Relocation Manager Required: No Accompanied by: Self / Same As Patient Allergies Iodinated Contrast Media [IV Contrast Dye] Allergy (Intermediate, Verified 07/25/24 11:00) Hives oxycodone [From PERCODAN] Allergy (Intermediate, Verified 07/25/24 11:00) headache/ringing in ears cheese Adverse Reaction (Intermediate, Verified 07/25/24 11:00) Diarrhea HPI HPI Hypertension: Details: 84-year-old obese female with a history of GERD hypercholesterolemia hypertension sick sinus syndrome with a pacemaker coronary artery disease congestive heart failure coming in for follow-up. Last seen 06/01/2024. Patient is mammogram is up-to-date bone density is up-to-date colonoscopy is up-to-date. Review of the notes ER visit in May 29 having chest pain with an elevated blood pressure had a cough with shortness of breath diagnosis of atypical chest pain. Adjustment of blood pressure done. Patient has seen Cardiology in February 13 does pacemaker check. Patient has had prior testing which is nonobstructive could represent vasospasms coronary this may require further workup. On Bumex for the congestive heart failure. complains of a vaginal discharge and states thick. and dicusssed that this is not UTI. [facility] Medical History Epiploic appendagitis History of COVID-19 (~05/2021) History of sick sinus syndrome (~2012) Osteoporosis PVCs (premature ventricular contractions) Diverticular disease Renal calculi Lactose intolerance Anxiety Urge incontinence GERD (gastroesophageal reflux disease) Hypercholesterolemia Obesity (BMI 30-39.9) TIA (transient ischemic attack) Coronary artery disease Orthostatic hypotension dysautonomic syndrome HTN (hypertension) Left bundle branch block History of cardiomyopathy Cardiac pacemaker in situ (~2012) Surgical History Hx of basal cell carcinoma excision Hx of colonoscopy History of vaginal hysterectomy History of removal of skin mole Hx of appendectomy S/P right knee arthroscopy History of cataract surgery History of esophagogastroduodenoscopy (EGD) History of permanent cardiac pacemaker placement Hx of lumpectomy Family History Father No problems noted. Mother No problems noted. Brother Myocardial infarction Social History Housing: Apartment Alcohol intake: current Alcohol intake frequency: holidays/special occasions only Alcohol type: wine Patient Tobacco Use Status: Former Tobacco user Tobacco use type: Cigarette e-Cigarette/Vaping Use: Never Used Second Hand Smoke Exposure: No service: No Current occupational status: retired Cognitive needs: No Hearing needs: No Vision needs: Yes Physical Exam Vital Signs: Last Vital Signs Pulse 62 07/25/24 10:58 BP 136/84 07/25/24 10:58 Pulse Ox 96 07/25/24 10:58 Oxygen Delivery Method Room Air 07/25/24 10:58 BMI result Body Mass Index 34.6 Const General: alert; No acute distress Eyes Conjunctivae: conjunctivae normal Resp Auscultation: clear to auscultation bilaterally Cardio Rate: regular rate Rhythm: regular rhythm GI Inspection: Yes normal to inspection Extrem General: Yes normal to inspection and No edema Assessment & Plan Assessment & Plan (1) Obesity (BMI 30-39.9): Code(s): E66.9 - Obesity, unspecified Category: Medical Plan: Diet and exercise (2) HTN (hypertension): Code(s): I10 - Essential (primary) hypertension Category: Medical Qualifiers: Hypertension type: essential hypertension Qualified Code(s): I10 - Essential (primary) hypertension Plan: Continue with blood pressure medication. Decrease salt intake and exercise presently on hydralazine 100 mg twice a day metoprolol 100 mg once a day advised patient to continue with this medication (3) Hypercholesterolemia: Code(s): E78.00 - Pure hypercholesterolemia, unspecified Category: Medical Plan: Avoid fried foods, chicken skin, eggs, butter margarine, pastries and meat. Be it pork or beef they have a lot of cholesterol LDL goal below 70 on atorvastatin 20 mg once a day 11/15/2023 last blood work. (4) GERD (gastroesophageal reflux disease): Code(s): K21.9 - Gastro-esophageal reflux disease without esophagitis Category: Medical Qualifiers: Esophagitis presence: without esophagitis Qualified Code(s): K21.9 - Gastro-esophageal reflux disease without esophagitis Plan: Avoid the foods that causes that usually spicy foods, tomato products, juices, coffee, soda and foods that your sensitive to. After eating do not lie down, allow 3-4 hours before in lie down. And keep the head of bed above 30 degrees to avoid the acid from going up. (5) History of sick sinus syndrome: Onset Date: ~2012 Comment: (S/P [facility] DCPP - placed 2012, generator change 2020) Code(s): Z86.79 - Personal history of other diseases of the circulatory system Category: Medical Plan: Patient has the pacemaker and being followed up by Cardiology (6) Coronary artery disease: Code(s): I25.10 - Atherosclerotic heart disease of [place] coronary artery without angina pectoris Category: Medical Qualifiers: Coronary Disease-Associated Artery/Lesion type: [place] artery [place] vs. transplanted heart: [place] heart Associated angina: without angina Qualified Code(s): I25.10 - Atherosclerotic heart disease of [place] coronary artery without angina pectoris Plan: Control the cholesterol, weight, blood pressure, patient takes aspirin once a day isosorbide mononitrate 30 mg once a day (7) (HFpEF) heart failure with preserved ejection fraction: Code(s): I50.30 - Unspecified diastolic (congestive) heart failure Category: Medical Qualifiers: Heart failure chronicity: chronic Qualified Code(s): I50.32 - Chronic diastolic (congestive) heart failure Plan: Weigh daily on Bumex continuing to monitor renal function has the beta aiden. (8) Vaginal discharge: Code(s): N89.8 - Other specified noninflammatory disorders of vagina Category: Medical Plan: Discussed with the patient that vaginal discharge is not urinary tract infection. Will give treatment for yeast infection and if persist to call. Orders: Orders Complete Blood Count Auto Diff 3 Months I50.30 - Unspecified diastolic (congestive) heart failure Comprehensive Met. Panel 3 Months I50.30 - Unspecified diastolic (congestive) heart failure Vitamin B12 and Folate 3 Months I50.30 - Unspecified diastolic (congestive) heart failure Vitamin D 25-OH Total 3 Months I50.30 - Unspecified diastolic (congestive) heart failure Magnesium 3 Months I50.30 - Unspecified diastolic (congestive) heart failure UA CC w/rflx Micro + Cult Today N39.41 - Urge incontinence, R30.0 - Dysuria B Type Natriuretic Peptide 3 Months I50.30 - Unspecified diastolic (congestive) heart failure Free T4 (Free Thyroxine) 3 Months I50.30 - Unspecified diastolic (congestive) heart failure Thyroid Stimulating Hormone 3 Months I50.30 - Unspecified diastolic (congestive) heart failure Lipid Panel 3 Months E78.00 - Pure hypercholesterolemia, unspecified, I50.30 - Unspecified diastolic (congestive) heart failure Medications: New fluconazole 150 mg PO Q3D 2 tabs 0RF N89.8 - Other specified noninflammatory disorders of vagina Coding Level of Care Code Est Pt Level 4 (22646) Complex EM visit Add On G2211 Diagnoses Obesity (BMI 30-39.9) E66.9 Essential hypertension I10 Hypertension type: essential hypertension Hypercholesterolemia E78.00 Gastroesophageal reflux disease without esophagitis K21.9 Esophagitis presence: without esophagitis History of sick sinus syndrome Z86.79 Coronary artery disease involving [place] coronary artery of [place] heart without angina pectoris I25.10 Coronary Disease-Associated Artery/Lesion type: [place] artery [place] vs. transplanted heart: [place] heart Associated angina: without angina Chronic heart failure with preserved ejection fraction I50.32 Heart failure chronicity: chronic Vaginal discharge N89.8
[2024-07-25 10:58] VITALS: BP 136/84; PULSE 62; O2SAT 96; BMI 34.6
== END 2024-07-25 11:27 | disposition home or self-care (01) ==
LOC: HO.HMCH 10:46
PROVIDERS: PCP Internal Medicine; Visit Provider Internal Medicine
DX: I11.0 Hypertensive heart disease with heart failure (principal); I50.32 Chronic diastolic (congestive) heart failure; E66.9 Obesity, unspecified; Z68.34 Body mass index [BMI] 34.0-34.9, adult; E78.00 Pure hypercholesterolemia, unspecified; K21.9 Gastro-esophageal reflux disease without esophagitis; Z86.79 Personal history of other diseases of the circulatory system; I25.10 Atherosclerotic heart disease of native coronary artery without angina pectoris; N89.8 Other specified noninflammatory disorders of vagina

== ENCOUNTER → 2024-07-25 10:45 | Outpatient (BNVA) | payer MEDICARE, MEDICAID, SELFPAY | PROVIDERS: PCP Internal Medicine; Visit Provider Internal Medicine | DX: E66.9 Obesity, unspecified (principal); E78.00 Pure hypercholesterolemia, unspecified; K21.9 Gastro-esophageal reflux disease without esophagitis; I25.10 Atherosclerotic heart disease of native coronary artery without angina pectoris; I11.0 Hypertensive heart disease with heart failure; I50.32 Chronic diastolic (congestive) heart failure; N89.8 Other specified noninflammatory disorders of vagina | CPT/HCPCS: 99212 ==

== ENCOUNTER → 2024-08-06 13:41 | Outpatient (REF) | payer MEDICARE, MEDICAID, SELFPAY ==
--- NOTE | 2024-08-06 13:43 | CA_ITS ---
Transthoracic Echocardiogram Patient (Last, First, Middle): Kirsty Pradhan, Gender: Female Date of : 1940 Age: 84 Procedure Date: 08/06/2024 Procedure Type: Transthoracic Echocardiogram Location: OP Height: 154. cm Weight: 81.65 kg BSA: 1.80 m2 Heart Rate: 60 bpm BP: 130 / 70 mmHg Fuel Verification Technician: CASSIDY Referring MD: Juan F Loya MD Symptoms: I50.30 - Unspecified diastolic (congestive) heart failure Study Quality: Adequate ECG Rhythm: Sinus Conclusions: - The left ventricular systolic function is low normal. The calculated ejection fraction is 53% by biplane method. - No obvious valvular pathology seen on this study. Findings Left Ventricle Normal left ventricular cavity size. There is mildly increased left ventricular wall thickness. The left ventricular systolic function is low normal. The calculated ejection fraction is 53% by biplane method. Evidence suggests grade I (mild) diastolic dysfunction. There is moderate septal asymmetric hypertrophy. Right Ventricle Normal right ventricular cavity size and systolic function. There is a pacemaker wire seen in the right ventricle. Atria The left atrium is mildly dilated. The right atrium is normal in size. Aortic Valve There is a normal trileaflet aortic valve. There is mild calcification of the aortic valve. There is no aortic valve stenosis. There is no aortic valve regurgitation. Mitral Valve The mitral valve appears normal. There is trace mitral valve regurgitation. There is no mitral valve stenosis. Pulmonic Valve The pulmonic valve is likely normal. Tricuspid Valve There is mild tricuspid valve regurgitation. There is no evidence of pulmonary hypertension. Great Vessels The asc aorta is normal in size. Venous The inferior vena cava is normal in size and collapses greater than 50% with inspiration. Pericardium/Pleural There is a trivial pericardial effusion. Prior Study Comparison No significant change compared to prior study dated: 08/30/2022. Recommendations, Care & Conclusions No obvious valvular pathology seen on this study. Measurements 2D Linear Measurements IVSd: 1.32 0.6-0.9/0.6-1.0 cm LVIDd: 3.81 3.9-5.3/4.2-5.9 cm LVIDd Index: 2.12 2.4-3.2/2.2-3.1 cm/m2 LVIDs: 2.76 2.0-3.6 cm LVPWd: 1.06 0.7-1.1 cm LA Diam: 3.70 2.7-3.8/3.0-4.0 cm LAIDs Index: 2.06 1.5-2.3 cm/m2 LV Mass: 189.15 67-162/88-224 g LV Mass Index: 105.08 43-95/49-115 g/m2 LVOT Diam: 1.80 3.0+(-)1.3 cm 2D Systolic Function EF 4C: 53.80 >55% EF 2C: 56.80 >55% EF BiP: 53.30 >55% Mitral Valve MV Pk E: 0.72 MV PK A: 0.84 MV Decel Time: 261.00 E/A: 0.90 E'Lateral: 8.49 E'Medial: 4.68 E/E' Med: 15.40 E/E' Lat: 8.50 PHT: 76.00 MVA PHT: 2.89 Decel Duval: 2.76 Aortic Valve AoV Pk Alonso: 1.43 AoV Mn Alonso: 0.97 AoV VTI: 0.32 AoV Pk Grad: 8.00 Aov Mn Grad: 5.00 JHON Cont.VTI: 2.01 LVOT LVOT Pk Alonso: 1.09 LVOT Mn Alonso: 0.73 LVOT VTI: 0.25 LVOT Pk Grad: 5.00 LVOT Mn Grad: 2.00 LVOT Diam: 1.80 LVOT Area: 2.54 Diastolic Function MV Pk E: 0.72 MV Pk A: 0.84 E/A: 0.90 E'Medial: 4.68 E/E' Med: 15.40 E' Laterial: 8.49 E/E' Lat: 8.50 Right Ventricle TAPSE (mm): 22.20 TVS' Alonso: 8.70 Tricuspid Valve TR Pk Alonso: 2.56 TR Pk Grad: 26.00 RA Press: 3.00 RVSP: 29.00 Great Vessels Aorta Sinus of Valsalva: 3.30 2.0-3.5 cm Ao Asc: 3.20 2.1-3.4 cm Pulmonary Valve PV Pk Alonso: 1.05 Peak PV Grad: 4.00 Updated in Other Vendor System with Status of Final Shon Guthrie MD electronically signed on 08/07/2024 8:26:13 AM with status of Final
== END ==
LOC: HO.CARD 13:41
PROVIDERS: PCP Internal Medicine; Visit Provider Internal Medicine Cardiovascular Disease
DX: I50.30 Unspecified diastolic (congestive) heart failure (principal)
CPT/HCPCS: 93306

== ENCOUNTER → 2024-08-06 13:43 | Outpatient (BNV) | payer MEDICARE, MEDICAID, SELFPAY | PROVIDERS: PCP Internal Medicine; Visit Provider Internal Medicine | DX: I42.2 Other hypertrophic cardiomyopathy (principal); I50.30 Unspecified diastolic (congestive) heart failure; I36.1 Nonrheumatic tricuspid (valve) insufficiency | CPT/HCPCS: 93306 ==

== ENCOUNTER 2024-08-16 13:15 | Outpatient (AMB) | payer MEDICARE, MEDICAID, SELFPAY ==
--- NOTE | 2024-08-16 13:25 | A.OFFVIS_ITS ---
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 Hose Required: No Allergies Iodinated Contrast Media [IV Contrast Dye] Allergy (Intermediate, Verified 07/25/24 11:00) Hives oxycodone [From PERCODAN] Allergy (Intermediate, Verified 07/25/24 11:00) headache/ringing in ears cheese Adverse Reaction (Intermediate, Verified 07/25/24 11:00) Diarrhea Medication List - Last Reconciled 08/16/24 by Juan F Loya MD ascorbic acid (vitamin C) (Vitamin C) 1,000 mg PO DAILY aspirin (Adult Aspirin Regimen) 81 mg PO DAILY atorvastatin 20 mg PO DAILY bumetanide 0.5 mg PO DAILY calcium 500 mg PO DAILY clotrimazole 1% 1 appl topical BID 4 weeks cyclosporine 0.05% (Restasis) 1 drp ophthalmic (eye) BID fluconazole 150 mg PO Q3D 2 doses hydralazine 100 mg PO BID isosorbide mononitrate ER 30 mg PO QAM metoprolol succinate ER 100 mg PO DAILY [Mobility scooter As directed] multivitamin 1 tab PO DAILY nitrofurantoin monohyd/m-cryst 100 mg (Macrobid) 100 mg PO Q12H 7 days nitroglycerin (Nitrostat) 0.4 mg sublingual Q5M PRN omeprazole 20 mg PO DAILY oxybutynin chloride ER 10 mg PO DAILY HPI Comments Details: Kirsty comes for follow-up. She has been doing well. She is not having any significantly elevated blood pressure. Blood pressures been generally well controlled. She was taking all her medications. She continues to get anxious but is trying to control that. She also watches the salt in his diet. No progressive shortness of breath, orthopnea, PND, leg edema, abdominal distention, weight gain. No exertional chest pain. No lightheadedness, syncope. [facility] Medical History Epiploic appendagitis History of COVID-19 (~05/2021) History of sick sinus syndrome (~2012) Osteoporosis PVCs (premature ventricular contractions) Diverticular disease Renal calculi Lactose intolerance Anxiety Urge incontinence GERD (gastroesophageal reflux disease) Hypercholesterolemia Obesity (BMI 30-39.9) TIA (transient ischemic attack) Coronary artery disease Orthostatic hypotension dysautonomic syndrome HTN (hypertension) Left bundle branch block History of cardiomyopathy Cardiac pacemaker in situ (~2012) Surgical History Hx of basal cell carcinoma excision Hx of colonoscopy History of vaginal hysterectomy History of removal of skin mole Hx of appendectomy S/P right knee arthroscopy History of cataract surgery History of esophagogastroduodenoscopy (EGD) History of permanent cardiac pacemaker placement Hx of lumpectomy Family History Father No problems noted. Mother No problems noted. Brother Myocardial infarction Social History Housing: Apartment Alcohol intake: current Alcohol intake frequency: holidays/special occasions only Alcohol type: wine Patient Tobacco Use Status: Former Tobacco user Tobacco use type: Cigarette e-Cigarette/Vaping Use: Never Used Second Hand Smoke Exposure: No service: No Current occupational status: retired Cognitive needs: No Hearing needs: No Vision needs: Yes Review of Systems Const Denies chills, Denies fatigue, Denies fever(s), Denies frequent falls, Denies weakness, Denies weight gain and Denies weight loss ENT Denies dizziness Card Denies chest pain, Denies leg edema, Denies lightheadedness, Denies palpitations, Denies dyspnea, Denies dyspnea on exertion, Denies orthopnea and Denies other (loss of consciousness) Resp Denies cough, Denies dyspnea and Denies dyspnea on exertion GI Denies hematochezia and Denies change in stool character Musc Denies abnormal gait, Denies muscle weakness, Denies numbness, Denies radiating pain into limb and Denies tingling Neuro Denies abnormal gait, Denies dizziness, Denies frequent falls, Denies numbness, Denies tingling and Denies weakness Endo Denies fatigue and Denies palpitations Physical Exam Vital Signs: Last Vital Signs Pulse 60 08/16/24 13:26 BP 116/74 08/16/24 13:26 BMI result Body Mass Index 33.7 Const General: cooperative, comfortable, no acute distress, alert, awake and well groomed Nutritional Appearance: obese Orientation/consciousness: patient oriented x3 Limitations: no limitations Neck Neck: Yes trachea midline, Yes supple and Yes no JVD Chest Chest palpation & inspection: other (Pacemaker pocket appears benign) Resp Effort & Inspection: normal respiratory effort Auscultation: clear to auscultation bilaterally Cardio Jugular venous distension: no JVD Palpation: normal PMI Rate: regular rate Rhythm: regular rhythm Heart sounds: S1 normal heart sound present and S2 normal heart sound present GI Auscultation: normal bowel sounds Skin General skin exam: no rashes or lesions noted Neuro General: patient oriented x3 and no focal motor deficits Extrem General: Yes no clubbing, cyanosis or edema Office Procedures Cardiac Device Check Cardiac Device Check Details: Dual-chamber [facility] pacemaker in place. Programmed in DDDR at 60 beats per minute. Atrial pacing 88% of time. No arrhythmias noted. Atrial ventricular capture thresholds are adequate and in auto capture mode. Atrial ventricular sensing is adequate. Pacing lead impedance is stable. Battery life is at 6 and half years [id number] Cardiac Device Check, pacemaker dual lead Procedure code (CPT) selection complete Assessment & Plan Assessment & Plan (1) (HFpEF) heart failure with preserved ejection fraction: Code(s): I50.30 - Unspecified diastolic (congestive) heart failure Category: Medical Qualifiers: Heart failure chronicity: chronic Qualified Code(s): I50.32 - Chronic diastolic (congestive) heart failure Plan: Heart failure preserved ejection fraction, clinically euvolemic and well compensated current diuretic dose. Continue aggressive blood pressure control. Continue current diuretic dose. Daily weight monitoring avoidance of salt loading was discussed. Additional diuretics as need be. Advised to call me with worsening symptoms. (2) Cardiac pacemaker in situ: Onset Date: ~2012 Comment: ([facility] DCPP - placed 2012 for SSS - generator change 2020) Code(s): Z95.0 - Presence of cardiac pacemaker Category: Medical Plan: Cardiac pacemaker in-situ, working well. Reprogrammed for adequate function. Will follow-up remotely every 3 months. Follow up in the clinic in 6 months time. (3) HTN (hypertension): Code(s): I10 - Essential (primary) hypertension Category: Medical Qualifiers: Hypertension type: essential hypertension Qualified Code(s): I10 - Essential (primary) hypertension Plan: Difficult control blood pressure, exacerbated by stress. Advised to participate in stress mitigation strategies. Continue monitor the salt intake in his diet. Continue current therapy. Importance of good blood pressure control was discussed. Will follow up in the clinic in 6 months time, sooner p.r.n.. Thank you for allowing me to partake in her care Coding Level of Care Code Est Pt Level 4 (90311) Complex EM visit Add On G2211 Diagnoses Chronic heart failure with preserved ejection fraction I50.32 Heart failure chronicity: chronic Cardiac pacemaker in situ Z95.0 Essential hypertension I10 Hypertension type: essential hypertension CPT Codes Cardiac Device Check - Cardiac Device 2: [id number] Cardiac Device Check, pacemaker dual lead ([id number])
[2024-08-16 13:26] VITALS: BP 116/74; PULSE 60; BMI 33.7
== END 2024-08-16 13:43 | disposition home or self-care (01) ==
PROVIDERS: PCP Internal Medicine; Visit Provider Internal Medicine Cardiovascular Disease
DX: I50.32 Chronic diastolic (congestive) heart failure (principal); Z95.0 Presence of cardiac pacemaker; I10 Essential (primary) hypertension
CPT/HCPCS: 93280; 99214; G2211

== ENCOUNTER → 2024-08-16 13:15 | Outpatient (BNVA) | payer MEDICARE, MEDICAID, SELFPAY | PROVIDERS: PCP Internal Medicine; Visit Provider Internal Medicine Cardiovascular Disease | DX: I11.0 Hypertensive heart disease with heart failure (principal); I50.32 Chronic diastolic (congestive) heart failure; Z45.018 Encounter for adjustment and management of other part of cardiac pacemaker | CPT/HCPCS: 93280; 99212 ==

== ENCOUNTER → 2024-09-12 23:59 | Outpatient (BNV) | payer MEDICARE, MEDICAID, SELFPAY ==
--- NOTE | 2024-09-20 10:17 | A.OFFVIS_ITS ---
Intake Visit Reasons: Remote Device Check- [facility] Allergies Iodinated Contrast Media [IV Contrast Dye] Allergy (Intermediate, Verified 07/25/24 11:00) Hives oxycodone [From PERCODAN] Allergy (Intermediate, Verified 07/25/24 11:00) headache/ringing in ears cheese Adverse Reaction (Intermediate, Verified 07/25/24 11:00) Diarrhea PFSH Medical History Epiploic appendagitis History of COVID-19 (~05/2021) History of sick sinus syndrome (~2012) Osteoporosis PVCs (premature ventricular contractions) Diverticular disease Renal calculi Lactose intolerance Anxiety Urge incontinence GERD (gastroesophageal reflux disease) Hypercholesterolemia Obesity (BMI 30-39.9) TIA (transient ischemic attack) Coronary artery disease Orthostatic hypotension dysautonomic syndrome HTN (hypertension) Left bundle branch block History of cardiomyopathy Cardiac pacemaker in situ (~2012) Surgical History Hx of basal cell carcinoma excision Hx of colonoscopy History of vaginal hysterectomy History of removal of skin mole Hx of appendectomy S/P right knee arthroscopy History of cataract surgery History of esophagogastroduodenoscopy (EGD) History of permanent cardiac pacemaker placement Hx of lumpectomy Family History Father No problems noted. Mother No problems noted. Brother Myocardial infarction Social History Housing: Apartment Alcohol intake: current Alcohol intake frequency: holidays/special occasions only Alcohol type: wine Patient Tobacco Use Status: Former Tobacco user Tobacco use type: Cigarette e-Cigarette/Vaping Use: Never Used Second Hand Smoke Exposure: No service: No Current occupational status: retired Cognitive needs: No Hearing needs: No Vision needs: Yes Office Procedures Cardiac Device Check Cardiac Device Check Details: Remote pacemaker report generated September 12. Pacemaker function is adequate [id number] Cardiac Device Interrogation, pacemaker Procedure code (CPT) selection complete Assessment & Plan Assessment & Plan (1) Cardiac pacemaker in situ: Onset Date: ~2012 Comment: ([facility] DCPP - placed 2012 for SSS - generator change 2020) Code(s): Z95.0 - Presence of cardiac pacemaker Category: Medical Plan: See above Coding Level of Care Code Procedure Only Diagnoses Cardiac pacemaker in situ Z95.0 CPT Codes Cardiac Device Check - Cardiac Device 12: [id number] Cardiac Device Interr ogation, pacemaker ([id number])
== END ==
PROVIDERS: PCP Internal Medicine; Visit Provider Internal Medicine Cardiovascular Disease
DX: Z45.018 Encounter for adjustment and management of other part of cardiac pacemaker (principal)
CPT/HCPCS: 93294

== ENCOUNTER 2024-10-25 13:35 | Outpatient (REF) | payer MEDICARE, MEDICAID, SELFPAY ==
[2024-10-25 13:50] LABS: MANUAL DIFF FLAG NO
[2024-10-25 14:21] LABS: Appearance Urine Clear; Color Urine Yellow; Glucose Urine UA Negative (Negative); Leukocyte Esterase Urine Moderate (2+) (Negative); Nitrite Urine Negative (Negative); UMIC TRIGGER UACC YES; Urine Blood Negative (Negative); Urine Ketones Negative (Negative); Urine Protein Negative (Neg-Trace)
[2024-10-25 14:23] LABS: Basophils Percent Auto 0.4 % (0-2); Eosinophils Absolute Auto 0.1 X10*3/uL (0.0-0.4); Eosinophils Percent Auto 1.3 % (0-4); Hematocrit 39.4 % (37.0-47.0); Hemoglobin 13.3 g/dl (12.0-16.0); Imm Gran Abs Auto 0.04 X10*3/uL (0.00-0.03); Imm Gran Pct Auto 0.4 % (0.0-0.4); Lymphocytes Percent Auto 30.3 % (20-40); Mean Corpuscular HGB Conc 33.8 g/dl (31.0-35.0); Mean Corpuscular Hemoglobin 31.4 pg (27.0-33.0); Mean Corpuscular Volume 93.1 fL (80.0-98.0); Mean Platelet Volume 10.1 fL (9.4-12.3); Monocytes Absolute Auto 0.6 X10*3/uL (0.1-1.2); Monocytes Percent Auto 6.5 % (2-11); Neutrophils Percent Auto 61.1 % (45-73); Platelet Count 244 X10*3/uL (160-400); Red Blood Count 4.23 X10*6/uL (4.20-5.50); Red Cell Distribution Width 13.5 % (11.0-16.0); White Blood Count 9.8 X10*3/uL (4.8-10.8)
[2024-10-25 14:26] LABS: Bacteria Urine None Seen (None Seen); RBC Urine 0-2 /HPF (0-2); Squamous Epithelial Cell Urine 0-2 /HPF (0-2); UACC Culture Trigger YES; WBC Urine 21-50 /HPF (0-5)
[2024-10-25 15:01] LABS: B Type Natriuretic Peptide 165 pg/mL (<100)
[2024-10-25 15:34] LABS: Folate 17.1 ng/mL (> or = 4.0); Vitamin B12 692 pg/mL (200-900)
[2024-10-25 17:38] LABS: Alanine Aminotransferase 53 U/L (0-31); Albumin Level 4.1 g/dL (3.5-5.0); Alkaline Phosphatase 166 U/L (39-117); Anion Gap 12 (12-20); Aspartate Amino Transferase 45 U/L (5-31); Bilirubin Total 0.7 mg/dL (0.0-1.0); Blood Urea Nitrogen 23 mg/dL (9-16); Calcium 8.5 mg/dL (8.4-10.2); Carbon Dioxide 24 mmol/L (22-29); Chloride 107 mmol/L (96-108); Cholesterol 138 mg/dL (<200); Estimated Glomerular Filt Rate 42; Free T4 (Free Thyroxine) 1.11 ng/dL (0.71-1.85); Glucose Random 94 mg/dL (60-115); HDL Cholesterol 58 mg/dL (>40); LDL Cholesterol Calculated 46 mg/dL (<100); Magnesium 1.4 mg/dL (1.6-2.6); Potassium 3.9 mmol/L (3.3-5.1); Sodium 139 mmol/L (135-145); Total Protein 7.7 g/dL (6.5-8.0); Triglycerides 170 mg/dL (<150); Vitamin D 25-OH Total 45.6 ng/mL (>30)
== END 2024-10-25 13:36 | disposition home or self-care (01) ==
LOC: HO.LAB 13:35
PROVIDERS: PCP Internal Medicine; Visit Provider Internal Medicine
DX: I50.30 Unspecified diastolic (congestive) heart failure (principal); N39.41 Urge incontinence; E78.00 Pure hypercholesterolemia, unspecified
CPT/HCPCS: 36415; 80053; 80061; 81001; 82306; 82607; 82746; 83735; 83880; 84439; 84443; 85025; 87086

== ENCOUNTER 2024-12-07 12:44 | Outpatient (AMB) | payer MEDICARE, MEDICAID, SELFPAY ==
[2024-12-07 12:46] VITALS: BP 124/76; PULSE 60; O2SAT 96; BMI 35.0
--- NOTE | 2024-12-07 12:46 | A.OFFPC_ITS ---
Vital Signs 12/07/24 12:46 Height 5 ft 1 in Weight 185 lb 8 oz BMI 35.0 BP 124/76 Blood Pressure Location Lt brachial Position Sitting Pulse 60 Pulse Source Pulse Oximeter Pulse Oximetry (%) 96 Oxygen Delivery Method Room Air Intake Visit Reasons: Congestive heart failure CAD Lead Pony Rider Required: No Accompanied by: Self / Same As Patient Allergies Iodinated Contrast Media [IV Contrast Dye] Allergy (Intermediate, Verified 12/07/24 12:47) Hives oxycodone [From PERCODAN] Allergy (Intermediate, Verified 12/07/24 12:47) headache/ringing in ears cheese Adverse Reaction (Intermediate, Verified 12/07/24 12:47) Diarrhea Medication List - Last Reconciled 12/07/24 by Claudette Logan MD ascorbic acid (vitamin C) (Vitamin C) 1,000 mg PO DAILY aspirin (Adult Aspirin Regimen) 81 mg PO DAILY atorvastatin 20 mg PO DAILY bumetanide 0.5 mg PO DAILY calcium 500 mg PO DAILY clotrimazole 1% 1 appl topical BID 4 weeks cyclosporine 0.05% (Restasis) 1 drp ophthalmic (eye) BID hydralazine 100 mg PO BID isosorbide mononitrate ER 30 mg PO QAM magnesium aspart,citrate,oxide 400 mg PO DAILY metoprolol succinate ER 100 mg PO DAILY [Mobility scooter As directed] multivitamin 1 tab PO DAILY nitroglycerin (Nitrostat) 0.4 mg sublingual Q5M PRN omeprazole 20 mg PO DAILY oxybutynin chloride ER 10 mg PO DAILY Tobacco use date assessed: 12/07/24 Fall risk assessment: No Falls in past year Last assessed Fall Risk: 12/07/24 Dental Screening Dental Screen Date: 12/07/24 Did you have a dental visit in the last 12 months?: Yes Did you have a dental problem in the last 6 months where you did not have access to dental care?: No Was dental information given to patient?: Patient has dentist [facility] Medical History Epiploic appendagitis History of COVID-19 (~05/2021) History of sick sinus syndrome (~2012) Osteoporosis PVCs (premature ventricular contractions) Diverticular disease Renal calculi Lactose intolerance Anxiety Urge incontinence GERD (gastroesophageal reflux disease) Hypercholesterolemia Obesity (BMI 30-39.9) TIA (transient ischemic attack) Coronary artery disease Orthostatic hypotension dysautonomic syndrome HTN (hypertension) Left bundle branch block History of cardiomyopathy Cardiac pacemaker in situ (~2012) Surgical History Hx of basal cell carcinoma excision Hx of colonoscopy History of vaginal hysterectomy History of removal of skin mole Hx of appendectomy S/P right knee arthroscopy History of cataract surgery History of esophagogastroduodenoscopy (EGD) History of permanent cardiac pacemaker placement Hx of lumpectomy Family History Father No problems noted. Mother No problems noted. Brother Myocardial infarction Social History Housing: Apartment Alcohol intake: current Alcohol intake frequency: holidays/special occasions only Alcohol type: wine Patient Tobacco Use Status: Former Tobacco user Tobacco use type: Cigarette e-Cigarette/Vaping Use: Never Used Second Hand Smoke Exposure: No service: No Current occupational status: retired Cognitive needs: No Hearing needs: No Vision needs: Yes Questionnaire PHQ-9 Over the last 2 weeks, how often have you been bothered by any of the following problems? 1. Little interest or pleasure in doing things: not at all 2. Feeling down, depressed, or hopeless: not at all 3. Trouble falling or staying asleep, or sleeping too much: not at all 4. Feeling tired or having little energy: not at all 5. Poor appetite or overeating: not at all 6. Feeling bad about yourself - or that you are a failure or have let yourself or your family down: not at all 7. Trouble concentrating on things, such as reading the newspaper or watching television: not at all 8. Moving or speaking so slowly that other people could have noticed. Or the opposite - being so fidgety or restless that you have been moving around a lot more than usual: not at all 9. Thoughts that you would be better off or of hurting yourself in some way: not at all Total score: 0 Depression Screening Interpretation: Negative Depression Screening Done: Yes Source: Developed by Drs. Otoniel Lei, Robert Jean Baptiste and colleagues, with an educational ananda from [employer]. Thrive Questionnaire Date Thrive assessed: 12/07/24 I am a: Patient What is your living situation today?: I have a steady place to live Within the past 12 months, did the food you bought not last and you didn't have the money to get more?: Never true Within the past 12 months, did you worry whether your food would run out before you got money to buy more?: Never true Do you have trouble paying for medicines?: No Do you have trouble getting transportation to medical appointments?: No Do you have trouble paying your heating and electricity bill?: No Do you have trouble taking care of your child, family member or friend?: No Do you have trouble with day-to-day activities such as bathing, preparing meals, shopping, managing finances, etc.?: No Are you currently unemployed and looking for a job?: No Are you interested in more education?: No Please select the resources that you would like help with: None Currently or been in a relationship where the following occur: No concerns reported THRIVE Score: 0 AUDIT C Alcohol Use Questionnaire (AUDIT-C) 1. How often do you have a drink containing alcohol?: Never 3. How often do you have six or more drinks on one occasion?: Never Total Score: 0 Score Reviewed/Action Taken: No KEYA-7 AMB Questionnaire KEYA-7 Date KEYA - 7 assessed: 12/07/24 Feeling nervous, anxious, or on edge: 0 = Not at all Not being able to stop or control worryin = Not at all Worrying too much about different things: 0 = Not at all Trouble relaxin = Not at all Being so restless that it is hard to sit still: 0 = Not at all Becoming easily annoyed or irritable: 0 = Not at all Feeling afraid as if something awful might happen: 0 = Not at all Total KEYA-7 score (0-4 normal; 5-9 mild; 10-14 moderate; 15-21 severe): 0 Source: Developed by Drs. Otoniel Lei, Robert Jean Baptiste and colleagues, with an educational ananda from [employer]. Physical exam (Primary Care) Vital Signs: Last Vital Signs Pulse 60 12/07/24 12:46 BP 124/76 12/07/24 12:46 Pulse Ox 96 12/07/24 12:46 Oxygen Delivery Method Room Air 12/07/24 12:46 BMI result Body Mass Index 35.0 Tobacco/Smoking Status: Tobacco use Status Tobacco use date assessed 12/07/24 12/07/24 12:55 Patient Tobacco Use Status Former Tobacco user 12/07/24 12:55 Tobacco use type Cigarette 12/07/24 12:55 e-Cigarette/Vaping Use Never Used 12/07/24 12:55 PHQ-9: PHQ-9 Score PHQ-9: Total score 0 12/07/24 13:23 Depression Screening Interpretation: Negative Thrive Assessment: Date of Thrive Assessment Date Thrive assessed 12/07/24 12/07/24 12:55 Currently or been in a relationship where the following occur: No concerns reported Const General: alert; No acute distress Eyes Conjunctivae: conjunctivae normal Resp Auscultation: clear to auscultation bilaterally Cardio Rate: regular rate Rhythm: regular rhythm GI Inspection: Yes normal to inspection Extrem General: Yes normal to inspection and No edema Coding Level of Care Code Tele Est Pt Level 4 (21812) Complex EM visit Add On G2211 Diagnoses Obesity (BMI 30-39.9) E66.9 Gastroesophageal reflux disease without esophagitis K21.9 Esophagitis presence: without esophagitis Hypercholesterolemia E78.00 Essential hypertension I10 Hypertension type: essential hypertension History of sick sinus syndrome Z86.79 Coronary artery disease involving [place] coronary artery of [place] heart without angina pectoris I25.10 Associated angina: without angina Coronary Disease-Associated Artery/Lesion type: [place] artery [place] vs. transplanted heart: [place] heart LFT elevation R79.89 Dysuria R30.0 Assessment & Plan Assessment & Plan (1) Obesity (BMI 30-39.9): Code(s): E66.9 - Obesity, unspecified Category: Medical Plan: Diet And exercise (2) GERD (gastroesophageal reflux disease): Code(s): K21.9 - Gastro-esophageal reflux disease without esophagitis Category: Medical Qualifiers: Esophagitis presence: without esophagitis Qualified Code(s): K21.9 - Gastro-esophageal reflux disease without esophagitis Plan: Avoid the foods that causes that usually spicy foods, tomato products, juices, coffee, soda and foods that your sensitive to. After eating do not lie down, allow 3-4 hours before in lie down. And keep the head of bed above 30 degrees to avoid the acid from going up. (3) Hypercholesterolemia: Code(s): E78.00 - Pure hypercholesterolemia, unspecified Category: Medical Plan: Avoid fried foods, chicken skin, eggs, butter margarine, pastries and meat. Be it pork or beef they have a lot of cholesterol on atorvastatin 20 mg once a day (4) HTN (hypertension): Code(s): I10 - Essential (primary) hypertension Category: Medical Qualifiers: Hypertension type: essential hypertension Qualified Code(s): I10 - Essential (primary) hypertension Plan: Continue with blood pressure medication. Decrease salt intake and exercise patient is on hydralazine 100 mg twice a day metoprolol 100 mg once a day (5) History of sick sinus syndrome: Onset Date: ~2012 Comment: (S/P [facility] DCPP - placed 2012, generator change 2020) Code(s): Z86.79 - Personal history of other diseases of the circulatory system Category: Medical Plan: Continue to follow-up with cardiology (6) Coronary artery disease: Code(s): I25.10 - Atherosclerotic heart disease of [place] coronary artery without angina pectoris Category: Medical Qualifiers: Associated angina: without angina Coronary Disease-Associated Artery/Lesion type: [place] artery [place] vs. transplanted heart: [place] heart Qualified Code(s): I25.10 - Atherosclerotic heart disease of [place] coronary artery without angina pectoris Plan: Control the cholesterol, weight, blood pressure, continue with aspirin 81 mg once a day (7) LFT elevation: Code(s): R79.89 - Other specified abnormal findings of blood chemistry Category: Medical (8) Dysuria: Code(s): R30.0 - Dysuria Category: Medical Plan History of Present Illness The patient is an 84-year-old female presenting for follow-up of ongoing health concerns including medication management and review of recent laboratory findings. She has notable complaints of nocturial impact due to bumetanide use at night, which affects sleep due to frequent urination. The patient's cardiovascular history shows stable management with no significant ejection fraction or valvular concerns from recent echocardiography results. Her laboratory tests revealed magnesium deficiency and mildly elevated liver enzymes, prompting consideration of an abdominal ultrasound to rule out hepatic issues. Recent urinary and throat issues are present, with the latter improving over time. The possible allergic origin of her sore throat was considered, lacking any familial illness reports. Health Maintenance - Follow-up with cardiology for pacemaker and heart health management. - Blood pressure management with hydralazine and metoprolol. - Cholesterol management with atorvastatin. - Dietary discussions focused on reducing processed and salty foods. - Encouragement to maintain adequate hydration and regular voiding schedule. - Monitoring and evaluation of magnesium levels. - Abdominal ultrasound ordered to investigate liver function concerns. - Influenza and RSV precautions advised. Social History - Son resides with the patient and is not currently ill. - Reports maintaining hydration and attempting dietary management. - Emphasis on avoiding processed and salted foods. - Regular movement and activity are encouraged for general well-being. Review of Systems - Cardiovascular: Reports stable heart function and effective current management. - Genitourinary: Reports nocturia and occasional urinary urgency. - Gastrointestinal: Denies diarrhea and constipation but occasionally experiences raw throat. - Respiratory: Reports improvement in sore throat, consistent with allergies. Physical Exam - HEENT- Throat appears slightly reddish, suggestive of allergic irritation. - Abdomen- Reports increased sensitivity in a specific area during examination. Results - Labs: Normal blood count, electrolytes, creatinine at 1.21, GFR of 42, low ma gnesium, elevated liver enzymes, BNP of 165, LDL of 46, triglycerides at 170. - Echocardiogram: Ejection Fraction 53%, no valvular abnormalities. Plan The patient's management plan includes maintaining the current regimen of atorvastatin, hydralazine, and metoprolol, with bumetanide transitioned to morning intake. Monitoring will continue for magnesium levels and liver function, with tests scheduled accordingly. Ultrasound evaluations of the liver and bladder will be performed for further assessment. The patient is advised to adhere to dietary and lifestyle recommendations to promote cardiovascular health, with a focus on balanced nutrition and hydration. Allergy management was discussed, and precautionary measures against seasonal illnesses advised to ensure well-being through flu season. Follow-up scheduling and further diagnostic evaluations are planned to ensure stability in her chronic conditions. Patient was informed and verbally consented to the use of an ambient scribe for clinic note documentation during this visit. Discussion Notes During the consultation, I discussed ongoing management strategies for the patient's chronic conditions, highlighting the importance of adhering to her current medications. I explained the plan to reschedule bumetanide to morning usage, aiming to mitigate nocturnal bathroom visits and support better rest. I advised an abdominal ultrasound to explore her liver function concerns further and informed her of additional blood tests to monitor low magnesium levels. I discussed the differential diagnosis for her throat discomfort and advised symptom management for potential allergies. The importance of proper hydration and diet was reiterated as a lifestyle focus to aid her cardiovascular and general health. We agreed on measures to maintain her well-being against seasonal health threats and scheduled follow-ups for continued evaluation and management. Patient Instructions - Take bumetanide in the morning to minimize nocturnal urination. - Continue current medications: atorvastatin, hydralazine, and metoprolol. - Ensure proper hydration and a balanced diet low in processed and salty foods. - Schedule and complete blood tests to monitor magnesium levels. - Follow up on the scheduled abdominal ultrasound. - Manage throat concerns with allergy precautions and maintain hydration. - Attend follow-up appointments with cardiology for pacemaker monitoring. - Be vigilant about seasonal illness, maintaining infection prevention measures. - Monitor symptoms and seek care if new or worsening conditions occur. Orders: Orders Complete Blood Count Auto Diff Today I50.32 - Chronic diastolic (congestive) heart failure B Type Natriuretic Peptide Today I50.32 - Chronic diastolic (congestive) heart failure Hepatitis B,C Profile Today R79.89 - Other specified abnormal findings of blood chemistry Ferritin Today R79.89 - Other specified abnormal findings of blood chemistry Comprehensive Met. Panel Today I50.32 - Chronic diastolic (congestive) heart failure Magnesium Today I50.32 - Chronic diastolic (congestive) heart failure US abdomen complete Today R79.89 - Other specified abnormal findings of blood chemistry US bladder Today R30.0 - Dysuria UA CC w/rflx Micro + Cult Today R30.0 - Dysuria Medications: Discontinued fluconazole Discontinued Reason: Doctor's Order 150 mg PO Q3D 2 tabs 0RF N89.8 - Other specified noninflammatory disorders of vagina
== END 2024-12-07 13:41 | disposition home or self-care (01) ==
LOC: HO.HMCH 12:45
PROVIDERS: PCP Internal Medicine; Visit Provider Internal Medicine
DX: K21.9 Gastro-esophageal reflux disease without esophagitis (principal); E66.9 Obesity, unspecified; E78.00 Pure hypercholesterolemia, unspecified; Z68.35 Body mass index [BMI] 35.0-35.9, adult; I10 Essential (primary) hypertension; Z86.79 Personal history of other diseases of the circulatory system; I25.10 Atherosclerotic heart disease of native coronary artery without angina pectoris; R79.89 Other specified abnormal findings of blood chemistry; R30.0 Dysuria

== ENCOUNTER → 2024-12-07 12:44 | Outpatient (BNVA) | payer MEDICARE, MEDICAID, SELFPAY | PROVIDERS: PCP Internal Medicine; Visit Provider Internal Medicine | DX: E66.9 Obesity, unspecified (principal); K21.9 Gastro-esophageal reflux disease without esophagitis; E78.00 Pure hypercholesterolemia, unspecified; I10 Essential (primary) hypertension; I25.10 Atherosclerotic heart disease of native coronary artery without angina pectoris; R79.89 Other specified abnormal findings of blood chemistry; R30.0 Dysuria; Z86.79 Personal history of other diseases of the circulatory system | CPT/HCPCS: 99212 ==

== ENCOUNTER → 2024-12-12 23:59 | Outpatient (BNV) | payer MEDICARE, MEDICAID, SELFPAY ==
--- NOTE | 2024-12-22 13:36 | MHC.OFFVIS ---
Intake Visit Reasons: Remote Device Check- [facility] Allergies Iodinated Contrast Media [IV Contrast Dye] Allergy (Intermediate, Verified 12/07/24 12:47) Hives oxycodone [From PERCODAN] Allergy (Intermediate, Verified 12/07/24 12:47) headache/ringing in ears cheese Adverse Reaction (Intermediate, Verified 12/07/24 12:47) Diarrhea PFSH Medical History Epiploic appendagitis History of COVID-19 (~05/2021) History of sick sinus syndrome (~2012) Osteoporosis PVCs (premature ventricular contractions) Diverticular disease Renal calculi Lactose intolerance Anxiety Urge incontinence GERD (gastroesophageal reflux disease) Hypercholesterolemia Obesity (BMI 30-39.9) TIA (transient ischemic attack) Coronary artery disease Orthostatic hypotension dysautonomic syndrome HTN (hypertension) Left bundle branch block History of cardiomyopathy Cardiac pacemaker in situ (~2012) Surgical History Hx of basal cell carcinoma excision Hx of colonoscopy History of vaginal hysterectomy History of removal of skin mole Hx of appendectomy S/P right knee arthroscopy History of cataract surgery History of esophagogastroduodenoscopy (EGD) History of permanent cardiac pacemaker placement Hx of lumpectomy Family History Father No problems noted. Mother No problems noted. Brother Myocardial infarction Social History Housing: Apartment Alcohol intake: current Alcohol intake frequency: holidays/special occasions only Alcohol type: wine Patient Tobacco Use Status: Former Tobacco user Tobacco use type: Cigarette e-Cigarette/Vaping Use: Never Used Second Hand Smoke Exposure: No service: No Current occupational status: retired Cognitive needs: No Hearing needs: No Vision needs: Yes Office Procedures Cardiac Device Check Cardiac Device Check Details: Remote pacemaker report generated 12/11/2024. Pacemaker function is adequate [id number] Cardiac Device Interrogation, pacemaker Procedure code (CPT) selection complete Assessment & Plan Assessment & Plan (1) Cardiac pacemaker in situ: Onset Date: ~2012 Comment: ([facility] DCPP - placed 2013 for SSS - generator change 2020) Code(s): Z95.0 - Presence of cardiac pacemaker Category: Medical Plan: See above Coding Level of Care Code Procedure Only Diagnoses Cardiac pacemaker in situ Z95.0 CPT Codes Cardiac Device Check - Cardiac Device 12: [id number] Cardiac Device Interrogation, pacemaker ([id number])
== END ==
PROVIDERS: PCP Internal Medicine; Visit Provider Internal Medicine Cardiovascular Disease
DX: I49.5 Sick sinus syndrome (principal); Z95.0 Presence of cardiac pacemaker
CPT/HCPCS: 93294

== ENCOUNTER 2025-01-10 10:52 | Outpatient (REF) | payer MEDICARE, MEDICAID, SELFPAY ==
--- NOTE | ~2025-01-10 | US_ITS ---
CLINICAL HISTORY: R79.89 - Other specified abnormal findings of blood chemistry US abdomen complete Comparison: None Findings: The visualized pancreas is normal. The aorta and inferior vena cava are normal caliber. The appearance of the liver suggests fatty infiltration without focal lesion. There is no intrahepatic bile duct dilatation. The common duct is 6.0 mm in diameter. There are sludge balls versus subcentimeter polyps. The gallbladder is otherwise normal. There is no sonographic Preciado sign. The main portal vein is antegrade. The right kidney is 10.5 cm in length. The left kidney is 10.8 cm in length. The spleen is normal. No ascites. IMPRESSION: 1. Hepatic steatosis. This document has been electronically signed by: Cornelius Goldman MD on 01/11/2025 08:56:29
[2025-01-10 10:44] LABS: MANUAL DIFF FLAG NO
[2025-01-10 11:09] LABS: Basophils Percent Auto 0.3 % (0-2); Eosinophils Absolute Auto 0.1 X10*3/uL (0.0-0.4); Eosinophils Percent Auto 0.8 % (0-4); Hematocrit 39.2 % (37.0-47.0); Hemoglobin 12.9 g/dl (12.0-16.0); Imm Gran Abs Auto 0.02 X10*3/uL (0.00-0.03); Imm Gran Pct Auto 0.3 % (0.0-0.4); Lymphocytes Absolute Auto 2.3 X10*3/uL (1.2-4.9); Lymphocytes Percent Auto 31.8 % (20-40); Mean Corpuscular HGB Conc 32.9 g/dl (31.0-35.0); Mean Corpuscular Volume 94.2 fL (80.0-98.0); Mean Platelet Volume 9.8 fL (9.4-12.3); Monocytes Absolute Auto 0.6 X10*3/uL (0.1-1.2); Monocytes Percent Auto 8.5 % (2-11); Neutrophils Absolute Auto 4.1 x10*3/uL (2.0-8.3); Neutrophils Percent Auto 58.3 % (45-73); Platelet Count 226 X10*3/uL (160-400); Red Blood Count 4.16 X10*6/uL (4.20-5.50); White Blood Count 7.1 X10*3/uL (4.8-10.8)
[2025-01-10 11:29] LABS: B Type Natriuretic Peptide 230 pg/mL (<100)
[2025-01-10 11:54] LABS: HBc Num1 0.06 S/CO (0.00-0.79); HBsAGNum1 0.23 S/CO (0.00-0.99); Hepatitis B Core Antibody Nonreactive (Nonreactive); Hepatitis B Surface Antigen Negative (Negative); ~HepC Num1 0.19 S/CO (0.00-0.79); ~Hepatitis B Surface Antibody NONREACTIVE (Nonreactive); ~Hepatitis C Antibody Nonreactive (Nonreactive)
[2025-01-10 12:02] LABS: Alanine Aminotransferase 33 U/L (0-31); Albumin Level 4.1 g/dL (3.5-5.0); Alkaline Phosphatase 171 U/L (39-117); Anion Gap 13 (12-20); Aspartate Amino Transferase 48 U/L (5-31); Bilirubin Total 0.9 mg/dL (0.0-1.0); Blood Urea Nitrogen 18 mg/dL (9-16); Calcium 9.2 mg/dL (8.4-10.2); Carbon Dioxide 25 mmol/L (22-29); Chloride 108 mmol/L (96-108); Estimated Glomerular Filt Rate 55; Ferritin 321 ng/mL (10-250); Glucose Random 109 mg/dL (60-115); Magnesium 1.8 mg/dL (1.6-2.6); Potassium 3.9 mmol/L (3.3-5.1); Sodium 142 mmol/L (135-145); Total Protein 7.3 g/dL (6.5-8.0)
== END 2025-01-10 10:53 | disposition home or self-care (01) ==
LOC: HO.US 10:52
PROVIDERS: PCP Internal Medicine; Visit Provider Internal Medicine
DX: I50.32 Chronic diastolic (congestive) heart failure (principal); R79.89 Other specified abnormal findings of blood chemistry
CPT/HCPCS: 36415; 76700; 80053; 82728; 83735; 83880; 85025; 86704; 86706; 86803; 87340

== ENCOUNTER → 2025-01-10 10:55 | Outpatient (BNV) | payer MEDICARE, MEDICAID, SELFPAY | PROVIDERS: PCP Internal Medicine; Visit Provider Specialist | DX: R79.89 Other specified abnormal findings of blood chemistry (principal) | CPT/HCPCS: 76700 ==

== ENCOUNTER 2025-01-22 11:09 | Outpatient (AMB) | payer MEDICARE, MEDICAID, SELFPAY ==
--- NOTE | 2025-01-22 11:36 | A.OFFPC_ITS ---
Vital Signs 01/22/25 11:42 Height 5 ft 1 in Weight 186 lb 8.177 oz BMI 35.2 BP 128/70 Blood Pressure Location Lt brachial Position Sitting Pulse 60 Pulse Source Pulse Oximeter Pulse Oximetry (%) 95 Oxygen Delivery Method Room Air Intake Visit Reasons: Chronic back pain Intake Note: Patient is here to follow up on Chronic back pain. 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 per policy Accompanied by: Self / Same As Patient Allergies Iodinated Contrast Media [IV Contrast Dye] Allergy (Intermediate, Verified 01/22/25 11:37) Hives oxycodone [From PERCODAN] Allergy (Intermediate, Verified 01/22/25 11:37) headache/ringing in ears cheese Adverse Reaction (Intermediate, Verified 01/22/25 11:37) Diarrhea Tobacco use date assessed: 01/22/25 Fall risk assessment: No Falls in past year Last assessed Fall Risk: 01/22/25 Dental Screening Dental Screen Date: 01/22/25 Did you have a dental visit in the last 12 months?: No Did you have a dental problem in the last 6 months where you did not have access to dental care?: No Was dental information given to patient?: No [facility] Medical History (Updated 01/22/25 @ 11:56 by Claudette Logan MD) LFT elevation Epiploic appendagitis History of COVID-19 (~05/2021) History of sick sinus syndrome (~2012) Osteoporosis PVCs (premature ventricular contractions) Diverticular disease Renal calculi Lactose intolerance Anxiety Urge incontinence GERD (gastroesophageal reflux disease) Hypercholesterolemia Obesity (BMI 30-39.9) TIA (transient ischemic attack) Coronary artery disease Orthostatic hypotension dysautonomic syndrome HTN (hypertension) Left bundle branch block History of cardiomyopathy Cardiac pacemaker in situ (~2012) Surgical History Hx of basal cell carcinoma excision Hx of colonoscopy History of vaginal hysterectomy History of removal of skin mole Hx of appendectomy S/P right knee arthroscopy History of cataract surgery History of esophagogastroduodenoscopy (EGD) History of permanent cardiac pacemaker placement Hx of lumpectomy Family History Father No problems noted. Mother No problems noted. Brother Myocardial infarction Social History Housing: Apartment Alcohol intake: current Alcohol intake frequency: holidays/special occasions only Alcohol type: wine Patient Tobacco Use Status: Former Tobacco user Tobacco use type: Cigarette e-Cigarette/Vaping Use: Never Used Second Hand Smoke Exposure: No service: No Current occupational status: retired Cognitive needs: No Hearing needs: No Vision needs: Yes Questionnaire PHQ-9 Over the last 2 weeks, how often have you been bothered by any of the following problems? 1. Little interest or pleasure in doing things: not at all 2. Feeling down, depressed, or hopeless: not at all 3. Trouble falling or staying asleep, or sleeping too much: not at all 4. Feeling tired or having little energy: not at all 5. Poor appetite or overeating: not at all 6. Feeling bad about yourself - or that you are a failure or have let yourself or your family down: not at all 7. Trouble concentrating on things, such as reading the newspaper or watching television: not at all 8. Moving or speaking so slowly that other people could have noticed. Or the opposite - being so fidgety or restless that you have been moving around a lot more than usual: not at all 9. Thoughts that you would be better off or of hurting yourself in some w ay: not at all Total score: 0 Depression Screening Interpretation: Negative Depression Screening Done: Yes Source: Developed by Drs. Otoniel Lei, Loli La, Robert Baum and colleagues, with an educational ananda from [employer]. Thrive Questionnaire Date Thrive assessed: 01/22/25 I am a: Patient What is your living situation today?: I have a steady place to live Within the past 12 months, did the food you bought not last and you didn't have the money to get more?: Never true Within the past 12 months, did you worry whether your food would run out before you got money to buy more?: Never true Do you have trouble paying for medicines?: No Do you have trouble getting transportation to medical appointments?: No Do you have trouble paying your heating and electricity bill?: No Do you have trouble taking care of your child, family member or friend?: No Do you have trouble with day-to-day activities such as bathing, preparing meals, shopping, managing finances, etc.?: Yes Are you currently unemployed and looking for a job?: No Are you interested in more education?: No Please select the resources that you would like help with: None Currently or been in a relationship where the following occur: No concerns reported THRIVE Score: 0 AUDIT C Alcohol Use Questionnaire (AUDIT-C) 1. How often do you have a drink containing alcohol?: 2-4 times a month 2. How many drinks containing alcohol do you have on a typical day when you are drinking?: 1 or 2 3. How often do you have six or more drinks on one occasion?: Never Total Score: 2 KEYA-7 AMB Questionnaire KEYA-7 Date KEYA - 7 assessed: 01/22/25 Feeling nervous, anxious, or on edge: 0 = Not at all Not being able to stop or control worryin = Not at all Worrying too much about different things: 0 = Not at all Trouble relaxin = Several days Being so restless that it is hard to sit still: 0 = Not at all Becoming easily annoyed or irritable: 0 = Not at all Feeling afraid as if something awful might happen: 0 = Not at all Total KEYA-7 score (0-4 normal; 5-9 mild; 10-14 moderate; 15-21 severe): 1 Source: Developed by Drs. Otoniel Lei, Loli La, Robert Baum and colleagues, with an educational ananda from [employer]. Physical exam (Primary Care) Vital Signs: Last Vital Signs Pulse 60 01/22/25 11:42 BP 128/70 01/22/25 11:42 Pulse Ox 95 01/22/25 11:42 Oxygen Delivery Method Room Air 01/22/25 11:42 BMI result Body Mass Index 35.2 Tobacco/Smoking Status: Tobacco use Status Tobacco use date assessed 01/22/25 01/22/25 11:39 Patient Tobacco Use Status Former Tobacco user 01/22/25 11:39 Tobacco use type Cigarette 01/22/25 11:39 e-Cigarette/Vaping Use Never Used 01/22/25 11:39 PHQ-9: PHQ-9 Score PHQ-9: Total score 0 01/22/25 11:52 Depression Screening Interpretation: Negative Thrive Assessment: Date of Thrive Assessment Date Thrive assessed 01/22/25 01/22/25 11:45 Currently or been in a relationship where the following occur: No concerns reported Const General: alert; No acute distress Eyes Conjunctivae: conjunctivae normal Resp Auscultation: clear to auscultation bilaterally Cardio Rate: regular rate Rhythm: regular rhythm GI Inspection: Yes normal to inspection Extrem General: Yes normal to inspection and No edema Coding Level of Care Code Est Pt Level 4 (03345) Diagnoses Hepatic steatosis K76.0 History of sick sinus syndrome Z86.79 Osteoporosis M81.0 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 Assessment & Plan Assessment & Plan (1) Hepatic steatosis: Comment: December 2024 Code(s): K76.0 - Fatty (change of) liver, not elsewhere classified Category: Medical Plan: Low-fat Diet and exercise (2) History of sick sinus syndrome: Onset Date: ~2012 Comment: (S/P [employer] DCPP - placed 2012, generator change 2020) Code(s): Z86.79 - Personal history of other diseases of the circulatory system Category: Medical Plan: Patient continues to follow-up with cardiology and regularly has device check (3) Osteoporosis: Comment: (Bone Dexa T-Score -2.8 Lumbar - 06/12/2020) Code(s): M81.0 - Age-related osteoporosis without current pathological fracture Category: Medical Plan: Bone density up-to-date patient does have osteoporosis (4) Sacroiliac joint dysfunction of right side: Code(s): M53.3 - Sacrococcygeal disorders, not elsewhere classified Category: Medical Plan: Discussed about physical therapy, discussed about exercises. Patient has been taking Tylenol with no relief. With the patient having coronary artery disease will try to stay away from NSAIDs tramadol prescription sent in discussed about side effects. Advised to take with food and take at night. Heat or Salonpas can help Plan History of Present Illness The patient is an 84-year-old female presenting for a follow-up visit to manage ongoing chronic conditions, particularly focusing on musculoskeletal pain in the hip and back region, suspected to be associated with arthritis. Her musculoskeletal pain, concentrated in the sacroiliac joint and hip area, has been longstanding, with fluctuations in intensity. She reports that her previous experiences with Tylenol with Codeine provided relief, but physical therapy and other interventions like braces have not yielded significant improvement. Recent laboratory tests revealed mild hyperglycemia and elevated liver enzymes, likely related to diagnosed hepatic steatosis. The patient disclosed limited physical activity, attributing this to both arthritis pain and concerns over exacerbating her fatty liver condition. The review of her cardiac health is s table, with a recent device check confirming proper pacemaker function. Overall, she continues to manage hypertension, hypercholesterolemia, and GERD alongside her cardiac and renal conditions. Health Maintenance - Mammogram up to date (March 2024) - Bone density scan up to date (December 2023) - Colonoscopy completed (June 2022) - Advised dietary modifications for low-fat intake - Regular follow-up with cardiology for device check Social History - Has adult son, Rodríguez, who assists with transportation - Limited physical activity due to pain - Previously engaged in physical therapy without improvement Review of Systems - Musculoskeletal: Reports chronic hip and back pain localized to the sacroiliac joint - Gastrointestinal: Denies changes in gastrointestinal symptoms, aware of GERD diagnosis - Neurological: Denies new neurological complaints apart from known history of pacemaker Physical Exam Results - Hepatic ultrasound: Hepatic steatosis, elevated liver function tests - Blood work: Normal blood count, normal electrolytes, elevated blood glucose (uncertain if fasting) Plan I advised the patient to initiate treatment with Tramadol for her musculoskeletal pain with instructions to consume it at night alongside food. The aim is to assess her tolerance and pain management success before transitioning to narcotic analgesics if necessary. I will arrange for an X-ray of her spine to further evaluate her arthritis. Dietary advice was provided emphasizing weight management to address fatty liver concerns, urging modifications to lower her calorie intake and improve physical activity levels within her comfort. Follow-up discussions will address any changes or continued issues, with a focus on maintaining current health interventions and routine screenings. Patient was informed and verbally consented to the use of an ambient scribe for clinic note documentation during this visit. Discussion Notes I discussed the management of her chronic musculoskeletal pain, suggesting Tramadol as an initial approach to pain relief while minimizing narcotic usage. I informed her about potential risks and benefits associated with different pain management strategies, advocating gradual escalation of therapy. A detailed discussion on fatty liver management centered around diet and weight loss to prevent disease progression. I emphasized the importance of balancing exercise with joint comfort. I reiterated the need for regular follow-up, potential use of an online portal for communication, and advised scheduling spine imaging. Follow-ups already in place include an upcoming bladder ultrasound. Discussions reiterated the importance of staying active and precautions with narcotic prescriptions, reflecting regulatory impacts in this clinical decision-making. Patient Instructions - Start Tramadol once daily at night with food for pain management. - Apply heat and use Salonpas patches as needed for pain relief. - Follow low-fat, balanced diet to manage weight and liver health. - Attend upcoming bladder ultrasound and scheduled medical appointments. - Increase daily physical activity as much as comfortable to aid in weight management. - Use online patient portal for questions and follow-ups, especially regarding pain management. - Contact the office for any concerns or if pain management with Tramadol is inadequate. Orders: Orders XR lumbar spine 2-3V Today M53.3 - Sacrococcygeal disorders, not elsewhere classified XR sacroiliac joint min 3V Today M53.3 - Sacrococcygeal disorders, not elsewhere classified Medications: New tramadol 50 mg PO BEDTIME 7 tabs 0RF M53.3 - Sacrococcygeal disorders, not elsewhere classified
[2025-01-22 11:42] VITALS: BP 128/70; PULSE 60; O2SAT 95; BMI 35.2
== END 2025-01-22 12:11 | disposition home or self-care (01) ==
LOC: HO.HMCH 11:10
PROVIDERS: PCP Internal Medicine; Visit Provider Internal Medicine
DX: K76.0 Fatty (change of) liver, not elsewhere classified (principal); Z86.79 Personal history of other diseases of the circulatory system; M81.0 Age-related osteoporosis without current pathological fracture; M53.3 Sacrococcygeal disorders, not elsewhere classified

== ENCOUNTER → 2025-01-22 11:09 | Outpatient (BNVA) | payer MEDICARE, MEDICAID, SELFPAY | PROVIDERS: PCP Internal Medicine; Visit Provider Internal Medicine | DX: K76.0 Fatty (change of) liver, not elsewhere classified (principal); M81.0 Age-related osteoporosis without current pathological fracture; M53.3 Sacrococcygeal disorders, not elsewhere classified; Z86.79 Personal history of other diseases of the circulatory system | CPT/HCPCS: 99212 ==

== ENCOUNTER 2025-01-24 13:49 | Outpatient (REF) | payer MEDICARE, MEDICAID, SELFPAY ==
--- NOTE | ~2025-01-24 | XR_ITS ---
EXAMINATION: XR SACROILIAC JOINTS CLINICAL INFORMATION: M53.3 - Sacrococcygeal disorders, not elsewhere classified COMPARISON: None available. TECHNIQUE: 3 views of the sacroiliac joints FINDINGS: No acute cortical disruption. No gross sclerosis. No lytic or blastic lesions. Spondylosis in the included lumbar spine. Degenerative changes in the symphysis pubis. Osteopenia versus osteoporosis. Vascular calcifications, aorta. XR/XR sacroiliac joint min 3V IMPRESSION: No acute fracture. Electronically signed by: Irwin Day MD 01/25/2025 12:37 PM EDT
--- NOTE | ~2025-01-24 | US_ITS ---
EXAMINATION: US BLADDER HISTORY: R30.0 - Dysuria COMPARISON: Correlation is made with a CT of the pelvis without contrast dated 04/01/2022. FINDINGS: Sonographic examination of the urinary bladder was performed before and after voiding. Before voiding, the urinary bladder measured 9.0 x 6.2 x 6.2, for an estimated volume of182 mL. After voiding, the urinary bladder measured 4.4 x 3.5 x 8.1, for an estimated volume of 65 mL. No intrinsic bladder abnormality is identified. Bilateral ureteral jets are identified. US/US bladder IMPRESSION: The urinary bladder is unremarkable in appearance. Post void bladder residual of 65 mL. Electronically signed by: Otoniel Diallo MD 01/25/2025 07:07 AM EDT
--- NOTE | ~2025-01-24 | XR_ITS ---
EXAMINATION: XR LUMBOSACRAL SPINE CLINICAL INFORMATION: M53.3 - Sacrococcygeal disorders, not elsewhere classified COMPARISON: February 14, 2014. TECHNIQUE: Three views of the lumbosacral spine. FINDINGS: Levoconvex rotoscoliosis apex at L3-4. Multilevel marginal osteophyte formation and endplate sclerosis and decreased intervertebral disc height with incomplete ankylosis at L4-5. No acute cortical disruption. No gross malalignment. Osteopenia versus osteoporosis. Vascular calcifications. There is an electrode leads in the right heart chambers. Degenerative changes in the left coxofemoral joint. XR/XR lumbar spine 2-3V IMPRESSION: Multilevel thoracolumbar spondylosis and a levoconvex rotoscoliosis without acute fracture or gross listhesis. Electronically signed by: Irwin Day MD 01/25/2025 12:39 PM EDT
[2025-01-24 16:02] LABS: Appearance Urine Cloudy; Color Urine Yellow; Glucose Urine UA Negative (Negative); Leukocyte Esterase Urine Large (3+) (Negative); Nitrite Urine Negative (Negative); PH 5.5 (5.0-9.0); UMIC TRIGGER UACC YES; Urine Blood Negative (Negative); Urine Ketones Negative (Negative); Urine Protein Negative (Neg-Trace)
[2025-01-24 16:04] LABS: Bacteria Urine None Seen (None Seen); RBC Urine 0-2 /HPF (0-2); Squamous Epithelial Cell Urine 0-2 /HPF (0-2); UACC Culture Trigger YES; WBC Urine >50 /HPF (0-5)
== END 2025-01-24 13:50 | disposition home or self-care (01) ==
LOC: HO.US 13:49
PROVIDERS: PCP Internal Medicine; Visit Provider Internal Medicine
DX: M53.3 Sacrococcygeal disorders, not elsewhere classified (principal); R30.0 Dysuria
CPT/HCPCS: 72100; 72202; 76857; 81001; 81003; 87086

== ENCOUNTER → 2025-01-24 14:11 | Outpatient (BNV) | payer MEDICARE, MEDICAID, SELFPAY | PROVIDERS: PCP Internal Medicine; Visit Provider Radiology Diagnostic Radiology | DX: M53.3 Sacrococcygeal disorders, not elsewhere classified (principal); R30.0 Dysuria | CPT/HCPCS: 76857 ==

== ENCOUNTER 2025-01-31 12:48 | Outpatient (AMB) | payer MEDICARE, MEDICAID, SELFPAY ==
[2025-01-31 12:57] VITALS: BP 120/80; BMI 34.2
--- NOTE | 2025-01-31 12:57 | A.OFFVIS_ITS ---
Vital Signs 01/31/25 12:57 Height 5 ft 1 in Weight 180 lb 12.465 oz BMI 34.2 BP 120/80 Blood Pressure Location Lt brachial Position Sitting Intake Visit Reasons: 6m w pacer ck Intake Note: 6 month follow-up with [facility] heart doing well Surplus Property Disposal Agent Required: No Allergies Iodinated Contrast Media [IV Contrast Dye] Allergy (Intermediate, Verified 01/22/25 11:37) Hives oxycodone [From PERCODAN] Allergy (Intermediate, Verified 01/22/25 11:37) headache/ringing in ears cheese Adverse Reaction (Intermediate, Verified 01/22/25 11:37) Diarrhea Medication List - Last Reconciled 01/31/25 by Juan F Loya MD ascorbic acid (vitamin C) (Vitamin C) 1,000 mg PO DAILY aspirin (Adult Aspirin Regimen) 81 mg PO DAILY atorvastatin 20 mg PO DAILY bumetanide 0.5 mg PO DAILY calcium 500 mg PO DAILY clotrimazole 1% 1 appl topical BID 4 weeks cyclosporine 0.05% (Restasis) 1 drp ophthalmic (eye) BID hydralazine 100 mg PO BID isosorbide mononitrate ER 30 mg PO QAM magnesium aspart,citrate,oxide 400 mg PO DAILY metoprolol succinate ER 100 mg PO DAILY [Mobility scooter As directed] multivitamin 1 tab PO DAILY nitroglycerin (Nitrostat) 0.4 mg sublingual Q5M PRN omeprazole 20 mg PO DAILY tramadol 50 mg PO BEDTIME HPI Comments Details: Kirsty comes for follow-up. Has had no new cardiac symptoms. Currently limited because of her back pain. Other she denies any symptoms of shortness of breath, orthopnea, PND, leg edema, weight gain. No prolonged palpitation irregular heartbeat. No lightheadedness, syncope. Takes all her medications. No exertional chest pain. [facility] Medical History LFT elevation Epiploic appendagitis History of COVID-19 (~05/2021) History of sick sinus syndrome (~2012) Osteoporosis PVCs (premature ventricular contractions) Diverticular disease Renal calculi Lactose intolerance Anxiety Urge incontinence GERD (gastroesophageal reflux disease) Hypercholesterolemia Obesity (BMI 30-39.9) TIA (transient ischemic attack) Coronary artery disease Orthostatic hypotension dysautonomic syndrome HTN (hypertension) Left bundle branch block History of cardiomyopathy Cardiac pacemaker in situ (~2012) Surgical History Hx of basal cell carcinoma excision Hx of colonoscopy History of vaginal hysterectomy History of removal of skin mole Hx of appendectomy S/P right knee arthroscopy History of cataract surgery History of esophagogastroduodenoscopy (EGD) History of permanent cardiac pacemaker placement Hx of lumpectomy Family History Father No problems noted. Mother No problems noted. Brother Myocardial infarction Social History Housing: Apartment Alcohol intake: current Alcohol intake frequency: holidays/special occasions only Alcohol type: wine Patient Tobacco Use Status: Former Tobacco user Tobacco use type: Cigarette e-Cigarette/Vaping Use: Never Used Second Hand Smoke Exposure: No service: No Current occupational status: retired Cognitive needs: No Hearing needs: No Vision needs: Yes Review of Systems Const Denies chills, Denies fatigue, Denies fever(s), Denies frequent falls, Denies weakness, Denies weight gain and Denies weight loss ENT Denies dizziness Card Denies chest pain, Denies leg edema, Denies lightheadedness, Denies palpitations, Denies dyspnea, Denies dyspnea on exertion, Denies orthopnea and Denies other (loss of consciousness) Resp Denies cough, Denies dyspnea and Denies dyspnea on exertion GI Denies hematochezia and Denies change in stool character Musc Denies abnormal gait, Denies muscle weakness, Denies numbness, Denies radiating pain into limb and Denies tingling Neuro Denies abnormal gait, Denies dizziness, Denies frequent falls, Denies numbness, Denies tingling and Denies weakness Endo Denies fatigue and Denies palpitations Physical Exam Vital Signs: Last Vital Signs BP 120/80 01/31/25 12:57 BMI result Body Mass Index 34.2 Const General: cooperative, comfortable, no acute distress, alert, awake and well groomed Nutritional Appearance: obese Orientation/consciousness: patient oriented x3 Limitations: no limitations Neck Neck: Yes trachea midline, Yes supple and Yes no JVD Chest Chest palpation & inspection: other (Pacemaker pocket appears benign) Resp Effort & Inspection: normal respiratory effort Auscultation: clear to auscultation bilaterally Cardio Jugular venous distension: no JVD Palpation: normal PMI Rate: regular rate Rhythm: regular rhythm Heart sounds: S1 normal heart sound present and S2 normal heart sound present GI Auscultation: normal bowel sounds Skin General skin exam: no rashes or lesions noted Neuro General: patient oriented x3 and no focal motor deficits Extrem General: Yes no clubbing, cyanosis or edema Office Procedures Cardiac Device Check Cardiac Device Check Details: Dual-chamber [employer] pacemaker in place. Programmed in DDDR at 60 beats per minute. No arrhythmias noted. Atrial ventricular sensing is adequate. Atrial ventricular pacing thresholds adequate and in auto capture mode. Pacing lead impedance is stable. Battery life is at about 6 years [id number] Cardiac Device Check, pacemaker dual lead Procedure code (CPT) selection complete Assessment & Plan Assessment & Plan (1) (HFpEF) heart failure with preserved ejection fraction: Code(s): I50.30 - Unspecified diastolic (congestive) heart failure Category: Medical Qualifiers: Heart failure chronicity: chronic Qualified Code(s): I50.32 - Chronic diastolic (congestive) heart failure Plan: Heart failure preserved ejection fraction, clinically euvolemic and well compensated current dose of bumetanide. Has done well with it. Continue the same. Importance of daily weight monitoring avoidance salt loading was discussed. Additional diuretics as need be. Continue aggressive blood pressure control. Recommend to maintain activity level as tolerated. (2) Cardiac pacemaker in situ: Onset Date: ~2012 Comment: ([employer] DCPP - placed 2012 for SSS - generator change 2020) Code(s): Z95.0 - Presence of cardiac pacemaker Category: Medical Plan: Cardiac pacemaker in-situ for sick sinus syndrome. Pacemaker is working well. Reprogrammed for adequate function. Continue to monitor remotely every 3 months. Follow up in the clinic in 6 months. (3) Orthostatic hypotension dysautonomic syndrome: Code(s): I95.1 - Orthostatic hypotension Category: Medical Plan: Patient with hypertension with orthostatic dysautonomia syndrome. No symptoms lightheadedness or syncope. She understands the symptoms well. Continue current therapy. Advised to maintain adequate hydration. Orthostatic precautions were discussed. Blood pressure is currently well optimized. Continue current therapy. (4) PVCs (premature ventricular contractions): Code(s): I49.3 - Ventricular premature depolarization Category: Medical Plan: PVCs which are currently well suppressed without any symptoms metoprolol therapy. Continue the same. No interventions required. Avoidance of stimulants was discussed. Stress mitigation strategies were discussed. Will follow up in the clinic in 6 months time, sooner p.r.n.. Thank you for allowing me to partake in her care Coding Level of Care Code Est Pt Level 4 (36355) Complex EM visit Add On G2211 Diagnoses Chronic heart failure with preserved ejection fraction I50.32 Heart failure chronicity: chronic Cardiac pacemaker in situ Z95.0 Orthostatic hypotension dysautonomic syndrome I95.1 PVCs (premature ventricular contractions) I49.3 CPT Codes Cardiac Device Check - Cardiac Device 2: [id number] Cardiac Device Check, pacemaker dual lead ([id number])
== END 2025-01-31 13:27 | disposition home or self-care (01) ==
LOC: HO.HCS 12:49
PROVIDERS: PCP Internal Medicine; Visit Provider Internal Medicine Cardiovascular Disease
DX: I50.32 Chronic diastolic (congestive) heart failure (principal); Z95.0 Presence of cardiac pacemaker; I95.1 Orthostatic hypotension; I49.3 Ventricular premature depolarization
CPT/HCPCS: 93280; 99214; G2211

== ENCOUNTER → 2025-01-31 12:48 | Outpatient (BNVA) | payer MEDICARE, MEDICAID, SELFPAY | PROVIDERS: PCP Internal Medicine; Visit Provider Internal Medicine Cardiovascular Disease | DX: Z45.018 Encounter for adjustment and management of other part of cardiac pacemaker (principal); I50.32 Chronic diastolic (congestive) heart failure; I95.1 Orthostatic hypotension; I49.3 Ventricular premature depolarization | CPT/HCPCS: 93280; 99212 ==

== ENCOUNTER 2025-03-08 08:42 | Outpatient (REF) | payer MEDICARE, MEDICAID, SELFPAY ==
[2025-03-08 09:01] LABS: MANUAL DIFF FLAG NO
[2025-03-08 09:13] LABS: Basophils Percent Auto 0.4 % (0-2); Eosinophils Absolute Auto 0.1 X10*3/uL (0.0-0.4); Eosinophils Percent Auto 1.6 % (0-4); Hematocrit 36.9 % (37.0-47.0); Imm Gran Abs Auto 0.02 X10*3/uL (0.00-0.03); Imm Gran Pct Auto 0.4 % (0.0-0.4); Lymphocytes Absolute Auto 1.8 X10*3/uL (1.2-4.9); Lymphocytes Percent Auto 33.1 % (20-40); Mean Corpuscular HGB Conc 35.2 g/dl (31.0-35.0); Mean Corpuscular Hemoglobin 33.1 pg (27.0-33.0); Mean Corpuscular Volume 93.9 fL (80.0-98.0); Mean Platelet Volume 10.7 fL (9.4-12.3); Monocytes Absolute Auto 0.5 X10*3/uL (0.1-1.2); Monocytes Percent Auto 8.3 % (2-11); Neutrophils Absolute Auto 3.1 x10*3/uL (2.0-8.3); Neutrophils Percent Auto 56.2 % (45-73); Platelet Count 228 X10*3/uL (160-400); Red Blood Count 3.93 X10*6/uL (4.20-5.50); Red Cell Distribution Width 13.6 % (11.0-16.0); White Blood Count 5.6 X10*3/uL (4.8-10.8)
[2025-03-08 09:40] LABS: B Type Natriuretic Peptide 210 pg/mL (<100)
[2025-03-08 09:57] LABS: Alanine Aminotransferase 21 U/L (0-31); Albumin Level 4.2 g/dL (3.5-5.0); Alkaline Phosphatase 183 U/L (39-117); Anion Gap 9 (12-20); Aspartate Amino Transferase 39 U/L (5-31); Bilirubin Total 0.6 mg/dL (0.0-1.0); Blood Urea Nitrogen 23 mg/dL (9-16); Carbon Dioxide 28 mmol/L (22-29); Chloride 109 mmol/L (96-108); Cholesterol 128 mg/dL (<200); Estimated Glomerular Filt Rate 48; Glucose Random 91 mg/dL (60-115); HDL Cholesterol 57 mg/dL (>40); LDL Cholesterol Calculated 55 mg/dL (<100); Potassium 4.8 mmol/L (3.3-5.1); Sodium 141 mmol/L (135-145); Triglycerides 84 mg/dL (<150)
[2025-03-08 10:00] LABS: Free T4 (Free Thyroxine) 1.13 ng/dL (0.71-1.85); Thyroid Stimulating Hormone 2.12 uIU/mL (0.32-4.0)
[2025-03-08 10:18] LABS: Folate 13.1 ng/mL (> or = 4.0); Vitamin B12 742 pg/mL (200-900)
[2025-03-08 10:54] LABS: Appearance Urine Clear; Color Urine Yellow; Glucose Urine UA Negative (Negative); Leukocyte Esterase Urine Large (3+) (Negative); Nitrite Urine Negative (Negative); PH 5.5 (5.0-9.0); UMIC TRIGGER UACC YES; Urine Blood Negative (Negative); Urine Ketones Trace mg/dL (Negative); Urine Protein 30 (1+) mg/dL (Neg-Trace)
[2025-03-08 11:01] LABS: Bacteria Urine None Seen (None Seen); Hyaline Casts Urine 0-2 /LPF (0-2); RBC Urine 0-2 /HPF (0-2); UACC Culture Trigger YES; WBC Urine 21-50 /HPF (0-5)
== END 2025-03-08 08:43 | disposition home or self-care (01) ==
LOC: HO.LAB 08:42
PROVIDERS: PCP Internal Medicine; Visit Provider Internal Medicine
DX: R30.0 Dysuria (principal); N39.41 Urge incontinence; I25.10 Atherosclerotic heart disease of native coronary artery without angina pectoris; E78.00 Pure hypercholesterolemia, unspecified
CPT/HCPCS: 36415; 80053; 80061; 81001; 82306; 82607; 82746; 83880; 84439; 84443; 85025; 87086

== ENCOUNTER → 2025-03-13 23:59 | Outpatient (BNV) | payer MEDICARE, MEDICAID, SELFPAY ==
--- NOTE | 2025-03-14 12:16 | MHC.OFFVIS ---
Intake Visit Reasons: Remote device check- [facility] Allergies Iodinated Contrast Media (IV Contrast Dye) Allergy (Intermediate, Verified 01/22/25 11:37) Hives oxycodone (From PERCODAN) Allergy (Intermediate, Verified 01/22/25 11:37) headache/ringing in ears cheese Adverse Reaction (Intermediate, Verified 01/22/25 11:37) Diarrhea PFSH Medical History LFT elevation Epiploic appendagitis History of COVID-19 (~05/2021) History of sick sinus syndrome (~2012) Osteoporosis PVCs (premature ventricular contractions) Diverticular disease Renal calculi Lactose intolerance Anxiety Urge incontinence GERD (gastroesophageal reflux disease) Hypercholesterolemia Obesity (BMI 30-39.9) TIA (transient ischemic attack) Coronary artery disease Orthostatic hypotension dysautonomic syndrome HTN (hypertension) Left bundle branch block History of cardiomyopathy Cardiac pacemaker in situ (~2012) Surgical History Hx of basal cell carcinoma excision Hx of colonoscopy History of vaginal hysterectomy History of removal of skin mole Hx of appendectomy S/P right knee arthroscopy History of cataract surgery History of esophagogastroduodenoscopy (EGD) History of permanent cardiac pacemaker placement Hx of lumpectomy Family History Father No problems noted. Mother No problems noted. Brother Myocardial infarction Social History Housing: Apartment Alcohol intake: current Alcohol intake frequency: holidays/special occasions only Alcohol type: wine Patient Tobacco Use Status: Former Tobacco user Tobacco use type: Cigarette e-Cigarette/Vaping Use: Never Used Second Hand Smoke Exposure: No service: No Current occupational status: retired Cognitive needs: No Hearing needs: No Vision needs: Yes Office Procedures Cardiac Device Check Cardiac Device Check Details: Remote pacemaker report generated 03/13/2025. Pacemaker function is adequate [id number] Cardiac Device Interrogation, pacemaker Procedure code (CPT) selection complete Assessment & Plan Assessment & Plan (1) Cardiac pacemaker in situ: Onset Date: ~2012 Comment: ([facility] DCPP - placed 2012 for SSS - generator change 2020) Code(s): Z95.0 - Presence of cardiac pacemaker Category: Medical Plan: See above Coding Level of Care Code Procedure Only Diagnoses Cardiac pacemaker in situ Z95.0 CPT Codes Cardiac Device Check - Cardiac Device 12: [id number] Cardiac Device Interrogation, pacemaker ([id number])
== END ==
PROVIDERS: PCP Internal Medicine; Visit Provider Internal Medicine Cardiovascular Disease
DX: I49.5 Sick sinus syndrome (principal); Z95.0 Presence of cardiac pacemaker
CPT/HCPCS: 93294

== ENCOUNTER 2025-03-14 13:53 | Outpatient (AMB) | payer MEDICARE, MEDICAID, SELFPAY ==
[2025-03-14 14:06] VITALS: BP 110/68; PULSE 61; O2SAT 95; BMI 34.6
--- NOTE | 2025-03-14 14:07 | A.OFFPC_ITS ---
Vital Signs 03/14/25 14:06 Height 5 ft 1 in Weight 183 lb 2 oz BMI 34.6 BP 110/68 Blood Pressure Location Lt brachial Position Sitting Pulse 61 Pulse Source Pulse Oximeter Pulse Oximetry (%) 95 Oxygen Delivery Method Room Air Intake Visit Reasons: Hypertension Cardiac Cath Technologist Required: No Accompanied by: Self / Same As Patient Allergies Iodinated Contrast Media (IV Contrast Dye) Allergy (Intermediate, Verified 03/14/25 14:07) Hives oxycodone (From PERCODAN) Allergy (Intermediate, Verified 03/14/25 14:07) headache/ringing in ears cheese Adverse Reaction (Intermediate, Verified 03/14/25 14:07) Diarrhea Medication List - Last Reconciled 03/14/25 by Claudette Logan MD ascorbic acid (vitamin C) (Vitamin C) 1,000 mg PO DAILY aspirin (Adult Aspirin Regimen) 81 mg PO DAILY atorvastatin 20 mg PO DAILY bumetanide 0.5 mg PO DAILY calcium 500 mg PO DAILY clotrimazole 1% 1 appl topical BID 4 weeks cyclosporine 0.05% (Restasis) 1 drp ophthalmic (eye) BID hydralazine 100 mg PO BID isosorbide mononitrate ER 30 mg PO QAM magnesium aspart,citrate,oxide 400 mg PO DAILY metoprolol succinate ER 100 mg PO DAILY [Mobility scooter As directed] multivitamin 1 tab PO DAILY nitroglycerin (Nitrostat) 0.4 mg sublingual Q5M PRN omeprazole 20 mg PO DAILY tramadol 50 mg PO BEDTIME Tobacco use date assessed: 03/14/25 Fall risk assessment: No Falls in past year Last assessed Fall Risk: 03/14/25 Dental Screening Dental Screen Date: 03/14/25 Did you have a dental visit in the last 12 months?: Yes Did you have a dental problem in the last 6 months where you did not have access to dental care?: No Was dental information given to patient?: Patient has dentist [facility] Medical History LFT elevation Epiploic appendagitis History of COVID-19 (~05/2021) History of sick sinus syndrome (~2012) Osteoporosis PVCs (premature ventricular contractions) Diverticular disease Renal calculi Lactose intolerance Anxiety Urge incontinence GERD (gastroesophageal reflux disease) Hypercholesterolemia Obesity (BMI 30-39.9) TIA (transient ischemic attack) Coronary artery disease Orthostatic hypotension dysautonomic syndrome HTN (hypertension) Left bundle branch block History of cardiomyopathy Cardiac pacemaker in situ (~2012) Surgical History Hx of basal cell carcinoma excision Hx of colonoscopy History of vaginal hysterectomy History of removal of skin mole Hx of appendectomy S/P right knee arthroscopy History of cataract surgery History of esophagogastroduodenoscopy (EGD) History of permanent cardiac pacemaker placement Hx of lumpectomy Family History Father No problems noted. Mother No problems noted. Brother Myocardial infarction Social History Housing: Apartment Alcohol intake: current Alcohol intake frequency: holidays/special occasions only Alcohol type: wine Patient Tobacco Use Status: Former Tobacco user Tobacco use type: Cigarette e-Cigarette/Vaping Use: Never Used Second Hand Smoke Exposure: No service: No Current occupational status: retired Cognitive needs: No Hearing needs: No Vision needs: Yes Questionnaire PHQ-9 Over the last 2 weeks, how often have you been bothered by any of the following problems? 1. Little interest or pleasure in doing things: not at all 2. Feeling down, depressed, or hopeless: not at all 3. Trouble falling or staying asleep, or sleeping too much: not at all 4. Feeling tired or having little energy: not at all 5. Poor appetite or overeating: not at all 6. Feeling bad about yourself - or that you are a failure or have let yourself or your family down: not at all 7. Trouble concentrating on things, such as reading the newspaper or watching television: not at all 8. Moving or speaking so slowly that other people could have noticed. Or the opposite - being so fidgety or restless that you have been moving around a lot more than usual: not at all 9. Thoughts that you would be better off or of hurting yourself in some way: not at all Total score: 0 Depression Screening Interpretation: Negative Depression Screening Done: Yes Source: Developed by Drs. Otoniel Lei, Robert Jean Baptiste and colleagues, with an educational ananda from [employer]. Thrive Questionnaire Date Thrive assessed: 03/14/25 I am a: Patient What is your living situation today?: I have a steady place to live Within the past 12 months, did the food you bought not last and you didn't have the money to get more?: Never true Within the past 12 months, did you worry whether your food would run out before you got money to buy more?: Never true Do you have trouble paying for medicines?: No Do you have trouble getting transportation to medical appointments?: No Do you have trouble paying your heating and electricity bill?: No Do you have trouble taking care of your child, family member or friend?: No Do you have trouble with day-to-day activities such as bathing, preparing meals, shopping, managing finances, etc.?: Yes Are you currently unemployed and looking for a job?: No Are you interested in more education?: No Please select the resources that you would like help with: None Currently or been in a relationship where the following occur: No concerns reported THRIVE Score: 0 AUDIT C Alcohol Use Questionnaire (AUDIT-C) 1. How often do you have a drink containing alcohol?: 2-4 times a month 2. How many drinks containing alcohol do you have on a typical day when you are drinking?: 1 or 2 3. How often do you have six or more drinks on one occasion?: Never Total Score: 2 KEYA-7 AMB Questionnaire KEYA-7 Date KEYA - 7 assessed: 03/14/25 Feeling nervous, anxious, or on edge: 0 = Not at all Not being able to stop or control worryin = Not at all Worrying too much about different things: 0 = Not at all Trouble relaxin = Several days Being so restless that it is hard to sit still: 0 = Not at all Becoming easily annoyed or irritable: 0 = Not at all Feeling afraid as if something awful might happen: 0 = Not at all Total KEYA-7 score (0-4 normal; 5-9 mild; 10-14 moderate; 15-21 severe): 1 Source: Developed by Loli Vogel Kurt Kroenke and colleagues, with an educational ananda from [employer]. Physical exam (Primary Care) Vital Signs: Last Vital Signs Pulse 61 03/14/25 14:06 BP 110/68 03/14/25 14:06 Pulse Ox 95 03/14/25 14:06 Oxygen Delivery Method Room Air 03/14/25 14:06 BMI result Body Mass Index 34.6 Tobacco/Smoking Status: Tobacco use Status Tobacco use date assessed 03/14/25 03/14/25 14:10 Patient Tobacco Use Status Former Tobacco user 03/14/25 14:10 Tobacco use type Cigarette 03/14/25 14:10 e-Cigarette/Vaping Use Never Used 03/14/25 14:10 PHQ-9: PHQ-9 Score PHQ-9: Total score 0 03/14/25 14:36 Depression Screening Interpretation: Negative Thrive Assessment: Date of Thrive Assessment Date Thrive assessed 03/14/25 03/14/25 14:10 Currently or been in a relationship where the following occur: No concerns reported Const General: alert; No acute distress Eyes Conjunctivae: conjunctivae normal Resp Auscultation: clear to auscultation bilaterally Cardio Rate: regular rate Rhythm: regular rhythm GI Inspection: Yes normal to inspection Extrem General: Yes normal to inspection and No edema Coding Level of Care Code Est Pt Level 4 (85685) Complex EM visit Add On G2211 Diagnoses Chronic heart failure with preserved ejection fraction I50.32 Heart failure chronicity: chronic Essential hypertension I10 Hypertension type: essential hypertension Coronary artery disease involving [place] coronary artery of [place] heart without angina pectoris I25.10 Associated angina: without angina Coronary Disease-Associated Artery/Lesion type: [place] artery [place] vs. transplanted heart: [place] heart History of sick sinus syndrome Z86.79 Hypercholesterolemia E78.00 Gastroesophageal reflux disease without esophagitis K21.9 Esophagitis presence: without esophagitis Hepatic steatosis K76.0 Assessment & Plan Assessment & Plan (1) (HFpEF) heart failure with preserved ejection fraction: Code(s): I50.30 - Unspecified diastolic (congestive) heart failure Category: Medical Qualifiers: Heart failure chronicity: chronic Qualified Code(s): I50.32 - Chronic diastolic (congestive) heart failure Plan: Continue to follow up with Cardiology on diuretics Bumex weigh daily (2) HTN (hypertension): Code(s): I10 - Essential (primary) hypertension Category: Medical Qualifiers: Hypertension type: essential hypertension Qualified Code(s): I10 - Essential (primary) hypertension Plan: Continue with blood pressure medication. Decrease salt intake and exercise patient takes metoprolol 100 mg once a day isosorbide mononitrate hydralazine 100 mg twice a day (3) Coronary artery disease: Code(s): I25.10 - Atherosclerotic heart disease of [place] coronary artery without angina pectoris Category: Medical Qualifiers: Associated angina: without angina Coronary Disease-Associated Artery/Lesion type: [place] artery [place] vs. transplanted heart: [place] heart Qualified Code(s): I25.10 - Atherosclerotic heart disease of [place] coronary artery without angina pectoris Plan: Control the cholesterol, weight, blood pressure, on aspirin 81 mg once a day (4) History of sick sinus syndrome: Onset Date: ~2012 Comment: (S/P [facility] DCPP - placed 2012, generator change 2020) Code(s): Z86.79 - Personal history of other diseases of the circulatory system Category: Medical Plan: Patient has the pacemaker and being followed up by Cardiology (5) Hypercholesterolemia: Code(s): E78.00 - Pure hypercholesterolemia, unspecified Category: Medical Plan: Avoid fried foods, chicken skin, eggs, butter margarine, pastries and meat. Be it pork or beef they have a lot of cholesterol on atorvastatin 20 mg once a day LDL goal of less than 70 and triglyceride of less than 150 (6) GERD (gastroesophageal reflux disease): Code(s): K21.9 - Gastro-esophageal reflux disease without esophagitis Category: Medical Qualifiers: Esophagitis presence: without esophagitis Qualified Code(s): K21.9 - Gastro-esophageal reflux disease without esophagitis Plan: Avoid the foods that causes that usually spicy foods, tomato products, juices, coffee, soda and foods that your sensitive to. After eating do not lie down, allow 3-4 hours before in lie down. And keep the head of bed above 30 degrees to avoid the acid from going up. (7) Hepatic steatosis: Comment: December 2024 Code(s): K76.0 - Fatty (change of) liver, not elsewhere classified Category: Medical Plan: Low-fat diet and exercise Plan History of Present Illness The patient is an 84-year-old female presenting for a follow-up visit for multiple chronic conditions including congestive heart failure, coronary artery disease, and osteoporosis. The patient has a history of osteoporosis, with the last bone density test conducted in December 2023. She also has gastroesophageal reflux disease, hypertension, and hypercholesterolemia, which are being managed with lifestyle modifications and medications. The patient has a history of sick sinus syndrome and has a pacemaker in place. She also has coronary artery disease and congestive heart failure with preserved ejection fraction, for which she is on a regimen including Bumetanide and Metoprolol. The patient follows up regularly with cardiology for pacemaker checks and management of her cardiac conditions. She has dysautonomia syndrome and is currently taking Metoprolol for premature ventricular contractions. Recent diagnostic tests include a lumbar spine X-ray showing multilevel thoracolumbar spondylosis and an unremarkable bladder ultrasound, although some residual urine was noted. Blood work from March 08 showed normal blood count and electrolytes, stable renal function with mild insufficiency, and elevated liver enzymes indicating fatty liver. Preventative care measures include up-to-date mammogram and colon test, as well as vaccinations including tetanus and shingles shots. Health Maintenance - Mammogram and colon test are up to date. - Vaccinations: Tetanus and shingles shots are up to date. - Cholesterol management with atorvastatin, LDL goal of less than 70 mg/dL, triglyceride goal of less than 150 mg/dL. - Dietary recommendations include a low-fat diet and increased exercise for GERD and fatty liver management. Social History - Nutritional intake: Patient is trying to eat a lot of salads as part of a healthier diet. Review of Systems - Genitourinary: Denies pain, reports some residual urine retention. - Gastrointestinal: Denies symptoms of GERD currently. - Musculoskeletal: Denies any new or worsening back pain. - Dermatological: Reports benign skin lesion removal, denies any new skin concerns. Physical Exam Results - Labs: Normal blood count, normal electrolytes, stable renal function with mild insufficiency, elevated liver enzymes. - Imaging: Lumbar spine X-ray shows multilevel thoracolumbar spondylosis. - Imaging: Bladder ultrasound unremarkable, some residual urine noted. Plan The patient will continue to follow up with cardiology for management of her cardiac conditions, including regular pacemaker checks and monitoring of congestive heart failure. She is advised to continue her current medication regimen, including Bumetanide, Metoprolol, and atorvastatin, with a focus on maintaining her LDL cholesterol below 70 mg/dL and triglycerides below 150 mg/dL. Dietary modifications are recommended, including a low-fat diet and increased physical activity to manage GERD and fatty liver. The patient is encouraged to monitor her weight daily and report any significant changes, particularly in relation to her heart failure management. Preventative care measures are up to date, including mammogram, colon test, and vaccinations. The patient is advised to continue her current health maintenance practices and to report any new symptoms or concerns promptly. Patient was informed and verbally consented to the use of an ambient scribe for clinic note documentation during this visit. Discussion Notes During the visit, I discussed with the patient the importance of continuing her current medication regimen and the need for regular follow-ups with cardiology to monitor her cardiac conditions. We reviewed her recent lab results, noting the elevated liver enzymes and the importance of dietary modifications to manage her fatty liver. I emphasized the significance of maintaining her LDL cholesterol and triglyceride levels within the target range and encouraged her to adhere to her prescribed medications. We also discussed her preventative care measures, confirming that her mammogram, colon test, and vaccinations are up to date. The patient was advised to report any new symptoms or concerns and to continue her current health maintenance practices. Patient Instructions - Continue taking your medications as prescribed, including Bumetanide, Metoprolol, and atorvastatin. - Follow a low-fat diet and increase physical activity to help manage GERD and fatty liver. - Monitor your weight daily and report any significant changes to your healthcare provider. - Keep up with regular cardiology appointments for pacemaker checks and heart failure management. - Ensure all preventative care measures, including mammograms and vaccinations, remain up to date. - Report any new symptoms or concerns to your healthcare provider promptly. Orders: Orders Complete Blood Count Auto Diff 3 Months I50.32 - Chronic diastolic (congestive) heart failure Free T4 (Free Thyroxine) 3 Months I50.32 - Chronic diastolic (congestive) heart failure Thyroid Stimulating Hormone 3 Months I50.32 - Chronic diastolic (congestive) heart failure B Type Natriuretic Peptide 3 Months I50.32 - Chronic diastolic (congestive) heart failure
== END 2025-03-14 14:46 | disposition home or self-care (01) ==
LOC: HO.HMCH 13:53
PROVIDERS: PCP Internal Medicine; Visit Provider Internal Medicine
DX: I50.32 Chronic diastolic (congestive) heart failure (principal); I10 Essential (primary) hypertension; I25.10 Atherosclerotic heart disease of native coronary artery without angina pectoris; Z86.79 Personal history of other diseases of the circulatory system; E78.00 Pure hypercholesterolemia, unspecified; K21.9 Gastro-esophageal reflux disease without esophagitis; K76.0 Fatty (change of) liver, not elsewhere classified

== ENCOUNTER → 2025-03-14 13:53 | Outpatient (BNVA) | payer MEDICARE, MEDICAID, SELFPAY | PROVIDERS: PCP Internal Medicine; Visit Provider Internal Medicine | DX: I11.0 Hypertensive heart disease with heart failure (principal); I50.32 Chronic diastolic (congestive) heart failure; I25.10 Atherosclerotic heart disease of native coronary artery without angina pectoris; E78.00 Pure hypercholesterolemia, unspecified; K21.9 Gastro-esophageal reflux disease without esophagitis; K76.0 Fatty (change of) liver, not elsewhere classified; Z86.79 Personal history of other diseases of the circulatory system | CPT/HCPCS: 99212 ==

== ENCOUNTER 2025-03-25 12:54 | Outpatient (AMB) | payer MEDICARE, MEDICAID, SELFPAY ==
--- NOTE | 2025-03-25 13:07 | MHC.OFFVIS ---
Intake Visit Reasons: recurrent UTI Intake Note: New patient presents today for initial visit for recurrent UTI Urology Medication:None Blood Thinner:Aspirin Antibiotic Allergies:None PVR:0ml Allergies Iodinated Contrast Media (IV Contrast Dye) Allergy (Intermediate, Verified 03/25/25 13:09) Hives oxycodone (From PERCODAN) Allergy (Intermediate, Verified 03/25/25 13:09) headache/ringing in ears cheese Adverse Reaction (Intermediate, Verified 03/25/25 13:09) Diarrhea HPI Comments Details: 03/25/25 History of Present Illness - The patient is an 84-year-old female presenting with recurrent urinary tract infections. - She has experienced recurrent urinary tract infections over the years, characterized by burning and itching. - An ultrasound revealed incomplete bladder emptying, - the patient denies any urination difficulties. - She had a hysterectomy in her early 30s due to severe hemorrhaging, with four children prior to the surgery. Results - Bladder ultrasound: Incomplete bladder emptying Plan - Schedule a office cystoscopy [facility] Medical History LFT elevation Epiploic appendagitis History of COVID-19 (~05/2021) History of sick sinus syndrome (~2012) Osteoporosis PVCs (premature ventricular contractions) Diverticular disease Renal calculi Lactose intolerance Anxiety Urge incontinence GERD (gastroesophageal reflux disease) Hypercholesterolemia Obesity (BMI 30-39.9) TIA (transient ischemic attack) Coronary artery disease Orthostatic hypotension dysautonomic syndrome HTN (hypertension) Left bundle branch block History of cardiomyopathy Cardiac pacemaker in situ (~2012) Surgical History Hx of basal cell carcinoma excision Hx of colonoscopy History of vaginal hysterectomy History of removal of skin mole Hx of appendectomy S/P right knee arthroscopy History of cataract surgery History of esophagogastroduodenoscopy (EGD) History of permanent cardiac pacemaker placement Hx of lumpectomy Family History Father No problems noted. Mother No problems noted. Brother Myocardial infarction Social History Housing: Apartment Alcohol intake: current Alcohol intake frequency: holidays/special occasions only Alcohol type: wine Patient Tobacco Use Status: Former Tobacco user Tobacco use type: Cigarette e-Cigarette/Vaping Use: Never Used Second Hand Smoke Exposure: No service: No Current occupational status: retired Cognitive needs: No Hearing needs: No Vision needs: Yes Review of Systems Const All systems reviewed & are unremarkable except as noted in HPI and below Reports no additional complaints Eyes Reports no additional complaints ENT Reports no additional complaints Card Reports no additional complaints Resp Reports no additional complaints GI Reports no additional complaints Reports as per HPI Musc Reports no additional complaints Skin/Breast Reports system reviewed and no additional complaints, except as documented Neuro Reports no additional complaints Psych Reports no additional complaints Endo Reports no additional complaints Abram/Lymph Reports no additional complaints Aller/Immun Reports no additional complaints Physical Exam Const General: cooperative, healthy appearing and no acute distress Orientation/consciousness: patient oriented x3 HEENT Head: Yes normal to inspection, Yes normocephalic and Yes atraumatic Eyes Conjunctivae: conjunctivae normal Neck Neck: Yes normal visual inspection and Yes trachea midline Chest Chest palpation & inspection: normal inspection of the chest Resp Effort & Inspection: normal respiratory effort GI Inspection: Yes normal to inspection Neuro General: patient oriented x3 Psych Appearance: grossly normal Assessment & Plan Assessment & Plan (1) Recurrent UTI: Code(s): N39.0 - Urinary tract infection, site not specified Category: Medical (2) History of kidney stones: Code(s): Z87.442 - Personal history of urinary calculi Category: Medical (3) Left renal stone: Comment: 02/17/2022 Code(s): N20.0 - Calculus of kidney Category: Medical Plan office cystoscopy Patient Instructions: The patient had an opportunity to ask questions regarding treatment plan. The patient expressed understanding and agreement with the above treatment plan. The patient is aware they should contact our office by phone for worsening of their current condition or the appearance of new symptoms. Compliance is encouraged with any medications and followup testing that is ordered. It is a privilege to be allowed the opportunity to participate in the urologic care of your patient. If you have any questions or concerns regarding treatment for the above conditions please do not hesitate to contact me. The office telephone contact is [phone]. This note is constructed in part using voice recognition software. While every effort has been made to ensure accuracy school attendance secretary errors may have been included. Yours sincerely, Amaury Lowe MD Scribe Plan - Not visible on output: Patient was informed and verbally consented to the use of an ambient scribe for clinic note documentation during this visit. Coding Level of Care Code New Pt Level 4 (70427) Diagnoses Recurrent UTI N39.0 History of kidney stones Z87.442 Left renal stone N20.0
== END 2025-03-25 13:48 | disposition home or self-care (01) ==
LOC: HO.HUSH 12:55
PROVIDERS: PCP Internal Medicine; Visit Provider Urology
DX: N39.0 Urinary tract infection, site not specified (principal); Z87.442 Personal history of urinary calculi; N20.0 Calculus of kidney
CPT/HCPCS: 99204

== ENCOUNTER → 2025-03-25 12:54 | Outpatient (BNVA) | payer MEDICARE, MEDICAID, SELFPAY | PROVIDERS: PCP Internal Medicine; Visit Provider Urology | DX: N39.0 Urinary tract infection, site not specified (principal); Z87.442 Personal history of urinary calculi; N20.0 Calculus of kidney | CPT/HCPCS: 99202 ==

== ENCOUNTER 2025-05-31 09:52 | Emergency (ER) | payer MEDICARE, MEDICAID, SELFPAY ==
--- NOTE | ~2025-05-31 | XR_ITS ---
EXAMINATION: XR HUMERUS, RIGHT CLINICAL INFORMATION: pain COMPARISON: None available. TECHNIQUE: AP and lateral views of the right humerus. FINDINGS: No acute fractures are identified. The AC joint is intact. There are mild degenerative changes with small marginal osteophytes. There is suspected osteopenia. XR/XR humerus RT IMPRESSION: Osteopenia. Mild AC joint arthropathy. Otherwise unremarkable exam. Electronically signed by: Gael Sharma MD 05/31/2025 01:02 PM EDT
--- NOTE | ~2025-05-31 | XR_ITS ---
EXAMINATION: XR CHEST CLINICAL INFORMATION: chest pain COMPARISON: 05/29/2024. TECHNIQUE: 2 views of the chest were obtained. FINDINGS: Left-sided dual-lead pacer device in place with leads extending into the right atrium and right ventricle. There is mild cardiac enlargement. Mediastinal and hilar contours appear normal. Aortic mural calcifications. The lungs are hyperaerated, however clear bilaterally. There is no pneumothorax or pleural effusion. There is no focal osseous or soft tissue abnormality. XR/XR chest 2V IMPRESSION: 1. Dual-lead pacer device in place. Mild cardiomegaly. 2. Hyperaerated lungs with no active pulmonary disease. Electronically signed by: Mendel Khoury MD 05/31/2025 01:00 PM EDT
--- NOTE | ~2025-05-31 | US_ITS ---
EXAMINATION: US TRIPLEX LOWER EXTREMITY, RIGHT CLINICAL INFORMATION: Right leg pain. COMPARISON: None available. TECHNIQUE: Color-flow triplex imaging with spectral analysis and compression Doppler were performed on the right lower extremity. FINDINGS: Respiratory variation, normal compression and augmented flow are noted throughout the right lower extremity. The visualized common femoral vein, superficial femoral vein, profunda femoral vein, popliteal vein and midcalf peroneal and posterior tibial venous segments show no evidence of deep venous thrombosis. There is no Vitale's cyst. US/US venous duplex LE RT IMPRESSION: No evidence of deep venous thrombosis involving the right lower extremity. Electronically signed by: Mendel Khoury MD 05/31/2025 02:23 PM EDT
[2025-05-31 09:58] VITALS: BP 128/33; PULSE 60; RESP 18; TEMP 37; O2SAT 96; BMI 37.1
--- NOTE | 2025-05-31 11:58 | ED.EXTPRO ---
HPI - Extremity Problem General Chief complaint: Extremity Injury, Upper Stated complaint: right arm pain, leg pain/trouble walking Time Seen by Provider: 05/31/25 11:57 Source: patient Mode of arrival: ambulatory Limitations: no limitations History of Present Illness ED Provider: Dr. Fernández HPI Narrative: 85-year-old female history of pacemaker implantation, hypertension presented hospital today for evaluation of right arm pain. Patient has describes this pain as soon her upper extremity behind her tricep. Radiates down to her elbow. Patient did receive injection at her elbow for a tendonitis. However this did not alleviate her pain. His pain is worsening therefore she presents to the ER for further evaluation. Patient is also complaining of pain in her right calf. Patient stated that it is tender to ambulate on. It makes it difficult for her to stand. Because of these onset of her pain patient presents to the ER for further evaluation. Denies any chest pain or abdominal pain. Denies any shortness of breath. Related Data Home Medications ?Medication ?Instructions ?Recorded ?Confirmed aspirin 81 mg tablet,delayed 81 mg PO DAILY 10/14/20 03/14/25 release (Adult Aspirin Regimen) ascorbic acid (vitamin C) 1,000 mg 1,000 mg PO DAILY 07/24/21 03/14/25 tablet (Vitamin C) calcium 500 mg tablet 500 mg PO DAILY 07/24/21 03/14/25 multivitamin 1 tab PO DAILY 07/24/21 03/14/25 Previous Rx's ?Medication ?Instructions ?Recorded clotrimazole 1 % topical cream 1 appl topical BID 4 weeks #45 02/03/22 grams cyclosporine 0.05 % eye drops in a 1 drp ophthalmic (eye) BID #180 ea 07/20/23 dropperette (Restasis) nitroglycerin 0.4 mg sublingual 0.4 mg sublingual Q5M PRN chest 02/14/24 tablet (Nitrostat) pain #25 tabs isosorbide mononitrate 30 mg 30 mg PO QAM #90 tabs 05/30/24 tablet,extended release 24 hr hydralazine 100 mg tablet 100 mg PO BID #180 tabs 07/10/24 metoprolol succinate 100 mg 100 mg PO DAILY #90 tabs 10/19/24 tablet,extended release 24 hr magnesium aspart,citrate,oxide 400 mg PO DAILY #90 caps 10/25/24 bumetanide 0.5 mg tablet 0.5 mg PO DAILY #90 tabs 11/06/24 tramadol 50 mg tablet 50 mg PO BEDTIME #7 tabs 01/22/25 omeprazole 20 mg capsule,delayed 20 mg PO DAILY #90 caps 02/02/25 release atorvastatin 20 mg tablet 20 mg PO DAILY #90 tabs 05/06/25 Mobility Scooter #1 ea 05/23/25 acetaminophen 300 mg-codeine 30 mg 1 tab PO Q8H PRN pain 4 days #12 05/31/25 tablet tabs prednisone 20 mg tablet 20 mg PO DAILY 7 days #7 tabs 05/31/25 Allergies Allergy/AdvReac Type Severity Reaction Status Date / Time Iodinated Contrast Media (IV Allergy Intermediate Hives Verified 05/31/25 10:01 Contrast Dye) oxycodone (From PERCODAN) Allergy Intermediate headache/ringing Verified 05/31/25 10:01 in ears cheese AdvReac Intermediate Diarrhea Verified 05/31/25 10:01 Review of Systems Review of Systems: Pertinent review of systems as mentioned in HPI. All other system otherwise negative. [facility] Past Medical History [facility] Narrative: Medical history as mentioned in HPI Medical History LFT elevation Epiploic appendagitis History of COVID-19 (~05/2021) History of sick sinus syndrome (~2012) Osteoporosis PVCs (premature ventricular contractions) Diverticular disease Renal calculi Lactose intolerance Anxiety Urge incontinence GERD (gastroesophageal reflux disease) Hypercholesterolemia Obesity (BMI 30-39.9) TIA (transient ischemic attack) Coronary artery disease Orthostatic hypotension dysautonomic syndrome HTN (hypertension) Left bundle branch block History of cardiomyopathy Cardiac pacemaker in situ (~2012) Surgical History Hx of basal cell carcinoma excision Hx of colonoscopy History of vaginal hysterectomy History of removal of skin mole Hx of appendectomy S/P right knee arthroscopy History of cataract surgery History of esophagogastroduodenoscopy (EGD) History of permanent cardiac pacemaker placement Hx of lumpectomy Family History Family History Father No problems noted. Mother No problems noted. Brother Myocardial infarction Social History Social History Housing: Apartment Alcohol intake: current Alcohol intake frequency: holidays/special occasions only Alcohol type: wine Patient Tobacco Use Status: Former Tobacco user Tobacco use type: Cigarette Smoked in Last 30 Days: No e-Cigarette/Vaping Use: Never Used Second Hand Smoke Exposure: No Use of substances other than those prescribed or required for medical reasons: No Advance Directives: No Advance Directives Information Provided: Yes service: No Current occupational status: retired Cognitive needs: No Hearing needs: No Vision needs: Yes Physical Exam Exam: Exam: General: Pleasant, no distress, interacting appropriately Head: Normacephalic, atraumatic ENT: oral mucosa moist, neck supple, no tracheal deviation Cardiovascular: regular rate, regular rhythm, no murmurs, rubbing, gallops Respiratory: CTAB, no wheeze, rales, rhonchi Gastrointestinal: Soft, non distended, non tender, non guarding Extremities: CMS intact in right upper extremity and right lower extremity, full range of motion intact, patient has tenderness to the right tricep area on palpation, tenderness on the proximal calf on the right side. No obvious pitting edema appreciated on exam. These findings were reproducible on exam. Neurological: Awake and alert, no facial droop noted Skin: Warm and dry Psychiatric: Appropriate mood and thoughts Vital Signs: Vital Signs: Last Vital Signs Temp 98.1 F 05/31/25 16:33 Pulse 60 05/31/25 16:33 Resp 16 05/31/25 16:33 BP 149/59 H 05/31/25 16:33 Pulse Ox 96 05/31/25 16:33 O2 Del Method Room Air 05/31/25 16:33 BMI result Body Mass Index 37.1 Medications Administered Discontinued Medications Generic Name Dose Route Start Last Admin Trade Name Freq PRN Reason Stop Dose Admin Acetaminophen/Codeine Phosphate 1 tab 05/31/25 12:38 05/31/25 13:07 Acetaminophen/Codeine 300-30mg Tablet PO 05/31/25 12:39 1 tab ONCE ONE Administration Lidocaine 1 patch 05/31/25 12:38 05/31/25 13:07 Lidocaine 4 % Patch Adh..Patch TRANSDERMA 05/31/25 12:39 1 patch ONCE ONE Administration Protocol Prednisone 20 mg 05/31/25 12:38 05/31/25 13:07 Prednisone 20 Mg Tablet PO 05/31/25 12:39 20 mg ONCE ONE Administration Medical Decision Making Medical Decision Making [facility] Narrative: This is a 85-year-old female history of hypertension, pacemaker implantation presented hospital today for evaluation of right upper extremity and right lower extremity pain. I suspect patient's pain may be muscular in nature. It is reproducible on exam. Patient does have good pulse in upper and lower extremity on the right side. There was no signs of critical ischemia. I am not concern of arterial clots at this time. Patient has no tenderness over the right elbow or right knee joint. At this time we will obtain lab work to screen for ACS that may be presenting her symptoms including EKG troponins basic labs such as CBC and chemistry. We will obtain a chest x-ray as well. X-ray of her right humerus will be obtained to evaluate for any bony lesions. We will also obtain a DVT study of her right lower leg. She is not complaining of any chest pain or abdominal pain I have low suspicion for aortic dissection for the patient. No sign of DVT on her right lower extremities on exam, she still has pain on her right triceps tendon on the right arm. Suspect this is tendonitis of the triceps. We will plan to start patient on a course of prednisone. Plan to prescribe some codeine with Tylenol for further pain control. She does have leukocytosis on lab work likely secondary to steroid injection. Troponins negative, chest x-ray and humerus is negative for any signs of acute abnormalities. Discussed with the patient her results. I think her pain is from triceps tendonitis. She may require further prednisone treatment. We will plan to prescribe patient some pain medication for pain control. We will plan to discharge patient home. Patient is agreeable to this plan. All questions were addressed. I do not think patient has ACS. Differential Diagnosis Differential Diagnoses: The differential diagnosis associated with the presentation includes Tendonitis, musculoskeletal pain, myositis, aortic dissection, ACS Lab Data [facility] Lab Attestation statement: I reviewed the patient's lab results. 05/31/25 13:21 05/31/25 13:21 Labs: Lab Results 05/31/25 Range/Units 13:21 WBC 14.7 H (4.8-10.8) X10*3/uL RBC 4.23 (4.20-5.50) X10*6/uL Hgb 13.7 (12.0-16.0) g/dl Hct 39.4 (37.0-47.0) % MCV 93.1 (80.0-98.0) fL MCH 32.4 (27.0-33.0) pg MCHC 34.8 (31.0-35.0) g/dl RDW 14.2 (11.0-16.0) % Plt Count 245 (160-400) X10*3/uL MPV 9.7 (9.4-12.3) fL Immature Gran % (Auto) 1.6 H (0.0-0.4) % Neut % (Auto) 81.7 H (45-73) % Lymph % (Auto) 9.9 L (20-40) % [place] % (Auto) 6.7 (2-11) % Eos % (Auto) 0.0 (0-4) % Baso % (Auto) 0.1 (0-2) % Lymph # (Auto) 1.5 (1.2-4.9) X10*3/uL [place] # (Auto) 1.0 (0.1-1.2) X10*3/uL Eos # (Auto) 0.0 (0.0-0.4) X10*3/uL Baso # (Auto) 0.0 (0.0-0.2) X10*3/uL Abs Immat Gran (auto) 0.24 H (0.00-0.03) X10*3/uL Absolute Neuts (auto) 12.0 H (2.0-8.3) x10*3/uL Absolute Nucleated RBC 0.000 (0.0-0.012) X10*3/uL Nucleated RBC % (auto) 0.0 (0.0-0.2) /100WBC Sodium 139 (135-145) mmol/L Potassium 4.3 (3.3-5.1) mmol/L Chloride 106 (96-108) mmol/L Carbon Dioxide 26 (22-29) mmol/L Anion Gap 11 L (12-20) BUN 31 H (9-16) mg/dL Creatinine 1.05 (0.5-1.4) mg/dL Estim Creat Clear Calc 39.7 Estimated GFR 50 Random Glucose 101 (60-115) mg/dL Calcium 8.4 D (8.4-10.2) mg/dL Troponin I High Sens 14.3 (<3.5-17.0) ng/L Independent Interpretation I performed an independent interpretation of an: EKG and Plain X-Ray Discharge Plan Discharge Clinical Impression: Tendinitis of right triceps Patient Disposition: Home, Self-Care Prescriptions: New prednisone 20 mg tablet 20 mg PO DAILY 7 Days Qty: 7 0RF acetaminophen-codeine 300-30 mg tablet 1 tab PO Q8H PRN (Reason: pain) 4 Days Qty: 12 0RF No Action Restasis 0.05 % dropperette 1 drp ophthalmic (eye) BID Qty: 180 0RF isosorbide mononitrate 30 mg tablet extended release 24 hr 30 mg PO QAM Qty: 90 2RF hydralazine 100 mg tablet 100 mg PO BID Qty: 180 3RF metoprolol succinate 100 mg tablet extended release 24 hr 100 mg PO DAILY Qty: 90 3RF magnesium aspart,citrate,oxide 400 mg magnesium capsule 400 mg PO DAILY Qty: 90 0RF bumetanide 0.5 mg tablet 0.5 mg PO DAILY Qty: 90 3RF omeprazole 20 mg capsule,delayed release(DR/EC) 20 mg PO DAILY Qty: 90 3RF atorvastatin 20 mg tablet 20 mg PO DAILY Qty: 90 2RF (DME) Mobility Scooter See Rx Instructions .Route .MEDSUPPLY Qty: 1 0RF Rx Instructions: 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) ,work order # [id number] , [employer] Scooter ph# [phone] fax [phone] multivitamin Tablet 1 tab PO DAILY ascorbic acid (vitamin C) [Vitamin C] 1,000 mg Tablet 1,000 mg PO DAILY calcium 500 mg Tablet 500 mg PO DAILY clotrimazole 1 % cream 1 appl topical BID 28 Days Qty: 45 0RF aspirin [Adult Aspirin Regimen] 81 mg tablet,delayed release (DR/EC) 81 mg PO DAILY nitroglycerin [Nitrostat] 0.4 mg tablet, sublingual 0.4 mg sublingual Q5M PRN (Reason: chest pain) Qty: 25 1RF Rx Instructions: do not exceed 3 doses per episode tramadol 50 mg tablet 50 mg PO BEDTIME Qty: 7 0RF Print Language: Iraqi
--- NOTE | 2025-05-31 12:08 | PC.NURSE ---
Pt ambulated to bathroom with wheeled walker and assist x 1
[2025-05-31 12:17] VITALS: BP 138/56; PULSE 60; RESP 16; TEMP 36.3; O2SAT 96
--- NOTE | 2025-05-31 12:53 | ECG_ITS ---
Test Reason : ARM PAIN Blood Pressure : */* mmHG Vent. Rate : 62 BPM Atrial Rate : 62 BPM P-R Int : 198 ms QRS Dur : 132 ms QT Int : 448 ms P-R-T Axes : 100 -16 97 degrees QTcB Int : 454 ms Atrial-paced rhythm with Premature atrial complexes Left bundle branch block Abnormal ECG When compared with ECG of 29-May-2024 10:09, Premature atrial complexes are now Present Referred By: Viridiana Fernández Electronically Signed By: Hubert Zavala
[2025-05-31] MEDS: Acetaminophen/Codeine 300-30mg Tablet 1 TAB PO (13:07)
[2025-05-31] MEDS: Lidocaine 4 % Patch ADH..PATCH 1 PATCH TRANSDERMA (13:07)
[2025-05-31 13:24] LABS: MANUAL DIFF FLAG NO
[2025-05-31 13:34] LABS: Hematocrit 39.4 % (37.0-47.0); Hemoglobin 13.7 g/dl (12.0-16.0); Imm Gran Abs Auto 0.24 X10*3/uL (0.00-0.03); Imm Gran Pct Auto 1.6 % (0.0-0.4); Lymphocytes Absolute Auto 1.5 X10*3/uL (1.2-4.9); Mean Corpuscular HGB Conc 34.8 g/dl (31.0-35.0); Mean Corpuscular Hemoglobin 32.4 pg (27.0-33.0); Mean Corpuscular Volume 93.1 fL (80.0-98.0); NRBC Abs Auto 0.000 X10*3/uL (0.0-0.012); NRBC Pct Auto 0.0 /100WBC (0.0-0.2); Platelet Count 245 X10*3/uL (160-400); Red Blood Count 4.23 X10*6/uL (4.20-5.50); White Blood Count 14.7 X10*3/uL (4.8-10.8)
[2025-05-31 13:41] LABS: Anion Gap 11 (12-20); Blood Urea Nitrogen 31 mg/dL (9-16); Calcium 8.4 mg/dL (8.4-10.2); Carbon Dioxide 26 mmol/L (22-29); Chloride 106 mmol/L (96-108); Creatinine Clr Calc Pharmacy 39.7; Estimated Glomerular Filt Rate 50; Potassium 4.3 mmol/L (3.3-5.1); Sodium 139 mmol/L (135-145)
[2025-05-31 13:50] LABS: Troponin-I High Sensitivity 14.3 ng/L (<3.5-17.0)
[2025-05-31 14:27] VITALS: BP 136/60; PULSE 61; RESP 16; TEMP 36.3; O2SAT 96
[2025-05-31 16:33] VITALS: BP 149/59; PULSE 60; RESP 16; TEMP 36.7; O2SAT 96
[2025-05-31 17:14] VITALS: BP 153/64; PULSE 61; RESP 18; TEMP 36.9; O2SAT 95
== END 2025-05-31 17:15 | disposition home or self-care (01) ==
PROVIDERS: Emergency Provider Student in an Organized Health Care Education/Training Program; PCP Internal Medicine
DX: M77.8 Other enthesopathies, not elsewhere classified (principal); M79.661 Pain in right lower leg; I10 Essential (primary) hypertension; Z86.73 Personal history of transient ischemic attack (TIA), and cerebral infarction without residual deficits; Z79.899 Other long term (current) drug therapy; Z86.79 Personal history of other diseases of the circulatory system
CPT/HCPCS: 36415; 71046; 73060; 80048; 84484; 85025; 93005; 93971; 99284; 99285

== ENCOUNTER → 2025-05-31 12:38 | Outpatient (BNV) | payer MEDICARE, MEDICAID, SELFPAY | PROVIDERS: Emergency Provider Student in an Organized Health Care Education/Training Program; PCP Internal Medicine; Visit Provider Radiology Diagnostic Radiology | DX: M79.604 Pain in right leg (principal); R07.9 Chest pain, unspecified | CPT/HCPCS: 71046; 93971 ==

== ENCOUNTER → 2025-05-31 12:53 | Outpatient (BNV) | payer MEDICARE, MEDICAID, SELFPAY | PROVIDERS: Emergency Provider Student in an Organized Health Care Education/Training Program; PCP Internal Medicine; Visit Provider Internal Medicine Cardiovascular Disease | DX: I49.1 Atrial premature depolarization (principal); I44.7 Left bundle-branch block, unspecified; Z95.0 Presence of cardiac pacemaker | CPT/HCPCS: 93010 ==

== ENCOUNTER 2025-07-04 13:21 | Outpatient (AMB) | payer MEDICARE, MEDICAID, SELFPAY ==
[2025-07-04 13:23] VITALS: BP 146/80; PULSE 60; TEMP 36.2; O2SAT 97; BMI 35.4
--- NOTE | 2025-07-04 13:23 | A.OFFPC_ITS ---
Vital Signs 07/04/25 13:23 Height 5 ft 1 in Weight 187 lb 8 oz BMI 35.4 BP 146/80 H Blood Pressure Location Lt brachial Position Sitting Pulse 60 Pulse Source Pulse Oximeter Temp 97.1 F Temp Source Temporal Artery Scan Pulse Oximetry (%) 97 Oxygen Delivery Method Room Air Intake Visit Reasons: 3 month f/u Allergies Iodinated Contrast Media (IV Contrast Dye) Allergy (Intermediate, Verified 07/04/25 13:23) Hives oxycodone (From PERCODAN) Allergy (Intermediate, Verified 07/04/25 13:23) headache/ringing in ears cheese Adverse Reaction (Intermediate, Verified 07/04/25 13:23) Diarrhea Medication List - Last Reconciled 07/04/25 by Claudette Logan, acetaminophen-codeine 300-30 mg 1 tab PO Q8H PRN 4 days ascorbic acid (vitamin C) (Vitamin C) 1,000 mg PO DAILY aspirin (Adult Aspirin Regimen) 81 mg PO DAILY atorvastatin 20 mg PO DAILY bumetanide 0.5 mg PO DAILY calcium 500 mg PO DAILY clotrimazole 1% 1 appl topical BID 4 weeks cyclosporine 0.05% (Restasis) 1 drp ophthalmic (eye) BID hydralazine 100 mg PO BID isosorbide mononitrate ER 30 mg PO QAM magnesium aspart,citrate,oxide 400 mg PO DAILY meloxicam 7.5 mg PO DAILY metoprolol succinate ER 100 mg PO DAILY [[employer] 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[employer]) ,work order # [id number] , [employer] ph# [phone] fax [phone] ] multivitamin 1 tab PO DAILY nitroglycerin (Nitrostat) 0.4 mg sublingual Q5M PRN omeprazole 20 mg PO DAILY prednisone 20 mg PO DAILY 7 days tramadol 50 mg PO BEDTIME Tobacco use date assessed: 07/04/25 Fall risk assessment: No Falls in past year Last assessed Fall Risk: 07/04/25 Dental Screening Dental Screen Date: 07/04/25 Did you have a dental visit in the last 12 months?: Yes Did you have a dental problem in the last 6 months where you did not have access to dental care?: No Was dental information given to patient?: Patient has dentist HPI 3 month f/u HPI Details tired all the time, dysuria mild sob also. [facility] Medical History LFT elevation Epiploic appendagitis History of COVID-19 (~05/2021) History of sick sinus syndrome (~2012) Osteoporosis PVCs (premature ventricular contractions) Diverticular disease Renal calculi Lactose intolerance Anxiety Urge incontinence GERD (gastroesophageal reflux disease) Hypercholesterolemia Obesity (BMI 30-39.9) TIA (transient ischemic attack) Coronary artery disease Orthostatic hypotension dysautonomic syndrome HTN (hypertension) Left bundle branch block History of cardiomyopathy Cardiac pacemaker in situ (~2012) Surgical History Hx of basal cell carcinoma excision Hx of colonoscopy History of vaginal hysterectomy History of removal of skin mole Hx of appendectomy S/P right knee arthroscopy History of cataract surgery History of esophagogastroduodenoscopy (EGD) History of permanent cardiac pacemaker placement Hx of lumpectomy Family History Father No problems noted. Mother No problems noted. Brother Myocardial infarction Social History Housing: Apartment Alcohol intake: current Alcohol intake frequency: holidays/special occasions only Alcohol type: wine Patient Tobacco Use Status: Former Tobacco user Tobacco use type: Cigarette e-Cigarette/Vaping Use: Never Used Second Hand Smoke Exposure: No service: No Current occupational status: retired Cognitive needs: No Hearing needs: No Vision needs: Yes Questionnaire PHQ-9 Over the last 2 weeks, how often have you been bothered by any of the following problems? 1. Little interest or pleasure in doing things: not at all 2. Feeling down, depressed, or hopeless: not at all 3. Trouble falling or staying asleep, or sleeping too much: not at all 4. Feeling tired or having little energy: not at all 5. Poor appetite or overeating: not at all 6. Feeling bad about yourself - or that you are a failure or have let yourself or your family down: not at all 7. Trouble concentrating on things, such as reading the newspaper or watching television: not at all 8. Moving or speaking so slowly that other people could have noticed. Or the opposite - being so fidgety or restless that you have been moving around a lot more than usual: not at all 9. Thoughts that you would be better off or of hurting yourself in some way: not at all Total score: 0 Depression Screening Interpretation: Negative Depression Screening Done: Yes Source: Developed by Drs. Otoniel Lei, Loli La, Robert Baum and colleagues, with an educational ananda from [employer]. Thrive Questionnaire Date Thrive assessed: 01/22/25 I am a: Patient What is your living situation today?: I have a steady place to live Within the past 12 months, did the food you bought not last and you didn't have the money to get more?: Never true Within the past 12 months, did you worry whether your food would run out before you got money to buy more?: Never true Do you have trouble paying for medicines?: No Do you have trouble getting transportation to medical appointments?: No Do you have trouble paying your heating and electricity bill?: No Do you have trouble taking care of your child, family member or friend?: No Do you have trouble with day-to-day activities such as bathing, preparing meals, shopping, managing finances, etc.?: Yes Are you currently unemployed and looking for a job?: No Are you interested in more education?: No Please select the resources that you would like help with: None Currently or been in a relationship where the following occur: No concerns reported THRIVE Score: 0 AUDIT C Alcohol Use Questionnaire (AUDIT-C) 1. How often do you have a drink containing alcohol?: 2-4 times a month 2. How many drinks containing alcohol do you have on a typical day when you are drinking?: 1 or 2 3. How often do you have six or more drinks on one occasion?: Never Total Score: 2 KEYA-7 AMB Questionnaire KEYA-7 Date KEYA - 7 assessed: 03/14/25 Feeling nervous, anxious, or on edge: 0 = Not at all Not being able to stop or control worryin = Not at all Worrying too much about different things: 0 = Not at all Trouble relaxin = Several days Being so restless that it is hard to sit still: 0 = Not at all Becoming easily annoyed or irritable: 0 = Not at all Feeling afraid as if something awful might happen: 0 = Not at all Total KEYA-7 score (0-4 normal; 5-9 mild; 10-14 moderate; 15-21 severe): 1 Source: Developed by Drs. Otoniel Lei, Loli La, Robert Baum and colleagues, with an educational ananda from [employer]. Physical exam (Primary Care) Vital Signs: Last Vital Signs Temp 97.1 F 07/04/25 13:23 Pulse 60 07/04/25 13:23 BP 146/80 H 07/04/25 13:23 Pulse Ox 97 07/04/25 13:23 Oxygen Delivery Method Room Air 07/04/25 13:23 BMI result Body Mass Index 35.4 Tobacco/Smoking Status: Tobacco use Status Tobacco use date assessed 07/04/25 07/04/25 13:29 Patient Tobacco Use Status Former Tobacco user 07/04/25 13:29 Tobacco use type Cigarette 07/04/25 13:29 e-Cigarette/Vaping Use Never Used 07/04/25 13:29 PHQ-9: PHQ-9 Score PHQ-9: Total score 0 07/04/25 17:07 Depression Screening Interpretation: Negative Thrive Assessment: Date of Thrive Assessment Date Thrive assessed 01/22/25 07/04/25 13:29 Currently or been in a relationship where the following occur: No concerns reported Const General: alert; No acute distress Eyes Conjunctivae: conjunctivae normal Resp Auscultation: clear to auscultation bilaterally Cardio Rate: regular rate Rhythm: regular rhythm GI Inspection: Yes normal to inspection Extrem General: Yes normal to inspection and No edema Coding Level of Care Code Est Pt Level 4 (37561) Complex EM visit Add On G2211 Diagnoses Essential hypertension I10 Hypertension type: essential hypertension Hypercholesterolemia E78.00 History of sick sinus syndrome Z86.79 Gastroesophageal reflux disease without esophagitis K21.9 Esophagitis presence: without esophagitis Hepatic steatosis K76.0 Left renal stone N20.0 Chronic heart failure with preserved ejection fraction I50.32 Heart failure chronicity: chronic Coronary artery disease involving [place] coronary artery of [place] heart without angina pectoris I25.10 Associated angina: without angina Coronary Disease-Associated Artery/Lesion type: [place] artery [place] vs. transplanted heart: [place] heart Arm pain, right M79.601 Assessment & Plan Assessment & Plan (1) HTN (hypertension): Code(s): I10 - Essential (primary) hypertension Category: Medical Qualifiers: Hypertension type: essential hypertension Qualified Code(s): I10 - Essential (primary) hypertension Plan: Continue with blood pressure medication. Decrease salt intake and exercise on hydralazine 100 mg twice a day isosorbide mononitrate 30 mg once a day metoprolol 100 mg once a day (2) Hypercholesterolemia: Code(s): E78.00 - Pure hypercholesterolemia, unspecified Category: Medical Plan: Avoid fried foods, chicken skin, eggs, butter margarine, pastries and meat. 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 After eating do not lie down, allow 3-4 hours before in lie down. And keep the head of bed above 30 degrees to avoid the acid from going up. (5) Hepatic steatosis: Comment: December 2024 Code(s): K76.0 - Fatty (change of) liver, not elsewhere classified Category: Medical Plan: Low-fat diet and exercise (6) Left renal stone: Comment: 02/17/2022 Code(s): N20.0 - Calculus of kidney Category: Medical Plan: Ultrasound of the kidneys requested (7) (HFpEF) heart failure with preserved ejection fraction: Code(s): I50.30 - Unspecified diastolic (congestive) heart failure Category: Medical Qualifiers: Heart failure chronicity: chronic Qualified Code(s): I50.32 - Chronic diastolic (congestive) heart failure Plan: On bumetanide, will do blood work for BNP (8) Coronary artery disease: Code(s): I25.10 - Atherosclerotic heart disease of [place] coronary artery without angina pectoris Category: Medical Qualifiers: Associated angina: without angina Coronary Disease-Associated Artery/Lesion type: [place] artery [place] vs. transplanted heart: [place] heart Qualified Code(s): I25.10 - Atherosclerotic heart disease of [place] coronary artery without angina pectoris Plan: Control the cholesterol, weight, blood pressure, on aspirin 81 mg once a day (9) Arm pain, right: Code(s): M79.601 - Pain in right arm Category: Medical Plan: Patient continues to have pain on the right arm. Deny any fall or trauma did say a mild AC arthrosis. Anti-inflammatory requested temporarily to help with the pain Plan History of Present Illness The patient is an 85-year-old female presenting for a follow-up visit regarding multiple chronic conditions, with complaints of new symptoms, including difficulty breathing and potential urinary tract infection. She has a history of heart disease, including heart failure with preserved ejection fraction and sick sinus syndrome with a pacemaker placed in 2020. Her cholesterol is managed with atorvastatin, and she had an adequate LDL level during recent evaluations. The patient's recent emergency room visit was for right triceps tendinitis, which she treated with prescribed prednisone and Percocet. This arm pain continues, despite the use of Tylenol. The patient's most recent blood tests in May showed mild leukocytosis and slightly elevated liver enzymes. She reports new onset of a possible urinary tract infection characterized by dysuria and urinary urgency and is under ongoing nephrolithiasis surveillance with her urologist. Health Maintenance - Mammogram and colon test are due for preventative care. - Up-to-date with vaccinations, including the influenza vaccine. Social History - Social determinants of health and lifestyle factors were not discussed in the conversation. Review of Systems - Cardiovascular: Reports difficulty breathing during exertion. - Musculoskeletal: Reports persistent right arm pain. - Neurologic: Reports persistent fatigue. - Genitourinary: Reports dysuria and urinary urgency. Physical Exam - Musculoskeletal- Tenderness in the right upper arm associated with triceps tendinitis. - Cardiovascular, Respiratory, and other systems were not detailed during the conversation. Results - Labs: Mild leukocytosis, elevated liver enzymes noted. - Tests and diagnostics such as a chest x-ray, EKG, and kidney ultrasound have been ordered to investigate current symptoms. Plan Patient was informed and verbally consented to the use of an ambient scribe for clinic note documentation during this visit. 1. Exertional Dyspnea Patients ordered a chest x-ray, EKG, and follow-up with cardiology to explore breathing difficulties and potential heart failure exacerbation. 2. Suspected Urinary Tract Infection Ordered urinalysis to determine the presence of infection and scheduled a kidney ultrasound to monitor stones, given her nephrolithiasis. 3. Right Triceps Tendinitis Suggested physical therapy and, if persistent, consider muscle relaxants or additional orthopedic evaluation. 4. Hyperlipidemia Maintain atorvastatin 20 mg daily, given current good control of lipid levels. 5. Mild Leukocytosis Continue to observe and manage potential underlying infections, pending comprehensive blood work results. Discussion Notes I discussed with the patient her breathing symptoms and possible cardiac or pulmonary conditions. Test orders include a chest x-ray and EKG, coupled with cardiology follow-up advice. Similarly, her suspected urinary tract infection due to nephrolithiasis necessitates a urinalysis and ultrasound. I explained the rationale, potential need for antibiotics, and regular urology check-ups. We also reviewed her arm pain, suggesting therapy and considering medication adjustments. We addressed hyperlipidemia, reaffirming current good LDL control with atorvastatin. The mild leukocytosis will be revisited as diagnostic results return. Risks, benefits, and follow-up plans were thoroughly explained, and the patient consented to the proposed evaluations and treatments. Patient Instructions - Have a chest x-ray and EKG to check on breathing problems. - Get a urine test today for a possible UTI. - Continue taking atorvastatin as directed. - Follow up on arm pain with physical therapy. - Keep an eye on symptoms like trouble breathing and contact me if they worsen. - Look out for swelling and gain in weight and report quickly. - Take all medications with food. - Follow up with kidney ultrasound and blood test results shared. Orders: Orders XR chest 2V Today I50.32 - Chronic diastolic (congestive) heart failure ECG 12 lead EKG Today I50.32 - Chronic diastolic (congestive) heart failure UA CC w/rflx Micro + Cult Today R30.0 - Dysuria, Z87.442 - Personal history of urinary calculi US renal BI Today Z87.442 - Personal history of urinary calculi Medications: New meloxicam 7.5 mg PO DAILY 14 tabs 0RF M79.601 - Pain in right arm
== END 2025-07-04 14:28 | disposition home or self-care (01) ==
LOC: HO.HMCH 13:22
PROVIDERS: PCP Internal Medicine; Visit Provider Internal Medicine
DX: I11.0 Hypertensive heart disease with heart failure (principal); I50.32 Chronic diastolic (congestive) heart failure; E78.00 Pure hypercholesterolemia, unspecified; Z86.79 Personal history of other diseases of the circulatory system; K21.9 Gastro-esophageal reflux disease without esophagitis; K76.0 Fatty (change of) liver, not elsewhere classified; N20.0 Calculus of kidney; I25.10 Atherosclerotic heart disease of native coronary artery without angina pectoris; M79.601 Pain in right arm

== ENCOUNTER → 2025-07-04 13:21 | Outpatient (BNVA) | payer MEDICARE, MEDICAID, SELFPAY | PROVIDERS: PCP Internal Medicine; Visit Provider Internal Medicine | DX: I11.0 Hypertensive heart disease with heart failure (principal); I50.32 Chronic diastolic (congestive) heart failure; E78.00 Pure hypercholesterolemia, unspecified; K21.9 Gastro-esophageal reflux disease without esophagitis; K76.0 Fatty (change of) liver, not elsewhere classified; N20.0 Calculus of kidney; I25.10 Atherosclerotic heart disease of native coronary artery without angina pectoris; M79.601 Pain in right arm; M77.8 Other enthesopathies, not elsewhere classified; R06.00 Dyspnea, unspecified; D72.829 Elevated white blood cell count, unspecified; R30.0 Dysuria; Z95.0 Presence of cardiac pacemaker; Z86.79 Personal history of other diseases of the circulatory system; Z87.442 Personal history of urinary calculi; Z79.899 Other long term (current) drug therapy | CPT/HCPCS: 96127; 99212 ==

== ENCOUNTER 2025-07-10 08:06 | Outpatient (REF) | payer MEDICARE, MEDICAID, SELFPAY ==
--- NOTE | ~2025-07-10 | XR_ITS ---
EXAMINATION: XR CHEST CLINICAL INFORMATION: I50.32 - Chronic diastolic (congestive) heart failure COMPARISON: Previous chest x-ray most recent May 31, 2025 TECHNIQUE: 2 views of the chest were obtained. FINDINGS: Left subclavian dual chamber pacemaker with leads projecting over the right atrium and right ventricle. Lungs are clear. No pulmonary edema or consolidation. No pleural effusion or pneumothorax. Cardiac and mediastinal contours are stable. Degenerative changes of the spine and shoulders. XR/XR chest 2V IMPRESSION: Stable position of left subclavian dual chamber pacemaker. No evidence for acute disease in the chest. Electronically signed by: Florencia Ruvalcaba MD 07/10/2025 08:57 AM EDT
--- NOTE | 2025-07-10 08:11 | ECG_ITS ---
Test Reason : chr diastolic heart failure Blood Pressure : */* mmHG Vent. Rate : 63 BPM Atrial Rate : 63 BPM P-R Int : 194 ms QRS Dur : 136 ms QT Int : 412 ms P-R-T Axes : 81 11 112 degrees QTcB Int : 421 ms Atrial-paced rhythm Left bundle branch block Abnormal ECG When compared with ECG of 31-May-2025 13:03, Premature atrial complexes are no longer Present Referred By: Claudette Logan Electronically Signed By: Hubert Zavala
[2025-07-10 08:29] LABS: MANUAL DIFF FLAG NO
[2025-07-10 09:22] LABS: Hematocrit 38.3 % (37.0-47.0); Hemoglobin 12.7 g/dl (12.0-16.0); Imm Gran Abs Auto 0.04 X10*3/uL (0.00-0.03); Imm Gran Pct Auto 0.5 % (0.0-0.4); Lymphocytes Absolute Auto 2.2 X10*3/uL (1.2-4.9); Mean Corpuscular HGB Conc 33.2 g/dl (31.0-35.0); Mean Corpuscular Hemoglobin 32.8 pg (27.0-33.0); Mean Corpuscular Volume 99.0 fL (80.0-98.0); NRBC Abs Auto 0.000 X10*3/uL (0.0-0.012); NRBC Pct Auto 0.0 /100WBC (0.0-0.2); Platelet Count 205 X10*3/uL (160-400); Red Blood Count 3.87 X10*6/uL (4.20-5.50); White Blood Count 7.5 X10*3/uL (4.8-10.8)
[2025-07-10 09:49] LABS: Appearance Urine Clear; Glucose Urine UA Negative (Negative); PH 5.5 (5.0-9.0); Specific Gravity - Urine 1.020 (1.005-1.025); UMIC TRIGGER UACC YES
[2025-07-10 09:55] LABS: UACC Culture Trigger YES
[2025-07-10 10:18] LABS: NT Pro B Type Natriuretic Pept 1312.9 pg/mL (<300)
[2025-07-10 10:32] LABS: Free T4 (Free Thyroxine) 1.00 ng/dL (0.71-1.85); Thyroid Stimulating Hormone 1.86 uIU/mL (0.32-4.0)
== END 2025-07-10 08:07 | disposition home or self-care (01) ==
LOC: HO.LAB 08:06
PROVIDERS: PCP Internal Medicine; Visit Provider Internal Medicine
DX: I50.32 Chronic diastolic (congestive) heart failure (principal)
CPT/HCPCS: 36415; 71046; 81001; 83880; 84439; 84443; 85025; 87086; 93005

== ENCOUNTER → 2025-07-10 08:11 | Outpatient (BNV) | payer MEDICARE, MEDICAID, SELFPAY | PROVIDERS: PCP Internal Medicine; Visit Provider Internal Medicine Cardiovascular Disease | DX: I44.7 Left bundle-branch block, unspecified (principal); Z95.0 Presence of cardiac pacemaker | CPT/HCPCS: 93010 ==

== ENCOUNTER → 2025-07-10 08:39 | Outpatient (BNV) | payer MEDICARE, MEDICAID, SELFPAY | PROVIDERS: PCP Internal Medicine; Visit Provider Radiology Diagnostic Radiology | DX: I50.32 Chronic diastolic (congestive) heart failure (principal) | CPT/HCPCS: 71046 ==

== ENCOUNTER 2025-07-20 11:54 | Inpatient (IN) | payer MEDICARE, MEDICAID, SELFPAY ==
--- NOTE | ~2025-07-20 | XR_ITS ---
CLINICAL HISTORY: weakness 1 view chest x-ray. Comparison: 07/10/2025 Findings: No consolidation or effusion. Cardiac and mediastinal contours appear stable, with stable cardiac pacer hardware. Bones unremarkable. Impression: 1. No acute pulmonary disease. This document has been electronically signed by: Sam Patterson MD on 07/20/2025 14:17:46
--- NOTE | ~2025-07-20 | CT_ITS ---
CLINICAL HISTORY: weakness, recent UTI, elevated WBC count Exam: Unenhanced CT abdomen and pelvis with multiplanar reformats. Comparison: 04/01/2022. Findings: CT abdomen: Lung bases are clear. Liver is free of focal lesions and ductal dilatation. Gallbladder appears unremarkable. Spleen is unremarkable. Pancreas and adrenal glands appear unremarkable. Right kidney reveals a lower pole cyst measuring up to 6.8 cm (4; 245, -2 Hounsfield units). A punctate nonobstructing left renal calculus is present (4; 225). No ureteral stones or hydroureteronephrosis. No free intraperitoneal fluid or retroperitoneal masses or adenopathy. Abdominal aorta is normal caliber with mild calcific atherosclerosis. Bowel loops reveal no abnormal wall thickening or distention. The appendix is unremarkable. Colonic diverticulosis is present, without CT evidence of diverticulitis. CT pelvis: No pelvic masses, fluid or adenopathy. Uterus is surgically absent. Urinary bladder is free of gross filling defects. Osseous structures reveal no destructive osseous lesions. There is levoconvex curvature of the lumbar spine. 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 Impression: 1. No acute abnormality or CT explanation for reported history of elevated white count. This document has been electronically signed by: Sam Patterson MD on 07/20/2025 15:27:39
[2025-07-20 12:02] VITALS: BP 150/80; BP 154/74; PULSE 66; PULSE 70; RESP 18; TEMP 36.6; O2SAT 100; O2SAT 95; BMI 33.7
--- NOTE | 2025-07-20 12:03 | ECG_ITS ---
Test Reason : weakness Blood Pressure : */* mmHG Vent. Rate : 66 BPM Atrial Rate : 66 BPM P-R Int : 208 ms QRS Dur : 144 ms QT Int : 462 ms P-R-T Axes : 65 -23 111 degrees QTcB Int : 484 ms Atrial-paced rhythm with Premature supraventricular complexes Left bundle branch block Abnormal ECG When compared with ECG of 10-Jul-2025 08:16, Premature supraventricular complexes are now Present QT has lengthened Referred By: Molly Zhang Electronically Signed By: KIKI DAMON MD
--- NOTE | 2025-07-20 12:03 | ED_ITS ---
HPI - General Adult General Chief complaint: Weakness Stated complaint: WEAKNESS, NAUSEA X1DAY TROUBLE WALKING Time Seen by Provider: 07/20/25 12:02 Source: patient, family (Son) and EMS Mode of arrival: EMS Limitations: no limitations History of Present Illness ED Provider: Molly Zhang PA-C HPI narrative: This is a 85yo female presenting to the ED with fatigue and nausea. She has a past medical history of HFpEF, CAD, HTN, recurrent UTI, GERD, osteoporosis, and diverticular disease. She states that the fatigue started around 1 month ago and has progressive worsened since. She reports sleeping more than usual although cannot quantify how many hours a day she is sleeping. Fatigue started at the same time as her UTI, but she states her urinary symptoms have resolved. Her son reports she took her last dose of antibiotic last night. Additionally, she started feeling nauseous 2-3 days ago, although has not vomited and appetite is maintained according to her son. She has chronic diarrhea, but denies any bowel changes as of late. Her son reports that her PCP doubled the dose of her water pill as she was retaining fluid on account of her congestive heart failure, also recently started on an anti-inflammatory medication for her arm pain but they cannot recall the name. Denies any other new medications or medication changes. She reports being chronically short of breath and denies any acute respiratory changes. Denies sick contacts. She is accompanied today with her son who she lives with. She endorses feeling safe at home. Her son states that she is fairly independent, he helps her with tasks such as lifting heavy objects and managing her medications. Onset (ago): week(s) Associated symptoms: nausea/vomiting and weakness Related Data Home Medications ?Medication ?Instructions ?Recorded ?Confirmed aspirin 81 mg tablet,delayed 81 mg PO DAILY 10/14/20 1 release (Adult Aspirin Regimen) ascorbic acid (vitamin C) 1,000 mg 1,000 mg PO DAILY 1 07/04/25 tablet (Vitamin C) calcium 500 mg tablet 500 mg PO DAILY 07/24/2106/20 multivitamin 1 tab PO DAILY 07/24/2106/20 celecoxib 200 mg capsule 1 PO DAILY PRN Pain 07/20/25 isosorbide mononitrate 30 mg 30 mg PO DAILY 07/20/25 tablet,extended release 24 hr omeprazole 20 mg capsule,delayed 20 mg PO DAILY@0630 1 release Previous Rx's ?Medication ?Instructions ?Recorded clotrimazole 1 % topical cream 1 appl topical BID 4 we eks #45 02/03/22 grams cyclosporine 0.05 % eye drops in a 1 drp ophthalmic (e ye) BID #180 ea 07/20/23 dropperette (Restasis) nitroglycerin 0.4 mg sublingual 0.4 mg sublingual Q5M PRN chest 02/14/24 tablet (Nitrostat) pain #25 tabs metoprolol succinate 100 mg 100 mg PO DAILY #90 tabs 0 10/19/24 tablet,extended release 24 hr magnesium aspart,citrate,oxide 400 mg PO DAILY #90 cap s 10/25/24 tramadol 50 mg tablet 50 mg PO BEDTIME #7 tabs atorvastatin 20 mg tablet 20 mg PO DAILY #90 tabs 04/26 10/20 Mobility Scooter #1 ea 05/23/25 acetaminophen 300 mg-codeine 30 mg 1 tab PO Q8H PRN pa in 4 days #12 05/31/25 tablet tabs prednisone 20 mg tablet 20 mg PO DAILY 7 days #7 tab s 05/31/25 hydralazine 100 mg tablet 100 mg PO BID #180 tabs 05/27 01/18 meloxicam 7.5 mg tablet 7.5 mg PO DAILY #14 tabs 06/20 bumetanide 1 mg tablet 1 mg PO DAILY #30 tabs 07/10 nitrofurantoin 100 mg PO Q12H 5 days #10 ca ps 07/10/25 monohydrate/macrocrystals 100 mg capsule (Macrobid) Allergies Allergy/AdvReac Type Severity Reaction Status Date / Time Iodinated Contrast Media (IV Allergy Intermediate Hives Verified 07/20/25 12:06 Contrast Dye) oxycodone (From PERCODAN) Allergy Intermediate headache/ringing Verified 07/20/25 12:06 in ears cheese AdvReac Intermediate Diarrhea Verified 07/20/25 12:06 Review of Systems 2 Constitutional: Constitutional: Reports as per HPI Eyes: Eyes: Reports as per HPI ENT: Reports as per HPI Cardiovascular: Cardiovascular: Reports as per HPI Respiratory: Respiratory: Reports as per HPI Gastrointestinal: Gastrointestinal: Reports as per HPI Genitourinary: Genitourinary: Reports as per HPI Musculoskeletal: Musculoskeletal: Reports as per HPI Integumentary/Breasts: Skin/Breast: Reports as per HPI Neurologic: Reports as per HPI Psychiatric: Psychiatric: Reports as per HPI Endocrine: Endocrine: Reports as per HPI Hematologic/Lymphatic: Hematologic/Lymphatic: Reports as per HPI Allergic/Immunologic: Allergic/Immunologic: Reports as per HPI [facility] Past Medical History Attestation statement: The following information was validated with the patient. (all information validated with the patient's son) Source: old records reviewed, obtained from family (patient's son provided additional history and confirmed the history provided by the patient. ) and nursing notes reviewed Medical History LFT elevation Epiploic appendagitis History of COVID-19 (~05/2021) History of sick sinus syndrome (~2012) Osteoporosis PVCs (premature ventricular contractions) Diverticular disease Renal calculi Lactose intolerance Anxiety Urge incontinence GERD (gastroesophageal reflux disease) Hypercholesterolemia Obesity (BMI 30-39.9) TIA (transient ischemic attack) Coronary artery disease Orthostatic hypotension dysautonomic syndrome HTN (hypertension) Left bundle branch block History of cardiomyopathy Cardiac pacemaker in situ (~2012) Surgical History Hx of basal cell carcinoma excision Hx of colonoscopy History of vaginal hysterectomy History of removal of skin mole Hx of appendectomy S/P right knee arthroscopy History of cataract surgery History of esophagogastroduodenoscopy (EGD) History of permanent cardiac pacemaker placement Hx of lumpectomy Family History Family History Father No problems noted. Mother No problems noted. Brother Myocardial infarction Social History Social History Housing: Apartment Alcohol intake: current Alcohol intake frequency: holidays/special occasions only Alcohol type: wine Patient Tobacco Use Status: Former Tobacco user Tobacco use type: Cigarette Smoked in Last 30 Days: No e-Cigarette/Vaping Use: Never Used Second Hand Smoke Exposure: No Use of substances other than those prescribed or required for medical reasons: No Advance Directives: No Advance Directives Information Provided: Yes service: No Current occupational status: retired Cognitive needs: No Hearing needs: No Vision needs: Yes Physical Exam ED Vital Signs: Vital Signs - 24 hr 07/20/25 12:02 07/20/25 14:06 07/20/25 14:21 Temperature 97.9 F 98.1 F 98.1 F Pulse Rate 66 69 58 Respiratory Rate 18 13 Blood Pressure 154/74 H 139/59 L 131/59 L Pulse Oximetry 100 95 96 Oxygen Delivery Method Room Air Room Air Room Air BMI result Body Mass Index 33.7 Const General: no acute distress and tired appearing Nutritional Appearance: obese Orientation/consciousness: patient oriented x3 HENMT Head: Yes normal to inspection and Yes atraumatic Ears: hearing grossly normal bilaterally and external ears normal General nose exam: Normal external nose present, no nasal discharge noted and no epistaxis Face and sinus: Yes normal facial exam, No abrasion and No laceration Mouth: Normal oral and palatal mucosa present, no drooling and no muffled voice Eyes General: appearance normal, both eyes and all related structures Periorbital: periorbital findings normal Eyelids: Yes eyelids normal Conjunctivae: conjunctivae normal Pupils: Equal, round and reactive pupils present EOM: EOMs intact bilaterally Neck Neck: Yes normal visual inspection and Yes full ROM Resp Effort & Inspection: normal respiratory effort and able to speak in complete sentences Neuro General: patient oriented x3 Cranial nerves: Yes Equal, round and reactive pupils present Cognition (Neuro): normal cognition Extrem General: No pedal edema Psych Appearance: grossly normal Mental Status: mental status grossly normal Affect: normal affect Attitude: cooperative Thought process: Normal thought process present Thought content: Normal thought content present Insight: Good insight present (Psych) Medications Administered Discontinued Medications Generic Name Dose Route Start Last Admin Trade Name Freq PRN Reason Stop Dose Admin Magnesium Sulfate 2 gm in 50 mls @ 25 mls/hr 07/20/25 13:23 07/20/25 15:58 Magnesium Sulfate/H2o IV 07/20/25 15:22 Infused ONCE ONE Infusion Medical Decision Making Medical Decision Making MDM Narrative: Patient is an 85 year old assigned female at with a history of HFpEF, CAD, HTN, recurrent UTI, GERD, osteoporosis, and diverticular disease presenting to the emergency department today with continued fatigue. Patient's physical exam was as noted in the physical exam portion of this note. Patient's blood work showed an elevated WBC count of 13.6, calcium 8.0, and magnesium of 1.0. Patient's urine showed a possible UTI however, the patient's previous urine samples that have looked like this have had negative cultures. Will await culture report before initiating treatment. Patient's EKG was unremarkable. Patient's CT abd/pelvis showed no acute process. Patient's chest x-ray showed no acute process. I explained my physical exam findings as well as all test results to the patient and the patient's son. I answered all questions asked by the patient and the patient's son. Patient was given 2 grams of IV magnesium. Patient's clinical presentation is most consistent with hypomagnesemia secondary to diuretic use. I spoke with the hospitalist team who agreed to admission for continued electrolyte correction. Patient and her son verbalized understanding and agreement with this treatment plan and admission. Differential Diagnosis Differential Diagnoses: The differential diagnosis associated with the presentation includes Hypomagnesemia Electrolyte abnormality Admission/Observation Consideration of admission/observation: Escalation of care including admission/observation considered Patient admitted as noted in the MDM Rationale portion of this note. Consult Healthcare Provider Management of the patient was discussed with: Hospitalist (agreed to admission as noted in the MDM Rationale portion of this note. ) Lab Data [facility] Lab Attestation statement: I reviewed the patient's lab results. My interpretation of these results are in the MDM Rationale portion of this note. 07/20/25 12:48 07/20/25 12:48 Labs: Lab Results 07/20/25 07/20/25 07/20/25 Range/Units 12:48 13:10 13:41 WBC 13.6 H (4.8-10.8) X10*3/uL RBC 3.64 L (4.20-5.50) X10*6/uL Hgb 11.9 L (12.0-16.0) g/dl Hct 36.3 L (37.0-47.0) % MCV 99.7 H (80.0-98.0) fL MCH 32.7 (27.0-33.0) pg MCHC 32.8 (31.0-35.0) g/dl RDW 14.9 (11.0-16.0) % Plt Count 220 (160-400) X10*3/uL MPV 9.8 (9.4-12.3) fL Immature Gran % (Auto) 0.5 H (0.0-0.4) % Neut % (Auto) 87.8 H (45-73) % Lymph % (Auto) 6.1 L (20-40) % Esmeralda % (Auto) 5.3 (2-11) % Eos % (Auto) 0.1 (0-4) % Baso % (Auto) 0.2 (0-2) % Lymph # (Auto) 0.8 L (1.2-4.9) X10*3/uL [place]da # (Auto) 0.7 (0.1-1.2) X10*3/uL Eos # (Auto) 0.0 (0.0-0.4) X10*3/uL Baso # (Auto) 0.0 (0.0-0.2) X10*3/uL Abs Immat Gran (auto) 0.07 H (0.00-0.03) X10*3/uL Absolute Neuts (auto) 11.9 H (2.0-8.3) x10*3/uL Absolute Nucleated RBC 0.000 (0.0-0.012) X10*3/uL Nucleated RBC % (auto) 0.0 (0.0-0.2) /100WBC PT 11.7 (10.9-12.4) SEC INR 1.0 (0.9-1.1) Sodium 145 (135-145) mmol/L Potassium 3.3 D (3.3-5.1) mmol/L Chloride 109 H (96-108) mmol/L Carbon Dioxide 28 (22-29) mmol/L Anion Gap 11 L (12-20) BUN 34 H (9-16) mg/dL Creatinine 0.98 (0.5-1.4) mg/dL Estim Creat Clear Calc 40.5 Estimated GFR 54 Random Glucose 117 H (60-115) mg/dL Calcium 8.0 L (8.4-10.2) mg/dL Magnesium 1.0 L* (1.6-2.6) mg/dL Total Bilirubin 0.7 (0.0-1.0) mg/dL AST 31 (5-31) U/L ALT 17 (0-31) U/L Alkaline Phosphatase 95 (39-117) U/L Total Protein 6.3 L (6.5-8.0) g/dL Albumin 4.0 (3.5-5.0) g/dL Urine Color Dark Yellow Urine Appearance Clear Urine pH 5.0 (5.0-9.0) Ur Specific Tensed >= 1.030 H (1.005-1.025) Urine Protein 30 (1+) H (Neg-Trace) mg/dL Urine Glucose (UA) Negative (Negative) mg/dL Urine Ketones 15 (Negative) mg/dL Urine Blood Negative (Negative) Urine Nitrite Negative (Negative) Ur Leukocyte Esterase Small (1+) H (Negative) Urine RBC 0-2 (0-2) /HPF Urine WBC 21-50 H (0-5) /HPF Ur Squamous Epith Cells 0-2 (0-2) /HPF Urine Bacteria None Seen (None Seen) Hyaline Casts 0-2 (0-2) /LPF COVID-19 (ASHA) Negative (Negative) COVID-19 Clin Com See Note Influenza Type A (LAUREN) Negative (Negative) Influenza Type B (LAUREN) Negative (Negative) Influenza A & B Note See Note Independent Interpretation I performed an independent interpretation of an: CT Scan Interpretation: My interpretation is in agreement with the radiologist's impression of these imaging studies. L Report Number: [id number]: Total DLP = 658.00 mGy-cm Reason for Exam: weakness, recent UTI, elevated WBC count CLINICAL HISTORY: weakness, recent UTI, elevated WBC count Exam: Unenhanced CT abdomen and pelvis with multiplanar reformats. Comparison: 04/01/2022. Findings: CT abdomen: Lung bases are clear. Liver is free of focal lesions and ductal dilatation. Gallbladder appears unremarkable. Spleen is unremarkable. Pancreas and adrenal glands appear unremarkable. Right kidney reveals a lower pole cyst measuring up to 6.8 cm (4; 245, -2 Hounsfield units). A punctate nonobstructing left renal calculus is present (4; 225). No ureteral stones or hydroureteronephrosis. No free intraperitoneal fluid or retroperitoneal masses or adenopathy. Abdominal aorta is normal caliber with mild calcific atherosclerosis. Bowel loops reveal no abnormal wall thickening or distention. The appendix is unremarkable. Colonic diverticulosis is present, without CT evidence of diverticulitis. CT pelvis: No pelvic masses, fluid or adenopathy. Uterus is surgically absent. Urinary bladder is free of gross filling defects. Osseous structures reveal no destructive osseous lesions. There is levoconvex curvature of the lumbar spine. 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 Impression: 1. No acute abnormality or CT explanation for reported history of elevated white count. This document has been electronically signed by: Sam Patterson MD on 07/20/2025 15:27:39 Dictated By: Sam Patterson MD Signed By: Electronically signed by Sam Patterson MD 07/20/25 1528 Reason for Exam: weakness CLINICAL HISTORY: weakness 1 view chest x-ray. Comparison: 07/10/2025 Findings: No consolidation or effusion. Cardiac and mediastinal contours appear stable, with stable cardiac pacer hardware. Bones unremarkable. Impression: 1. No acute pulmonary disease. This document has been electronically signed by: Sam Patterson MD on 07/20/2025 14:17:46 Dictated By: Sam Patterson MD Signed By: Electronically signed by Sam Patterson MD 07/20/25 1418 I independently interpreted this EKG and am in agreement with the below findings: Vent. Rate: 66 BPM Atrial Rate: 66 BPM P-R Int 208 ms QRS Dur: 144 ms QT Int 462 ms P-R-T Axes: 65 -23 111 degrees QTcB Int: 484 ms Atrial-paced rhythm with Premature supraventricular complexes Left bundle branch block When compared with ECG of 10-Jul-2025 08:16, Premature supraventricular complexes are now Present QT has lengthened DD/ 1211 Radiology Impression Discussion of test interpretation with radiology: I have reviewed the radiologist's reading. Independent Historian Clinical information obtained from an independent historian. History obtained from or confirmed by: Other (patient's son provided additional history and confirmed the history provided by the patient. ) External Record Review External record reviewed: Office record and Outpatient record Critical Care Time Critical Care Time Critical Care Time: Yes Total Critical Care Time: 49 Attestation: I spent 49 minutes of Critical Care Time with this patient. This does not include time spent on separately reported billable procedures. Discharge Plan Discharge Clinical Impression: Hypomagnesemia, Hypocalcemia, Fatigue Patient Disposition: Admitted As Inpatient
[2025-07-20 12:54] LABS: MANUAL DIFF FLAG NO
[2025-07-20 12:55] LABS: Hematocrit 36.3 % (37.0-47.0); Hemoglobin 11.9 g/dl (12.0-16.0); Imm Gran Abs Auto 0.07 X10*3/uL (0.00-0.03); Imm Gran Pct Auto 0.5 % (0.0-0.4); Lymphocytes Absolute Auto 0.8 X10*3/uL (1.2-4.9); Mean Corpuscular HGB Conc 32.8 g/dl (31.0-35.0); Mean Corpuscular Hemoglobin 32.7 pg (27.0-33.0); Mean Corpuscular Volume 99.7 fL (80.0-98.0); NRBC Abs Auto 0.000 X10*3/uL (0.0-0.012); NRBC Pct Auto 0.0 /100WBC (0.0-0.2); Platelet Count 220 X10*3/uL (160-400); Red Blood Count 3.64 X10*6/uL (4.20-5.50); White Blood Count 13.6 X10*3/uL (4.8-10.8)
[2025-07-20 13:02] LABS: INTERNATIONAL NORM RATIO 1.0 (0.9-1.1); Prothrombin Time 11.7 SEC (10.9-12.4)
[2025-07-20 13:24] LABS: Alanine Aminotransferase 17 U/L (0-31); Albumin Level 4.0 g/dL (3.5-5.0); Alkaline Phosphatase 95 U/L (39-117); Anion Gap 11 (12-20); Aspartate Amino Transferase 31 U/L (5-31); Blood Urea Nitrogen 34 mg/dL (9-16); Calcium 8.0 mg/dL (8.4-10.2); Carbon Dioxide 28 mmol/L (22-29); Chloride 109 mmol/L (96-108); Creatinine Clr Calc Pharmacy 40.5; Estimated Glomerular Filt Rate 54; Magnesium 1.0 mg/dL (1.6-2.6); Potassium 3.3 mmol/L (3.3-5.1); Sodium 145 mmol/L (135-145); Total Protein 6.3 g/dL (6.5-8.0)
[2025-07-20 13:31] LABS: COVID-19 Test Negative (Negative); IDNOW Serial# 58CA691E
[2025-07-20 13:32] LABS: IDNOW Serial# 55D5AD1C; Influenza B2 Negative (Negative)
[2025-07-20 13:49] LABS: Appearance Urine Clear; Glucose Urine UA Negative (Negative); PH 5.0 (5.0-9.0); Specific Gravity - Urine >= 1.030 (1.005-1.025); UMIC TRIGGER UACC YES
[2025-07-20 13:51] LABS: UACC Culture Trigger YES
[2025-07-20 14:06] VITALS: BP 139/59; PULSE 69; RESP 13; TEMP 36.7; O2SAT 95
[2025-07-20] MEDS: Magnesium Sulfate/H2O 2 GM/50 ML PIGGYBACK IV ×2 (14:06→21:20)
--- NOTE | 2025-07-20 14:07 | PC.NURSE ---
This author assumed care of pt, Pt placed on monitor.PT medicated per MAR, VS updated call lema within reach.
[2025-07-20 14:21] VITALS: BP 131/59; PULSE 58; TEMP 36.7; O2SAT 96
--- NOTE | 2025-07-20 15:55 | PM.IMHP ---
History of Present Illness Date of Service: 07/20/25 Chief Complaint: weakness 85F PMH hypertension, CAD, recurrent UTI, hfpef, presented with weakness. Patient reports feeling weak over the last month or so progressing. Reports recent doubling of Bumex 1 week prior to presentation. Severe muscle fatigue and inability to tolerate mild exertion. Denies shortness of breath or chest pain or dysuria or fever or chills. Denies diarrhea or vomiting. In ED noted to have magnesium of 1. Review of Systems Review of Systems: Yes all other systems are reviewed and are negative [facility] Medical History LFT elevation Epiploic appendagitis History of COVID-19 (~05/2021) History of sick sinus syndrome (~2012) Osteoporosis PVCs (premature ventricular contractions) Diverticular disease Renal calculi Lactose intolerance Anxiety Urge incontinence GERD (gastroesophageal reflux disease) Hypercholesterolemia Obesity (BMI 30-39.9) TIA (transient ischemic attack) Coronary artery disease Orthostatic hypotension dysautonomic syndrome HTN (hypertension) Left bundle branch block History of cardiomyopathy Cardiac pacemaker in situ (~2012) Family History Father No problems noted. Mother No problems noted. Brother Myocardial infarction Surgical History Hx of basal cell carcinoma excision Hx of colonoscopy History of vaginal hysterectomy History of removal of skin mole Hx of appendectomy S/P right knee arthroscopy History of cataract surgery History of esophagogastroduodenoscopy (EGD) History of permanent cardiac pacemaker placement Hx of lumpectomy Social History Housing: Apartment Alcohol intake: current Alcohol intake frequency: holidays/special occasions only Alcohol type: wine Patient Tobacco Use Status: Former Tobacco user Tobacco use type: Cigarette Smoked in Last 30 Days: No e-Cigarette/Vaping Use: Never Used Second Hand Smoke Exposure: No Use of substances other than those prescribed or required for medical reasons: No Advance Directives: No Advance Directives Information Provided: Yes service: No Current occupational status: retired Cognitive needs: No Hearing needs: No Vision needs: Yes Meds Allergies Allergy/AdvReac Type Severity Reaction Status Date / Time Iodinated Contrast Media (IV Allergy Intermediate Hives Verified 07/20/25 12:06 Contrast Dye) oxycodone (From PERCODAN) Allergy Intermediate headache/ringing Verified 07/20/25 12:06 in ears cheese AdvReac Intermediate Diarrhea Verified 07/20/25 12:06 Active Medications: Current Medications Acetaminophen (Acetaminophen 325 Mg Tablet) 650 mg PO Q6H PRN PRN Reason: Pain, Mild 1-3,fever,headache Calcium Carbonate (Calcium Carbonate 750 Mg Tab.Chew) 750 mg PO Q4H PRN PRN Reason: Heartburn Enoxaparin Sodium (Enoxaparin Sodium 40 Mg/0.4 Ml Syringe) 40 mg SUBCUT Q24H ROB Magnesium Sulfate (Magnesium Sulfate/H2o) 2 gm in 50 mls @ 25 mls/hr IV ONCE ONE Stop: 07/21/25 00:43 Magnesium Hydroxide (Milk Of Magnesia 30 Ml Oral.Susp) 30 ml PO DAILY PRN PRN Reason: Constipation Magnesium Oxide (Magnesium Oxide 400 Mg Tablet) 800 mg PO BIDPC ROB Melatonin (Melatonin 3 Mg Tablet) 6 mg PO BEDTIME PRN PRN Reason: Insomnia Sodium Chloride (0.9 % Sodium Chloride Flush 3 Ml Syringe) 3 ml IVFLUSH QSHIFT [facility] Home Medications ?Medication ?Instructions ?Recorded ?Confirmed ?Last Taken ?Type aspirin 81 mg tablet,delayed 81 mg PO DAILY 10/14/20 07/04/25 06/29/22 History release (Adult Aspirin Regimen) ascorbic acid (vitamin C) 1,000 mg 1,000 mg PO DAILY 07/24/21 07/04/25 07/05/22 History tablet (Vitamin C) calcium 500 mg tablet 500 mg PO DAILY 07/24/21 07/04/25 07/05/22 History multivitamin 1 tab PO DAILY 07/24/21 07/04/25 07/05/22 History celecoxib 200 mg capsule 1 PO DAILY PRN Pain 07/20/25 Unknown History isosorbide mononitrate 30 mg 30 mg PO DAILY 07/20/25 Unknown History tablet,extended release 24 hr omeprazole 20 mg capsule,delayed 20 mg PO DAILY@0630 07/20/25 Unknown History release Physical Exam Vital Signs and Narrative: Vital Signs: Last Vital Signs Temp 98.1 F 07/20/25 14:21 Pulse 58 07/20/25 14:21 Resp 13 07/20/25 14:06 BP 131/59 L 07/20/25 14:21 Pulse Ox 96 07/20/25 14:21 O2 Del Method Room Air 07/20/25 14:21 BMI result Body Mass Index 33.7 General: AO X 3, no acute distress, frail appearing Resp: CTA bilateral, no accessory muscles used CVS: S1,S2,RRR GI: soft, non tender, non distended Neuro: motor grossly weak, alert Psych: appropriate affect, appropriate insight Results Labs 07/20/25 12:48 07/20/25 12:48 Labs: Laboratory Results - last 24 hr 07/20/25 07/20/25 07/20/25 12:48 13:10 13:41 MCV 99.7 H MCH 32.7 MCHC 32.8 RDW 14.9 Plt Count 220 MPV 9.8 Immature Gran % (Auto) 0.5 H Neut % (Auto) 87.8 H Lymph % (Auto) 6.1 L [place] % (Auto) 5.3 Eos % (Auto) 0.1 Baso % (Auto) 0.2 Lymph # (Auto) 0.8 L [place] # (Auto) 0.7 Eos # (Auto) 0.0 Baso # (Auto) 0.0 Abs Immat Gran (auto) 0.07 H Absolute Neuts (auto) 11.9 H Absolute Nucleated RBC 0.000 Nucleated RBC % (auto) 0.0 PT 11.7 INR 1.0 Anion Gap 11 L Estim Creat Clear Calc 40.5 Estimated GFR 54 Random Glucose 117 H Calcium 8.0 L Magnesium 1.0 L* Total Bilirubin 0.7 AST 31 ALT 17 Alkaline Phosphatase 95 Total Protein 6.3 L Albumin 4.0 Urine Color Dark Yellow Urine Appearance Clear Urine pH 5.0 Ur Specific [place] >= 1.030 H Urine Protein 30 (1+) H Urine Glucose (UA) Negative Urine Ketones 15 Urine Blood Negative Urine Nitrite Negative Ur Leukocyte Esterase Small (1+) H Urine RBC 0-2 Urine WBC 21-50 H Ur Squamous Epith Cells 0-2 Urine Bacteria None Seen Hyaline Casts 0-2 COVID-19 (ASHA) Negative COVID-19 Clin Com See Note Influenza Type A (LAUREN) Negative Influenza Type B (LAUREN) Negative Influenza A & B Note See Note Assessment and Plan (1) Hepatic steatosis: Status: Acute Plan 85F PMH hypertension, CAD, recurrent UTI, hfpef, presented with weakness Symptomatic severe hypomagnesemia Likely due to Bumex, replace and monitor, hold Bumex and PPI Hypertension Continue hydralazine, Imdur, metoprolol CAD Aspirin, statin Chronic diastolic CHF Holding Bumex for now DVT prophylaxis with Lovenox Full code Given severity of hypomagnesemia and significant symptoms of weakness expected require at least 2 midnights inpatient Quality Stroke Does the patient have a stroke diagnosis?: No VTE Prior VTE?: No VTE Risk Level:: Medical - moderate - high VTE Device Contraindication: Treatment Not Indicated VTE Drug Contraindication: N/A - Med Ordered
--- NOTE | 2025-07-20 17:05 | PHA.MEDREC ---
Addendum entered by Lolly Marin RPh 07/20/25 17:10: reviewed by [facility]. Original Note: Pharmacy Consult ? Medication Reconciliation Pharmacy has completed the medication reconciliation. Confirmed medication list with patient and family member. Patient took 2 extra strength Tylenol this morning but could not remember what time. Patient took all other non-PRN medications yesterday both morning and night doses.
[2025-07-20 21:10] VITALS: BP 139/63; PULSE 60; RESP 18; TEMP 36.5; O2SAT 94
[2025-07-20] MEDS: 0.9 % Sodium Chloride Flush 3 ML SYRINGE IVFLUSH (21:21)
[2025-07-20 21:43] VITALS: BMI 35.5
[2025-07-21] VITALS: BP 128/58; PULSE 79; RESP 20; TEMP 36.1; O2SAT 92
[2025-07-21 04:00] VITALS: BP 146/66; PULSE 76; RESP 20; TEMP 37.1; O2SAT 95
[2025-07-21 07:54] LABS: Hematocrit 35.0 % (37.0-47.0); Hemoglobin 11.3 g/dl (12.0-16.0); Mean Corpuscular HGB Conc 32.3 g/dl (31.0-35.0); Mean Corpuscular Hemoglobin 32.8 pg (27.0-33.0); Mean Corpuscular Volume 101.4 fL (80.0-98.0); NRBC Abs Auto 0.000 X10*3/uL (0.0-0.012); NRBC Pct Auto 0.0 /100WBC (0.0-0.2); Platelet Count 196 X10*3/uL (160-400); Red Blood Count 3.45 X10*6/uL (4.20-5.50); White Blood Count 10.1 X10*3/uL (4.8-10.8)
[2025-07-21 08:00] VITALS: BP 164/72; PULSE 62; RESP 20; TEMP 36.7; O2SAT 96
[2025-07-21 08:10] LABS: Anion Gap 11 (12-20); Blood Urea Nitrogen 27 mg/dL (9-16); Calcium 8.4 mg/dL (8.4-10.2); Carbon Dioxide 29 mmol/L (22-29); Chloride 109 mmol/L (96-108); Creatinine Clr Calc Pharmacy 45.2; Estimated Glomerular Filt Rate 60; Magnesium 2.4 mg/dL (1.6-2.6); Potassium 3.9 mmol/L (3.3-5.1); Sodium 145 mmol/L (135-145)
--- NOTE | 2025-07-21 08:13 | MHC.CM.PN ---
CM met with Patient and her Son/Rodríguez at bedside and addressed IMM with her, providing Patient with the original and a copy has been placed on the chart. Patient lives in an apartment with her Son, who will transport at dc. Patient required no services nor DME DIRECTOR [employer] and home self care is her goal. CM has initiated and will follow for dc planning. PCP is Dr. Logan and Patient has a blank HCP form to complete.
[2025-07-21] MEDS: Metoprolol Succinate ER 100 MG TAB.ER.24H PO (08:24)
--- NOTE | 2025-07-21 10:08 | PM.DS ---
DS: Providers Provider Date of Service: 07/21/25 Date of admission: 07/20/25 15:45 Date of discharge: 07/21/25 Primary care physician: Claudette Logan MD DS: Diagnosis Discharge Diagnosis (1) Hepatic steatosis: Status: Acute DS: Summary Hospital Course Hospital Course: from initial hpi: 85F PMH hypertension, CAD, recurrent UTI, hfpef, presented with weakness. Patient reports feeling weak over the last month or so progressing. Reports recent doubling of Bumex 1 week prior to presentation. Severe muscle fatigue and inability to tolerate mild exertion. Denies shortness of breath or chest pain or dysuria or fever or chills. Denies diarrhea or vomiting. In ED noted to have magnesium of 1. hospital course: Patient was admitted for symptomatic severe hypomagnesemia likely due to combination Bumex, PPI and insufficient daily replacement. She was given 4 g IV magnesium and 1.6gm orally. Magnesium and symptoms improved faster than expected. By the next day magnesium was 2.4 and patient was ambulating with resolution of symptoms. She will be discharged home and will increase magnesium to 800 mg daily. For hypertension was continued on hydralazine, Imdur, metoprolol. For coronary disease continued on aspirin statin. For chronic diastolic CHF Bumex was initially held but will be restarted on discharge. She should continue to monitor on magnesium as outpatient. Time Attestation Discharge Coordination Time (in mins): 34 Quality: Safe Use of Opioids Does Pt have an Active Cancer Diagnosis on the Problem List?: No Quality: Stroke Does the patient have a stroke diagnosis?: No Physical Exam Exam: Exam: General: AO X 3, no acute distress Resp: CTA bilateral, no accessory muscles used CVS: S1,S2,RRR GI: soft, non tender, non distended Neuro: motor grossly intact, alert Psych: appropriate affect, appropriate insight Vital Signs: Vital Signs: Last Vital Signs Temp 98.1 F 07/21/25 08:00 Pulse 62 07/21/25 08:00 Resp 20 07/21/25 08:00 BP 164/72 H 07/21/25 08:00 Pulse Ox 96 07/21/25 08:00 O2 Del Method Room Air 07/21/25 08:00 BMI result Body Mass Index 35.5 DS: Data Data Completed and Pending Labs on day of discharge: Laboratory Results - last 24 hr 07/20/25 07/20/25 07/20/25 12:48 13:10 13:41 WBC 13.6 H RBC 3.64 L Hgb 11.9 L Hct 36.3 L MCV 99.7 H MCH 32.7 MCHC 32.8 RDW 14.9 Plt Count 220 MPV 9.8 Immature Gran % (Auto) 0.5 H Neut % (Auto) 87.8 H Lymph % (Auto) 6.1 L [place] % (Auto) 5.3 Eos % (Auto) 0.1 Baso % (Auto) 0.2 Lymph # (Auto) 0.8 L [place] # (Auto) 0.7 Eos # (Auto) 0.0 Baso # (Auto) 0.0 Abs Immat Gran (auto) 0.07 H Absolute Neuts (auto) 11.9 H Absolute Nucleated RBC 0.000 Nucleated RBC % (auto) 0.0 PT 11.7 INR 1.0 Sodium 145 Potassium 3.3 D Chloride 109 H Carbon Dioxide 28 Anion Gap 11 L BUN 34 H Creatinine 0.98 Estim Creat Clear Calc 40.5 Estimated GFR 54 Random Glucose 117 H Calcium 8.0 L Magnesium 1.0 L* Total Bilirubin 0.7 AST 31 ALT 17 Alkaline Phosphatase 95 Total Protein 6.3 L Albumin 4.0 Urine Color Dark Yellow Urine Appearance Clear Urine pH 5.0 Ur Specific Mears >= 1.030 H Urine Protein 30 (1+) H Urine Glucose (UA) Negative Urine Ketones 15 Urine Blood Negative Urine Nitrite Negative Ur Leukocyte Esterase Small (1+) H Urine RBC 0-2 Urine WBC 21-50 H Ur Squamous Epith Cells 0-2 Urine Bacteria None Seen Hyaline Casts 0-2 COVID-19 (ASHA) Negative COVID-19 Clin Com See Note Influenza Type A (LAUREN) Negative Influenza Type B (LAUREN) Negative Influenza A & B Note See Note 07/21/25 07:08 WBC 10.1 RBC 3.45 L Hgb 11.3 L Hct 35.0 L MCV 101.4 H MCH 32.8 MCHC 32.3 RDW 14.9 Plt Count 196 MPV 10.0 Immature Gran % (Auto) Neut % (Auto) Lymph % (Auto) [place] % (Auto) Eos % (Auto) Baso % (Auto) Lymph # (Auto) [place] # (Auto) Eos # (Auto) Baso # (Auto) Abs Immat Gran (auto) Absolute Neuts (auto) Absolute Nucleated RBC 0.000 Nucleated RBC % (auto) 0.0 PT INR Sodium 145 Potassium 3.9 Chloride 109 H Carbon Dioxide 29 Anion Gap 11 L BUN 27 H Creatinine 0.90 Estim Creat Clear Calc 45.2 Estimated GFR 60 Random Glucose 103 Calcium 8.4 Magnesium 2.4 Total Bilirubin AST ALT Alkaline Phosphatase Total Protein Albumin Urine Color Urine Appearance Urine pH Ur Specific [place]ears Urine Protein Urine Glucose (UA) Urine Ketones Urine Blood Urine Nitrite Ur Leukocyte Esterase Urine RBC Urine WBC Ur Squamous Epith Cells Urine Bacteria Hyaline Casts COVID-19 (ASHA) COVID-19 Clin Com Influenza Type A (LAUREN) Influenza Type B (LAUREN) Influenza A & B Note Discharge Plan Discharge Anticipated Discharge Date/Time: 07/21/25 10:06 Patient Disposition: Home, Self-Care Discharge Diagnosis: hypomag Referrals: Po,Claudette Childers MD [Primary Care Provider, Internal Medicine] - 1 Week Discharge Medications: Continued Restasis 0.05 % dropperette 1 drp ophthalmic (eye) BID Qty: 180 0RF metoprolol succinate 100 mg tablet extended release 24 hr 100 mg PO DAILY Qty: 90 3RF atorvastatin 20 mg tablet 20 mg PO DAILY Qty: 90 2RF (DME) [employer] See Rx Instructions .Route .MEDSUPPLY Qty: 1 0RF Rx Instructions: As directednew 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/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 of 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) ,work order # [id number] , [employer] ph# [phone] fax [phone] hydralazine 100 mg tablet 100 mg PO BID Qty: 180 3RF multivitamin Tablet 1 tab PO DAILY ascorbic acid (vitamin C) [Vitamin C] 1,000 mg Tablet 1,000 mg PO DAILY calcium 500 mg Tablet 500 mg PO DAILY isosorbide mononitrate 30 mg tablet extended release 24 hr 30 mg PO DAILY omeprazole 20 mg capsule,delayed release(DR/EC) 20 mg PO DAILY@0630 acetaminophen 500 mg Tablet 1,000 mg PO Q6H PRN (Reason: Pain) bumetanide 1 mg tablet 0.5 mg PO BID nitroglycerin [Nitrostat] 0.4 mg tablet, sublingual 0.4 mg sublingual Q5M PRN (Reason: chest pain) Qty: 25 1RF Rx Instructions: do not exceed 3 doses per episode meloxicam 7.5 mg tablet 7.5 mg PO DAILY Qty: 14 0RF Changed magnesium aspart,citrate,oxide 400 mg magnesium capsule 800 mg PO DAILY Qty: 90 0RF Discharge Orders: Discharge Order (Routine); Ordered 07/21/25 Ordered By: Freeman Charles Diet: Advance to usual diet Activity on Discharge: As tolerated Stand Alone Forms: Patient Portal Discharge page Print Language: Bangladeshi Care Plan Goals: Avoid hypomagnesemia Health Concerns: Hypomagnesemia Plan of Treatment: Increase magnesium supplement to 800 mg daily Assessment: See above
--- NOTE | 2025-07-21 10:08 | MHC.CM.PN ---
Patient has been medically cleared for dc to home today, self care.
== END 2025-07-21 11:36 | disposition home or self-care (01) | DRG 918 ==
LOC: HO.ED 15:38 → HO.EDOVER 15:47 → HO.IMC 19:50
PROVIDERS: Physician Assistant Medical; Admitting Provider Internal Medicine; Emergency Provider Emergency Medicine Emergency Medical Services; PCP Internal Medicine; Visit Provider Internal Medicine
DX: T50.1X1A Poisoning by loop [high-ceiling] diuretics, accidental (unintentional), initial encounter (principal); I50.32 Chronic diastolic (congestive) heart failure; E83.42 Hypomagnesemia; I49.5 Sick sinus syndrome; I25.10 Atherosclerotic heart disease of native coronary artery without angina pectoris; I11.0 Hypertensive heart disease with heart failure; Z20.822 Contact with and (suspected) exposure to COVID-19; Z87.440 Personal history of urinary (tract) infections; Z95.0 Presence of cardiac pacemaker; Z87.891 Personal history of nicotine dependence; Z79.899 Other long term (current) drug therapy
CPT/HCPCS: 36415; 71045; 74176; 80048; 80053; 81001; 83735; 85025; 85027; 85610; 87086; 87502; 87635; 93005; 99285; J1650; J3475

== ENCOUNTER → 2025-07-20 12:03 | Outpatient (BNV) | payer MEDICARE, MEDICAID, SELFPAY | PROVIDERS: Admitting Provider Internal Medicine; Emergency Provider Emergency Medicine Emergency Medical Services; PCP Internal Medicine; Visit Provider Internal Medicine Cardiovascular Disease | DX: I49.1 Atrial premature depolarization (principal); I44.7 Left bundle-branch block, unspecified; Z95.0 Presence of cardiac pacemaker | CPT/HCPCS: 93010 ==

== ENCOUNTER → 2025-07-20 15:45 | Outpatient (BNV) | payer MEDICARE, MEDICAID, SELFPAY | PROVIDERS: Admitting Provider Internal Medicine; Emergency Provider Emergency Medicine Emergency Medical Services; PCP Internal Medicine; Visit Provider Internal Medicine | DX: K76.0 Fatty (change of) liver, not elsewhere classified (principal) | CPT/HCPCS: 99223; 99239 ==

== ENCOUNTER 2025-07-25 13:04 | Outpatient (AMB) | payer MEDICARE, MEDICAID, SELFPAY ==
[2025-07-25 13:07] VITALS: BP 136/90; PULSE 60; TEMP 36.3; O2SAT 92; BMI 35.0
--- NOTE | 2025-07-25 13:07 | A.OFFPC_ITS ---
Vital Signs 07/25/25 13:07 Height 5 ft 1 in Weight 185 lb 2 oz BMI 35.0 BP 136/90 H Blood Pressure Location Lt brachial Position Sitting Pulse 60 Pulse Source Pulse Oximeter Temp 97.3 F Temp Source Temporal Artery Scan Pulse Oximetry (%) 92 Oxygen Delivery Method Room Air Intake Visit Reasons: [facility] 07/22 hypomagnesium Allergies Iodinated Contrast Media (IV Contrast Dye) Allergy (Intermediate, Verified 07/25/25 13:09) Hives oxycodone (From PERCODAN) Allergy (Intermediate, Verified 07/25/25 13:09) headache/ringing in ears nitrofurantoin (From Macrobid) Adverse Reaction (Intermediate, Unverified 07/25/25 13:30) Nausea Medication List - Last Reconciled 07/25/25 by Claudette Logan MD acetaminophen 1,000 mg PO Q6H PRN ascorbic acid (vitamin C) (Vitamin C) 1,000 mg PO DAILY atorvastatin 20 mg PO DAILY bumetanide 0.5 mg PO BID calcium 500 mg PO DAILY cyclosporine 0.05% (Restasis) 1 drp ophthalmic (eye) BID hydralazine 100 mg PO BID isosorbide mononitrate ER 30 mg PO DAILY magnesium aspart,citrate,oxide 800 mg (2 x 400 mg magnesium) PO DAILY meloxicam 7.5 mg PO DAILY metoprolol succinate ER 100 mg PO DAILY [[employer] 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) ,work order # [id number] , [employer] ph# [phone] fax [phone] ] multivitamin 1 tab PO DAILY nitroglycerin (Nitrostat) 0.4 mg sublingual Q5M PRN omeprazole 20 mg PO DAILY@0630 Tobacco use date assessed: 07/25/25 Fall risk assessment: No Falls in past year Last assessed Fall Risk: 07/25/25 Dental Screening Dental Screen Date: 07/25/25 Did you have a dental visit in the last 12 months?: Yes Did you have a dental problem in the last 6 months where you did not have access to dental care?: No Was dental information given to patient?: Patient has dentist [facility] Information Date of Discharge 07/21/25 Discharged From [facility] Medical History LFT elevation Epiploic appendagitis History of COVID-19 (~05/2021) History of sick sinus syndrome (~2012) Osteoporosis PVCs (premature ventricular contractions) Diverticular disease Renal calculi Lactose intolerance Anxiety Urge incontinence GERD (gastroesophageal reflux disease) Hypercholesterolemia Obesity (BMI 30-39.9) TIA (transient ischemic attack) Coronary artery disease Orthostatic hypotension dysautonomic syndrome HTN (hypertension) Left bundle branch block History of cardiomyopathy Cardiac pacemaker in situ (~2012) Surgical History Hx of basal cell carcinoma excision Hx of colonoscopy History of vaginal hysterectomy History of removal of skin mole Hx of appendectomy S/P right knee arthroscopy History of cataract surgery History of esophagogastroduodenoscopy (EGD) History of permanent cardiac pacemaker placement Hx of lumpectomy Family History Father No problems noted. Mother No problems noted. Brother Myocardial infarction Social History Household Members: Family Housing: House Do you presently have visiting nurse or other home services: No Alcohol intake: current Alcohol intake frequency: holidays/special occasions only Alcohol type: wine Patient Tobacco Use Status: Former Tobacco user Tobacco use type: Cigarette e-Cigarette/Vaping Use: Never Used Second Hand Smoke Exposure: No service: No Current occupational status: retired Cognitive needs: No Hearing needs: No Vision needs: Yes Questionnaire PHQ-9 Over the last 2 weeks, how often have you been bothered by any of the following problems? 1. Little interest or pleasure in doing things: not at all 2. Feeling down, depressed, or hopeless: not at all 3. Trouble falling or staying asleep, or sleeping too much: not at all 4. Feeling tired or having little energy: not at all 5. Poor appetite or overeating: not at all 6. Feeling bad about yourself - or that you are a failure or have let yourself or your family down: not at all 7. Trouble concentrating on things, such as reading the newspaper or watching television: not at all 8. Moving or speaking so slowly that other people could have noticed. Or the opposite - being so fidgety or restless that you have been moving around a lot more than usual: not at all 9. Thoughts that you would be better off or of hurting yourself in some way: not at all Total score: 0 Depression Screening Interpretation: Negative Depression Screening Done: Yes Source: Developed by Drs. Otoniel Lei, Loli La, Robert Baum and colleagues, with an educational ananda from [employer]. Thrive Questionnaire Date Thrive assessed: 01/22/25 I am a: Patient What is your living situation today?: I have a steady place to live Within the past 12 months, did the food you bought not last and you didn't have the money to get more?: Never true Within the past 12 months, did you worry whether your food would run out before you got money to buy more?: Never true Do you have trouble paying for medicines?: No Do you have trouble getting transportation to medical appointments?: No Do you have trouble paying your heating and electricity bill?: No Do you have trouble taking care of your child, family member or friend?: No Do you have trouble with day-to-day activities such as bathing, preparing meals, shopping, managing finances, etc.?: Yes Are you currently unemployed and looking for a job?: No Are you interested in more education?: No Please select the resources that you would like help with: None Currently or been in a relationship where the following occur: No concerns reported THRIVE Score: 0 AUDIT C Alcohol Use Questionnaire (AUDIT-C) 1. How often do you have a drink containing alcohol?: 2-4 times a month 2. How many drinks containing alcohol do you have on a typical day when you are drinking?: 1 or 2 3. How often do you have six or more drinks on one occasion?: Never Total Score: 2 KEYA-7 AMB Questionnaire KEYA-7 Date KEYA - 7 assessed: 03/14/25 Feeling nervous, anxious, or on edge: 0 = Not at all Not being able to stop or control worryin = Not at all Worrying too much about different things: 0 = Not at all Trouble relaxin = Several days Being so restless that it is hard to sit still: 0 = Not at all Becoming easily annoyed or irritable: 0 = Not at all Feeling afraid as if something awful might happen: 0 = Not at all Total KEYA-7 score (0-4 normal; 5-9 mild; 10-14 moderate; 15-21 severe): 1 Source: Developed by Drs. Otoniel Lei, Loli La, Robert Baum and colleagues, with an educational ananda from [employer]. Physical exam (Primary Care) Vital Signs: Last Vital Signs Temp 97.3 F 07/25/25 13:07 Pulse 60 07/25/25 13:07 BP 136/90 H 07/25/25 13:07 Pulse Ox 92 07/25/25 13:07 Oxygen Delivery Method Room Air 07/25/25 13:07 BMI result Body Mass Index 35.0 Tobacco/Smoking Status: Tobacco use Status Tobacco use date assessed 07/25/25 07/25/25 13:10 Patient Tobacco Use Status Former Tobacco user 07/25/25 13:10 Tobacco use type Cigarette 07/25/25 13:10 e-Cigarette/Vaping Use Never Used 07/25/25 13:10 PHQ-9: PHQ-9 Score PHQ-9: Total score 0 07/25/25 13:27 Depression Screening Interpretation: Negative Thrive Assessment: Date of Thrive Assessment Date Thrive assessed 01/22/25 07/25/25 13:10 Currently or been in a relationship where the following occur: No concerns reported Const General: alert; No acute distress Eyes Conjunctivae: conjunctivae normal Resp Auscultation: clear to auscultation bilaterally Cardio Rate: regular rate Rhythm: regular rhythm GI Inspection: Yes normal to inspection Extrem General: Yes normal to inspection and No edema Coding Level of Care Code Est Pt Level 4 (17147) Diagnoses Chronic heart failure with preserved ejection fraction I50.32 Heart failure chronicity: chronic Essential hypertension I10 Hypertension type: essential hypertension Coronary artery disease involving [place] coronary artery of [place] heart without angina pectoris I25.10 Associated angina: without angina Coronary Disease-Associated Artery/Lesion type: [place] artery [place] vs. transplanted heart: [place] heart Hypercholesterolemia E78.00 Hypomagnesemia E83.42 Assessment & Plan Assessment & Plan (1) (HFpEF) heart failure with preserved ejection fraction: Code(s): I50.30 - Unspecified diastolic (congestive) heart failure Category: Medical Qualifiers: Heart failure chronicity: chronic Qualified Code(s): I50.32 - Chronic diastolic (congestive) heart failure Plan: Weigh daily, continue with the diuretics but will need to monitor electrolytes (2) HTN (hypertension): Code(s): I10 - Essential (primary) hypertension Category: Medical Qualifiers: Hypertension type: essential hypertension Qualified Code(s): I10 - Essential (primary) hypertension Plan: Continue with blood pressure medication. Decrease salt intake and exercise on metoprolol 100 mg once a day (3) Coronary artery disease: Code(s): I25.10 - Atherosclerotic heart disease of [place] coronary artery without angina pectoris Category: Medical Qualifiers: Associated angina: without angina Coronary Disease-Associated Artery/Lesion type: [place] artery [place] vs. transplanted heart: [place] heart Qualified Code(s): I25.10 - Atherosclerotic heart disease of [place] coronary artery without angina pectoris Plan: Control the cholesterol, weight, blood pressure, (4) Hypercholesterolemia: Code(s): E78.00 - Pure hypercholesterolemia, unspecified Category: Medical Plan: Avoid fried foods, chicken skin, eggs, butter margarine, pastries and meat. Be it pork or beef they have a lot of cholesterol on atorvastatin 20 mg once a day (5) Hypomagnesemia: Code(s): E83.42 - Hypomagnesemia Category: Medical Plan: Replacement done concern about diuretic use and the diarrhea Plan History of Present Illness The patient is an 85-year-old obese female presenting for follow-up after a recent hospitalization for weakness and nausea. Her chronic medical problems include hypertension, hypercholesterolemia, sick sinus syndrome with a pacemaker, coronary artery disease, left nephrolithiasis, diverticular disease, congestive heart failure with preserved ejection fraction, and hepatic stenosis. The patient was hospitalized on July 20, 2025, for weakness, nausea, and feeling tired. She reported feeling as if she was going to pass out. During the hospitalization, she was found to have a low magnesium level of 1.0, which was subsequently replaced to 2.0. A CT scan of the abdomen and a chest X-ray were both negative. Blood work from July 21 showed mild anemia with a hemoglobin of 11.3 and hematocrit of 35, along with microcytosis. Other labs included a high-normal sodium, potassium of 3.9, creatinine of 0.9, BUN of 31, and a blood sugar of 103. The patient reports a history of chronic, intermittent diarrhea but denies having it at the time of her hospitalization. She also reported an adverse reaction to an unspecified antibiotic, which caused sickness and dizziness. Her health maintenance includes an up-to-date bone density scan, a colonoscopy in 2021, and she is due for a mammogram. She has received all her immunizations, including a flu shot. Health Maintenance Will continue to follow up on health screenings, including a mammogram which is currently due. Social History - Diet: Reports eating salads. - Hydration: Reports drinking a lot of water. Review of Systems - Constitutional: Reports a history of feeling tired, weak, and dizzy leading to hospitalization. - Gastrointestinal: Reports a history of chronic intermittent diarrhea. - Genitourinary: Denies any current urinary symptoms. Physical Exam - General: The patient is an obese female. - Respiratory: Lungs are clear to auscultation bilaterally. Results - Labs from July 21: - Hgb/Hct: 11.3/35 with microcytosis. - Sodium: High-normal. - Potassium: 3.9. - BUN: 31. - Blood sugar: 103. - Creatinine: 0.9. - Labs from hospitalization: - Magnesium: 1.0 on admission, replaced to 2.0. - Imaging from hospitalization: - CT abdomen: Negative. - Chest X-ray: Negative. - Urinalysis from July 20: Positive for white blood cells. Plan Patient was informed and verbally consented to the use of an ambient scribe for clinic note documentation during this visit. 1. Hypomagnesemia The patient's recent hospitalization for weakness and nausea was due to severe hypomagnesemia, likely secondary to diuretic use and exacerbated by chronic intermittent diarrhea. The plan is to continue the current diuretic, bumetanide 0.5 mg twice a day, but the patient has been counseled to hold the medication if she develops diarrhea to prevent recurrence of dehydration and electrolyte abnormalities. Electrolytes, including magnesium, and kidney function will be monitored with a non-fasting blood test in 2-3 months. 2. Hypertension Continue metoprolol 100 mg once daily for blood pressure management. 3. Hypercholesterolemia Continue atorvastatin 20 mg once daily. 4. Asymptomatic Bacteriuria A urinalysis from July 20 showed white blood cells, but the patient is currently asymptomatic. As she has no symptoms, no antibiotic treatment will be initiated. 5. Adverse Drug Reaction To Unspecified Antibiotic The patient reported feeling sick and dizzy after taking an antibiotic. This medication will not be prescribed in the future. Discussion Notes I discussed with the patient that her recent hospitalization for weakness and nausea was caused by a very low magnesium level and dehydration. I explained that this is a known side effect of her diuretic (bumetanide), which can be made worse by episodes of diarrhea, as both can cause significant fluid and electrolyte loss. I advised her to temporarily stop taking the water pill if she experiences diarrhea to prevent this from happening again. We reviewed the adverse reaction of sickness and dizziness she had to a recent antibiotic, and I assured her we would not prescribe it again. I also explained that while a prior urine test showed white blood cells, no treatment is needed since she is not having any symptoms. I have ordered a blood test to be done in 2-3 months to monitor her kidney function and electrolyte levels, and I clarified that she does not need to be fasting for these labs. The patient confirmed she does not require any medication refills at this time. Patient Instructions - Continue taking your daily medications for blood pressure (metoprolol) and cholesterol (atorvastatin) as prescribed. - Continue taking your water pill (bumetanide). - If you get diarrhea, stop taking the water pill until the diarrhea is gone. - An antibiotic you took recently made you feel sick and dizzy. - We have made a note of this and will not give it to you again. - Plan to get a blood test in 2 to 3 months to check your kidney function and electrolytes. - You do not need to fast (avoid food) for this test. - Make sure you continue to drink plenty of water. - Please let us know if you have any other concerns. Orders: Orders Comprehensive Met. Panel Today I50.32 - Chronic diastolic (congestive) heart failure Thyroid Stimulating Hormone Today I50.32 - Chronic diastolic (congestive) heart failure Free T4 (Free Thyroxine) Today I50.32 - Chronic diastolic (congestive) heart failure Magnesium Today E83.42 - Hypomagnesemia NT Pro B Type Natriuretic Pept Today I50.32 - Chronic diastolic (congestive) heart failure Complete Blood Count Auto Diff Today I50.32 - Chronic diastolic (congestive) heart failure Vitamin B12 and Folate Today I50.32 - Chronic diastolic (congestive) heart failure
== END 2025-07-25 13:38 | disposition home or self-care (01) ==
LOC: HO.HMCH 13:05
PROVIDERS: PCP Internal Medicine; Visit Provider Internal Medicine
DX: I50.32 Chronic diastolic (congestive) heart failure (principal); I10 Essential (primary) hypertension; I25.10 Atherosclerotic heart disease of native coronary artery without angina pectoris; E78.00 Pure hypercholesterolemia, unspecified; E83.42 Hypomagnesemia

== ENCOUNTER → 2025-07-25 13:04 | Outpatient (BNVA) | payer MEDICARE, MEDICAID, SELFPAY | PROVIDERS: PCP Internal Medicine; Visit Provider Internal Medicine | DX: I50.32 Chronic diastolic (congestive) heart failure (principal); I25.10 Atherosclerotic heart disease of native coronary artery without angina pectoris; E78.00 Pure hypercholesterolemia, unspecified; E83.42 Hypomagnesemia; I10 Essential (primary) hypertension; R82.71 Bacteriuria; Z13.31 Encounter for screening for depression | CPT/HCPCS: 96127; 99212 ==

== ENCOUNTER 2025-07-30 13:49 | Outpatient (AMB) | payer MEDICARE, MEDICAID, SELFPAY ==
[2025-07-30 14:03] VITALS: BP 120/76; PULSE 78; BMI 35.0
--- NOTE | 2025-07-30 14:03 | MHC.OFFVIS ---
Vital Signs 07/30/25 14:03 Height 5 ft 1 in Weight 185 lb 3.013 oz BMI 35.0 BP 120/76 Blood Pressure Location Lt brachial Position Sitting Pulse 78 Intake Visit Reasons: 6m follow up Intake Note: 6 month follow-up with [facility] c/o sob Milk Bottler Required: No Allergies Iodinated Contrast Media (IV Contrast Dye) Allergy (Intermediate, Verified 07/25/25 13:09) Hives oxycodone (From PERCODAN) Allergy (Intermediate, Verified 07/25/25 13:09) headache/ringing in ears nitrofurantoin (From Macrobid) Adverse Reaction (Intermediate, Unverified 07/25/25 13:30) Nausea Medication List - Last Reconciled 07/30/25 by Juan F Loya MD acetaminophen 1,000 mg PO Q6H PRN ascorbic acid (vitamin C) (Vitamin C) 1,000 mg PO DAILY atorvastatin 20 mg PO DAILY bumetanide 1 mg PO BID calcium 500 mg PO DAILY cyclosporine 0.05% (Restasis) 1 drp ophthalmic (eye) BID hydralazine 100 mg PO BID isosorbide mononitrate ER 30 mg PO DAILY magnesium aspart,citrate,oxide 800 mg (2 x 400 mg magnesium) PO DAILY meloxicam 7.5 mg PO DAILY metoprolol succinate ER 100 mg PO DAILY [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 At that time she was also noted to have heart failure exacerbation given her significant symptoms of shortness of breath including at rest and fatigue. Her bumetanide was since then increase to 1 mg b.i.d. and she says she feels a lot better. She had no other symptoms of decompensated heart failure with no leg edema, abdominal distention, weight gain although she does not monitor weight on a daily basis. Overall she says she feels better. She denies any prolonged palpitation irregular heartbeat. No lightheadedness, syncope. No exertional chest pain [facility] Medical History LFT elevation Epiploic appendagitis History of COVID-19 (~05/2021) History of sick sinus syndrome (~2012) Osteoporosis PVCs (premature ventricular contractions) Diverticular disease Renal calculi Lactose intolerance Anxiety Urge incontinence GERD (gastroesophageal reflux disease) Hypercholesterolemia Obesity (BMI 30-39.9) TIA (transient ischemic attack) Coronary artery disease Orthostatic hypotension dysautonomic syndrome HTN (hypertension) Left bundle branch block History of cardiomyopathy Cardiac pacemaker in situ (~2012) Surgical History Hx of basal cell carcinoma excision Hx of colonoscopy History of vaginal hysterectomy History of removal of skin mole Hx of appendectomy S/P right knee arthroscopy History of cataract surgery History of esophagogastroduodenoscopy (EGD) History of permanent cardiac pacemaker placement Hx of lumpectomy Family History Father No problems noted. Mother No problems noted. Brother Myocardial infarction Social History Household Members: Family Housing: House Do you presently have visiting nurse or other home services: No Alcohol intake: current Alcohol intake frequency: holidays/special occasions only Alcohol type: wine Patient Tobacco Use Status: Former Tobacco user Tobacco use type: Cigarette e-Cigarette/Vaping Use: Never Used Second Hand Smoke Exposure: No service: No Current occupational status: retired Cognitive needs: No Hearing needs: No Vision needs: Yes Review of Systems Const Denies chills, Denies fatigue, Denies fever(s), Denies frequent falls, Denies weakness, Denies weight gain and Denies weight loss ENT Denies dizziness Card Denies chest pain, Denies leg edema, Denies lightheadedness, Denies palpitations, Denies dyspnea, Denies dyspnea on exertion, Denies orthopnea and Denies other (loss of consciousness) Resp Denies cough, Denies dyspnea and Denies dyspnea on exertion GI Denies hematochezia and Denies change in stool character Musc Denies abnormal gait, Denies muscle weakness, Denies numbness, Denies radiating pain into limb and Denies tingling Neuro Denies abnormal gait, Denies dizziness, Denies frequent falls, Denies numbness, Denies tingling and Denies weakness Endo Denies fatigue and Denies palpitations Physical Exam Vital Signs: Last Vital Signs Pulse 78 07/30/25 14:03 BP 120/76 07/30/25 14:03 BMI result Body Mass Index 35.0 Const General: cooperative, comfortable, no acute distress, alert, awake and well groomed Nutritional Appearance: obese Orientation/consciousness: patient oriented x3 Limitations: no limitations Neck Neck: Yes trachea midline, Yes supple and Yes no JVD Chest Chest palpation & inspection: other (Pacemaker pocket appears benign) Resp Effort & Inspection: normal respiratory effort Auscultation: clear to auscultation bilaterally Cardio Jugular venous distension: no JVD Palpation: normal PMI Rate: regular rate Rhythm: regular rhythm Heart sounds: S1 normal heart sound present and S2 normal heart sound present GI Auscultation: normal bowel sounds Skin General skin exam: no rashes or lesions noted Neuro General: patient oriented x3 and no focal motor deficits Extrem General: Yes no clubbing, cyanosis or edema Assessment & Plan Assessment & Plan (1) (HFpEF) heart failure with preserved ejection fraction: Code(s): I50.30 - Unspecified diastolic (congestive) heart failure Category: Medical Qualifiers: Heart failure chronicity: chronic Qualified Code(s): I50.32 - Chronic diastolic (congestive) heart failure Plan: Heart failure preserved ejection fraction with much improved symptoms of higher dose of bumetanide therapy. She feels better. Continue the same. Heart failure management discussed. Daily weight monitoring avoidance salt loading was discussed. Additional diuretics as need be. Will follow up heart failure markers as well as basic metabolic profile today. Also follow-up echocardiogram. If persistently elevated may consider addition of SGLT2 inhibitor therapy. She understands. Continue aggressive blood pressure control which is currently well optimized. (2) Cardiac pacemaker in situ: Onset Date: ~2012 Comment: ([facility] DCPP - placed 2012 for SSS - generator change 2020) Code(s): Z95.0 - Presence of cardiac pacemaker Category: Medical Plan: Cardiac pacemaker in-situ which seems to be working well clinically. Follow up remotely. Follow up in the clinic in 6 months time. (3) Orthostatic hypotension dysautonomic syndrome: Code(s): I95.1 - Orthostatic hypotension Category: Medical Plan: Prior history of dysautonomia syndrome with orthostatic hypotension. Currently not having much symptoms. She does have history of high blood pressure in the past. Currently with current medication dose she has well regulated blood pressure. Continue the same. Orthostatic precautions were discussed. Will follow up in the clinic in 6 months time, sooner PRN. Thank you for allowing me to partake in her care Orders: Orders Magnesium Today I50.30 - Unspecified diastolic (congestive) heart failure, I50.32 - Chronic diastolic (congestive) heart failure Basic Metabolic Panel Today I50.32 - Chronic diastolic (congestive) heart failure NT Pro B Type Natriuretic Pept Today I50.32 - Chronic diastolic (congestive) heart failure CA echo transthoracic complete Today I50.32 - Chronic diastolic (congestive) heart failure Coding Level of Care Code Est Pt Level 4 (86492) Complex EM visit Add On G2211 Diagnoses Chronic heart failure with preserved ejection fraction I50.32 Heart failure chronicity: chronic Cardiac pacemaker in situ Z95.0 Orthostatic hypotension dysautonomic syndrome I95.1
== END 2025-07-30 13:59 | disposition home or self-care (01) ==
LOC: HO.HCS 13:49
PROVIDERS: PCP Internal Medicine; Visit Provider Internal Medicine Cardiovascular Disease
DX: I50.32 Chronic diastolic (congestive) heart failure (principal); Z95.0 Presence of cardiac pacemaker; I95.1 Orthostatic hypotension
CPT/HCPCS: 99214; G2211

== ENCOUNTER 2025-07-30 13:49 | Outpatient (REF) | payer MEDICARE, MEDICAID, SELFPAY ==
[2025-07-30 15:52] LABS: Anion Gap 14 (12-20); Blood Urea Nitrogen 30 mg/dL (9-16); Calcium 9.3 mg/dL (8.4-10.2); Carbon Dioxide 25 mmol/L (22-29); Chloride 104 mmol/L (96-108); Estimated Glomerular Filt Rate 52; Magnesium 1.9 mg/dL (1.6-2.6); Potassium 4.1 mmol/L (3.3-5.1); Sodium 139 mmol/L (135-145)
[2025-07-30 16:48] LABS: NT Pro B Type Natriuretic Pept 1328.5 pg/mL (<300)
== END 2025-07-30 13:50 | disposition home or self-care (01) ==
LOC: HO.LAB 13:49
PROVIDERS: PCP Internal Medicine; Visit Provider Internal Medicine Cardiovascular Disease
DX: I11.0 Hypertensive heart disease with heart failure (principal); I50.32 Chronic diastolic (congestive) heart failure; I95.1 Orthostatic hypotension; Z95.0 Presence of cardiac pacemaker; Z79.899 Other long term (current) drug therapy; Z87.891 Personal history of nicotine dependence
CPT/HCPCS: 36415; 80048; 83735; 83880; 99212

== ENCOUNTER 2025-08-09 13:21 | Outpatient (AMB) | payer MEDICARE, MEDICAID, SELFPAY ==
--- NOTE | 2025-08-09 14:02 | MHC.OFFVIS ---
Intake Visit Reasons: cysto Intake Note: Patient presents today for a cystoscopy Urology Medication:None Blood Thinner:Aspirin Antibiotic Allergies:None Lot #:[id number] Exp:03/04/28 Allergies Iodinated Contrast Media (IV Contrast Dye) Allergy (Intermediate, Verified 08/09/25 14:03) Hives oxycodone (From PERCODAN) Allergy (Intermediate, Verified 08/09/25 14:03) headache/ringing in ears nitrofurantoin (From Macrobid) Adverse Reaction (Intermediate, Verified 08/09/25 14:03) Nausea HPI Comments Details: 08/09/25 History of Present Illness The patient is an 85-year-old female presenting with urinary symptoms and here for a cystoscopy. She reports experiencing urinary frequency and incomplete bladder emptying, with occasional leakage when coughing or sneezing. The symptoms have been persistent, and she sometimes experiences dribbling before reaching the bathroom. A recent CAT scan indicated urinary tract WNL. The cystoscopy revealed bladder wall thickening, which may contribute to bladder spasms and urinary incontinence. Additionally, there is vaginal tissue atrophy, which may exacerbate urinary symptoms. Results - CAT scan: urinary tract WNL - Cystoscopy findings: Bladder wall thickening, no suspicious bladder lesions visualized Plan 1. Bladder Wall Thickening 2. Urinary Incontinence - Initiate mirabegron 3. Vaginal Atrophy - Prescribe estradiol vaginal cream to alleviate irritation. - Instruct patient on proper application technique, avoiding applicator use. 03/25/25 History of Present Illness - The patient is an 84-year-old female presenting with recurrent urinary tract infections. - She has experienced recurrent urinary tract infections over the years, characterized by burning and itching. - An ultrasound revealed incomplete bladder emptying, - the patient denies any urination difficulties. - She had a hysterectomy in her early 30s due to severe hemorrhaging, with four children prior to the surgery. Results - Bladder ultrasound: Incomplete bladder emptying Plan - Schedule a office cystoscopy COUNT INCLUDES THE [facility] Medical History LFT elevation Epiploic appendagitis History of COVID-19 (~05/2021) History of sick sinus syndrome (~2012) Osteoporosis PVCs (premature ventricular contractions) Diverticular disease Renal calculi Lactose intolerance Anxiety Urge incontinence GERD (gastroesophageal reflux disease) Hypercholesterolemia Obesity (BMI 30-39.9) TIA (transient ischemic attack) Coronary artery disease Orthostatic hypotension dysautonomic syndrome HTN (hypertension) Left bundle branch block History of cardiomyopathy Cardiac pacemaker in situ (~2012) Surgical History Hx of basal cell carcinoma excision Hx of colonoscopy History of vaginal hysterectomy History of removal of skin mole Hx of appendectomy S/P right knee arthroscopy History of cataract surgery History of esophagogastroduodenoscopy (EGD) History of permanent cardiac pacemaker placement Hx of lumpectomy Family History Father No problems noted. Mother No problems noted. Brother Myocardial infarction Social History Household Members: Family Housing: House Do you presently have visiting nurse or other home services: No Alcohol intake: current Alcohol intake frequency: holidays/special occasions only Alcohol type: wine Patient Tobacco Use Status: Former Tobacco user Tobacco use type: Cigarette e-Cigarette/Vaping Use: Never Used Second Hand Smoke Exposure: No service: No Current occupational status: retired Cognitive needs: No Hearing needs: No Vision needs: Yes Office Procedures Cystoscopy Consent Discussed risk and benefit or proposed procedure with the patient. Information consent for procedure given to the patient. Discussed technical aspects, risks, benefits and alternatives in full. Addressed all of the patient's questions and concerns regarding the procedure. The patient demonstrated knowledge and understanding. They wish to proceed with this procedure. Preparation The patient was prepped in the usual manner. A firer diesel locomotive was present and in the room. Genitalia was prepped with betadine solution in a sterile manner. Lidocaine Jelly 2% was placed into the urethra and 16Fr flexible Olympus cystoscope was inserted into the meatus after adequate lubrication. Procedure Time out per protocol performed. Speculum used as indicated for adequate visualization of urethra, the flexible cystoscope is passed transurethrally: The bladder was inspected in its entirety with utilization retroflexion displaying: Tumor(s): no suspicious bladder lesions visualized Trabeculation: Mild to Moderate Mucosal Erthema: [] Orifices: normal shape and position Urethra: normal Cystoscopy findings: Bladder wall thickening, no suspicious bladder lesions visualized [id number] DISPOSABLE SCOPE URO-G FLEXIBLE SCOPE Procedure code (CPT) selection complete Office Meds lidocaine HCl 2 % mucosal jelly in applicator Performing Provider: Amaury Lowe MD Performing Location: [facility] Administered by: Jason Mcnulty LPN on 08/09/25 14:08 Dose Route Admin Location Dispensed Lot Number Expiration Date [employer] Driver 10 mL intra-urethral 20 mL ciprofloxacin HCl 500 mg tablet Performing Provider: Amaury Lowe MD Performing Location: [facility] Administered by: Jason Mcnulty LPN on 08/09/25 14:08 Dose Route Admin Location Dispensed Lot Number Expiration Date [employer] Driver 500 mg PO 1 tab phenazopyridine 200 mg tablet Performing Provider: Amaury Lowe MD Performing Location: [facility] Administered by: Jason Mcnulty LPN on 08/09/25 14:08 Dose Route Admin Location Dispensed Lot Number Expiration Date [employer] Driver 200 mg PO 1 tab Results AMB Urinalysis, Automated UA Leukoctes 500 Guerda/uL Last Edit by Amber Rojas on 08/09/25 16:49 UA Nitrite Negative Last Edit by Amber Rojas on 08/09/25 16:49 UA Urobilinogen 0.2 mg/dL Last Edit by Amber Rojas on 08/09/25 16:49 UA Protein 15 mg/dL Last Edit by Amber Rojas on 08/09/25 16:49 UA pH 5.0 Last Edit by Amber Rojas on 08/09/25 16:49 UA Blood 0 Jones/uL Last Edit by Amber Rojas on 08/09/25 16:49 UA Specific [place] 1.015 Last Edit by Amber Rojas on 08/09/25 16:49 UA Ketone Negative Last Edit by Amber Rojas on 08/09/25 16:49 UA Bilirubin 0 mg/dL Last Edit by Amber Rojas on 08/09/25 16:49 UA Glucose 0 mg/dL Last Edit by Amber Rojas on 08/09/25 16:49 Results Reviewed Results Reviewed: Laboratory Last Values Urine pH (Auto) 5.0 08/09/25 15:58 Specific [place] (Auto) 1.015 08/09/25 15:58 Urine Protein (Auto) 15 mg/dL 08/09/25 15:58 Glucose (UA)(Auto) 0 mg/dL 08/09/25 15:58 Urine Ketones (Auto) Negative 08/09/25 15:58 Urine Blood (Auto) 0 Jones/uL 08/09/25 15:58 Urine Nitrite (Auto) Negative 08/09/25 15:58 Urine Bilirubin (Auto) 0 mg/dL 08/09/25 15:58 Urine Urobilinogen (Auto) 0.2 mg/dL 08/09/25 15:58 Leukocyte Esterase (Auto) 500 Guerda/uL 08/09/25 15:58 Assessment & Plan Assessment & Plan (1) Recurrent UTI: Code(s): N39.0 - Urinary tract infection, site not specified Category: Medical (2) History of kidney stones: Code(s): Z87.442 - Personal history of urinary calculi Category: Medical (3) Vaginal atrophy: Code(s): N95.2 - Postmenopausal atrophic vaginitis Category: Medical (4) Urinary incontinence: Code(s): R32 - Unspecified urinary incontinence Category: Medical Plan Plan 1. Bladder Wall Thickening 2. Urinary Incontinence - Initiate mirabegron 3. Vaginal Atrophy - Prescribe estradiol vaginal cream to alleviate irritation. - Instruct patient on proper application technique, avoiding applicator use. Orders: Orders AMB Urinalysis Automated 08/09/25 Z13.9 - Encounter for screening, unspecified AMB Cystoscopy 08/09/25 N39.41 - Urge incontinence, R30.0 - Dysuria, N39.0 - Urinary tract infection, site not specified Medications: New mirabegron ER (Myrbetriq) 25 mg PO DAILY 30 tabs 5RF estradiol 0.01%(0.1mg/gram) (Estrace) Apply pea-sized amount to fingertip vaginally bedtime; 42.5 grams 0RF Patient Instructions: The patient had an opportunity to ask questions regarding treatment plan. The patient expressed understanding and agreement with the above treatment plan. The patient is aware they should contact our office by phone for worsening of their current condition or the appearance of new symptoms. Compliance is encouraged with any medications and followup testing that is ordered. It is a privilege to be allowed the opportunity to participate in the urologic care of your patient. If you have any questions or concerns regarding treatment for the above conditions please do not hesitate to contact me. The office telephone contact is [phone]. This note is constructed in part using voice recognition software. While every effort has been made to ensure accuracy wool washer errors may have been included. Yours sincerely, Amaury Lowe MD Scribe Plan - Not visible on output: Patient was informed and verbally consented to the use of an ambient scribe for clinic note documentation during this visit. Coding Level of Care Code Est Pt Level 4 (71456) Diagnoses Recurrent UTI N39.0 History of kidney stones Z87.442 Vaginal atrophy N95.2 Urinary incontinence R32 CPT Codes Cystoscopy - CPT: 71890-[id number] ([id number])
== END 2025-08-09 14:57 | disposition home or self-care (01) ==
LOC: HO.HUSH 13:22
PROVIDERS: PCP Internal Medicine; Visit Provider Urology
DX: N95.2 Postmenopausal atrophic vaginitis (principal); N39.0 Urinary tract infection, site not specified; R32 Unspecified urinary incontinence; Z87.442 Personal history of urinary calculi
CPT/HCPCS: 52000; 99214

== ENCOUNTER → 2025-08-09 13:21 | Outpatient (BNVA) | payer MEDICARE, MEDICAID, SELFPAY | PROVIDERS: PCP Internal Medicine; Visit Provider Urology | DX: N39.41 Urge incontinence (principal); R30.0 Dysuria; N39.0 Urinary tract infection, site not specified; N95.2 Postmenopausal atrophic vaginitis; Z87.442 Personal history of urinary calculi | CPT/HCPCS: 52000; 81003; 99212 ==

== ENCOUNTER → 2025-09-10 12:42 | Outpatient (REF) | payer MEDICARE, MEDICAID, SELFPAY ==
--- NOTE | ~2025-09-10 | US_ITS ---
EXAMINATION: US KIDNEY BILATERAL HISTORY: Z87.442 - Personal history of urinary calculi TECHNIQUE: Real-time grayscale ultrasound imaging of the kidneys was performed and images were reviewed. COMPARISON: Relation is made with an unenhanced CT of the immediate 07/20/2025. FINDINGS: Right kidney: The right kidney measures 10.5 x 5.9 x 4.4 cm. Renal parenchymal echotexture and thickness are normal. There is a 5.6 x 5.0 x 7.7 cm cyst in the interpolar region. There is no hydronephrosis or renal calculi. Left Kidney: The left kidney measures 10.9 x 4.1 x 3.7 cm. Renal parenchymal echotexture and thickness are normal. There are no masses. There is no hydronephrosis or renal calculi. US/US renal BI IMPRESSION: 5.6 x 5.0 x 7.7 cm right renal cyst. Otherwise unremarkable renal ultrasound. Electronically signed by: Otoniel Diallo MD 09/10/2025 02:38 PM EMELI
--- NOTE | 2025-09-10 12:45 | CA_ITS ---
Transthoracic Echocardiogram Patient (Last, First, Middle): Kirsty Pradhan, Gender: Female Date of : 1940 Age: 85 Procedure Date: 09/10/2025 Procedure Type: Transthoracic Echocardiogram Location: OP Height: 154.94 cm Weight: 83.92 kg BSA: 1.83 m2 Heart Rate: bpm BP: 120 / 76 mmHg Solar Energy Engineer: TO Referring MD: Juan F Loya MD Mandarin Chinese Teacher: Juan F Loya MD Symptoms: I50.32 - Chronic diastolic (congestive) heart failure Study Quality: Fair ECG Rhythm: Ventriculary paced rhythm Conclusions: - 1. Low normal LV ejection fraction 50-55% with grade 1 diastolic dysfunction 2. Mildly dilated left atrium 3. Cardiac valvular Dopplers within normal limits 4. Normal RV systolic pressure 5. No gross pericardial effusion Findings Left Ventricle Normal left ventricular cavity size. There is normal left ventricular wall thickness. The left ventricular systolic function is low normal. There is paradoxical septal motion consistent with a right ventricular pacemaker. Spectral Doppler is indicative of an impaired relaxation filling pattern. E/E prime ratio is <8, consistent with normal filling pressures. Evidence suggests grade I (mild) diastolic dysfunction. Right Ventricle Normal right ventricular cavity size and systolic function. There is a pacemaker wire seen in the right ventricle. Atria The left atrium is mildly dilated. There is no evidence of interatrial shunt. The right atrium is likely dilated. A pacemaker wire is identified in the right atrium. Aortic Valve There is a doming trileaflet aortic valve. There is mild calcification of the aortic valve. There is no aortic valve stenosis. There is no aortic valve regurgitation. Mitral Valve There is mild anterior and posterior mitral leaflet thickening. There is trace mitral valve regurgitation. There is no mitral valve stenosis. Pulmonic Valve The pulmonic valve is likely normal. There is trace to mild pulmonic valve regurgitation. Tricuspid Valve Normal tricuspid valve structure. There is mild tricuspid valve regurgitation. The right ventricular systolic pressure is normal. The right ventricular systolic pressure is 32 mmHg. Normal right atrial pressure. There is no evidence of pulmonary hypertension. Great Vessels All visible segments of the aorta are normal in size. The pulmonary artery was not well visualized. There is no dilatation of the ascending aorta measuring 3.40 cm. Venous The inferior vena cava is normal in size and collapses greater than 50% with inspiration. Pericardium/Pleural There is no evidence of pericardial effusion. Measurements 2D Linear Measurements IVSd: 1.07 0.6-0.9/0.6-1.0 cm LVIDd: 4.23 3.9-5.3/4.2-5.9 cm LVIDd Index: 2.31 2.4-3.2/2.2-3.1 cm/m2 LVIDs: 2.79 2.0-3.6 cm LVPWd: 1.04 0.7-1.1 cm LA Diam: 3.40 2.7-3.8/3.0-4.0 cm LAIDs Index: 1.86 1.5-2.3 cm/m2 LV Mass: 186.32 67-162/88-224 g LV Mass Index: 101.81 43-95/49-115 g/m2 LVOT Diam: 2.00 3.0+(-)1.3 cm 2D Systolic Function EF 4C: 52.40 >55% EF 2C: 53.80 >55% EF BiP: 53.60 >55% Mitral Valve MV Pk E: 0.44 MV PK A: 0.69 MV Decel Time: 98.00 E/A: 0.60 E'Lateral: 6.96 E'Medial: 3.59 E/E' Med: 12.20 E/E' Lat: 6.30 PHT: 29.00 MVA PHT: 7.[address] [place]: 4.45 Aortic Valve AoV Pk Alonso: 1.75 AoV Mn Alonso: 1.14 AoV VTI: 0.33 AoV Pk Grad: 12.00 Aov Mn Grad: 6.00 JHON Cont.VTI: 1.90 LVOT LVOT Pk Alonso: 1.21 LVOT Mn Alonso: 0.79 LVOT VTI: 0.20 LVOT Pk Grad: 6.00 LVOT Mn Grad: 3.00 LVOT Diam: 2.00 LVOT Area: 3.14 Diastolic Function MV Pk E: 0.44 MV Pk A: 0.69 E/A: 0.60 E'Medial: 3.59 E/E' Med: 12.20 E' Laterial: 6.96 E/E' Lat: 6.30 Right Ventricle TAPSE (mm): 22.30 TVS' Alonso: 11.20 Tricuspid Valve TR Pk Alonso: 2.67 TR Pk Grad: 29.00 RA Press: 3.00 RVSP: 32.00 Great Vessels Aorta Sinus of Valsalva: 3.16 2.0-3.5 cm Ao Asc: 3.40 2.1-3.4 cm Updated in Other Vendor System with Status of Final Juan F Loya MD electronically signed on 09/11/2025 10:56:34 AM with status of Final
== END ==
LOC: HO.CARD 12:42
PROVIDERS: PCP Internal Medicine; Visit Provider Internal Medicine Cardiovascular Disease
DX: I50.32 Chronic diastolic (congestive) heart failure (principal); Z87.442 Personal history of urinary calculi
CPT/HCPCS: 76775; 93306

== ENCOUNTER → 2025-09-10 12:45 | Outpatient (BNV) | payer MEDICARE, MEDICAID, SELFPAY | PROVIDERS: PCP Internal Medicine; Visit Provider Internal Medicine Cardiovascular Disease | DX: I51.7 Cardiomegaly (principal) | CPT/HCPCS: 93306 ==

== ENCOUNTER → 2025-09-10 13:58 | Outpatient (BNV) | payer MEDICARE, MEDICAID, SELFPAY | PROVIDERS: PCP Internal Medicine; Visit Provider Radiology Diagnostic Radiology | DX: N28.1 Cyst of kidney, acquired (principal); Z87.442 Personal history of urinary calculi | CPT/HCPCS: 76775 ==

== ENCOUNTER → 2025-09-11 14:58 | Outpatient (BNV) | payer MEDICARE, MEDICAID, SELFPAY | PROVIDERS: PCP Internal Medicine; Visit Provider Internal Medicine Cardiovascular Disease | DX: I49.5 Sick sinus syndrome (principal); Z95.0 Presence of cardiac pacemaker | CPT/HCPCS: 93294 ==